=== PATIENT | female | born 1950 | race Caucasian/White ===

== ENCOUNTER → 2019-07-24 | Outpatient (CLI) | payer MEDICARE ==
--- NOTE | 2019-07-24 12:07 | MM ---
Reason for exam: screening (asymptomatic). History: Patient is postmenopausal. Took hormonal contraceptives for 3 months. Physical Findings: A clinical breast exam by your physician is recommended on an annual basis and results should be correlated with mammographic findings. MG 3D Screening Mammo W/Cad Bilateral CC and MLO view(s) were taken. No prior studies available for comparison. The breast tissue is heterogeneously dense. This may lower the sensitivity of mammography. There are benign appearing round calcifications bilaterally. There is no discrete abnormality. ASSESSMENT: Benign, BI-RAD 2 RECOMMENDATION: Routine screening mammogram of both breasts in 1 year.
== END | disposition home or self-care (01) ==
LOC: RADMAMWWP 11:15
PROVIDERS: ATTEND Family Medicine
DX: Z12.31 Encounter for screening mammogram for malignant neoplasm of breast (principal)
CPT/HCPCS: 77063; 77067

== ENCOUNTER → 2020-03-03 | Outpatient (CLI) | payer MEDICARE ==
--- NOTE | 2020-03-03 16:29 | CONS ---
CONSULTATION DATE OF SERVICE: 03/03/2020 A 69-year-old lady who has been evaluated in the [facility] for possible obstructive sleep apnea-hypopnea syndrome. HISTORY OF PRESENT ILLNESS/SLEEP WAKE EVALUATION: Patient usual sleep schedule from 12:30 - 2 am until 10 a.m. She does have problems with falling asleep, although no TV in bedroom. She sleeps on the side position. She has been told that she snores. She wakes up from sleep with back pain. No history of hypnagogic hallucinations, sleep paralysis or cataplexy. [place] Sleepiness Scale is 1. During the day, patient has problem with the memory, claustrophobia. PAST MEDICAL HISTORY: Positive for hypertension and diabetes, from the back. PAST SURGICAL HISTORY: Total hysterectomy, tonsillectomy, adenoidectomy. MEDICATIONS: Tizanidine 4 mg once a day, tamsulosin 4 mg 3 times a day, lisinopril 10 mg once a day. Motrin 15 mg once a day. Amitriptyline 25 mg, atorvastatin 20 mg once a day, Restoril 30 mg once a day at bedtime. REVIEW OF SYSTEMS: Snoring. PHYSICAL EXAM: lady without distress. BP 120/72, HR 85, RR 15, height 4, 11, weight 154.8, temperature 98.9, oxygen saturation at room air 99%. OROPHARYNX: Low position of soft palate. Mallampati 3. NECK: Supple, no JVD. Thyroid is not palpable. LUNGS: Clear to percussion and to auscultation. Good air exchange. No wheezing or rhonchi. HEART: S1, S2 regular. No murmurs, gallops, or rubs. ABDOMEN: Soft and nontender. Bowel sounds are present. No organomegaly appreciated. EXTREMITIES: No clubbing or cyanosis. 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 Cranial nerves 2 to 7 intact. There is no fasciculation or atrophy. noted. No focal deficits observed. IMPRESSION: 1. Snoring, sometimes awakenings from sleep, low position of soft palate. Possible obstructive sleep apnea-hypopnea syndrome. 2. Hypertension. 3. Diabetes mellitus. 4. Back problems. 5. Status post total hysterectomy. 6. Status post tonsillectomy. 7. Status post adenoidectomy. PLAN: 1. Polysomnography for evaluation of patient's breathing during sleep. 2. CPAP/BiPAP titration if sleep study confirms obstructive sleep apnea-hypopnea syndrome. 3. Preferable position during sleep on the side. 4. No driving if patient feels any sleepiness. 5. I will see patient for follow up visit to explain results of testing and following plan. Thank you very much for referring this patient for consultation. Sincerely, Zack Yu MD, PhD, FAASM Diplomat of [place] [employer] [facility] [facility] [place] MMODL / IJN: [id number] /
== END | disposition home or self-care (01) ==
LOC: SLEEP 14:43
PROVIDERS: ATTEND Internal Medicine
DX: I10 Essential (primary) hypertension (principal); E11.9 Type 2 diabetes mellitus without complications; Z90.710 Acquired absence of both cervix and uterus; Z98.890 Other specified postprocedural states; Z99.89 Dependence on other enabling machines and devices; Z79.899 Other long term (current) drug therapy; Z79.1 Long term (current) use of non-steroidal anti-inflammatories (NSAID)
CPT/HCPCS: 99211

== ENCOUNTER → 2020-03-29 | Outpatient (CLI) | payer MEDICARE ==
[2020-03-29 12:55] VITALS: BP 98/54; PULSE 87; RESP 16; TEMP 98.4
--- NOTE | 2020-03-29 13:22 | P.PAINCN ---
History of Present Illness - Reason for Consult Consult date: 03/29/20 - History of Present Illness This is a 69 years old female with a chronic history of severe low back pain, started almost 10 years ago, she denies any initiating event, the intensity of the pain increased over time, and 3 years ago she had lumbar epidural steroid injections, and she had no benefit from it, and 2 years ago she started having issues with her urination, she is not able to control her bladder function, he was evaluated by urologist and recommend urinary catheterization, currently she is complaining of severe low back pain with radiation to the buttock bilaterally and the lower extremity, and to the vaginal area, and to the lower extremity, associated with numbness and tingling sensation, she denies any fever or night sweats Past Medical History Past Medical History: GERD/Reflux, Hyperlipidemia, Hypertension, Musculoskeletal Disorder, Osteoarthritis (OA) Additional Past Medical History / Comment(s): bladder problems, can't empty blad jose fully, self catheterizes frequently, heart valve problems-card. monitors, nerve pain in crotch area & low back History of Any Multi-Drug Resistant Organisms: None Reported Past Surgical History: Hysterectomy, Orthopedic Surgery, Tonsillectomy Additional Past Surgical History / Comment(s): ORIF right ankle & then hardware removed, cataracts removed Past Anesthesia/Blood Transfusion Reactions: Previous Problems w/ Anesthesia Additional Past Anesthesia/Blood Transfusion Reaction / Comm: years ago had problem waking up from anesthesia, but not recently Past Psychological History: Depression Smoking Status: Former smoker Past Alcohol Use History: None Reported Additional Past Alcohol Use History / Comment(s): quit smoking 1 month ago, smoked on & off since age of 18 <1/2ppd Past Drug Use History: None Reported Medications and Allergies Home Medications Medication Instructions Recorded Confirmed Type Amitriptyline HCl [Elavil] 50 mg PO HS 03/26/20 03/29/20 History Atorvastatin [Lipitor] 20 mg PO HS 03/26/20 03/29/20 History Ibuprofen [Motrin] 600 mg PO Q6HR PRN 03/26/20 03/29/20 History Lisinopril [Zestril] 10 mg PO DAILY 03/26/20 03/29/20 History Tamsulosin [Flomax] 0.4 mg PO DAILY 03/26/20 03/29/20 History Temazepam [Restoril] 30 mg PO HS PRN 03/26/20 03/29/20 History tiZANidine [Zanaflex] 4 mg PO DAILY 03/26/20 03/29/20 History Allergies Allergy/AdvReac Type Severity Reaction Status Date / Time codeine Allergy passed out Verified 03/29/20 12:37 Penicillins Allergy tongue Verified 03/29/20 12:37 swelling, throat closing meperidine [From Demerol] AdvReac "out of it" Verified 03/29/20 12:37 Physical Exam Vitals: Vital Signs Temp Pulse Resp BP Pulse Ox 03/29/20 12:39 98.4 F 87 16 98/54 98 Physical Examinations : -Constitutiona : Cooperative , not in acute distress . -HEENT : nech : supple , no Lymphadenopathy , normal thyroid size . : eyes : no ptosis , no icterus, no photophobia . - neurologic : Cranial nerve II to XII intact , no focal neurological deffecit . -psychatric : alert , oriented X 3 , appropriate affect , intact judgment and insight . -Lymphatic : no Lymphadenopathy . - musculoskeltal : Lumber spine moter stegnth lower extremities ,thigh and legs 4/5 Right side , 4/5 Left side deep tendon reflexes : normal Knee J erk , normal ankle Jerk lumber facet Loading Test =positive Right , positive Left Range of motion of the lumbar spine Flexion 30 degrees, extension 10 degrees strait leg raising test = positive at 45 degree Fabere test= positive Right , and positive LT . Sever tenderness over the Sacroiliac joint on the Right , and Left sides Gaenslen test= positive right ,and positive left . Seated flexion test= positive right ,and positive Left . Results Comments: MRI of the lumbar spine= L2 3 L3 4 L4 5 and L5-S1 bulging disc disease and facet joint arthropathy and foraminal stenosis Assessment and Plan Plan: Assessment and plan=1-lumbar radiculopathy. 2-lumbar foraminal stenosis. 3-lumbar spondylosis with lumbar facet arthropat hy without myelopathy. 4-bilateral sacroiliitis. Patient had no benefit from lumbar epidural steroid injection previously at different pain clinic a few years ago Patient will be good candidate to have bilateral median branch block at L3, L4, L5 (2 target the facet joint at L4 5 and L5-S1 ) She had good results with a diagnostic medial branch block then we will proceed with the RFA, So in the future patient could benefit from sacroiliac joint steroid injection Time with Patient: Greater than 30 PQRS Measure Charge Sheet Measure #130: Documentation of Current Meds in Medical Chart: Patient's medications documented in chart Measure #226: Tobacco Use: Screen & Cessation Intervention: Pt not a tobacco user Measure #111: Pneumonia Vaccination: Pneumococcal vaccine administered or previously received Measure #47: Advance Care Plan: Advance care planning discussed & documented, pt chose/unable to give Measure #412: Opioid Treatment Agreement: No documentation of signed opioid treatment agreement Measure #408: Opioid Therapy Follow-up Evaluation: Patient had NO f/u eval minimum every 3 months during opioid therapy Measure #317: Preventitive Care & Scrn High Bld Press & F/U: Normal blood pressure, f/u not required Measure #128: Body Mass Index (BMI) Screening & Follow-up: BMI documented ABOVE normal parameters - f/u documented Measure #131: Pain Assessment & Follow-up: Pain positive & plan documented, Follow-up scheduled Measure #431: Unhealthy Alcohol Use Preventative Care & Scrn: Patient not identified as an unhealthy alcohol user PQRS Narrative: Blood Pressure 98/54 Pain Intensity [Bilateral 7 Groin] Scale Used Numeric (1 - 10) Hx Alcohol Use (MH) No Home Medications: Ambulatory Orders Amitriptyline HCl [Elavil] 50 mg PO HS 03/26/20 Atorvastatin [Lipitor] 20 mg PO HS 03/26/20 Ibuprofen [Motrin] 600 mg PO Q6HR PRN 03/26/20 Lisinopril [Zestril] 10 mg PO DAILY 03/26/20 Tamsulosin [Flomax] 0.4 mg PO DAILY 03/26/20 Temazepam [Restoril] 30 mg PO HS PRN 03/26/20 tiZANidine [Zanaflex] 4 mg PO DAILY 03/26/20
== END | disposition home or self-care (01) ==
LOC: PNWHC3 11:54
PROVIDERS: ATTEND Specialist
DX: M48.061 Spinal stenosis, lumbar region without neurogenic claudication (principal); M47.26 Other spondylosis with radiculopathy, lumbar region; M46.1 Sacroiliitis, not elsewhere classified; E78.5 Hyperlipidemia, unspecified; I10 Essential (primary) hypertension; M19.90 Unspecified osteoarthritis, unspecified site; K21.9 Gastro-esophageal reflux disease without esophagitis; Z79.891 Long term (current) use of opiate analgesic; Z79.899 Other long term (current) drug therapy; Z88.0 Allergy status to penicillin; Z88.5 Allergy status to narcotic agent; Z87.891 Personal history of nicotine dependence
CPT/HCPCS: 99211

== ENCOUNTER 2020-04-16 13:00 | Day surgery (SDC) | payer MEDICARE ==
[2020-04-16] MEDS ORDERED: LIDOCAINE 1% (10MG/ML) FOR IV START INTRADERMA ONE (13:27)
[2020-04-16 13:28] VITALS: RESP 16; TEMP 96.9
[2020-04-16] MEDS ORDERED: LACTATED RINGERS 1,000 ML IV ONE (13:29)
[2020-04-16] MEDS ORDERED: MIDAZOLAM 2 MG/2 ML VIAL ONE (14:18)
[2020-04-16] MEDS ORDERED: TRIAMCINOLONE ACETONIDE 40 MG/ML 1 ML VIAL ONE (14:18)
[2020-04-16] MEDS ORDERED: methylPREDNISolone ACETATE 40 MG/ML 1 ML VIAL ONE (14:18)
[2020-04-16] MEDS ORDERED: ROPIVACAINE 5MG/ML 20ML VIAL ONE (14:18)
--- NOTE | 2020-04-16 14:40 | P.PCN ---
Date of Procedure: 04/16/20 Procedure(s) Performed: PREOPERATIVE DIAGNOSIS : 1- Lumbar spondylosis with Facet Arthropathy without myelopathy . 2- Lumber foraminal stenosis 3-bilateral sacroiliitis POSTOPERATIVE DIAGNOSIS: 1- Lumbar spondylosis with Facet Arthropathy without myelopathy . 2- Lumber foraminal stenosis. 3- bilaeral sacoiliis PROCEDURE: Diagnostic bilateral L3 , L4 , and L5 medial branch block under fluoroscopy guidance(fluoroscopy images available in the radiology Department ) ( To target the facet joint between L4-5 , and L5-S1 ) ANESTHESIA:, Monitored anesthesia care anesthesiaDepartment. EBL: Minimal COMPLICATION: None PROCEDURE INDICATION: Chronic low back pain secondary to Facet arthropathy unresponsive to conservative treatment. PROCEDURE DESCRIPTION: the patient was seen and identified in the preop holding area , risks and benefits and possible complications of the procedure and alternative were discussed with the patient, and the patient agreed to proceed with the procedure and signed the consent and vital signs monitored during the procedure and fluoroscopy was used to maximize the benefit and accuracy of the needle placement, and sedation was given to decrease patient anxiety, patient was taken to the procedure room and placed in prone position vital signs monitored in the back prepped with chlorhexidine X3 then under strict sterile technique using a right oblique fluoroscopy ,the junction of the transverse process and the superior articulating process of the right L3 , L4 , and L5 vertebra which corresponding to the fluoroscopy image of the eye of the Martin dog on the block side for the medial branches and subsequently , after local infiltration of skin and subcu tissuies with Ropivacaine 0.5 % , one mL at each level ,then 22-gauge Quincke-type needles , 3 needle was used , each one of them placed at the junction of the base of the transverse process and the superior articular process at the appropriate level, and the needle was advanced until the periosteum contacted, needle placement confirmed with AP oblique and lateral view and after appropriate needle placement confirmed, and after negative aspiration for heme and CSF and there was no paresthesia 1-1/2 mL of Ropivacaine 0.5% mixed with 20 mg Depo-Medrol , then half mL injected at each level after negative aspiration the needle subsequently removed and the same procedure repeated for the left side at left side at L3 , L4 and L5 levels. At the end of the procedure and the needles removed and a bandage applied after the skin was cleaned the cleaning solution patient taken to recovery room in stable condition and monitors in the recovery room for 20-30 minutes and discharged home in stable condition after discharge criteria met and patient will follow up with the pain clinic in 2-4 weeks
[2020-04-16] MEDS ORDERED: IV FLUID CONTINUATION 1,000 ML IV ONE (14:42)
[2020-04-16 14:57] VITALS: BP 100/61; PULSE 71
[2020-04-16] MEDS ORDERED: LACTATED RINGERS 1,000 ML IV SCH (15:15)
--- NOTE | 2020-04-16 16:41 | FL ---
Fluoroscopy HISTORY: Pain 20 seconds fluoroscopy time supplied to the referring clinician. 4 intraoperative C-arm images docum ent the procedure. See dictated report from anesthesia.
== END 2020-04-16 15:15 ==
LOC: ORPAIN 13:00
PROVIDERS: ATTEND Specialist
DX: G89.29 Other chronic pain (principal); M47.816 Spondylosis without myelopathy or radiculopathy, lumbar region; M48.061 Spinal stenosis, lumbar region without neurogenic claudication; M46.1 Sacroiliitis, not elsewhere classified; I10 Essential (primary) hypertension; E78.5 Hyperlipidemia, unspecified; K21.9 Gastro-esophageal reflux disease without esophagitis; Z79.899 Other long term (current) drug therapy; Z88.5 Allergy status to narcotic agent; Z88.0 Allergy status to penicillin
CPT/HCPCS: 64493; 64494; J2250; J1030; J2795

== ENCOUNTER → 2020-05-12 | Outpatient (CLI) | payer MEDICARE ==
--- NOTE | 2020-05-12 12:22 | XR ---
EXAMINATION TYPE: XR Hip Complete RT DATE OF EXAM: 05/12/2020 COMPARISON: NONE HISTORY: Pain TECHNIQUE: 2 views submitted FINDINGS: There is no evidence of erosive change or acute fracture. There is moderate to severe axial narrowing of the hip joint. Calcifications in the pelvis nonspecific but likely vascular. IMPRESSION: 1. Moderate severe axial narrowing of the hip joint. No erosive changes correlate clinically.
== END | disposition home or self-care (01) ==
LOC: RADXRMAIN 12:01
PROVIDERS: ATTEND Anesthesiology
DX: M25.851 Other specified joint disorders, right hip (principal)
CPT/HCPCS: 73502

== ENCOUNTER → 2020-05-12 | Outpatient (CLI) | payer MEDICARE ==
[2020-05-12 11:45] VITALS: BP 99/58; PULSE 89; RESP 18; TEMP 98.6
--- NOTE | 2020-05-12 11:51 | P.PN ---
Subjective Progress Note Date: 05/12/20 This is a 69-year-old lady with history of chronic lower back pain with radiation to the right lower extremity down to the foot as she states. The patient received lumbar medial branch block which did not help her pain as she states. She does have facet arthropathy by MRI of the lumbar spine and also kimberly ral foraminal stenosis plus and degenerative changes in the sacroiliac joints. She also has pain in her right hip when she walks. Patient denies new-onset weakness, bowel/bladder incontinence, or any other signs or symptoms of cauda equina syndrome. There are no signs of acute intoxication, and no indications of medication diversion or overuse. In addition to above, 13-point review of systems is also negative for chest pain, shortness of breath, changes in vision, changes in hearing, new onset weakness, abdominal pain, diarrhea, extreme fatigue, malaise, fever, skin changes, homicidal or suicidal ideation, or bowel or bladder incontinence. Vital Signs: Reviewed in EMR Gen: AAOx3, NAD HEENT: PERRLA,hearing grossly normal Pulm: resp unlabored Neck: supple, trachea midline Neuro exam of the lower extremities: Decreased muscle strength to 4 out of 5 for knee flexion and extension bilaterally and normal ankle flexion and extension bilaterally. Straight leg raising test: Moses's test: Range of motion of the lumbar spine: Facet loading test: Tenderness in the paravertebral musculature: Significant tenderness in the lumbar paravertebral musculature and also around the sacroiliac joints bilaterally. Neuro: CN II-XII grossly intact, Imaging: Reviewed in EMR/chart Assessment: Lumbar DDD Lumbar spondylosis without myelopathy Lumbar neural foraminal stenosis Bilateral sacroiliitis Right hip also arthritis Plan: 1. Explanation: Opioid and psychological risk scores were reviewed. Diagnoses, prognoses, and multiple treatment options including but not limited to physical therapy, interventional therapies, adjuvant medical therapies, narcotic medication therapies, and surgery were discussed with the patient and all questions were answered to the patient's satisfaction. 2. Opioid agreement: Signed with the patient and the patient is warned not to use opioids while driving or before driving and not to combine opioids with be nzodiazepines or alcohol. 3. Counseling: The patient was counseled extensively on SMOKING CESSATION, BODY MASS INDEX, EXERCISE. Specifically, the patient was instructed regarding the importance of smoking cessation, obesity, and exercise in the context of both chronic pain and overall health. 4. Procedures: I will schedule the patient to have diagnostic sacroiliac joint steroid injection bilaterally under fluoroscopic guidance. She might also need an epidural steroid injection in the future. 5. Consultations: None 6. Investigations: I would order two-view x-ray of the right hip joint 7. Medications: None 8. Disposition: Return to the above-mentioned procedure as soon as possible 9. Maps were reviewed and were appropriate. Objective - Vital Signs Vital signs: Vital Signs Temp 98.6 F 05/12/20 11:42 Pulse 89 05/12/20 11:42 Resp 18 05/12/20 11:42 BP 99/58 05/12/20 11:42 Pulse Ox 99 05/12/20 11:42 Intake & Output 05/11/20 05/12/20 05/12/20 18:59 06:59 18:59 Weight 65.771 kg
== END | disposition home or self-care (01) ==
LOC: PNWHC3 11:35
PROVIDERS: ATTEND Anesthesiology
DX: M48.061 Spinal stenosis, lumbar region without neurogenic claudication (principal); M51.36 Other intervertebral disc degeneration, lumbar region; M47.816 Spondylosis without myelopathy or radiculopathy, lumbar region; M46.1 Sacroiliitis, not elsewhere classified; M16.11 Unilateral primary osteoarthritis, right hip
CPT/HCPCS: 73502; 99211

== ENCOUNTER 2020-06-08 12:03 | Day surgery (SDC) | payer MEDICARE ==
[2020-06-07 13:48] VITALS: BMI 28.3
[2020-06-08] MEDS ORDERED: LACTATED RINGERS 1,000 ML IV ONE (12:52)
[2020-06-08 12:55] VITALS: TEMP 99.1
[2020-06-08] MEDS ORDERED: methylPREDNISolone ACETATE 40 MG/ML 1 ML VIAL ONE (13:00)
[2020-06-08] MEDS ORDERED: ROPIVACAINE 5MG/ML 20ML VIAL ONE (13:00)
[2020-06-08] MEDS ORDERED: IOPAMIDOL M200 10 ML VIAL ONE (13:00)
[2020-06-08] MEDS ORDERED: fentaNYL (PF) 50 MCG/ML 2 ML AMP ONE (13:00)
[2020-06-08] MEDS ORDERED: MIDAZOLAM 2 MG/2 ML VIAL ONE (13:00)
--- NOTE | 2020-06-08 13:12 | P.PCN ---
Date of Procedure: 06/08/20 Description of Procedure: Preoperative diagnoses: bilateral sacroilitis Postoperative diagnoses: bilateral sacroilitis. Procedure: bilateral sacroiliac joint steroid injection under fluoroscopic guidance. Surgeon: Ihsan Dowd MD Anesthesia: [2 mL of 1% lidocaine and moderate sedation per hospital guidelines], sedation time [] Fluoroscopy was used for the procedure and fluoroscopic images were saved to the radiology portion of the patient's chart. EBL: None Procedure indication: The patient had a history of severe chronic low back pain, diagnosed with sacroiliitis unresponsive to conservative treatment. Procedure description: The patient was seen and identified in the preoperative holding area, risks and benefits and alternative of the procedure and possible complications discussed with the patient, and patient agreed with the preceding, patient signed the consent, an IV was started, and vital signs were monitored and were stable throughout the procedure, patient was placed in the prone position on table and the lumbosacral area was prepped and draped with a sterile fashion, vital signs were closely monitored during the procedure, the fluoroscopy camera was placed in the contralateral oblique view on the bilateral sacroiliac joint and the lower part of the joint was identified . Then the skin and subcutaneous tissue was anesthetized using 2 mL of 1% lidocaine then a 22- gauge Quincke-type spinal needle advanced slowly under fluoroscopy and placed in the posterior and inferior border of the right sacroiliac joint, placement confirmed with AP and lateral view, and after appropriate needle placement confirmed and after negative aspiration for heme, 1 mL of Isovue 200 was injected revealing intra-articular spread. Then a solution consisting of 1.5 ml of ropivacaine 0.5% and 20 mg of depomedrolinjected after negative aspiration, no paresthesia during the injection, no resistance to injection, and the needle was removed. The procedure was then repeated on the left side. Total of 40 mg of Depomdrol was used for the procedure. Patient tolerated the procedure well without any complication. The patient was returned to supine position after the back was cleaned and a Band-Aid applied, the patient was transported to recovery room in stable condition and monitored for 30 minutes before being discharged home. The patient will follow up with the pain clinic in a few weeks
[2020-06-08] MEDS ORDERED: IV FLUID CONTINUATION 400 ML IV ONE (13:16)
[2020-06-08 13:19] VITALS: RESP 20
[2020-06-08 13:42] VITALS: BP 101/62; PULSE 83
--- NOTE | 2020-06-08 14:38 | FL ---
Fluoroscopy HISTORY: Pain 7 seconds fluoroscopy time supplied to the referring clinician. 2 intraoperative C-arm images docume nt the procedure. See dictated report from anesthesia.
== END 2020-06-08 13:46 | disposition home or self-care (01) ==
LOC: ORPAIN 12:03
PROVIDERS: ATTEND Anesthesiology
DX: G89.29 Other chronic pain (principal); M46.1 Sacroiliitis, not elsewhere classified; Z88.0 Allergy status to penicillin; Z88.5 Allergy status to narcotic agent; Z91.040 Latex allergy status; Z90.710 Acquired absence of both cervix and uterus
CPT/HCPCS: J2250; J1030; J3010; Q9966; J2795; G0260

== ENCOUNTER → 2020-06-23 | Outpatient (CLI) | payer MEDICARE ==
[2020-06-23 13:37] VITALS: BP 80/48; PULSE 106; RESP 18; TEMP 97.5
--- NOTE | 2020-06-23 14:20 | P.PN ---
Subjective Progress Note Date: 06/23/20 this is a follow-up visit for this 69 years old female, with a chronic history of severe low back pain she states most with lumbar degenerative disc disease and lumbar spondylosis with lumbar facet arthropathy and bilateral sacroiliitis, previously we have done diagnostic medial branch block , which was negative and recently we did bilateral sacroiliac joint steroid injections, patient reported that she get significant improvement of her low back pain ,after the sacroiliac joint steroid injection,she denies any fever or night sweats which denies any auditory or sensory deficit the pain is intense and increased with any activity Objective - Vital Signs Vital signs: Vital Signs Temp 97.5 F L 06/23/20 13:35 Pulse 106 H 06/23/20 13:35 Resp 18 06/23/20 13:35 BP 80/48 06/23/20 13:35 Pulse Ox 92 L 06/23/20 13:35 Intake & Output 06/22/20 06/23/20 06/23/20 18:59 06:59 18:59 Weight 63.503 kg - Exam Physical Examinations : -Constitutiona : Cooperative , not in acute distress . -HEENT : nech : supple , no Lymphadenopathy , normal thyroid size . : eyes : no ptosis , no icterus, no photophobia . - neurologic : Cranial nerve II to XII intact , no focal neurological deffecit . -psychatric : alert , oriented X 3 , appropriate affect , intact judgment and insight . -Lymphatic : no Lymphadenopathy . - musculoskeltal : Lumber spine moter stegnth lower extremities ,thigh and legs 4/5 Right side , 4/5 Left side deep tendon reflexes : normal Knee Jerk , normal ankle Jerk lumber facet Loading Test =positive Right , positive Left Range of motion of the lumbar spine Flexion 30 degrees, extension 10 degrees strait leg raising test = positive at 45 degree Fabere test= positive Right , and positive LT . Sever tenderness over the Sacroiliac joint on the Right , and Left sides Gaenslen test= positive right ,and positive left . Seated flexion test= positive right ,and positive Left . Assessment and Plan Plan: MRI of the lumbar spine= L2 3 L3 4 L4 5 and L5-S1 bulging disc disease and facet joint arthropathy and foraminal stenosis. Assessment and plan=1-lumbar radiculopathy. 2-lumbar foraminal stenosis. 3-lumbar spondylosis with lumbar facet arthropathy without myelopathy. 4-bilateral sacroiliitis. She had No benefit from diagnostic medial branch block. Patient had good pain relief after bilateral sacroiliac joint steroid injection, and the pain relief was for short-term for this reason we will repeat bilateral sacroiliac joint steroid injection under fluoroscopy guidance PQRS Measure Charge Sheet Measure #130: Documentation of Current Meds in Medical Chart: Patient's medications documented in chart Measure #226: Tobacco Use: Screen & Cessation Intervention: Pt not a tobacco user Measure #111: Pneumonia Vaccination: Pneumococcal vaccine administered or previously received Measure #47: Advance Care Plan: Advance care planning discussed & documented, pt chose/unable to give Measure #412: Opioid Treatment Agreement: No documentation of signed opioid treatment agreement Measure #408: Opioid Therapy Follow-up Evaluation: Patient had NO f/u eval minimum every 3 months during opioid therapy Measure #317: Preventitive Care & Scrn High Bld Press & F/U: Normal blood pressure, f/u not required Measure #128: Body Mass Index (BMI) Screening & Follow-up: BMI documented ABOVE normal parameters - f/u documented Measure #131: Pain Assessment & Follow-up: Pain positive & plan documented, Follow-up scheduled Measure #431: Unhealthy Alcohol Use Preventative Care & Scrn: Patient not identified as an unhealthy alcohol user PQRS Narrative: Time with Patient: Less than 30
== END | disposition home or self-care (01) ==
LOC: PNWHC3 13:24
PROVIDERS: ATTEND Specialist
DX: M48.061 Spinal stenosis, lumbar region without neurogenic claudication (principal); M51.26 Other intervertebral disc displacement, lumbar region; M51.16 Intervertebral disc disorders with radiculopathy, lumbar region; M47.26 Other spondylosis with radiculopathy, lumbar region; M46.1 Sacroiliitis, not elsewhere classified
CPT/HCPCS: 99211

== ENCOUNTER 2020-07-20 08:25 | Day surgery (SDC) | payer MEDICARE ==
[2020-07-19 09:16] VITALS: BMI 28.3
[2020-07-20 08:55] VITALS: RESP 16; TEMP 98.4
[2020-07-20] MEDS ORDERED: LACTATED RINGERS 1,000 ML IV ONE (08:56)
[2020-07-20] MEDS ORDERED: LIDOCAINE 1% (10MG/ML) FOR IV START INTRADERMA ONE (08:56)
[2020-07-20] MEDS ORDERED: ROPIVACAINE 5MG/ML 20ML VIAL ONE (09:01)
[2020-07-20] MEDS ORDERED: MIDAZOLAM 2 MG/2 ML VIAL ONE (09:01)
[2020-07-20] MEDS ORDERED: methylPREDNISolone ACETATE 40 MG/ML 1 ML VIAL ONE (09:01)
[2020-07-20] MEDS ORDERED: IOPAMIDOL M200 10 ML VIAL ONE (09:01)
--- NOTE | 2020-07-20 09:14 | P.PCN ---
Date of Procedure: 07/20/20 Preoperative Diagnosis: Bilateral sacroiliac joint dysfunction Postoperative Diagnosis: Bilateral sacroiliac joint dysfunction Procedure(s) Performed: Bilateral sacroiliac joint injection under fluoroscopy guidance Anesthesia: MAC Surgeon: Nathan Livingston Estimated Blood Loss (ml): 0 IV fluids (ml): 100 Urine output (ml): 0 Pathology: none sent Condition: stable Disposition: PACU Description of Procedure: PROCEDURE INDICATIONS: This patient with a history of chronic low back pain, and sacroiliac joint dysfunction. Patient tried conservative therapy. Came here for intervention management. PROCEDURE DESCRIPTION: The patient was seen and identified in the preoperative area. Risks, benefits, complications, and alternatives were discussed with the patient. The patient agreed to proceed with the procedure and signed the consent. IV was started, and vital signs were stable. Patient was taken to the OR and time out was completed. The patient was placed in the prone position on procedure table and a pillow was placed under the abdomen to reduce lumbar lordosis. The lumbosacral area was prepped and draped in the usual sterile fashion. Critical pause was taken. Vital signs were closely monitored during the procedure. For the right side, the fluoroscopic camera was placed in left oblique view and right SI joint lower pole was identified. Skin entry point was infiltrated with 1% lidocaine and 22-gauge 3.5 inch spinal needle was introduced into the inferior one-third of SI joint and after penetrating into the joint arthrogram was done. 0.5 ml of [id number] contrast was injected after negative aspiration for blood, and air and negative for paresthesia. Good spread of the contrast into the SI joint has been seen. Then again after negative aspiration of spinal fluid and blood and negative for neurological symptoms, 3 mL of a solution containing total 2.5 mL of 1% preservative-free 0.5% ropivacaine mixed with 20 mg of Depo-Medrol was injected. The entire procedure was repeated on the left side as above. Needle was withdrawn intact. Skin was cleansed, and bandages were applied. COMPLICATIONS: None. Fluoroscopic image: saved to electronic medical records. DISPOSITION / PLANS: The patient was placed in a supine position and transferred to the recovery area in a stable condition for observation and was discharged from the recovery room after meeting discharge criteria. Home discharge i nstructions given to the patient by the staff. The patient was reexamined prior to discharge. The patient will schedule for follow-up visit with the pain clinic in 4 weeks duration.
[2020-07-20] MEDS ORDERED: LACTATED RINGERS 1,000 ML IV SCH (09:15)
--- NOTE | 2020-07-20 09:24 | FL ---
EXAMINATION TYPE: FL guided pain mgmt statistic DATE OF EXAM: 07/20/2020 HISTORY: Fluoroscopy time 2 seconds of fluoroscopy provided. IMPRESSION: 1. Fluoroscopy time.
[2020-07-20 09:27] VITALS: PULSE 67
[2020-07-20 09:41] VITALS: BP 88/54
== END 2020-07-20 10:06 | disposition home or self-care (01) ==
LOC: ORPAIN 08:25
DX: G89.29 Other chronic pain (principal); M53.3 Sacrococcygeal disorders, not elsewhere classified; Z88.0 Allergy status to penicillin; Z88.5 Allergy status to narcotic agent; Z91.040 Latex allergy status; Z79.899 Other long term (current) drug therapy; Z79.1 Long term (current) use of non-steroidal anti-inflammatories (NSAID); Z90.710 Acquired absence of both cervix and uterus
CPT/HCPCS: J2250; J1030; Q9966; J2795; G0260

== ENCOUNTER → 2020-08-19 | Outpatient (CLI) | payer MEDICARE ==
--- NOTE | 2020-08-23 14:02 | MM ---
Reason for exam: screening (asymptomatic). Last mammogram was performed 1 year and 1 month ago. History: Patient is postmenopausal. Family history of breast cancer in paternal grandmother. Took hormonal contraceptives for 3 months. Physical Findings: A clinical breast exam by your physician is recommended on an annual basis and results should be correlated with mammographic findings. MG 3D Screening Mammo W/Cad Bilateral CC and MLO view(s) were taken. Prior study comparison: July 24, 2019, bilateral MG 3d screening mammo w/cad. There are scattered fibroglandular densities. No significant changes when compared with prior studies. ASSESSMENT: Negative, BI-RAD 1 RECOMMENDATION: Routine screening mammogram of both breasts in 1 year.
== END | disposition home or self-care (01) ==
LOC: RADMAMWWP 11:01
PROVIDERS: ATTEND Family Medicine
DX: Z12.31 Encounter for screening mammogram for malignant neoplasm of breast (principal); Z80.3 Family history of malignant neoplasm of breast; Z78.0 Asymptomatic menopausal state
CPT/HCPCS: 77063; 77067

== ENCOUNTER → 2020-09-15 | Outpatient (CLI) | payer MEDICARE ==
[2020-09-15 12:23] VITALS: BP 115/70; PULSE 109; RESP 18; TEMP 98.5
--- NOTE | 2020-09-15 12:36 | P.PN ---
Subjective Progress Note Date: 09/15/20 Ama presents for follow-up today. She recently had bilateral sacroiliac joint injections. She reported that the injections offered 0% relief of her pain that is radiating into her crotch. She reports the pain stays in the crotch area and occasionally the low back. She feels a fullness sensation. She reports she's had a history of a hysterectomy 15 years ago. She has seen urology who she reports did not do any imaging just offered her some medications. She describes the pain as a sharp pain which does not increase or decrease with urination or defecation. She denies any vaginal bleeding or any discharge. She denies any sharp shooting pain down the leg. There is no pain in the hip. She's had an x-ray of the hip done in May showed severe osteoarthritis of the right hip. She also explains that she needs bilateral knee replacements. The pain is usually worse in the morning and throughout the day. Review of Systems: Denies any New chest pain, short of breath, Nausea/vomitting, abdominal pain, bowel or bladder incontinence, or any overt new neurologic symptoms in the upper or lower extremities outside of what is noted in the HPI Objective - Vital Signs Vital signs: Vital Signs Temp 98.5 F 09/15/20 12:21 Pulse 109 H 09/15/20 12:21 Resp 18 09/15/20 12:21 BP 115/70 09/15/20 12:21 Pulse Ox 97 09/15/20 12:21 - Exam General: Awake and alert oriented 3 no distress Respiratory exam: No audible wheezing no accessory muscle usage Cardiovascular exam: regular rate, palpable bilateral pulses, no lower extremity edema Abdominal exam: No distention nontender to palpation Cervical spine: Normal alignment, Spurling's negative, facet loading negative, Microsystems Engineer strength is 5/5, nunez negative Lumbar spine: There is a loss of lordosis, atrophy of the paraspinal and gluteal muscles. She is in a forward flexed body position. She is minimally tender over the sacrum. No tenderness over the lumbar spine. No tenderness over the trochanteric bursa. Her right and left hip movement pretty freely. Internal and external rotation did not cause any pain. Mike's test is negative. Gains on's is negative. Neuro exam: Normal sensation in bilateral upper extremities, deep tendon reflexes are 2+ bilateral upper extremities. Normal sensation in bilateral lower extremities. Deep tendon reflexes are 2+ in lower extremities Psych exam: Cooperative, appropriate mood Assessment and Plan Assessment: #1 sacroiliitis #2 pelvic pain Plan: At this point the injections have not offered significant benefit. I have ordered a computed tomography scan of the abdomen and pelvis with and without contrast. I like for her to see gynecology as well. I have referred her to see Dr. Ramos and asked to follow-up with us as needed moving forward.
== END ==
LOC: PNWHC3 12:11
PROVIDERS: ATTEND Hospitalist
DX: M46.1 Sacroiliitis, not elsewhere classified (principal); R10.2 Pelvic and perineal pain; M16.11 Unilateral primary osteoarthritis, right hip
CPT/HCPCS: 99211

== ENCOUNTER 2020-11-15 18:06 | Emergency (ER) | payer MEDICARE ==
[2020-11-15 18:11] VITALS: BP 113/60; PULSE 95; RESP 20; TEMP 98.4
--- NOTE | 2020-11-15 18:37 | ED ---
General Adult HPI - General Chief complaint: Recheck/Abnormal Lab/Rx Stated complaint: trouble urinate Time Seen by Provider: 11/15/20 18:18 Source: patient Mode of arrival: ambulatory Limitations: no limitations - History of Present Illness Initial comments: Dictation was produced using [employer] dictation software. please excuse any grammatical, word or spelling errors. Chief Complaint: 70-year-old female with history of urinary retention presents with urinary retention History of Present Illness: 70-year-old female she has back issues. She has history of urinary retention that she attributes to her chronic back issues. Patient states she last urinated at 3 PM. She has had urinary issues several years ago. She does have equipment to perform straight catheterizations on herself. She is unsuccessful earlier today. No other complaints. The ROS documented in this emergency department record has been reviewed and confirmed by me. Those systems with pertinent positive or negative responses have been documented in the HPI. All other systems are other negative and/or noncontributory. PHYSICAL EXAM: General Impression: Alert and oriented x3, not in acute distress HEENT: Normocephalic atraumatic, extra-ocular movements intact, pupils equal and reactive to light bilaterally, mucous membranes moist. Cardiovascular: Heart regular rate and rhythm Chest: Able to complete full sentences, no retractions, no tachypnea Abdomen: abdomen soft, mild tenderness to the suprapubic area, non-distended, no organomegaly Musculoskeletal: Pulses present and equal in all extremities, no peripheral edema Motor: no focal deficits noted Neurological: CN II-XII grossly intact, no focal motor or sensory deficits noted Skin: Intact with no visualized rashes Psych: Normal affect and mood ED course: 70 y Old female presents with urinary retention. Postvoid residual is 430 mL vital signs upon arrival are within acceptable limits. Martinez catheter was placed. Patient given outpatient referral to urology. Patient will be discharged. - Related Data Home Medications Medication Instructions Recorded Confirmed Amitriptyline HCl [Elavil] 50 mg PO HS 03/26/20 09/15/20 Atorvastatin [Lipitor] 20 mg PO HS 03/26/20 09/15/20 Lisinopril [Zestril] 10 mg PO DAILY 03/26/20 09/15/20 Tamsulosin [Flomax] 0.4 mg PO BID 03/26/20 09/15/20 Temazepam [Restoril] 30 mg PO HS 03/26/20 09/15/20 tiZANidine [Zanaflex] 4 mg PO DAILY 03/26/20 09/15/20 Gabapentin [Neurontin] 100 mg PO BID 06/07/20 09/15/20 Allergies Allergy/AdvReac Type Severity Reaction Status Date / Time codeine Allergy passed out Verified 11/15/20 18:10 latex Allergy Itching Verified 11/15/20 18:10 Penicillins Allergy tongue Verified 11/15/20 18:10 swelling, throat closing meperidine [From Demerol] AdvReac "out of it" Verified 11/15/20 18:10 Review of Systems ROS Statement: Those systems with pertinent positive or pertinent negative responses have been documented in the HPI. ROS Other: All systems not noted in ROS Statement are negative. Past Medical History Past Medical History: GERD/Reflux, Hyperlipidemia, Hypertension, Osteoarthritis (OA) Additional Past Medical History / Comment(s): bladder problems,can't empty bladder fully, self catheterizes frequently, nerve pain in "crotch" area & low back, two leaky heart valves, past hx ulcers, 'bad rt hip and both knees" History of Any Multi-Drug Resistant Organisms: None Reported Past Surgical History: Cholecystectomy, Hysterectomy, Orthopedic Surgery, Tonsillectomy Additional Past Surgical History / Comment(s): ORIF right ankle & then hardware removed, cataracts removed-stuart, pain clinic procedures Past Anesthesia/Blood Transfusion Reactions: Previous Problems w/ Anesthesia Additional Past Anesthesia/Blood Transfusion Reaction / Comment(s): years ago problem w/waking fron anesthesia, but not recently Past Psychological History: No Psychological Hx Reported Smoking Status: Former smoker Past Alcohol Use History: None Reported Past Drug Use History: None Reported - Past Family History Mother Family Medical History: No Reported History General Exam Limitations: no limitations Course Vital Signs 11/15/20 18:08 Temperature 98.4 F Pulse Rate 95 Respiratory 20 Rate Blood Pressure 113/60 O2 Sat by Pulse 97 Oximetry Disposition Clinical Impression: Urinary retention Disposition: HOME SELF-CARE Condition: Fair Instructions (If sedation given, give patient instructions): Acute Urinary Retention in Women (ED) Is patient prescribed a controlled substance at d/c from ED?: No Referrals: Jose G Wills DO [Primary Care Provider] - 1-2 days Negrito Goddard MD [STAFF PHYSICIAN] - 1-2 days
[2020-11-15 20:25] LABS: Appearance,Urine Clear (Clear); Bacteria,Urine Moderate /hpf; Bilirubin,Urine Negative (Negative); Blood,Urine Negative (Negative); Color,Urine Yellow; Glucose,Urine (UA) Negative (Negative); Ketones,Urine Negative (Negative); Leukocyte Esterase,Urine Small (Negative); Mucus,Urine Rare /hpf; Nitrite,Urine Positive (Negative); Protein,Urine Negative (Negative); RBC,Urine <1 /hpf (0-5); Specific Gravity,Urine 1.008 (1.001-1.035); Squamous Epithelial Cell,Urine <1 /hpf (0-4); Urobilinogen,Urine <2.0 mg/dL (<2.0); WBC,Urine 14 /hpf (0-5)
== END 2020-11-15 19:10 | disposition home or self-care (01) ==
LOC: EC 18:06
DX: R33.9 Retention of urine, unspecified (principal); I10 Essential (primary) hypertension; E78.5 Hyperlipidemia, unspecified; K21.9 Gastro-esophageal reflux disease without esophagitis; M19.90 Unspecified osteoarthritis, unspecified site; Z87.891 Personal history of nicotine dependence; Z88.0 Allergy status to penicillin; Z88.5 Allergy status to narcotic agent; Z91.040 Latex allergy status
CPT/HCPCS: 51702; 51798; 81001; 87077; 87086; 87186; 99283

== ENCOUNTER → 2020-11-30 | Outpatient (CLI) | payer MEDICARE | END | disposition home or self-care (01) | LOC: LABPAT 08:46 | PROVIDERS: ATTEND Orthopaedic Surgery Sports Medicine | DX: Z01.812 Encounter for preprocedural laboratory examination (principal) | CPT/HCPCS: 87070; 93005 ==

== ENCOUNTER → 2020-12-01 | Outpatient (CLI) | payer MEDICARE ==
[2020-12-01 11:57] LABS: HCT 35.3 % (34.0-46.0); HGB 11.6 gm/dL (11.4-16.0); MCH 30.3 pg (25.0-35.0); MCHC 32.8 g/dL (31.0-37.0); MCV 92.4 fL (80.0-100.0); Mean Platelet Volume 6.6; Platelet Count 474 k/uL (150-450); RBC 3.82 m/uL (3.80-5.40); RDW 14.2 % (11.5-15.5); WBC 8.5 k/uL (3.8-10.6)
[2020-12-01 12:07] LABS: Albumin 3.8 g/dL (3.5-5.0); Calcium 9.2 mg/dL (8.4-10.2); Potassium 4.7 mmol/L (3.5-5.1); Total Bilirubin 0.3 mg/dL (0.2-1.3); Total Protein 6.3 g/dL (6.3-8.2)
[2020-12-01 12:32] LABS: Partial Thromboplastin Time 23.9 sec (22.0-30.0); Prothrombin Time 10.5 sec (9.0-12.0)
== END | disposition home or self-care (01) ==
LOC: LABPAT 10:51
PROVIDERS: ATTEND Orthopaedic Surgery Sports Medicine
DX: Z01.812 Encounter for preprocedural laboratory examination (principal)
CPT/HCPCS: 36415; 80053; 85027; 85610; 85730

== ENCOUNTER → 2020-12-08 | Outpatient (CLI) | payer MEDICARE ==
[2020-12-08 13:30] VITALS: BP 133/96; PULSE 83; RESP 18; TEMP 98.1
--- NOTE | 2020-12-14 14:53 | P.PAINPG ---
Subjective Progress Note Date: 12/08/20 Ama presents for follow-up today. Past we have done bilateral sacroiliac joint injections and medial branch blocks. It seems only one set of sacroiliac joint injections were helpful in the medial branch blocks were not helpful. She reports the pain stays in the crotch area and occasionally the low back. She feels a fullness sensation. She reports she's had a history of a hysterectomy 15 years ago. She has seen urology who she reports did not do any imaging just offered her some medications. She describes the pain as a sharp pain which does not increase or decrease with urination or defecation. She denies any vaginal bleeding or any discharge. She denies any sharp shooting pain down the leg. There is no pain in the hip. She's had an x-ray of the hip done in May showed severe osteoarthritis of the right hip. Plan for her in the last visit was for her to get a CT of her abdomen and pelvis to rule out any pelvic pathology. We also referred her to Dr. Ramos for evaluation. She is here for follow-up today. she saw Dr. Ramos however she was not happy with him and does not want to see him again. She also did not get a CT of her abdomen and pelvis that she was confused as to where to go to get this. She has questions about burning of the nerves, however I mentioned her that according to documentation the medial branch blocks were not helpful for her and she endorses this as well. She said she was still like to get these nerves burned, however I did tell her it would not make sense given that the diagnostic injections were not successful. Also scheduled to have knee replacement on the right side on December 30. I did mention that would not want to do any steroid injection so close to the procedure as this would delay wound healing. Review of Systems: Denies any New chest pain, short of breath, Nausea/vomitting, abdominal pain, bowel or bladder incontinence, or any overt new neurologic symptoms in the upper or lower extremities outside of what is noted in the HPI Objective - Exam General: Awake and alert oriented 3 no distress Respiratory exam: No audible wheezing no accessory muscle usage Cardiovascular exam: regular rate, palpable bilateral pulses, no lower extremity edema Abdominal exam: No distention nontender to palpation Cervical spine: Normal alignment, Spurling's negative, facet loading negative, Grocery Clerk Checking strength is 5/5, nunez negative Lumbar spine: There is a loss of lordosis, atrophy of the paraspinal and gluteal muscles. She is in a forward flexed body position. She is minimally tender over the sacrum. No tenderness over the lumbar spine. No tenderness over the trochanteric bursa. Her right and left hip movement pretty freely. Internal and external rotation did not cause any pain. Mike's test is negative. Gains on's is negative. Neuro exam: Normal sensation in bilateral upper extremities, deep tendon reflexes are 2+ bilateral upper extremities. Normal sensation in bilateral lower extremities. Deep tendon reflexes are 2+ in lower extremities Psych exam: Cooperative, appropriate mood Assessment and Plan Assessment: #1 sacroiliitis #2 pelvic pain Plan: At this point the injections have not offered significant benefit. I have ordered a computed tomography scan of the abdomen and pelvis with and without contrast. She should get this and proceed with her knee surgery. We will follow up after her CT I have spent 32 minutes with chart reviewing the patient, speaking to the patient, and discussing plan of care with the patient PQRS Measure Charge Sheet PQRS Narrative: Hx Alcohol Use (MH) No Home Medications: Ambulatory Orders Amitriptyline HCl [Elavil] 50 mg PO HS 03/26/20 Atorvastatin [Lipitor] 20 mg PO HS 03/26/20 Lisinopril [Zestril] 10 mg PO DAILY 03/26/20 Tamsulosin [Flomax] 0.4 mg PO BID 03/26/20 Temazepam [Restoril] 30 mg PO HS 03/26/20 tiZANidine [Zanaflex] 4 mg PO DAILY 03/26/20 Gabapentin [Neurontin] 100 mg PO BID 06/07/20 Controlled Substance Measures - Controlled Substance Measures Is patient prescribed a controlled substance at discharge?: No
== END ==
LOC: PNWHC3 12:35
PROVIDERS: ATTEND Anesthesiology
DX: M46.1 Sacroiliitis, not elsewhere classified (principal); Z88.5 Allergy status to narcotic agent; Z91.040 Latex allergy status; Z88.0 Allergy status to penicillin; Z88.6 Allergy status to analgesic agent
CPT/HCPCS: 99211

== ENCOUNTER → 2020-12-21 | Outpatient (CLI) | payer MEDICARE ==
--- NOTE | 2020-12-21 12:30 | CT ---
EXAMINATION TYPE: CT abdomen pelvis w con DATE OF EXAM: 12/21/2020 HISTORY: Pelvic pain for [address] years[address] per order. CT DLP: 798.2mGycm Automated Exposure Control for Dose Reduction was Utilized. CONTRAST: CT scan of the abdomen and pelvis is performed with oral and with IV Contrast, patient injected with 100 mL of Isovue 300. COMPARISON: None. FINDINGS: LUNG BASES: Coronary artery calcification in the RCA distribution. Mild linear scarring posterior rig ht lung base. LIVER/GB: Cholecystectomy clips. PANCREAS: No significant abnormality is seen. SPLEEN: No significant abnormality is seen. ADRENALS: No significant abnormality is seen. KIDNEYS: Tiny subcentimeter cyst upper pole left kidney coronal image 65. BOWEL: Oral contrast does not reach level of the terminal ileum. There is wandering cecum into the ri ght mid abdomen with nondistended terminal ileum seen best on coronal image 41. Mild to moderate dist ention of contrast-filled stomach and duodenal sweep. No suspicious small bowel dilatation. Proximal jejunal loops extend to right of midline immediately after ligament of Treitz. Moderate prominence of the majority of the colon including redundant transverse colon. The descending colon is more in midl ine. Moderate amount of fecal material throughout the right and transverse colon. Moderate wall thick ening of cecum coronal image 36 for reference should be correlated with colonoscopy if has not been r ecently performed. SMA/SMV relationship is preserved. UTERUS/ADNEXA: Uterus surgically absent or markedly atrophic. LYMPH NODES: No greater than 1cm abdominal or pelvic lymph nodes are appreciated. OSSEOUS STRUCTURES: Exaggerated lumbar lordosis. Grade 1 retrolisthesis L1 on L2 and L2-L3. Moderate- to-severe disc space narrowing with endplate sclerosis and vacuum disc phenomenon at these levels. Ad ditional multilevel vacuum disc phenomena and disc space narrowing is noted. Facet arthropathy lower lumbar levels. Moderate axial joint space loss in both hips. OTHER: Tiny fat-containing umbilical hernia. Slightly prominent focal calcified plaque at SMA origin. Cannot exclude significant stenosis due to blooming artifact. IMPRESSION: 1. No significant colonic diverticular disease or CT evidence for diverticulitis. There is moderate g aseous distention of proximal two thirds of colon. Moderate proximal colonic fecal stasis noted. Wand ering cecum and some redundancy of colon is present. Overall nonobstructive bowel gas pattern.
== END | disposition home or self-care (01) ==
LOC: RADCTMAIN 10:00
PROVIDERS: ATTEND Anesthesiology
DX: Q43.8 Other specified congenital malformations of intestine (principal)
CPT/HCPCS: 82565; 84520; 74177; 36415; Q9967

== ENCOUNTER 2020-12-30 07:54 | Day surgery (SDC) | payer MEDICARE ==
--- NOTE | 2020-12-08 12:56 | P.PAINPG ---
Subjective Progress Note Date: 12/08/20 Ama presents for follow-up today. Past we have done bilateral sacroiliac joint injections and medial branch blocks. It seems only one set of sacroiliac joint injections were helpful in the medial branch blocks were not helpful. She reports the pain stays in the crotch area and occasionally the low back. She feels a fullness sensation. She reports she's had a history of a hysterectomy 15 years ago. She has seen urology who she reports did not do any imaging just offered her some medications. She describes the pain as a sharp pain which does not increase or decrease with urination or defecation. She denies any vaginal bleeding or any discharge. She denies any sharp shooting pain down the leg. There is no pain in the hip. She's had an x-ray of the hip done in May showed severe osteoarthritis of the right hip. Plan for her in the last visit was for her to get a CT of her abdomen and pelvis to rule out any pelvic pathology. We also referred her to Dr. Ramos for evaluation. She is here for follow-up today. she saw Dr. Ramos however she was not happy with him and does not want to see him again. She also did not get a CT of her abdomen and pelvis that she was confused as to where to go to get this. She has questions about burning of the nerves, however I mentioned her that according to documentation the medial branch blocks were not helpful for her and she endorses this as well. She said she was still like to get these nerves burned, however I did tell her it would not make sense given that the diagnostic injections were not successful. Also scheduled to have knee replacement on the right side on December 30. I did mention that would not want to do any steroid injection so close to the procedure as this would delay wound healing. Review of Systems: Denies any New chest pain, short of breath, Nausea/vomitting, abdominal pain, bowel or bladder incontinence, or any overt new neurologic symptoms in the upper or lower extremities outside of what is noted in the HPI Objective - Exam General: Awake and alert oriented 3 no distress Respiratory exam: No audible wheezing no accessory muscle usage Cardiovascular exam: regular rate, palpable bilateral pulses, no lower extremity edema Abdominal exam: No distention nontender to palpation Cervical spine: Normal alignment, Spurling's negative, facet loading negative, Slimer strength is 5/5, nunez negative Lumbar spine: There is a loss of lordosis, atrophy of the paraspinal and gluteal muscles. She is in a forward flexed body position. She is minimally tender over the sacrum. No tenderness over the lumbar spine. No tenderness over the trochanteric bursa. Her right and left hip movement pretty freely. Internal and external rotation did not cause any pain. Mike's test is negative. Gains on's is negative. Neuro exam: Normal sensation in bilateral upper extremities, deep tendon reflexes are 2+ bilateral upper extremities. Normal sensation in bilateral lower extremities. Deep tendon reflexes are 2+ in lower extremities Psych exam: Cooperative, appropriate mood Assessment and Plan Assessment: #1 sacroiliitis #2 pelvic pain Plan: At this point the injections have not offered significant benefit. I have ordered a computed tomography scan of the abdomen and pelvis with and without contrast. She should get this and proceed with her knee surgery. We will follow up after her CT I have spent 32 minutes with chart reviewing the patient, speaking to the patient, and discussing plan of care with the patient PQRS Measure Charge Sheet PQRS Narrative: Hx Alcohol Use (MH) No Home Medications: Ambulatory Orders Amitriptyline HCl [Elavil] 50 mg PO HS 03/26/20 Atorvastatin [Lipitor] 20 mg PO HS 03/26/20 Lisinopril [Zestril] 10 mg PO DAILY 03/26/20 Tamsulosin [Flomax] 0.4 mg PO BID 03/26/20 Temazepam [Restoril] 30 mg PO HS 03/26/20 tiZANidine [Zanaflex] 4 mg PO DAILY 03/26/20 Gabapentin [Neurontin] 100 mg PO BID 06/07/20 Controlled Substance Measures - Controlled Substance Measures Is patient prescribed a controlled substance at discharge?: No
[2020-12-24 09:49] VITALS: BMI 27.2
[~2020-12-30 07:54] MED LIST: ACETAMINOPHEN TAB 500 MG TAB PO PRN; CLINDAMYCIN 900 MG in DEXTROSE 5% IN WATER 50 ML IVPB PRN; DEXAMETHASONE SOD PHOSPHATE 4 MG/ML 1 ML VIAL IV ONE; GABAPENTIN 300 MG CAP PO PRN; HYDROmorphone 0.5 MG/0.5 ML SYRINGE IVP PRN; MELOXICAM 7.5 MG TAB PO PRN; MIDAZOLAM 2 MG/2 ML VIAL IV PRN; ONDANSETRON 4 MG/2 ML VIAL IVP ONE; ONDANSETRON 4 MG/2 ML VIAL IVP PRN; ROPIVACAINE/EPI/CLONIDINE/KET 50 ML SYRINGE MISCELLANE PRN; TRANEXAMIC ACID 1,000 MG in SODIUM CHLORIDE 0.9% 100 ML IVPB PRN
[2020-12-30] MEDS: LACTATED RINGERS 1,000 ML IV SCH ×3 (08:39→23:42)
[2020-12-30] MEDS ORDERED: fentaNYL (PF) 50 MCG/ML 2 ML AMP IVP ONE (08:51)
[2020-12-30] MEDS ORDERED: VANCOMYCIN 1,000 MG in SODIUM CHLORIDE 0.9% 250 ML IVPB STA (09:04)
[2020-12-30] MEDS ORDERED: ONDANSETRON 4 MG/2 ML VIAL IVP PRN (09:23)
[2020-12-30] MEDS ORDERED: bisacodyL 10 MG SUPP RECTAL PRN (09:23)
[2020-12-30] MEDS ORDERED: MAGNESIUM HYDROXIDE 2,400 MG/10 ML CUP PO PRN (09:23)
[2020-12-30] MEDS ORDERED: NA PHOS,M-B/NA PHOS,DI-BA 133 ML ENEMA RECTAL PRN (09:23)
[2020-12-30] MEDS ORDERED: NALOXONE 0.4 MG/ML 1 ML VIAL IV PRN (09:23)
[2020-12-30] MEDS ORDERED: HYDROcodone/APAP 5-325MG 1 EACH TAB PO PRN (09:23)
[2020-12-30] MEDS ORDERED: ACETAMINOPHEN TAB 325 MG TAB PO PRN (09:23)
[2020-12-30] MEDS ORDERED: HYDROmorphone 0.2 MG/1 ML SYRINGE IVP PRN (09:23)
[2020-12-30] MEDS ORDERED: traMADol 50 MG TAB PO PRN (09:23)
[2020-12-30] MEDS ORDERED: HYDROmorphone 0.5 MG/0.5 ML SYRINGE IVP PRN ×2 (09:23)
[2020-12-30] MEDS ORDERED: HYDROmorphone (PF) 1 MG/ML ONE (10:18)
[2020-12-30] MEDS ORDERED: LIDOCAINE 1% INJ 10MG/ML (20 ML MDV) ONE (10:18)
[2020-12-30] MEDS ORDERED: ROPIVACAINE 5 MG/ML 30 ML VIAL ONE (10:18)
[2020-12-30] MEDS ORDERED: MIDAZOLAM 2 MG/2 ML VIAL ONE (10:18)
[2020-12-30] MEDS ORDERED: PROPOFOL 10 MG/ML 20 ML VIAL IV ONE (10:18)
[2020-12-30] MEDS ORDERED: SODIUM CHLORIDE 0.9% 100 ML BAG ONE (10:18)
[2020-12-30] MEDS ORDERED: fentaNYL (PF) 50 MCG/ML 2 ML AMP ONE (10:18)
[2020-12-30] MEDS ORDERED: SUCCINYLCHOLINE CHLORIDE 100 MG/5 ML SYR IV ONE (10:18)
[2020-12-30] MEDS ORDERED: TRANEXAMIC ACID 1,000 MG/10 ML VIAL ONE (10:18)
[2020-12-30] MEDS ORDERED: ceFAZolin 3,000 MG in SODIUM CHLORIDE 0.9% IRRIGATIO 3,000 ML IRRIGATION ONE (10:20)
--- NOTE | 2020-12-30 12:08 | P.ANPRN ---
Procedure Note - Anesthesia - Nerve Block Performed Right Adductor Canal Infusion Time Out Performed: Yes (08:51) Date of Procedure: 12/30/20 Procedure Start Time: 08:52 Procedure Stop Time: 09:00 Location of Patient: PreOp Indication: Acute Post-Operative Pain, Dx/Pain Location, Requested by Surgeon Specifically requested for management of pain by Dr.: Abdulaziz Fletcher Sedation Type: Sedate with meaningful contact maintained Preparation: Sterile Prep, Sterile Dressing Position: Supine Catheter: Indwelling Needle Types: Pajunk Needle Gauge: 18 Ultrasound used to visualize needle placement: Yes Ultrasound used to observe medication spread: Yes Injectate: 0.5% Ropivacaine (see comment for volume) (0.25% 20 cc) Blood Aspirated: No Pain Paresthesia on Injection Noted: No Resistance on Injection: Normal Image Stored and Saved: Yes Events: Uneventful and Well Tolerated Right iPack Single Time Out Performed: Yes (08:51) Date of Procedure: 12/30/20 Procedure Start Time: 09:01 Procedure Stop Time: 09:07 Location of Patient: PreOp Indication: Acute Post-Operative Pain, Dx/Pain Location (Right Knee), Requested by Surgeon Specifically requested for management of pain by Dr.: Abdulaziz Fletcher Sedation Type: Sedate with meaningful contact maintained Preparation: Sterile Prep Position: Supine Catheter: None Needle Types: Pajunk Needle Gauge: 20 Ultrasound used to visualize needle placement: Yes Ultrasound used to observe medication spread: Yes Injectate: 0.5% Ropivacaine (see comment for volume) (0.25% 20cc) Blood Aspirated: No Pain Paresthesia on Injection Noted: No Resistance on Injection: Normal Image Stored and Saved: Yes Events: Uneventful and Well Tolerated
--- NOTE | 2020-12-30 13:07 | XR ---
Right knee Limited HISTORY: Status post right knee arthroplasty 2 views of the right knee Patient is status post right knee arthroplasty. There is anatomic alignment. Bone mineralization is r educed. There is lucency in the soft tissues. IMPRESSION: Orthopedic follow-up.
[2020-12-30] MEDS ORDERED: LACTATED RINGERS 1,000 ML IV ONE (13:20)
--- NOTE | 2020-12-30 14:20 | OP ---
OPERATIVE REPORT DATE OF PROCEDURE: 12/30/2020 SURGEON: Abdulaziz Fletcher M.D. VIDEO SYSTEMS ENGINEER: Jeff Christine PA-C PREOPERATIVE DIAGNOSIS: Right knee osteoarthrosis. POSTOPERATIVE DIAGNOSIS: Right knee osteoarthrosis. PROCEDURE: Right total knee arthroplasty. ANESTHESIA: Spinal with sedation. ESTIMATED BLOOD LOSS: 100 mL. TOURNIQUET: Tourniquet time was 44 minutes at 250 mmHg. COMPLICATIONS: None apparent. DRAINS: None. DISPOSITION: Post-Anesthesia Care Unit INDICATIONS: Ama is a very pleasant 70-year-old female with longstanding history of right knee pain. History and physical examination are consistent with advanced right knee osteoarthrosis. She has been through significant nonoperative management up to this point. Further treatment options were discussed, and she has decided to go forward with right total knee arthroplasty. The risks of the procedure were discussed with her in detail. These risks include but are not limited to risk of infection, nerve damage, bleeding, pain, and a small risk of deep vein thrombosis which could lead to fatal pulmonary embolism. There is also a risk of loosening of the implant which could require revision operation. The patient understands these risks. All of her questions were answered to her satisfaction. Appropriate informed consent was obtained. DESCRIPTION OF PROCEDURE: The patient was identified in the preoperative holding area. Surgical site was marked by both the patient and myself. She was given 2 grams of Ancef IV for prophylactic purposes. She was then transferred to the operative suite. She was placed supine on the operating room table. Spinal anesthetic was then administered and dosed per the anesthesia department without apparent complication. Examination under anesthesia was then performed. The patient was 2-3 degrees shy of full extension. She had 100 degrees of flexion. The medial collateral ligament, lateral collateral ligament and posterior cruciate ligaments were stable. Tourniquet was then placed high on the right upper thigh, well padded in preparation for surgery. The patient's right lower extremity was then prepped and draped in usual sterile fashion. A standard surgical pause was then undertaken to ensure that we were operating on the correct site and that appropriate preoperative antibiotics had been given. All staff in the room were in agreement and we proceeded. The outlines of the patella were marked with a surgical pen. A planned 12 cm vertical incision centered over the patella was marked with a surgical pen. The leg was then exsanguinated with an Esmarch dressing. The knee was then flexed and the tourniquet was inflated to 250 mmHg. Total tourniquet time for the procedure was 44 minutes. Incision was then made with a 10 blade scalpel. Dissection was carried down sharply to the overlying fascia. Great care was taken to minimize the skin flaps. The knee was then exposed using a standard medial parapatellar approach. A small cuff of quadriceps tendon was then left for suturing. She was in a small amount of varus preoperatively. A standard medial release was then made. Superficial medial collateral ligament was dissected off the bone around to the posterior aspect of the proximal tibia. The medial meniscus was then excised as well. The lateral meniscus was also released anteriorly. The leg was then externally rotated. The patella was everted. The knee was flexed. Retractors were then placed to protect the collateral ligaments. I then proceeded to remove the infrapatellar fat pad. This was excised sharply tangentially with the fibers of the patellar tendon. I then proceeded to remove the peripheral osteophytes. This was done with a rongeur. I then proceeded with the distal femoral resection. She did have near-full extension. A planned 9 mm resection was then done. The femoral canal was then entered in the midline of the femur approximately 10 mm anterior to the origin of the posterior cruciate ligament. The galilea was then advanced down the center of the femur and placed intramedullary. Based on the preoperative radiographs, the angle between the anatomic and mechanical axis of the femur was approximately 4-5 degrees. The valgus angle of the distal femoral cutting guide was then set at 4 degrees for the right knee. The distal femoral cutting guide was then advanced over the intramedullary galilea. This was seated firmly against the femur. Then, as mentioned, I planned to take 9 mm off the distal femur. The cutting block was then secured onto the femur with pins. The jig was then removed and the distal femoral cut was made through the slot of the block. The pins were then removed. The distal femoral cutting block was removed. The accuracy of the distal femoral cuts was checked with two flat bars. I then proceeded with femoral sizing. The posterior referencing sizing guide was held firmly against the resected distal surface of the femur. The posterior condyles were resting on the posterior plane of the guide. The sizing stylus was then placed onto the anterior femur. The size was measured as a size 5. I then assessed for femoral rotation. The plan was for 3 degrees of external rotation. Three degrees of external rotation was placed onto the jig. These holes were then marked. I then confirmed the rotation by three separate methods. This was done using epicondylar axis as well as [place] line and posterior referencing. It was deemed that the external rotation was proper. Then I went forward with placing the femoral cutting block. This was placed over the previously placed pin holes. The Pierce wing was then placed onto the anterior slots to ensure that we would not notch the anterior femur with the anterior femoral cut. I then proceeded with the anterior femoral cut. This was flush with the anterior cortex of the femur. The posterior cuts were then made followed by the anterior chamfer cut, then the posterior chamfer cut. The cutting block was then removed. Throughout the resection, the collateral ligaments were protected with retractors. I then placed a trial size 5 femur. It was slightly wide, but the narrow fit very nicely and it fit flush with the distal end of the femur. The drill holes were then made. I then proceeded with the tibial cut. I planned for a cruciate-retaining knee. The guide was placed and set for varus, valgus and for slope. The height was set for an approximate 2 mm resection from the medial tibial plateau, which was the lower side. I was happy with the alignment and amount of resection. The cutting block was then pinned to the proximal tibia. The alignment galilea was removed. Proximal tibia was resected with a reciprocating saw. Again, this was done with retractors protecting the collateral ligaments as well as the posterior cruciate ligament. I then proceeded to evaluate the flexion and extension gaps. A 10 mm block was then placed. The flexion and extension gaps were equal. I then proceeded with resection of posterior osteophytes. She had very minimal posterior osteophytes. This was done using a curved osteotome. This resected the posterior osteophytes and posterior capsule stripping was done off the posterior aspect of the femur at this time. The osteophytes were then removed. I then proceeded with resection of the patella. The thickness of the patella was measured using the caliper. The patella was quite worn down. The thickness was 17 mm. The thickness of the anticipated patellar dome was taken into account. Resection was then performed and confirmed to be equal in 4 quadrants using the caliper. Approximately 12 mm of bone remained after resection. A 26 x 7.5 mm standard patellar trial was then placed. The holes were drilled. The trial was then placed. I then proceeded with sizing of the tibial plate. A size C tibial plate fit very nicely. I then placed the trial femur, the tibial tray and the patellar button. A 10 mm trial tibial insert was also placed. The components fit very nicely. She had full extension and flexion. The extension and flexion gaps were equal and stable to both varus and valgus stress. The patella tracked appropriately. Tibial tray rotation was then marked with a Bovie. This was externally rotated properly. I then proceeded with tibial preparation. I first drilled the femoral holes and removed the femoral component. The tibial tray was then set for proper external rotation as well as mediolateral placement onto the tibia. It was then pinned into place. I then proceeded with punching the keel. I then decided to proceed with cementing of all of our components. The knee was thoroughly irrigated with sterile saline solution via pulse lavage. The lateral geniculate artery was identified and cauterized. All blood was removed from the bone of the tibia, femur and patella with pulse lavage. I then proceeded with cementing. Two packs of antibiotic bone cement were prepared on the back table by the assembler surgical garment. I then proceeded with cementing the tibia first. The cement was impacted into the keel as well as deeply seated into the bone. A second coat of cement was then placed. The tibia was then impacted into place. Excess cement was removed with [place]'s and Joker's. I then proceeded with cementing of the femoral component. The femoral component was also cemented using standard technique. Excess cement was removed. A 10 mm trial insert was then placed into the knee. It was brought into full extension with a constant axial load placed until the cement had hardened. The patellar component was then cemented. This was held firmly with a compressive device until the cement had dried. When the cement had dried, the knee was taken out of extension. All excess cement was removed from around the prosthesis. I then trialed the knee with a 10 mm insert. Flexion and extension gaps were appropriate. The knee was stable. It came into full extension. I decided to go forward with a 10 mm medial-congruent, cross-linked cruciate-retaining tibial insert. Polyethylene was then placed onto the tibial tray and locked into place. The knee was then reduced. The knee was again further irrigated with sterile saline solution with antibiotic added. The tourniquet was then deflated. Total tourniquet time for the procedure was 44 minutes at 250 mmHg. Final components were Maurice Persona size 5 narrow cruciate-retaining femoral component, size C tibial tray, a 10 mm medial- congruent cruciate-retaining polyethylene insert and a 26 x 7.5 mm patella. I then proceeded with closure. Again the knee was thoroughly irrigated. The quadriceps tendon and the medial retinaculum were reapproximated with a #2 Ethibond suture. The extensor mechanism was then closed with a running #2 Quill suture. Subcutaneous tissues were closed with 2-0 Vicryl interrupted suture. The skin was closed with a running 3-0 Quill suture. Dermabond was applied to the incision. All sponge and needle counts were deemed correct prior to closure. Sterile compressive dressing was applied. The patient tolerated the procedure without apparent complication. She was transferred to the recovery room in stable condition. MMODL / IJN: [id number] /
[2020-12-30] MEDS: HYDROcodone/APAP 10-325MG 1 EACH TAB PO PRN (15:07)
[2020-12-30] MEDS: ASPIRIN 81 MG PO SCH (21:56)
[2020-12-30] MEDS: SENNOSIDES-DOCUSATE SODIUM 1 EACH TAB PO SCH (21:56)
[2020-12-30] MEDS ORDERED: VANCOMYCIN 1,000 MG in SODIUM CHLORIDE 0.9% 250 ML IVPB ONE (23:30)
[2020-12-31] MEDS: HYDROcodone/APAP 10-325MG 1 EACH TAB PO PRN ×3 (04:24→18:00)
[2020-12-31] MEDS: LACTATED RINGERS 1,000 ML IV SCH ×2 (05:43→16:23)
--- NOTE | 2020-12-31 07:05 | P.PN ---
Progress Note - Text Progress Note Date: 12/31/20 Patient was seen at bedside at 6:15 AM. Patient is postop day 1 from right to kamilla knee replacement with adductor canal catheter placed for pain . Ropivacaine 0.2% infusion running at 8 ml per hour. VAS score is 8. Patient denies side effects. Lower extremity sensation and motor function is intact. Patient has [] ambulated. Dressing clean dry and intact over catheter site
[2020-12-31] MEDS: ASPIRIN 81 MG PO SCH ×2 (07:45→21:55)
[2020-12-31] MEDS: MULTIVITAMINS, THERA 1 EACH TAB PO SCH (07:45)
[2020-12-31] MEDS: GABAPENTIN 100 MG CAP PO SCH ×2 (11:00→21:55)
[2020-12-31] MEDS: TAMSULOSIN 0.4 MG CAP.ER.24H PO SCH ×2 (11:00→21:56)
[2020-12-31] MEDS: lisinopriL 10 MG TAB PO SCH (11:00)
[2020-12-31] MEDS: tiZANidine 4 MG TAB PO SCH (11:05)
[2020-12-31 11:29] LABS: Basophils # (A) 0.03 X 10*3/uL (0.00-0.10); Basophils % (A) 0.2 %; Eosinophils # (A) 0.04 X 10*3/uL (0.04-0.35); Eosinophils % (A) 0.3 %; HCT 33.4 % (37.2-46.3); HGB 10.4 g/dL (12.0-15.0); Lymphocytes # (A) 1.81 X 10*3/uL (0.90-5.00); Lymphocytes % (A) 12.3 %; MCH 29.7 pg (27.0-32.0); MCHC 31.1 g/dL (32.0-37.0); MCV 95.4 fL (80.0-97.0); Mean Platelet Volume 10.5 fL (9.5-12.2); Monocytes # (A) 1.29 X 10*3/uL (0.20-1.00); Monocytes % (A) 8.7 %; Neutrophils # (A) 11.53 X 10*3/uL (1.80-7.70); Platelet Count 374 X 10*3/uL (140-440); RDW 14.8 % (11.5-14.5); WBC 14.77 X 10*3/uL (4.50-10.00)
--- NOTE | 2020-12-31 11:32 | P.PN ---
Subjective Progress Note Date: 12/31/20 Principal diagnosis: R TKA Patient is seen at bedside this morning. She is postop day #1 from right total knee arthroplasty. She has pain at the surgical site as expected but denies any new complaints. She denies numbness, tingling or calf pain. Review of systems is negative for fever, chills, chest pain, shortness of breath or other Objective - Vital Signs Vital signs: Vital Signs Temp 99.8 F H 12/31/20 08:00 Pulse 89 12/31/20 08:00 Resp 18 12/31/20 08:00 BP 105/52 12/31/20 08:00 Pulse Ox 97 12/31/20 08:00 Intake & Output 12/30/20 12/31/20 12/31/20 18:59 06:59 18:59 Intake Total 1307 2230 Output Total 100 800 Balance 1207 1430 Weight 70.6 kg Intake: IV 1307 Intake, IV Titration 1450 Amount Lactated Ringers 1,000 ml 1200 @ 100 mls/hr IV .Q10H VEENA Rx#:[id number] Vancomycin 1,000 mg In 250 Sodium Chloride 0.9% 250 ml @ 125 mls/hr IVPB ONCE ONE Rx#:[id number] Oral 780 Output: Urine 0 800 Uretheral (Martinez) 400 Estimated Blood Loss 100 Other: # Voids 1 - Exam Inspection reveals a benign surgical wound. There is no active bleeding or drainage. Neurovascular status is intact throughout the lower extremity with motor and sensation fully intact. Calf is soft and nontender. 2+ dorsalis pedis pulse and less than 2 second cap refill is present. - Constitutional General appearance: Present: no acute distress - Labs CBC & Chem 7: 12/31/20 06:50 Labs: Abnormal Lab Results - Last 24 Hours (Table) 12/31/20 Range/Units 06:50 WBC 14.77 H (4.50-10.00) X 10*3/uL RBC 3.50 L (4.10-5.20) X 10*6/uL Hgb 10.4 L (12.0-15.0) g/dL Hct 33.4 L (37.2-46.3) % MCHC 31.1 L (32.0-37.0) g/dL RDW 14.8 H (11.5-14.5) % Immature Gran # 0.07 H (0.00-0.04) X 10*3/uL Neutrophils # 11.53 H (1.80-7.70) X 10*3/uL Monocytes # 1.29 H (0.20-1.00) X 10*3/uL Assessment and Plan (1) Status post total right knee replacement Narrative/Plan: She will continue with routine postop orthopedic protocol including pain management, wound care, PT, DVT prophylaxis and medical management. Expect that she will transfer to home tomorrow Current Visit: Yes Status: Acute Priority: Medium Code(s): Z96.651 - PRESENCE OF RIGHT ARTIFICIAL KNEE JOINT SNOMED Code(s): 6374274246292 Time with Patient: Less than 30
[2020-12-31] MEDS ORDERED: AMITRIPTYLINE HCL 50 MG TAB PO SCH (21:00)
[2020-12-31] MEDS ORDERED: ATORVASTATIN 20 MG TAB PO SCH (21:00)
[2020-12-31] MEDS ORDERED: TEMAZEPAM 30 MG CAP PO SCH (21:00)
--- NOTE | 2020-12-31 21:39 | P.CONS ---
History of Present Illness - Reason for Consult Consult date: 12/31/20 Status post right total knee arthroplasty - Chief Complaint Medical management - History of Present Illness Patient is a 70-year-old female with a known history of hypertension, hyperlipidemia, osteoarthritis, GERD and previous history of smoking was admitted to the hospital for elective right total knee arthroplasty. Patient tolerated the procedure very well. Currently sitting up in the chair comfortably. Right knee soreness is present but pain is fairly controlled. No complaints of chest pain or shortness. No fever no chills. No headache or dizziness or lightheadedness. Postoperatively blood pressure was 89/51 and pulse 70 respirations 16 temperature afebrile. Laboratory data showed 14.7, hemoglobin 10.4 and platelets 374 Review of Systems Constitutional: Patient denies any fever or chills . No generalized weakness or weight loss. Abdomen: Patient denied nausea vomiting and diarrhea and abdominal pain. Cardiovascular: Patient denies any chest pain or short of breath no palpitations. Respiratory: patient denied any cough or sputum production. No shortness of breath Neurologic: Patient denied any numbness or tingling headache. Musculoskeletal: Patient denies any complaints of joint swelling or deformity. Skin: Negative Psychiatric: Negative Endocrine: No heat or cold intolerance. No recent weight gain. Genitourinary: No dysuria or hematuria. All other 14 point ROS negative except the above Past Medical History Past Medical History: GERD/Reflux, Hyperlipidemia, Hypertension, Osteoarthritis (OA) Additional Past Medical History / Comment(s): bladder problems,can't empty bladder fully, self catheterizes frequently, nerve pain in "crotch" area & low back, two leaky heart valves, past hx ulcers, 'bad rt hip and both knees" History of Any Multi-Drug Resistant Organisms: None Reported Past Surgical History: Cholecystectomy, Hysterectomy, Orthopedic Surgery, Tonsillectomy Additional Past Surgical History / Comment(s): ORIF right ankle & then hardware removed, cataracts removed-stuart, pain clinic procedures Past Anesthesia/Blood Transfusion Reactions: Previous Problems w/ Anesthesia Additional Past Anesthesia/Blood Transfusion Reaction / Comm: years ago problem w/waking from anesthesia, but not recently Past Psychological History: No Psychological Hx Reported Smoking Status: Former smoker Past Alcohol Use History: None Reported Additional Past Alcohol Use History / Comment(s): quit smoking 2019, smoked on & off since 18 <1/2ppd Past Drug Use History: None Reported - Past Family History Mother Family Medical History: No Reported History Medications and Allergies Home Medications Medication Instructions Recorded Confirmed Type Amitriptyline HCl [Elavil] 50 mg PO HS 03/26/20 12/24/20 History Atorvastatin [Lipitor] 20 mg PO HS 03/26/20 12/24/20 History Lisinopril [Zestril] 10 mg PO DAILY 03/26/20 12/24/20 History Tamsulosin [Flomax] 0.4 mg PO BID 03/26/20 12/24/20 History Temazepam [Restoril] 30 mg PO HS 03/26/20 12/24/20 History tiZANidine [Zanaflex] 4 mg PO DAILY 03/26/20 12/24/20 History Gabapentin [Neurontin] 100 mg PO BID 06/07/20 12/24/20 History Alendronate Sodium [Fosamax] 70 mg PO WE 12/24/20 12/24/20 History Meloxicam [Mobic] 15 mg PO DAILY 12/24/20 12/24/20 History Aspirin [Adult Low Dose Aspirin EC] 81 mg PO BID #60 tablet.dr 12/31/20 Rx Docusate [Colace] 100 mg PO BID #60 capsule 12/31/20 Rx HYDROcodone/APAP 7.5-325MG [[place] 1 - 2 each PO Q6HR PRN #42 tab 12/31/20 Rx 7.5-325] Allergies Allergy/AdvReac Type Severity Reaction Status Date / Time codeine Allergy passed out Verified 12/30/20 08:13 latex Allergy Itching Verified 12/30/20 08:13 Penicillins Allergy tongue Verified 12/30/20 08:13 swelling, throat closing meperidine [From Demerol] AdvReac "out of it" Verified 12/30/20 08:13 Physical Exam Vitals: Vital Signs Temp Pulse Pulse Resp BP Pulse Ox 12/31/20 08:00 99.8 F H 89 18 105/52 97 12/31/20 01:21 98.8 F 88 14 121/56 96 12/30/20 19:02 98.1 F 89 14 126/62 98 12/30/20 15:14 97.3 F L 82 18 102/68 98 12/30/20 13:47 73 18 117/85 97 12/30/20 13:20 73 14 102/51 99 12/30/20 13:03 72 14 93/55 99 12/30/20 12:32 70 16 89/51 98 12/30/20 12:18 98 F 69 14 93/50 96 Intake and Output 12/30/20 12/31/20 12/31/20 22:59 06:59 14:59 Intake Total 2230 Output Total 400 400 Balance -400 1830 Intake: Intake, IV Titration 1450 Amount Lactated Ringers 1,000 ml 1200 @ 100 mls/hr IV .Q10H VEENA Rx#:[id number] Vancomycin 1,000 mg In 250 Sodium Chloride 0.9% 250 ml @ 125 mls/hr IVPB ONCE ONE Rx#:[id number] Oral 780 Output: Urine 400 400 Uretheral (Martinez) 400 Other: # Voids 1 PHYSICAL EXAMINATION: Patient is lying in the bed comfortably, no acute distress, awake alert and oriented.. HEENT: Normocephalic. Neck is supple. Pupils reactive. Nostrils clear. Oral cavity is moist. Neck reveals no JVD, carotid bruits, or thyromegaly. CHEST EXAMINATION: Trachea is central. Symmetrical expansion. Lung hall clear to auscultation and percussion. Bibasilar diminished air entry CARDIAC: Normal S1, S2 with no gallops. No murmurs ABDOMEN: Soft. Bowel sounds normal. No organomegaly. No abdominal bruits. Extremities: reveal no edema. No clubbing or cyanosis Neurologically awake, alert, oriented x3 with well-coordinated movements. No focal deficits noted Skin: No rash or skin lesions. Psychiatric: Coperative. Nonsuicidal Musculoskeletal: No joint swelling or deformity. Normal range of motion.Right total knee surgical site is intact. Results CBC & Chem 7: 12/31/20 06:50 Assessment and Plan Assessment: Status post right total arthroplasty postoperative day 1 Mild acute blood loss anemia expected from surgery Leukocytosis likely postsurgical inflammatory reaction. No other evidence of infection. Hypertension. Patient is currently hypotensive. Blood pressure medications with parameters will be continued. Hyperlipidemia Osteoarthritis GERD Previous history of smoking DVT prophylaxis. Plan: Patient will be continued on incentive spirometry and encourage ambulation. Monitor CBC. Continue with pain management and limit narcotic pain medications. Stool softeners as needed. Continue with home medications and further recommendations based on clinical course. Thank you for your consult.
[2020-12-31] MEDS: SENNOSIDES-DOCUSATE SODIUM 1 EACH TAB PO SCH (21:55)
[2021-01-01] MEDS: LACTATED RINGERS 1,000 ML IV SCH ×4 (05:59→09:24)
[2021-01-01] MEDS: ASPIRIN 81 MG PO SCH (08:29)
[2021-01-01] MEDS: HYDROcodone/APAP 10-325MG 1 EACH TAB PO PRN (08:29)
[2021-01-01] MEDS: TAMSULOSIN 0.4 MG CAP.ER.24H PO SCH (08:29)
[2021-01-01] MEDS: GABAPENTIN 100 MG CAP PO SCH (08:29)
[2021-01-01] MEDS: tiZANidine 4 MG TAB PO SCH (08:29)
[2021-01-01] MEDS: MULTIVITAMINS, THERA 1 EACH TAB PO SCH (08:29)
[2021-01-01 08:34] VITALS: BP 117/55; PULSE 84; RESP 20; TEMP 98.5
[2021-01-01] MEDS: lisinopriL 10 MG TAB PO SCH (08:34)
--- NOTE | 2021-01-01 09:31 | P.DS ---
Providers Expected date of discharge: 01/01/21 Attending physician: Abdulaziz Fletcher Consults: 12/30/20 09:23 Consult Physician Routine Consulting Provider: Stephanie Galarza Consult Reason/Comments: post op medical management Do you want consulting provider notified?: Yes Primary care physician: Jose G Wills - Discharge Diagnosis(es) (1) Primary osteoarthritis of right knee Current Visit: Yes Status: Acute (2) Status post total right knee replacement Current Visit: Yes Status: Acute Priority: Medium Hospital Course: This is a pleasant 70-year-old female last seen in our office with complaints of right knee pain. Patient has known history of degenerative arthritis of the right knee and presented to discuss options. After discussion and consideration, patient elected to proceed with a total knee arthroplasty of the right knee. The patient was seen preoperatively and medically cleared for surgery by her primary care physician. The patient was admitted to [facility] and underwent right total knee arthroplasty on 12/30/[address] Fletcher. The procedure was performed without complications or sequelae. The patient has done well postoperatively. The patient was seen and evaluated at bedside today and denies any new complaints. Pain is reasonably controlled. Dressing is clean dry and intact. Incision looks fine with no erythema or active drainage. Calf is soft and nontender. The patient has full foot and ankle motion without difficulty. Patient's right lower extremity is neurovascular intact. Patient is orthopedically stable for discharge to home today. Pertinent Studies: Laboratory Tests 12/31/20 06:50 WBC 14.77 H RBC 3.50 L Hgb 10.4 L Hct 33.4 L MCHC 31.1 L RDW 14.8 H Patient Condition at Discharge: Stable Plan - Discharge Summary Discharge Rx Participant: No New Discharge Prescriptions: New Aspirin [Adult Low Dose Aspirin EC] 81 mg PO BID #60 tablet.dr HYDROcodone/APAP 7.5-325MG [[place] 7.5-325] 1 - 2 each PO Q6HR PRN #42 tab PRN Reason: Pain Docusate [Colace] 100 mg PO BID #60 capsule No Action Temazepam [Restoril] 30 mg PO HS Lisinopril [Zestril] 10 mg PO DAILY Atorvastatin [Lipitor] 20 mg PO HS Amitriptyline HCl [Elavil] 50 mg PO HS Tamsulosin [Flomax] 0.4 mg PO BID tiZANidine [Zanaflex] 4 mg PO DAILY Gabapentin [Neurontin] 100 mg PO BID Meloxicam [Mobic] 15 mg PO DAILY Alendronate Sodium [Fosamax] 70 mg PO WE Discharge Medication List Amitriptyline HCl [Elavil] 50 mg PO HS 03/26/20 [History] Atorvastatin [Lipitor] 20 mg PO HS 03/26/20 [History] Lisinopril [Zestril] 10 mg PO DAILY 03/26/20 [History] Tamsulosin [Flomax] 0.4 mg PO BID 03/26/20 [History] Temazepam [Restoril] 30 mg PO HS 03/26/20 [History] tiZANidine [Zanaflex] 4 mg PO DAILY 03/26/20 [History] Gabapentin [Neurontin] 100 mg PO BID 06/07/20 [History] Alendronate Sodium [Fosamax] 70 mg PO WE 12/24/20 [History] Meloxicam [Mobic] 15 mg PO DAILY 12/24/20 [History] Aspirin [Adult Low Dose Aspirin EC] 81 mg PO BID #60 tablet.dr 12/31/20 [Rx] Docusate [Colace] 100 mg PO BID #60 capsule 12/31/20 [Rx] HYDROcodone/APAP 7.5-325MG [[place] 7.5-325] 1 - 2 each PO Q6HR PRN #42 tab 12/31/20 [Rx] Follow up Appointment(s)/Referral(s): [facility], [NON-STAFF] - 1-2 Days Abdulaziz Fletcher MD [STAFF PHYSICIAN] - 01/12/21 9:45 am Activity/Diet/Wound Care/Special Instructions: Keep wound clean and dry Take meds as directed Follow-up with Dr. Fletcher in office Weight bear as tolerated May shower in 3 days if no bleeding Discharge/Stand Alone Forms: Who Do I Call? Discharge Disposition: HOME WITH HOME HEALTH SERVICES
== END 2021-01-01 13:09 | disposition home health service (06) ==
LOC: OR 07:54 → 4SSUR 13:39 → OR 01-01 13:09
PROVIDERS: ATTEND Orthopaedic Surgery Sports Medicine
DX: M17.11 Unilateral primary osteoarthritis, right knee (principal); K21.9 Gastro-esophageal reflux disease without esophagitis; E78.5 Hyperlipidemia, unspecified; I10 Essential (primary) hypertension
CPT/HCPCS: 27447; 97116; 97161; 64999; 64448; 76942; 85025; 88300; 73560; C1776; C1713; J2250; J3370; J1100; J2405; J0690; J2001; J3010; J1170 ×2; J2795; J0330; J2704

== ENCOUNTER 2021-01-05 19:48 | Emergency (ER) | payer MEDICARE ==
[2021-01-05 20:15] VITALS: TEMP 98.9
[2021-01-05] MEDS ORDERED: Acetaminophen-Codeine 300-30mg TAB PO STA (21:15)
--- NOTE | 2021-01-05 21:54 | XR ---
EXAMINATION TYPE: XR knee complete RT DATE OF EXAM: 01/05/2021 COMPARISON: 12/30/2020 HISTORY: Knee injury TECHNIQUE: 3 views FINDINGS: There is right knee prosthesis. Components appear in anatomic position. IMPRESSION: No fracture seen. No change compared to recent exam.
--- NOTE | 2021-01-05 21:56 | ED ---
Lower Extremity Injury HPI - General Chief Complaint: Extremity Injury, Lower Stated Complaint: Fall,Post Op Knee Time Seen by Provider: 01/05/21 21:07 Source: patient Mode of arrival: wheelchair Limitations: no limitations - History of Present Illness Initial Comments: 70-year-old female presenting to the emergency department with chief complaint of right knee injury. Patient reports she had a surgery by Dr. Fletcher, on the right knee 5 days ago. States she has a follow-up appointment on January 11. Patient reports earlier today, she had a triple fall incident and now the sutures on the surgical site has split open. States there was some bleeding which has since mostly resolved. She also reports pain in the leg. States she was discharged with narcotic medications but was never able to pick him up due to primacy issues. She denies any fevers or chills. - Related Data Home Medications Medication Instructions Recorded Confirmed Amitriptyline HCl [Elavil] 50 mg PO HS 03/26/20 01/05/21 Atorvastatin [Lipitor] 20 mg PO HS 03/26/20 01/05/21 Lisinopril [Zestril] 10 mg PO DAILY 03/26/20 01/05/21 Tamsulosin [Flomax] 0.4 mg PO BID 03/26/20 01/05/21 Temazepam [Restoril] 30 mg PO HS 03/26/20 01/05/21 tiZANidine [Zanaflex] 4 mg PO DAILY 03/26/20 01/05/21 Gabapentin [Neurontin] 100 mg PO BID 06/07/20 01/05/21 Alendronate Sodium [Fosamax] 70 mg PO WE 12/24/20 01/05/21 HYDROcodone/APAP 7.5-325MG [[place] 1 - 2 tab PO Q6HR PRN 01/05/21 01/05/21 7.5-325] Previous Rx's Medication Instructions Recorded Aspirin [Adult Low Dose Aspirin EC] 81 mg PO BID #60 tablet. 12/31/20 Docusate [Colace] 100 mg PO BID #60 capsule 12/31/20 Allergies Allergy/AdvReac Type Severity Reaction Status Date / Time codeine Allergy passed out Verified 01/05/21 21:59 latex Allergy Itching Verified 01/05/21 21:59 Penicillins Allergy tongue Verified 01/05/21 21:59 swelling, throat closing meperidine [From Demerol] AdvReac "out of it" Verified 01/05/21 21:59 Review of Systems ROS Statement: Those systems with pertinent positive or pertinent negative responses have been documented in the HPI. ROS Other: All systems not noted in ROS Statement are negative. Past Medical History Past Medical History: GERD/Reflux, Hyperlipidemia, Hypertension, Osteoarthritis (OA) Additional Past Medical History / Comment(s): bladder problems,can't empty bladder fully, self catheterizes frequently, nerve pain in "crotch" area & low back, two leaky heart valves, past hx ulcers, 'bad rt hip and both knees" History of Any Multi-Drug Resistant Organisms: None Reported Past Surgical History: Cholecystectomy, Hysterectomy, Orthopedic Surgery, Tonsillectomy Additional Past Surgical History / Comment(s): ORIF right ankle & then hardware removed, cataracts removed-stuart, pain clinic procedures Past Anesthesia/Blood Transfusion Reactions: Previous Problems w/ Anesthesia Additional Past Anesthesia/Blood Transfusion Reaction / Comment(s): years ago problem w/waking fron anesthesia, but not recently Past Psychological History: No Psychological Hx Reported Smoking Status: Former smoker Past Alcohol Use History: None Reported Past Drug Use History: None Reported - Past Family History Mother Family Medical History: No Reported History General Exam Limitations: no limitations General appearance: alert, in no apparent distress Head exam: Present: atraumatic, normocephalic, normal inspection Eye exam: Present: normal appearance, PERRL, EOMI Pupils: Present: normal accommodation ENT exam: Present: normal exam, normal oropharynx, mucous membranes moist Neck exam: Present: normal inspection, full ROM. Absent: tenderness, lymphadenopathy Respiratory exam: Present: normal lung sounds bilaterally. Absent: respiratory distress, wheezes, rhonchi, stridor Cardiovascular Exam: Present: regular rate, normal rhythm, normal heart sounds. Absent: systolic murmur Extremities exam: Present: tenderness (Tenderness at the injured site), normal capillary refill, other (Palpable DP and PT bilaterally). Absent: normal inspection (Open surgical site on the right knee), full ROM (Limited range of motion due to pain) Back exam: Present: normal inspection, full ROM. Absent: tenderness Neurological exam: Present: alert, oriented X3 Psychiatric exam: Present: normal affect, normal mood Skin exam: Present: warm, dry, intact, normal color Course Vital Signs 01/05/21 01/05/21 20:11 21:43 Temperature 98.9 F Pulse Rate 93 85 Respiratory 20 16 Rate Blood Pressure 104/51 132/62 O2 Sat by Pulse 92 L 98 Oximetry Procedures - Laceration Laceration #1 Consent Obtained: verbal consent Indication: laceration Size (cm): 10 Description: linear, clean Depth: simple, single layer Sedation/Analgesia: none Anesthetic Used: lidocaine 1% Anesthesia Technique: local infiltration Amount (mls): 5 Pre-repair: irrigated extensively, deep structures intact Type of Sutures: nylon Size of Sutures: 4-0 Number of Sutures: 10 Technique: simple, interrupted Patient Tolerated Procedure: well, no complications Medical Decision Making - Medical Decision Making 70-year-old female presenting to the emergency department with chief complaint of right knee injury. On physical examination, the incision site seems to have dehisced after she fell on her right knee. Otherwise neurovascularly intact. X-rays unremarkable. Patient requested closed with suture but not gwyn. I did apply 10 sutures to close the wound. I will also apply an immobilizer. Give the patient analgesia. I advised her to see Dr. Fletcher tomorrow morning. Return parameters were thoroughly discussed the patient is understanding and agreeable. Case discussed with Disposition Clinical Impression: Wound disruption, post-op, skin Disposition: HOME SELF-CARE Condition: Stable Instructions (If sedation given, give patient instructions): Care For Your Stitches (DC), Laceration (DC) Additional Instructions: follow-up with Dr. Fletcher. Return to emergency department if symptoms worsen. Is patient prescribed a controlled substance at d/c from ED?: No Referrals: Jose G Wills DO [Primary Care Provider] - 1-2 days Time of Disposition: 22:57
[2021-01-05] MEDS ORDERED: LIDOCAINE 1% INJ 10MG/ML (20 ML MDV) SQ ONE (22:33)
[2021-01-05] MEDS ORDERED: MORPHINE SULFATE 4 MG/ML SYRINGE IM STA (22:42)
[2021-01-05] MEDS ORDERED: ACET/COD 300 MG/30 MG STARTER PACK 6 TAB BTL PO STA (23:02)
[2021-01-05 23:21] VITALS: BP 145/59; PULSE 81; RESP 18
== END 2021-01-05 23:11 | disposition home or self-care (01) ==
LOC: EC 19:48
DX: T81.30XA Disruption of wound, unspecified, initial encounter (principal); I10 Essential (primary) hypertension; E78.5 Hyperlipidemia, unspecified; K21.9 Gastro-esophageal reflux disease without esophagitis; M19.90 Unspecified osteoarthritis, unspecified site; Z79.82 Long term (current) use of aspirin; Z79.899 Other long term (current) drug therapy; Z87.891 Personal history of nicotine dependence; Z88.0 Allergy status to penicillin; Z88.5 Allergy status to narcotic agent; W01.0XXA Fall on same level from slipping, tripping and stumbling without subsequent striking against object, initial encounter
CPT/HCPCS: 12004; 99284; 73562; 96372; L1830; J2270; J2001

== ENCOUNTER 2021-01-18 15:19 | Inpatient (IN) | payer MEDICARE ==
[2021-01-18] MEDS ORDERED: HYDROmorphone 0.5 MG/0.5 ML SYRINGE IVP STA (15:44)
[2021-01-18 16:39] LABS: Basophils % (A) 0 %; Eosinophils # (A) 0.3 k/uL (0-0.7); Eosinophils % (A) 1 %; HCT 27.3 % (34.0-46.0); Lymphocytes # (A) 0.9 k/uL (1.0-4.8); Lymphocytes % (A) 4 %; MCH 31.9 pg (25.0-35.0); MCHC 34.2 g/dL (31.0-37.0); MCV 93.3 fL (80.0-100.0); Mean Platelet Volume 7.1; Monocytes # (A) 0.6 k/uL (0-1.0); Monocytes % (A) 3 %; Neutrophils # (A) 23.1 k/uL (1.3-7.7); Neutrophils % (A) 92 %; Platelet Count 547 k/uL (150-450); RBC 2.93 m/uL (3.80-5.40); RDW 14.3 % (11.5-15.5)
[2021-01-18 16:51] LABS: Albumin 3.6 g/dL (3.5-5.0); Calcium 9.9 mg/dL (8.4-10.2); Total Bilirubin 0.4 mg/dL (0.2-1.3); Total Protein 6.3 g/dL (6.3-8.2)
[2021-01-18 16:54] LABS: HGB 9.4 gm/dL (11.4-16.0)
--- NOTE | 2021-01-18 17:08 | XR ---
EXAMINATION TYPE: XR humerus RT DATE OF EXAM: 01/18/2021 COMPARISON: NONE HISTORY: Fall. Pain. TECHNIQUE: 3 views FINDINGS: Elbow joint is intact. Shoulder joint is anatomic. I see no fracture nor dislocation. IMPRESSION: No acute abnormality of the right humerus.
--- NOTE | 2021-01-18 17:09 | XR ---
EXAMINATION TYPE: XR hand limited RT DATE OF EXAM: 01/18/2021 COMPARISON: NONE HISTORY: Fall. Pain. TECHNIQUE: 2 views FINDINGS: There is some spurring at the IP joint of the thumb. Metacarpals are intact. Carpal bones a re intact. There is narrowing of the scaphoid trapezium joint space. IMPRESSION: There is some osteoarthritis. No fracture seen.
--- NOTE | 2021-01-18 17:11 | XR ---
EXAMINATION TYPE: XR knee complete RT DATE OF EXAM: 01/18/2021 COMPARISON: 01/05/2021 HISTORY: Fall. Pain. TECHNIQUE: 3 views FINDINGS: There is right knee prosthesis. Components appear in anatomic position. I see no fracture. IMPRESSION: No fracture seen. No change compared to old exam.
--- NOTE | 2021-01-18 17:12 | XR ---
EXAMINATION TYPE: XR forearm RT DATE OF EXAM: 01/18/2021 COMPARISON: NONE HISTORY: Fall. Pain. TECHNIQUE: 2 views FINDINGS: radius and ulna appear intact. Elbow joint and wrist joint appear intact. IMPRESSION: No fracture seen.
--- NOTE | 2021-01-18 17:32 | ED ---
Fall HPI - General Chief Complaint: Fall Stated Complaint: fall Time Seen by Provider: 01/18/21 15:27 Source: patient, EMS, RN notes reviewed Mode of arrival: EMS - History of Present Illness Initial Comments: Patient is a 70-year-old female that presents to emergency department status post fall. She notes that she recently had a right knee replacement done on 12/30/2020 and has had balance issues since then. Her notes that she's been falling more frequently. She notes that she is unstable. Patient notes that the surgical incision has opened up several times and has had to be seen by the orthopedic surgeon multiple times. notes that surgeons name is Dr. Fletcher. Patient is otherwise a well-appearing 70-year-old female. She notes that her pain is a 20 out of 10 with both injuries adding up. She notes that she is also having right arm pain. She denied any other issues or complaints. She denied chest pain short of breath headache nausea vomiting diarrhea constipation fever fatigue chills. - Related Data Home Medications Medication Instructions Recorded Confirmed Amitriptyline HCl [Elavil] 50 mg PO HS 03/26/20 01/05/21 Atorvastatin [Lipitor] 20 mg PO HS 03/26/20 01/05/21 Lisinopril [Zestril] 10 mg PO DAILY 03/26/20 01/05/21 Tamsulosin [Flomax] 0.4 mg PO BID 03/26/20 01/05/21 Temazepam [Restoril] 30 mg PO HS 03/26/20 01/05/21 tiZANidine [Zanaflex] 4 mg PO DAILY 03/26/20 01/05/21 Gabapentin [Neurontin] 100 mg PO BID 06/07/20 01/05/21 Alendronate Sodium [Fosamax] 70 mg PO WE 12/24/20 01/05/21 HYDROcodone/APAP 7.5-325MG [[place] 1 - 2 tab PO Q6HR PRN 01/05/21 01/05/21 7.5-325] Previous Rx's Medication Instructions Recorded Aspirin [Adult Low Dose Aspirin EC] 81 mg PO BID #60 tablet. 12/31/20 Docusate [Colace] 100 mg PO BID #60 capsule 12/31/20 Allergies Allergy/AdvReac Type Severity Reaction Status Date / Time codeine Allergy passed out Verified 01/05/21 21:59 latex Allergy Itching Verified 01/05/21 21:59 Penicillins Allergy tongue Verified 01/05/21 21:59 swelling, throat closing meperidine [From Demerol] AdvReac "out of it" Verified 01/05/21 21:59 Review of Systems ROS Statement: Those systems with pertinent positive or pertinent negative responses have been documented in the HPI. ROS Other: All systems not noted in ROS Statement are negative. Past Medical History Past Medical History: GERD/Reflux, Hyperlipidemia, Hypertension, Osteoarthritis (OA) Additional Past Medical History / Comment(s): bladder problems,can't empty bladder fully, self catheterizes frequently, nerve pain in "crotch" area & low back, two leaky heart valves, past hx ulcers, 'bad rt hip and both knees" History of Any Multi-Drug Resistant Organisms: None Reported Past Surgical History: Cholecystectomy, Hysterectomy, Orthopedic Surgery, Tonsillectomy Additional Past Surgical History / Comment(s): ORIF right ankle & then hardware removed, cataracts removed-stuart, pain clinic procedures Past Anesthesia/Blood Transfusion Reactions: Previous Problems w/ Anesthesia Additional Past Anesthesia/Blood Transfusion Reaction / Comment(s): years ago problem w/waking fron anesthesia, but not recently Past Psychological History: No Psychological Hx Reported Smoking Status: Former smoker Past Alcohol Use History: None Reported Past Drug Use History: None Reported - Past Family History Mother Family Medical History: No Reported History General Exam Limitations: physical limitation General appearance: alert, in no apparent distress Head exam: Present: atraumatic, normocephalic, normal inspection Eye exam: Present: normal appearance, PERRL, EOMI. Absent: scleral icterus, conjunctival injection, periorbital swelling ENT exam: Present: normal exam Neck exam: Present: normal inspection. Absent: tenderness, meningismus, lymphadenopathy Respiratory exam: Present: normal lung sounds bilaterally. Absent: respiratory distress, wheezes, rales, rhonchi, stridor Cardiovascular Exam: Present: regular rate, normal rhythm, normal heart sounds. Absent: systolic murmur, diastolic murmur, rubs, gallop, clicks Right Upper Arm exam: Present: normal inspection, full ROM. Absent: tenderness, swelling Elbow exam: Present: normal inspection, full ROM. Absent: tenderness, swelling Forearm Wrist exam: Present: normal inspection, full ROM, tenderness (Over the ulnar aspect.). Absent: swelling, abrasion Hand Wrist exam: Present: normal inspection, full ROM Neurological exam: Present: alert, oriented X3 Psychiatric exam: Present: normal affect, normal mood Skin exam: Present: warm, dry, intact, normal color. Absent: rash Course Vital Signs 01/18/21 15:46 Temperature 99.5 F Pulse Rate 94 Respiratory 18 Rate Blood Pressure 108/64 O2 Sat by Pulse 98 Oximetry Medical Decision Making - Medical Decision Making 70-year-old female status post fall with right knee pain and right arm pain. X-ray the right knee, right upper extremity, 0.5 mg of Dilaudid, basic labs ord ered. Labs:Her blood cells 25, hemoglobin 9.4 sodium 125 potassium 6.0 be 148 creatinine 3.76. X-ray imaging negative for any acute fractures dislocations. Case discussed with Dr. Sprague, patient will be admitted to Dr. Fletcher. Dr. Fletcher consulted and will accept the admit straight to him for a washout in the OR tomorrow. Wants medicine on consult. - Lab Data Result diagrams: 01/18/21 16:28 01/18/21 16:28 Lab Results 01/18/21 01/18/21 Range/Units 16:28 16:28 WBC 25.0 H (3.8-10.6) k/uL RBC 2.93 L (3.80-5.40) m/uL Hgb 9.4 L D (11.4-16.0) gm/dL Hct 27.3 L (34.0-46.0) % MCV 93.3 (80.0-100.0) fL MCH 31.9 (25.0-35.0) pg MCHC 34.2 (31.0-37.0) g/dL RDW 14.3 (11.5-15.5) % Plt Count 547 H (150-450) k/uL MPV 7.1 Neutrophils % 92 % Lymphocytes % 4 % Monocytes % 3 % Eosinophils % 1 % Basophils % 0 % Neutrophils # 23.1 H (1.3-7.7) k/uL Lymphocytes # 0.9 L (1.0-4.8) k/uL Monocytes # 0.6 (0-1.0) k/uL Eosinophils # 0.3 (0-0.7) k/uL Basophils # 0.0 (0-0.2) k/uL Sodium 125 L (137-145) mmol/L Potassium 6.0 H (3.5-5.1) mmol/L Chloride 98 (98-107) mmol/L Carbon Dioxide 18 L (22-30) mmol/L Anion Gap 9 mmol/L BUN 48 H (7-17) mg/dL Creatinine 3.76 H (0.52-1.04) mg/dL Est GFR (CKD-EPI)AfAm 13 (>60 ml/min/1.73 sqM) Est GFR (CKD-EPI)NonAf 12 (>60 ml/min/1.73 sqM) Glucose 126 H (74-99) mg/dL Calcium 9.9 (8.4-10.2) mg/dL Total Bilirubin 0.4 (0.2-1.3) mg/dL AST 52 H (14-36) U/L ALT 24 (4-34) U/L Alkaline Phosphatase 157 H (38-126) U/L Total Protein 6.3 (6.3-8.2) g/dL Albumin 3.6 (3.5-5.0) g/dL - Radiology Data Radiology results: report reviewed, image reviewed X-ray right forearm: No fracture seen. X-ray right knee: No fracture seen. No change compared to old exam. X-ray right hand: There is some osteoarthritis. No fracture seen. Right humerus x-ray: No acute abnormality of the right humerus. Disposition Clinical Impression: Fall, Wound dehiscence, surgical, Right arm pain Disposition: ADMITTED IP TO THIS [facility] Condition: Stable Is patient prescribed a controlled substance at d/c from ED?: No Referrals: Jose G Wills DO [Primary Care Provider] - 1-2 days Time of Disposition: 17:39
[2021-01-18] MEDS ORDERED: SODIUM CHLORIDE 0.9% 1,000 ML IV STA (17:36)
[2021-01-18] MEDS ORDERED: NALOXONE 0.4 MG/ML 1 ML VIAL IV PRN (17:39)
[2021-01-18] MEDS ORDERED: HYDROmorphone 0.5 MG/0.5 ML SYRINGE IVP PRN ×2 (17:39→21:06)
[2021-01-18] MEDS ORDERED: LEVOFLOXACIN 750MG-D5W PMX 750 MG in DEXTROSE/WATER 1 150ML.BAG IVPB STA (17:41)
[2021-01-18] MEDS ORDERED: metroNIDAZOLE-NS PMX 500 MG in SALINE 1 100ML.BAG IVPB STA (17:41)
[2021-01-18 17:58] LABS: Appearance,Urine Clear (Clear); Bilirubin,Urine 1+ (Negative); Blood,Urine Negative (Negative); Color,Urine Yellow; Glucose,Urine (UA) Negative (Negative); Ketones,Urine Negative (Negative); Leukocyte Esterase,Urine Negative (Negative); Nitrite,Urine Negative (Negative); Protein,Urine Trace (Negative); Specific Gravity,Urine 1.023 (1.001-1.035)
[2021-01-18] MEDS: SODIUM CHLORIDE 0.9% 1,000 ML IV SCH (18:10)
[2021-01-18] MEDS ORDERED: ACETAMINOPHEN TAB 325 MG TAB PO PRN (21:06)
[2021-01-18] MEDS ORDERED: HYDROcodone/APAP 10-325MG 1 EACH TAB PO PRN (21:06)
[2021-01-18] MEDS ORDERED: NA PHOS,M-B/NA PHOS,DI-BA 133 ML ENEMA RECTAL PRN (21:06)
[2021-01-18] MEDS ORDERED: bisacodyL 10 MG SUPP RECTAL PRN (21:06)
[2021-01-18] MEDS ORDERED: HYDROmorphone 0.2 MG/1 ML SYRINGE IVP PRN (21:06)
[2021-01-18] MEDS ORDERED: MAGNESIUM HYDROXIDE 2,400 MG/10 ML CUP PO PRN (21:06)
[2021-01-18] MEDS ORDERED: ONDANSETRON 4 MG/2 ML VIAL IVP PRN (21:06)
[2021-01-18] MEDS ORDERED: LACTATED RINGERS 1,000 ML IV SCH (21:15)
[2021-01-18] MEDS: HYDROmorphone 0.5 MG/0.5 ML SYRINGE IVP PRN (21:45)
[2021-01-19] MEDS ORDERED: HYDROmorphone 0.5 MG/0.5 ML SYRINGE ONE (00:10)
[2021-01-19] MEDS: SODIUM CHLORIDE 0.9% 1,000 ML IV SCH ×3 (04:46→18:53)
[2021-01-19] MEDS: HYDROmorphone 0.5 MG/0.5 ML SYRINGE IVP PRN ×4 (04:47→20:45)
[2021-01-19 07:11] LABS: African American GFR (CKD) 20 (>60 ml/min/1.73 sqM); Anion Gap 8 mmol/L; Blood Urea Nitrogen 38 mg/dL (7-17); Calcium 8.5 mg/dL (8.4-10.2); Carbon Dioxide 16 mmol/L (22-30); Chloride 106 mmol/L (98-107); Glucose 78 mg/dL (74-99); Non-African American GFR(CKD) 17 (>60 ml/min/1.73 sqM); Potassium 5.1 mmol/L (3.5-5.1); Sodium 130 mmol/L (137-145)
[2021-01-19 09:30] LABS: Basophils # (A) 0.07 X 10*3/uL (0.00-0.10); Basophils % (A) 0.5 %; Eosinophils # (A) 0.33 X 10*3/uL (0.04-0.35); Eosinophils % (A) 2.2 %; HCT 25.4 % (37.2-46.3); HGB 8.4 g/dL (12.0-15.0); Lymphocytes # (A) 1.59 X 10*3/uL (0.90-5.00); Lymphocytes % (A) 10.5 %; MCH 31.3 pg (27.0-32.0); MCHC 33.1 g/dL (32.0-37.0); MCV 94.8 fL (80.0-97.0); Mean Platelet Volume 9.5 fL (9.5-12.2); Monocytes # (A) 0.87 X 10*3/uL (0.20-1.00); Monocytes % (A) 5.7 %; Neutrophils # (A) 12.21 X 10*3/uL (1.80-7.70); Neutrophils % (A) 80.3 %; Platelet Count 472 X 10*3/uL (140-440); RBC 2.68 X 10*6/uL (4.10-5.20); RDW 15.4 % (11.5-14.5); WBC 15.19 X 10*3/uL (4.50-10.00)
[2021-01-19] MEDS: MULTIVITAMINS, THERA 1 EACH TAB PO SCH (12:29)
--- NOTE | 2021-01-19 13:06 | XR ---
EXAMINATION TYPE: XR chest 1V portable DATE OF EXAM: 01/19/2021 COMPARISON: NONE HISTORY: Wheezing TECHNIQUE: Single frontal view of the chest is obtained. FINDINGS: There is no focal air space opacity, pleural effusion, or pneumothorax seen. The cardiac silhouette size is within normal limits. The osseous structures are intact. Hyperinflation suggests COPD. Linear changes left lung compatible with atelectasis. Diffuse osteopenia and arthropathy of th e shoulders. IMPRESSION: No acute process. Correlate for COPD.
--- NOTE | 2021-01-19 13:38 | US ---
EXAMINATION TYPE: US venous doppler duplex LE RT DATE OF EXAM: 01/19/2021 1:10 PM COMPARISON: NONE CLINICAL HISTORY: immobilization. Right knee swelling from recent fall and is post right knee replace ment 12/2020. Gauze dressing covering dehisced right knee surgical incision. SIDE PERFORMED: Right TECHNIQUE: The lower extremity deep venous system is examined utilizing real time linear array sonog nabor with graded compression, doppler sonography and color-flow sonography. VESSELS IMAGED: Common Femoral Vein Deep Femoral Vein Greater Saphenous Vein * Femoral Vein Popliteal Vein Small Saphenous Vein * Proximal Calf Veins (* superficial vessels) Right Leg: Negative for DVT. Due to large dressing over right knee surgical site, distal right Popli teal Vein was assessed as well as right Posterior Tibial Vein. IMPRESSION: Limited exam as discussed above demonstrates no diagnostic evidence of DVT as visualized. See above.
--- NOTE | 2021-01-19 14:04 | US ---
EXAMINATION TYPE: US kidneys/renal and bladder DATE OF EXAM: 01/19/2021 COMPARISON: CT CLINICAL HISTORY: increased creatinine. Inpatient for right knee wound dehiscence post right knee replacement in December 2020 EXAM MEASUREMENTS: Right Kidney: 9.3 x 5.4 x 3.4 cm Left Kidney: 8.8 x 3.8 x 5.3 cm Post Void Residual Volume: not assessed on inpatient with indwelling bladder catheter Right Kidney: lateral upper cortical cyst is noted = 0.9 x 0.6 x 0.7cm Left Kidney: No hydronephrosis or masses seen ; hyperechoic parallel vessel wall calcification seen m id pole Bladder: indwelling bladder catheter is noted. IMPRESSION: 1. Subcentimeter upper pole right renal cyst.
[2021-01-19 14:33] LABS: Appearance,Urine Clear (Clear); Bacteria,Urine Occasional /hpf; Bilirubin,Urine Negative (Negative); Blood,Urine Trace (Negative); Color,Urine Light Yellow; Glucose,Urine (UA) Negative (Negative); Hyaline Casts,Urine 1 /lpf (0-2); Ketones,Urine Trace (Negative); Leukocyte Esterase,Urine Small (Negative); Mucus,Urine Rare /hpf; Nitrite,Urine Negative (Negative); Protein,Urine Negative (Negative); RBC,Urine 2 /hpf (0-5); Specific Gravity,Urine 1.012 (1.001-1.035); Squamous Epithelial Cell,Urine 1 /hpf (0-4); Urobilinogen,Urine <2.0 mg/dL (<2.0); WBC,Urine 7 /hpf (0-5)
[2021-01-19] MEDS ORDERED: IV FLUID CONTINUATION 1,000 ML IV ONE (15:05)
--- NOTE | 2021-01-19 15:11 | P.CONS ---
History of Present Illness - History of Present Illness This is a pleasant 70 years old female with past medical history of hypertens ion, hyperlipidemia, osteoarthritis follow-up with pain management with chronic back pain and knee pains, possible neurogenic bladder with self-catheterization. 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 She denies any trauma to head. She denies chest pain or dyspnea during the fall or prior. She denies any dizziness or loss of consciousness. Patient states that she fell twice since her surgery on 12/30. However she denies any headache, no weakness in arms or legs. No blurred vision. No slurred speech. Last problem or ataxia Her right knee is swollen, tender and there is a vertical wound with some discharge but no surrounding cellulitis. Patient has recent knee surgery with Dr. Fletcher on 12/30. States that this is the third time she fell after her knee surgery, the other 2 episodes she has no memory about. After surgery she started using a walker. She vomited twice yesterday night after a fall, no blood. She denies any abdominal pain. No diarrhea actually she feels constipated for the last few days. She cannot remember her last bowel movement Currently she denies any chest pain or dyspnea. No headache or weakness or numbness. No blurred vision or aphasia or slurred speech. He was having some urinary difficulties, usually she waits 5 minutes before she was able to be, dysuria or discomfort, no lower abdominal pain, no flank or back pain. She is to follow-up urologist but she could not remember why and whom . No change in frequency of urination. She denies smoking, alcohol or illicit drugs Patient had multiple x-rays including the right forearm, right knee and right hand and right humerus showing no abnormality or fracture seen. We checked venous Doppler of the right leg which was negative for DVT. Chest x- ray: No acute process. COPD Renal ultrasound: No hydronephrosis. Left cortical cyst and subcentimeter right renal cyst Vitas looks stable. Labs showing significant leukocytosis at 25K, which was 14.7 about 2 weeks ago and normal at 8.5 more than month ago. Currently is trending down to 15.1 K. hemoglobin 9.4, compared to 10.4 about 2 weeks ago. Currently is 8.4. Platelets also trending down. With evidence of hemodilution Also patient has sodium of 125 improved today to 130, elevated creatinine of 3.7 , improving down to 2.6 , elevated potassium was 6.0 down to normal at 5.1. Glucose slightly about 126. Currently glucose is normal. Liver enzymes and bilirubin not significantly elevated. First Urine analysis is not suspicious of infection. However when we repeated her urine analysis today it showing trace ketone and blunt and small leukocyte esterase and elevated urine WBC at 7 high and this is after she received antibiotic Coronavirus not detected. EKG showing normal sinus rhythm with no significant ST-T changes and QTC of 437. The emergency room received 1 dose of Levaquin and Flagyl, Dilaudid for pain control and some IV fluids as well as cefazolin. Review of Systems CONSTITUTIONAL: No fever, no malaise, no fatigue. HEENT: No recent visual problems or hearing problems. Denied any sore throat. CARDIOVASCULAR: No orthopnea, PND, no palpitations, no syncope. PULMONARY: No shortness of breath, no cough, no hemoptysis. GASTROINTESTINAL: No diarrhea, no nausea, no vomiting, no abdominal pain. Normoactive bowel sounds. NEUROLOGICAL: No headaches, no weakness, no numbness. HEMATOLOGICAL: Denies any bleeding or petechiae. GENITOURINARY: Denies any burning micturition, frequency, or urgency. -MUSCULOSKELETAL/RHEUMATOLOGICAL: Denies any joint pain, swelling, or any muscle pain. Except what is mentioned above ENDOCRINE: Denies any polyuria or polydipsia. Past Medical History Past Medical History: GERD/Reflux, Hyperlipidemia, Hypertension, Osteoarthritis (OA) Additional Past Medical History / Comment(s): bladder problems,can't empty bladder fully, self catheterizes frequently, nerve pain in "crotch" area & low back, two leaky heart valves, past hx ulcers, 'bad rt hip and both knees" History of Any Multi-Drug Resistant Organisms: None Reported Past Surgical History: Cholecystectomy, Hysterectomy, Orthopedic Surgery, Tonsillectomy Additional Past Surgical History / Comment(s): ORIF right ankle & then hardware removed, cataracts removed-stuart, pain clinic procedures Past Anesthesia/Blood Transfusion Reactions: Previous Problems w/ Anesthesia Additional Past Anesthesia/Blood Transfusion Reaction / Comm: years ago problem w/waking fron anesthesia, but not recently Past Psychological History: No Psychological Hx Reported Smoking Status: Former smoker Past Alcohol Use History: None Reported Past Drug Use History: None Reported - Past Family History Mother Family Medical History: No Reported History Medications and Allergies Home Medications Medication Instructions Recorded Confirmed Type RX: Amitriptyline HCl [Elavil] 50 mg PO HS 03/26/20 01/18/21 History RX: Atorvastatin [Lipitor] 20 mg PO HS 03/26/20 01/18/21 History RX: Lisinopril [Zestril] 10 mg PO DAILY 03/26/20 01/18/21 History RX: Tamsulosin [Flomax] 0.4 mg PO BID 03/26/20 01/18/21 History RX: Temazepam [Restoril] 30 mg PO HS 03/26/20 01/18/21 History RX: tiZANidine [Zanaflex] 4 mg PO DAILY 03/26/20 01/18/21 History RX: Gabapentin [Neurontin] 100 mg PO BID 06/07/20 01/18/21 History RX: Alendronate Sodium [Fosamax] 70 mg PO WE 12/24/20 01/18/21 History RX: Aspirin [Adult Low Dose 81 mg PO BID #60 tablet. 12/31/20 01/18/21 Rx Aspirin EC] HYDROcodone/APAP 7.5-325MG [[place] 1 - 2 tab PO Q6HR PRN 01/05/21 01/18/21 History 7.5-325] Docusate [Colace] 100 mg PO BID PRN 01/18/21 01/18/21 History Sulfamethox-Tmp 800-160Mg [Bactrim 1 tab PO Q12H 01/18/21 01/18/21 History DS 800-160 mg] Allergies Allergy/AdvReac Type Severity Reaction Status Date / Time codeine Allergy passed out Verified 01/19/21 15:06 latex Allergy Itching Verified 01/19/21 15:06 Penicillins Allergy tongue Verified 01/19/21 15:06 swelling, throat closing meperidine [From Demerol] AdvReac "out of it" Verified 01/19/21 15:06 Physical Exam Vitals: Vital Signs Temp Pulse Resp BP Pulse Ox 01/18/21 15:46 99.5 F 94 18 108/64 98 Intake and Output 01/18/21 01/18/2101/18/21 06:59 14:59 22:59 Other: Weight 59.874 kg GENERAL: The patient is alert and oriented x3, not in any acute distress. Well developed, well nourished. HEENT: Pupils are round and equally reacting to light. EOMI. No scleral icterus. No conjunctival pallor. Normocephalic, atraumatic. No pharyngeal erythema. No thyromegaly. CARDIOVASCULAR: S1 and S2 present. No murmurs, rubs, or gallops. PULMONARY: Chest is clear to auscultation, no wheezing or crackles. -ABDOMEN: Soft, nontender, nondistended, normoactive bowel sounds. No palpable organomegaly. Martinez catheter is in place MUSCULOSKELETAL: No joint swelling or deformity. -EXTREMITIES: No cyanosis, clubbing, or pedal edema. Right knee is swollen, no warmth or redness. There is 2-3 inch vertical wound with some purulent discharge with dressing is in place. No surrounding cellulitis NEUROLOGICAL: Gross neurological examination did not reveal any focal deficits. SKIN: No rashes. no petechiae. Results CBC & Chem 7: 01/19/21 06:34 01/19/21 06:34 Labs: Abnormal Lab Results - Last 24 Hours (Table) 01/18/21 01/18/21 01/18/21 Range/Units 16:28 16:28 17:50 WBC 25.0 H (3.8-10.6) k/uL RBC 2.93 L (3.80-5.40) m/uL Hgb 9.4 L D (11.4-16.0) gm/dL Hct 27.3 L (34.0-46.0) % Plt Count 547 H (150-450) k/uL Neutrophils # 23.1 H (1.3-7.7) k/uL Lymphocytes # 0.9 L (1.0-4.8) k/uL Sodium 125 L (137-145) mmol/L Potassium 6.0 H (3.5-5.1) mmol/L Carbon Dioxide 18 L (22-30) mmol/L BUN 48 H (7-17) mg/dL Creatinine 3.76 H (0.52-1.04) mg/dL Glucose 126 H (74-99) mg/dL AST 52 H (14-36) U/L Alkaline Phosphatase 157 H (38-126) U/L Urine Protein Trace H (Negative) Urine Bilirubin 1+ H (Negative) Assessment and Plan Assessment: Multiple Falls at home Wound dehiscence of the right knee secondary to fall Leukocytosis, suspect secondary to acute urinary tract infection with symptoms. With possible elements of obstructive uropathy, improved with Martinez catheter and hydration Acute kidney injury Hypovolemic hyponatremia Recent right knee replacement for her severe osteoarthritis COPD, no acute exacerbation Hyperlipidemia Osteoarthritis with following up with pain clinic Chronic back pain History of neurogenic bladder with self-catheterization Plan: This is a pleasant 70 years old female who presents with fall, one day since, leukocytosis and acute kidney injury Continue with antibiotic, currently on cefazolin Infectious disease consult Start IV fluids orthopedic team on the case and the plane for I&D of her right knee versus surgical evaluation Labs and medication were reviewed.. Continue same treatment. Continue with symptomatic treatment. Resume home medication. Monitor lytes and vitals. DVT and GI prophylaxis. Further recommendationsas per clinical course of the patient DVT prophylaxis and pain management for surgery team PT/OT: Pending Prognosis is guarded Thank you for consulting us, we will follow up.
[2021-01-19] MEDS ORDERED: ONDANSETRON 4 MG/2 ML VIAL IVP ONE (15:13)
[2021-01-19] MEDS ORDERED: DEXAMETHASONE SOD PHOSPHATE 4 MG/ML 1 ML VIAL IVP ONE (15:13)
[2021-01-19] MEDS ORDERED: LIDOCAINE 1% INJ 10MG/ML (20 ML MDV) ONE (16:08)
[2021-01-19] MEDS ORDERED: MIDAZOLAM 2 MG/2 ML VIAL ONE (16:08)
[2021-01-19] MEDS ORDERED: PROPOFOL 10 MG/ML 20 ML VIAL IV ONE (16:08)
--- NOTE | 2021-01-19 16:08 | P.HPOR ---
History of Present Illness H&P Date: 01/19/21 Chief Complaint: Right knee wound Patient is a 70-year-old female seen at bedside this a.m. She is known to our office where she is status post right total knee arthroplasty performed by Dr. Fletchre and myself on 12/30/2020. She had suffered a fall on 01/05/2021 resulting in injury and opening of her surgical wound. She presented to the emergency room where a local irrigation and wound repair was performed. We were not notified until the following day. We have been monitoring her as an outpatient. We were again notified yesterday 01/18/2021 that she had fallen again and suffered further injury and opening of her wound. We recommended that she present to the emergency room for admittance in preparation for wound irrigation/debridement and repair. She also suffered injuries to her right upper extremity where x-rays have been negative. She has no other new co mplaints this morning. She denies numbness or tingling. She has no fever, chills, chest pain, shortness of breath or other. Review of Systems All systems: negative Constitutional: Denies chills, Denies fever Eyes: denies blurred vision, denies pain Ears, nose, mouth and throat: Denies headache, Denies sore throat Cardiovascular: Denies chest pain, Denies shortness of breath Respiratory: Denies cough Gastrointestinal: Denies abdominal pain, Denies diarrhea, Denies nausea, Denies vomiting Genitourinary: Denies dysuria, Denies hematuria Musculoskeletal: Denies myalgias Integumentary: Denies pruritus, Denies rash Neurological: Denies numbness, Denies weakness Psychiatric: Denies anxiety, Denies depression Endocrine: Denies fatigue, Denies weight change Past Medical History Past Medical History: GERD/Reflux, Hyperlipidemia, Hypertension, Osteoarthritis (OA) Additional Past Medical History / Comment(s): bladder problems,can't empty bladder fully, self catheterizes frequently, nerve pain in "crotch" area & low back, two leaky heart valves, past hx ulcers, 'bad rt hip and both knees" History of Any Multi-Drug Resistant Organisms: None Reported Past Surgical History: Cholecystectomy, Hysterectomy, Orthopedic Surgery, Tonsillectomy Additional Past Surgical History / Comment(s): ORIF right ankle & then hardware removed, cataracts removed-stuart, pain clinic procedures Past Anesthesia/Blood Transfusion Reactions: Previous Problems w/ Anesthesia Additional Past Anesthesia/Blood Transfusion Reaction / Comment(s): years ago problem w/waking fron anesthesia, but not recently Past Psychological History: No Psychological Hx Reported Smoking Status: Former smoker Past Alcohol Use History: None Reported Additional Past Alcohol Use History / Comment(s): quit smoking 2019, smoked on & off since 18 <1/2ppd Past Drug Use History: None Reported - Past Family History Mother Family Medical History: No Reported History Medications and Allergies Home Medications Medication Instructions Recorded Confirmed Type Amitriptyline HCl [Elavil] 50 mg PO HS 03/26/20 01/18/21 History Atorvastatin [Lipitor] 20 mg PO HS 03/26/20 01/18/21 History Lisinopril [Zestril] 10 mg PO DAILY 03/26/20 01/18/21 History Tamsulosin [Flomax] 0.4 mg PO BID 03/26/20 01/18/21 History Temazepam [Restoril] 30 mg PO HS 03/26/20 01/18/21 History tiZANidine [Zanaflex] 4 mg PO DAILY 03/26/20 01/18/21 History Gabapentin [Neurontin] 100 mg PO BID 06/07/20 01/18/21 History Alendronate Sodium [Fosamax] 70 mg PO WE 12/24/20 01/18/21 History Aspirin [Adult Low Dose Aspirin EC] 81 mg PO BID #60 tablet. 12/31/20 01/18/21 Rx HYDROcodone/APAP 7.5-325MG [[place] 1 - 2 tab PO Q6HR PRN 01/05/21 01/18/21 History 7.5-325] Docusate [Colace] 100 mg PO BID PRN 01/18/21 01/18/21 History Sulfamethox-Tmp 800-160Mg [Bactrim 1 tab PO Q12H 01/18/21 01/18/21 History DS 800-160 mg] Allergies Allergy/AdvReac Type Severity Reaction Status Date / Time codeine Allergy passed out Verified 01/19/21 15:06 latex Allergy Itching Verified 01/19/21 15:06 Penicillins Allergy tongue Verified 01/19/21 15:06 swelling, throat closing meperidine [From Demerol] AdvReac "out of it" Verified 01/19/21 15:06 Physical Examination Inspection of the right lower extremity shows a surgical wound where at the knee she has approximately 3-6 inch opening. There is no active bleeding. There is minimal drainage. There is no erythema about the wound. There is no deformity. Range of motion is not tested due to the wound. Calf is soft and nontender. Motor and sensation is intact throughout the right lower extremity. 2+ dorsalis pedis pulses present as well as less than 2 second capillary refill. There is no pain with range of motion of the ankle or foot as well as the hip. Results X-rays of the right upper extremity are negative for fracture dislocation. X- rays of the right knee show components in place with no loosening or malali gnment. - Labs Labs: Abnormal Lab Results - Last 24 Hours (Table) 01/18/21 01/18/21 01/18/21 Range/Units 16:28 16:28 17:50 WBC 25.0 H (3.8-10.6) k/uL RBC 2.93 L (3.80-5.40) m/uL Hgb 9.4 L D (11.4-16.0) gm/dL Hct 27.3 L (34.0-46.0) % Plt Count 547 H (150-450) k/uL Neutrophils # 23.1 H (1.3-7.7) k/uL Lymphocytes # 0.9 L (1.0-4.8) k/uL Sodium 125 L (137-145) mmol/L Potassium 6.0 H (3.5-5.1) mmol/L Carbon Dioxide 18 L (22-30) mmol/L BUN 48 H (7-17) mg/dL Creatinine 3.76 H (0.52-1.04) mg/dL Glucose 126 H (74-99) mg/dL AST 52 H (14-36) U/L Alkaline Phosphatase 157 H (38-126) U/L Urine Protein Trace H (Negative) Urine Bilirubin 1+ H (Negative) 01/19/21 Range/Units 06:34 WBC (3.8-10.6) k/uL RBC (3.80-5.40) m/uL Hgb (11.4-16.0) gm/dL Hct (34.0-46.0) % Plt Count (150-450) k/uL Neutrophils # (1.3-7.7) k/uL Lymphocytes # (1.0-4.8) k/uL Sodium 130 L (137-145) mmol/L Potassium (3.5-5.1) mmol/L Carbon Dioxide 16 L (22-30) mmol/L BUN 38 H (7-17) mg/dL Creatinine 2.68 H (0.52-1.04) mg/dL Glucose (74-99) mg/dL AST (14-36) U/L Alkaline Phosphatase (38-126) U/L Urine Protein (Negative) Urine Bilirubin (Negative) H & H 01/18/21 Range/Units 16:28 Hgb 9.4 L D (11.4-16.0) gm/dL Hct 27.3 L (34.0-46.0) % Result Diagrams: 01/19/21 06:34 01/19/21 06:34 Assessment and Plan (1) Wound dehiscence, surgical Narrative/Plan: Plan is to proceed with surgical intervention including irrigation and debridement with wound repair of the right knee. The patient understands and agrees. She has been nothing by mouth. Procedure has been boarded. Internal medicine has been consulted for perioperative management. She'll continue with IV antibiotics and pain management. She will [facility]. Current Visit: Yes Status: Acute Code(s): T81.31XA - DISRUPTION OF EXTERNAL OPERATION (SURGICAL) WOUND, NEC, INIT SNOMED Code(s): 407445202 (2) Wound disruption, post-op, skin Current Visit: No Status: Acute Priority: Medium Code(s): T81.31XA - DISRUPTION OF EXTERNAL OPERATION (SURGICAL) WOUND, NEC, INIT SNOMED Code(s): 406097957 Time with Patient: Less than 30
[2021-01-19] MEDS ORDERED: VANCOMYCIN 1,000 MG VIAL MISCELLANE ONE (16:44)
[2021-01-19] MEDS ORDERED: CLINDAMYCIN 1,800 MG in SODIUM CHLORIDE 0.9% IRRIGATIO 3,000 ML IRRIGATION ONE (16:44)
[2021-01-19] MEDS ORDERED: HYDROmorphone 0.5 MG/0.5 ML SYRINGE IVP ONE (17:44)
--- NOTE | 2021-01-19 20:37 | OP ---
OPERATIVE REPORT DATE OF PROCEDURE: 01/19/2021. PREOPERATIVE DIAGNOSIS: Superficial wound dehiscence, right knee. POSTOP DIAGNOSIS: Same. PROCEDURE PERFORMED: 1. Irrigation and debridement, right superficial wound dehiscence. 2. Secondary closure right knee wound dehiscence. SURGEON: Abdulaziz Fletcher MD. [employer]ER: Jeff FLEMING. ANESTHESIA: General endotracheal. ESTIMATED BLOOD LOSS: 25 mL. TOURNIQUET: None. DRAINS: None. COMPLICATIONS: None apparent. DISPOSITION: Postanesthesia care unit. HISTORY OF PRESENT ILLNESS: Ama is a very pleasant 70-year-old female who underwent a right total knee arthroplasty done by myself on December 30. She then subsequently had a fall at home on January 05, 2021. She had a superficial wound dehiscence from this fall. The ER physician did a washout and closure with interrupted nylon suture at that visit. Of note, we were not notified that this had happened to her as it happened in the evening. Ama then did not notify the office the next day that this happened and then she had a home health care nurse follow up with her 2 days after on January 07 and noted that she had this happen. We had her come into the office immediately. I have evaluated her and she had a dehiscence that had been repaired with interrupted nylon suture. Through the ER note, they did do an irrigation of the wound. On questioning Ama, she has stated that there was no evidence of deep dehiscence. This was also reviewed in the ER note and was not noted to have a deep dehiscence of the of the capsule where the prosthesis was visualized. I then followed her very closely at that point, I saw her twice weekly. The dehiscence was appearing to heal. There was no drainage from the incision. We did place her on oral antibiotic. I then saw her again in the office on January 17. She had good granulation tissue and healing of the incision. The sutures were removed. Steri-Strips were then applied. She subsequently then went home and continued to not utilize her walker to help her get around and she fell apparently 3 more times that evening. It was very difficult to get a hold of her and her caregiver. We did contact the wound care nurse who went out to see her the next morning. The wound had again split open secondary to 1 of these falls and she again had a dehiscence of the wound. I then had the wound care nurse have her taken to [facility] for admission. She was then admitted to the hospital yesterday. We then planned for operative irrigation and debridement of the wound dehiscence to freshen up the edges and perform a primary closure. Also detailed wound exploration was planned as well. All of Ama's questions with regard to the risks of procedure were answered to her satisfaction. Appropriate informed consent was obtained. DESCRIPTION: The risks of the procedure were discussed with her in detail. These risks include, but are not limited to risk of deep infection, failure of the skin to heal, and a very small risk of deep vein thrombosis which could lead to fatal pulmonary embolism. All of her questions with regards to risks were answered to her satisfaction. Appropriate informed consent was obtained. DESCRIPTION OF PROCEDURE: Patient was taken to the operative suite. She was placed supine on the operative table. General anesthetic was then administered, dosed per the anesthesia without apparent complication. The right lower extremity was then prepped and draped in usual sterile fashion. A tourniquet was not placed. The dehiscence involved the inferior 50% of the incision. The superior 50% is healed very well. This represented approximately 8-10 cm of the incision. The wound was then thoroughly explored. There were deep Ethibond sutures which were removed. There was no really no effusion in the knee. I was unable to express any fluid from the knee throughout the entire wound exploration. There was no communication with the joint. I was very confident with that and after exploring the wound. I then debrided the deep tissue of the deep devitalized tissue with a curette. This was done around the edges of the subcutaneous tissue as well as the deep bursal tissue. I then utilized a 10 blade scalpel to sharply debride the wound edges. Both the medial and lateral wound edges were freshened sharply with a scalpel. This removed a couple of mm of skin from both the medial and lateral wound edges so that we had fresh skin edges and fresh subcutaneous tissue to sew for a suture. I then debrided the wound thoroughly with 3 L of sterile saline solution with antibiotic added. After approximately 1500 mL of fluid had been irrigated, I then irrigated the wound with an Aricept chlorhexidine wash. I then further utilized the 2nd 1500 mL of saline solution with antibiotic added via pulse lavage. I then placed 1 g of vancomycin powder deep in the wound on the superior aspect just anterior to the patella and patellar tendon. We then proceeded with primary closure. We utilized 2-0 nylon interrupted suture. These were vertical mattress sutures. We had good apposition of the wound edges. A sterile compressive dressing was then placed. The patient was then placed in a long leg splint with the leg in full extension. A bulky Bishop dressing was then applied. All sponge and needle counts were deemed correct prior to closure. The patient tolerated the procedure without apparent complication. She was transferred to the recovery room in stable condition. MMODL / IJN: [id number] /
[2021-01-19] MEDS: ASPIRIN 81 MG PO SCH (20:44)
[2021-01-19] MEDS: SENNOSIDES-DOCUSATE SODIUM 1 EACH TAB PO SCH (20:49)
[2021-01-20] MEDS: SODIUM CHLORIDE 0.9% 1,000 ML IV SCH ×3 (03:45→12:38)
[2021-01-20] MEDS ORDERED: VANCOMYCIN 1,000 MG in SODIUM CHLORIDE 0.9% 250 ML IVPB ONE (05:00)
[2021-01-20] MEDS: HYDROmorphone 0.5 MG/0.5 ML SYRINGE IVP PRN (06:30)
[2021-01-20] MEDS: MULTIVITAMINS, THERA 1 EACH TAB PO SCH (08:58)
[2021-01-20] MEDS: ASPIRIN 81 MG PO SCH ×2 (08:58→21:00)
[2021-01-20] MEDS ORDERED: IPRATROPIUM-ALBUTEROL 3 ML NEB INHALATION PRN (09:10)
--- NOTE | 2021-01-20 10:53 | P.PN ---
Subjective Progress Note Date: 01/20/21 Principal diagnosis: S/P I and D surgical wound and closure Patient is seen at bedside this am. She is postop day #1 from I&D with wound closure of right knee surgical wound. She had a right total knee arthroplasty performed on 12/30/2020 where she subsequently fell causing injury and opening of her surgical wound. She has no complaints this morning. She has minimal pain at surgical site. She has a long leg splint in place. She denies numbness, tingling or calf pain. She has no fever, chills, chest pain or shortness of breath. Objective - Vital Signs Vital signs: Vital Signs Temp 98.4 F 01/20/21 05:00 Pulse 94 01/20/21 05:00 Resp 16 01/20/21 05:00 BP 137/69 01/20/21 05:00 Pulse Ox 94 L 01/20/21 05:00 Intake & Output 01/19/21 01/20/21 01/20/21 18:59 06:59 18:59 Intake Total 751.5 Output Total 475 1600 Balance 276.5 -1600 Intake: IV 751.5 Output: Urine 450 1600 Estimated Blood Loss 25 Other: Voiding Method Indwelling Catheter Indwelling Catheter Indwelling Catheter - Exam Inspection of the right lower extremity shows a well fitted and padded long-leg splint in place. There is no evidence of active bleeding or drainage. All toes are visible and she has motor and sensation intact. Less than 2 second capillary refill is present in all toes. - Constitutional General appearance: Present: no acute distress - Labs CBC & Chem 7: 01/19/21 06:34 01/19/21 06:34 Labs: Abnormal Lab Results - Last 24 Hours (Table) 01/19/21 Range/Units 13:09 Urine Ketones Trace H (Negative) Urine Blood Trace H (Negative) Ur Leukocyte Esterase Small H (Negative) Urine WBC 7 H (0-5) /hpf Urine Bacteria Occasional H (None) /hpf Urine Mucus Rare H (None) /hpf Microbiology - Last 24 Hours (Table) 01/19/21 13:09 Urine Culture - Preliminary Urine,Catheterized 01/18/21 17:50 Urine Culture - Preliminary Urine,Catheterized Assessment and Plan (1) Wound dehiscence, surgical Narrative/Plan: She'll continue with routine postop orthopedic protocol including pain management, wound care, DVT prophylaxis and medical management. She will continue with IV antibiotics. She is nonweightbearing with the right lower extremity. She is pending extended care facility rehab placement. She may transfer when okay with internal medicine and she is approved. Current Visit: Yes Status: Acute Code(s): T81.31XA - DISRUPTION OF EXTERNAL OPERATION (SURGICAL) WOUND, NEC, INIT SNOMED Code(s): 603729758 (2) Wound disruption, post-op, skin Current Visit: No Status: Acute Priority: Medium Code(s): T81.31XA - DISRUPTION OF EXTERNAL OPERATION (SURGICAL) WOUND, NEC, INIT SNOMED Code(s): 441712717 Time with Patient: Less than 30
--- NOTE | 2021-01-20 13:45 | CDI ---
Documentation Clarification Form Date: 01/20/2021 01:40:16 PM From: Dot Winslow RN, CCDS Admit Date: 01/18/2021 05:46:00 PM Patient Name: Ama Arce Visit Number: [id number] ATTENTION: The Clinical Documentation Specialists (CDI) and [facility] Coding Staff appreciate your assistance in clarifying documentation. Please respond to the clarification below the line at the bottom and electronically sign. The CDI & [facility] Coding staff will review the response and follow-up if needed. Please note: Queries are made part of the Legal Health Record. If you have any questions, please contact the author of this message via ITS. Dr. Abdulaziz Fletcher A debridement is documented01/19/2021]. Additional clarification regarding the procedure is requested. History/Risk Factors: Recent right knee replacement, frequent falls, neurogenic bladder with self- catheterization, PA, HTN Clinical Indicators: 01/19 Op Note: "Superficial wound dehiscence, right knee: Irrigation and debridement, right superficial wound dehiscence. Secondary closure right knee wound dehiscence." Treatment: 01/19 Op Note: "I then debrided the deep tissue of the deep devitalized tissue with a curette. This was done around the edges of the subcutaneous tissue as well as the deep bursal tissue. I then utilized a 10 blade scalpel to sharply debride the wound edges. Both the medial and lateral wound edges were freshened sharply with a scalpel. This removed a couple of mm of skin from both the medial and lateral wound edges so that we had fresh skin edges and fresh subcutaneous tissue to sew for a suture." Please clarify the type of procedure performed: [ ] Excisional debridement (the removal of necrotic, devitalized tissue or slough by means of cutting away of tissue) [ ] Non-excisional debridement (the removal of necrotic, devitalized tissue or slough by means of flushing, brushing, or washing. (Irrigation) [ ] Other; please specify [ ] Unable to determine Five elements required for accurate and compliant documentation of a debridement: Technique used (e.g., excisional, excised, cutting, brushing, jet lavage etc.) Instrument(s) used (e.g., scalpel, curette, etc.) Nature of the tissue removed (e.g., necrotic, devitalized tissues, non-viable tissue, etc.) Appearance and size of the wound (e.g., down to fresh bleeding tissue, 7cm x 10cm, etc.) Depth of the debridement* (e.g., skin, subcutaneous tissue, fascia, muscle, bone, etc.) (Template Last Revised: July 2020) It was an excisional debridement. In op note I noted that I used both a curette and a scalpel to remove the tissue. MTDD
--- NOTE | 2021-01-20 16:30 | P.CNNES ---
History of Present Illness Consult date: 01/20/21 Requesting physician: Дмитрий E Sheet Reason for Consult: loss ROM right hand/possible nerve damage right hand History of Present Illness: This is a 70-year-old woman with history of hypertension, hyperlipidemia, chronic back pain and knee pain, arthritis with possible neurogenic bladder status post catheterization who presented to the emergency department on 01/18/2021 after a fall. She is accompanied with her signficant other who helps with the history. Neurology is consulted for weakness over the right hand. It seems that the patient was attempting to cotton picker her washing bag at home and she fell on her knees and she had a dehiscence wound over the right knee. She denies of any trauma to the head. She had a recent knee surgery performed by Dr. Fletcher on 12/30/2020. It seems while in the hospital she developed right hand weakness and the patient stated for about 2 days but nurse possibly overnight but unsure. Patient denies off any neck pain, any numbness any tingling of any extremities, any visual disturbance, any slurred speech, any difficulty swallowing. She denies any weakness besides the right hand. Per her significant patient has been having multiple falls at home for the last 1 month and he stated that she just collapses when she walks but she does not lose consciousness, no jerk in of any extremities, bowel incontinence or foaming around the mouth. No history of seizure. Patient denies any warning signs. Patient denies of any fever prior present in the formerly [facility]. She denies of any headache currently. Denies as stated of neck pain or lower back pain. Her significant other feels she is on so many medication and the patient stated that she was started on a new medication but cannot tell me what Some of the patient's home medication is Elavil 50 mg by mouth at bedtime, Li pitor 20 mg, Restoril, aspirin 81 mg, Zanaflex, Flomax, gabapentin 100 mg a tablet twice a day, Woburn 1-2 tabs when necessary every 6 hours. Some other workup in the hospital: Most recent vitals is a blood pressure of 142/62, heart rate of 96, respiratory of 18, temperature of 98.6 oral and pulse ox of 96 area the patient has been afebrile. Humerus x-ray of the right and it was no acute abnormality. The right hand x- ray was also was noted as there is some also arthritis but no fracture. Forearm x-ray also was negative for fracture. Most recent labs is the white blood cell on presentation was 25,000 but now at 15.9 and a hemoglobin 9.4 and that most recent is a 0.4. Creatinine on presentation 3.76 and was created recent is 2.68 Sodium was current is 1:30 and is trending up, most recent glucose is 78, the calcium was 8.5, AST of 52 which minimally elevated and that ALT of 24 which is unremarkable. Covlin virus PCR was not detected. Was felt the patient's leukocytosis was likely due to the urinary tract infection per the primary team. ID team is consulted. Patient has a cast on her right lower extremity and and the her right lower extremity is overwrapped even proximal to the knee. Review of Systems Review of system: The 12 point system was reviewed and apparent positive and negative per HPI. Past Medical History Past Medical History: GERD/Reflux, Hyperlipidemia, Hypertension, Osteoarthritis (OA) Additional Past Medical History / Comment(s): bladder problems,can't empty bladder fully, self catheterizes frequently, nerve pain in "crotch" area & low back, two leaky heart valves, past hx ulcers, 'bad rt hip and both knees" History of Any Multi-Drug Resistant Organisms: None Reported Past Surgical History: Cholecystectomy, Hysterectomy, Orthopedic Surgery, Tonsillectomy Additional Past Surgical History / Comment(s): ORIF right ankle & then hardware removed, cataracts removed-stuart, pain clinic procedures Past Anesthesia/Blood Transfusion Reactions: Previous Problems w/ Anesthesia Additional Past Anesthesia/Blood Transfusion Reaction / Comment(s): years ago problem w/waking fron anesthesia, but not recently Past Psychological History: No Psychological Hx Reported Smoking Status: Former smoker Past Alcohol Use History: None Reported Additional Past Alcohol Use History / Comment(s): quit smoking 2019, smoked on & off since 18 <1/2ppd Past Drug Use History: None Reported - Past Family History Mother Family Medical History: No Reported History Medications and Allergies Home Medications Medication Instructions Recorded Confirmed Type Amitriptyline HCl [Elavil] 50 mg PO HS 03/26/20 01/18/21 History Atorvastatin [Lipitor] 20 mg PO HS 03/26/20 01/18/21 History Lisinopril [Zestril] 10 mg PO DAILY 03/26/20 01/18/21 History Tamsulosin [Flomax] 0.4 mg PO BID 03/26/20 01/18/21 History Temazepam [Restoril] 30 mg PO HS 03/26/20 01/18/21 History tiZANidine [Zanaflex] 4 mg PO DAILY 03/26/20 01/18/21 History Gabapentin [Neurontin] 100 mg PO BID 06/07/20 01/18/21 History Alendronate Sodium [Fosamax] 70 mg PO WE 12/24/20 01/18/21 History Aspirin [Adult Low Dose Aspirin EC] 81 mg PO BID #60 tablet. 12/31/20 01/18/21 Rx HYDROcodone/APAP 7.5-325MG [Woburn 1 - 2 tab PO Q6HR PRN 01/05/21 01/18/21 History 7.5-325] Docusate [Colace] 100 mg PO BID PRN 01/18/21 01/18/21 History Sulfamethox-Tmp 800-160Mg [Bactrim 1 tab PO Q12H 01/18/21 01/18/21 History DS 800-160 mg] Allergies Allergy/AdvReac Type Severity Reaction Status Date / Time codeine Allergy passed out Verified 01/19/21 15:06 latex Allergy Itching Verified 01/19/21 15:06 Penicillins Allergy tongue Verified 01/19/21 15:06 swelling, throat closing meperidine [From Demerol] AdvReac "out of it" Verified 01/19/21 15:06 Physical Examination - Vital Signs Vital Signs: Vital Signs Temp Pulse Pulse Resp BP BP BP 01/20/21 12:48 98.6 F 96 18 142/63 01/20/21 05:00 98.4 F 94 16 137/69 01/20/21 04:00 98.4 F 104 H 16 137/69 01/19/21 20:00 98.5 F 96 16 138/70 01/19/21 18:01 86 16 145/66 01/19/21 17:45 85 16 132/60 01/19/21 17:30 84 16 121/56 01/19/21 17:20 97.4 F L 81 16 88/55 Pulse Ox 01/20/21 12:48 96 01/20/21 05:00 94 L 01/20/21 04:00 94 L 09/15/21 20:00 95 01/19/21 18:01 96 01/19/21 17:45 98 01/19/21 17:30 98 01/19/21 17:20 98 Intake and Output 01/20/21 01/20/21 01/20/21 06:59 14:59 22:59 Output Total 1300 Balance -1300 Output: Urine 1300 Other: Voiding Method Indwelling Catheter GENERAL: The patient is lying in bed and is not in acute distress. She seems minimally restless on examination. CHEST: The heart rate is regular rate rhythm. No murmurs to auscultation. No carotid bruit bilaterally. LUNG: Clear to auscultation bilaterally no wheezing noted throughout. Not labored breathing. ABDOMEN/GI: Bowel sounds present in all 4 quadrants. No tenderness to palpation throughout. PSYCH: Flat affect. NEUROLOGICAL: Higher mental function: The patient is awake, alert, oriented to self, place. She correctly stated the month but stated the year is 2001. She is able to name objects (pen, watch and glasses). Patient is following commands. No aphasia and no neglect. Cranial nerves: The pupils are round, equal and reactive to light and accommodation. Visual hall are full to confrontation throughout. Extraocular movement is intact no nystagmus is noted. Facial sensation is normal to touch throughout. The facial strength is normal throughout. Hearing is mildly to moderate decreased bilaterally to hand rub. Tongue is midline and moved [id number] without any difficulty. No dysarthria is noted. Shoulder shrug is normal bilaterally. Motor: Gait is deferred because of her condition. The strength is right wrist extension is 0/ 5, finger extension of hand distally is 2/5. Right lower extremity is limited in testing since has cast and it is wrapped from proximally knee all way down but is able to lift above gravity. Otherwise strength is 5/5. Decrease tone over the rigth hand/wrist region. Otherwise normal. Normal bulk. Cerebellum: Normal finger to nose heel to barrow bilaterally. Sensation: Sensation is normal to touch throughout . Could not assess right lower extremity. Reflexes (right/left): Right biceps are 1-2+. Could not assess right lower extremity (cast). Could not assess left patellar (she was in pain). Otherwise 2+ throughout. Plantars is mute over the left. Results - Laboratory Findings CBC and BMP: 01/19/21 06:34 01/19/21 06:34 Abnormal Lab Findings: Abnormal Labs 01/18/21 01/18/21 01/18/21 16:28 16:28 17:50 WBC 25.0 H RBC 2.93 L Hgb 9.4 L D Hct 27.3 L RDW Plt Count 547 H Immature Gran # Neutrophils # 23.1 H Lymphocytes # 0.9 L Sodium 125 L Potassium 6.0 H Carbon Dioxide 18 L BUN 48 H Creatinine 3.76 H Glucose 126 H AST 52 H Alkaline Phosphatase 157 H Urine Protein Trace H Urine Ketones Urine Blood Urine Bilirubin 1+ H Ur Leukocyte Esterase Urine WBC Urine Bacteria Urine Mucus 01/19/21 01/19/21 01/19/21 06:34 06:34 13:09 WBC 15.19 H RBC 2.68 L Hgb 8.4 L Hct 25.4 L RDW 15.4 H Plt Count 472 H Immature Gran # 0.12 H Neutrophils # 12.21 H Lymphocytes # Sodium 130 L Potassium Carbon Dioxide 16 L BUN 38 H Creatinine 2.68 H Glucose AST Alkaline Phosphatase Urine Protein Urine Ketones Trace H Urine Blood Trace H Urine Bilirubin Ur Leukocyte Esterase Small H Urine WBC 7 H Urine Bacteria Occasional H Urine Mucus Rare H Assessment and Plan Assessment: 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 Rule out other etiologies. Multiple falls at home for past one month: Unsure cause (No LOC, tongue bite, jerking of extremities. Seizure is unlikely). Wound dehiscence of the right knee secondary due to fall The leukocytosis it is felt by the primary team due to urinary tract infection with possible element of obstructive uropathy. Acute kidney insufficiency trending down Recent right knee replacement for severe osteoarthritis History of neurogenic bladder with self-catheterization Chronic lower back pain Plan: * I ordered MRI the brain and the cervical spine to rule out any lesion result (I feel unlikely). * Ordered vitamin B12 level and TSH level. I ordered hemoglobin A1c as well. * Recommend Orthostatics (once stable. It will be a bit tough to obtain currently because of her condition). * Recommend possibly consideration of holter monitor or loop recorder. * Ordered routine EEG. I will not start the patient on antiepileptic drugs unless there is epileptiform discharges or seizure on the EEG. * Recommend avoiding as much as possible sedatives/opiate that would affect the patient mentation which can also lead to not only change in mentation but also to avoid falls. Even when she get discharged please avoid any sedative or any medication that can affect her mentation. * Every 4 hours neuro checks * Occupation therapy is consulted I consulted the physical therapy as well. * Recommend EMG with nerve conduction study of the upper extremities as outpatient. Also recommend EMG with NCS of lowers as well as outpatient. * We'll defer the rest of medical management to the primary team. * Upon discharge recommend the patient to follow-up with a neurologist within 1- 2 weeks as outpatient. The plan is discussed with her significant other and her nurse. Thank you for the consultation. Cj Beckham M.D. Neuro-hospitalist Time with Patient: Greater than 30
--- NOTE | 2021-01-20 16:45 | P.PN ---
Subjective This is a pleasant 70 years old female with past medical history of hypertension, hyperlipidemia, osteoarthritis follow-up with pain management with chronic back pain and knee pains, possible neurogenic bladder with self- catheterization. Presents because of fall, she fell yesterday while she was bending to olive picker Her washing bag, she fell on her knees and she had a dehiscence wound on her right knee. She denies any trauma to head. She denies chest pain or dyspnea during the fall or prior. She denies any dizziness or loss of consciousness. Patient states that she fell twice since her surgery on 12/30. However she denies any headache, no weakness in arms or legs. No blurred vision. No slurred speech. Last problem or ataxia Her right knee is swollen, tender and there is a vertical wound with some discharge but no surrounding cellulitis. Patient has recent knee surgery with Dr. Fletcher on 12/30. States that this is the third time she fell after her knee surgery, the other 2 episodes she has no memory about. After surgery she started using a walker. She vomited twice yesterday night after a fall, no blood. She denies any abdom inal pain. No diarrhea actually she feels constipated for the last few days. She cannot remember her last bowel movement Currently she denies any chest pain or dyspnea. No headache or weakness or n umbness. No blurred vision or aphasia or slurred speech. He was having some urinary difficulties, usually she waits 5 minutes before she was able to be, dysuria or discomfort, no lower abdominal pain, no flank or back pain. She is to follow-up urologist but she could not remember why and whom . No change in frequency of urination. She denies smoking, alcohol or illicit drugs Patient had multiple x-rays including the right forearm, right knee and right hand and right humerus showing no abnormality or fracture seen. We checked venous Doppler of the right leg which was negative for DVT. Chest x- ray: No acute process. COPD Renal ultrasound: No hydronephrosis. Left cortical cyst and subcentimeter right renal cyst Vitas looks stable. Labs showing significant leukocytosis at 25K, which was 14.7 about 2 weeks ago and normal at 8.5 more than month ago. Currently is trending down to 15.1 K. hemoglobin 9.4, compared to 10.4 about 2 weeks ago. Currently is 8.4. Platelets also trending down. With evidence of hemodilution Also patient has sodium of 125 improved today to 130, elevated creatinine of 3.7 , improving down to 2.6 , elevated potassium was 6.0 down to normal at 5.1. Glucose slightly about 126. Currently glucose is normal. Liver enzymes and bilirubin not significantly elevated. First Urine analysis is not suspicious of infection. However when we repeated her urine analysis today it showing trace ketone and blunt and small leukocyte esterase and elevated urine WBC at 7 high and this is after she received antibiotic Coronavirus not detected. EKG showing normal sinus rhythm with no significant ST-T changes and QTC of 437. The emergency room received 1 dose of Levaquin and Flagyl, Dilaudid for pain control and some IV fluids as well as cefazolin. 01/20/2021 Today she feels somewhat better. Yesterday she underwent irrigation and debridement of her right knee superficial wound dehiscence. With secondary closure. Today is postop day #1. Yesterday she had a splint and her right hand secondary to fall with negative x-ray. While removal of the splint today was upper and she has right wrist drop most likely secondary to her falling. Neurology consult is obtained and recommended workup like MRI of the brain and cervical spine, also he recommended checking vitamin B12 and TSH and EMG with nerve conduction study for upper and lower extremity as an outpatient Her breathing is improved and stable now. No specific symptoms. Repeat urinalysis is showing possible infection, patient is started on ceftriaxone. Follow-up urine culture result She is hemodynamically stable. Check labs tomorrow. Continue with gentle hydration, change IV fluids to 75 mL/h. Her orthostatic vitals checked yesterday and were negative Objective - Vital Signs Vital signs: Vital Signs Temp 98.6 F 01/20/21 12:48 Pulse 96 01/20/21 12:48 Resp 18 01/20/21 12:48 BP 142/63 01/20/21 12:48 Pulse Ox 96 01/20/21 12:48 Intake & Output 01/19/21 01/20/21 01/20/21 18:59 06:59 18:59 Intake Total 751.5 Output Total 475 1600 Balance 276.5 -1600 Intake: IV 751.5 Output: Urine 450 1600 Estimated Blood Loss 25 Other: Voiding Method Indwelling Catheter Indwelling Catheter Indwelling Catheter - Exam GENERAL: The patient is alert and oriented x3, not in any acute distress. Well developed, well nourished. HEENT: Pupils are round and equally reacting to light. EOMI. No scleral icterus. No conjunctival pallor. Normocephalic, atraumatic. No pharyngeal erythema. No thyromegaly. CARDIOVASCULAR: S1 and S2 present. No murmurs, rubs, or gallops. PULMONARY: Chest is clear to auscultation, no wheezing or crackles. -ABDOMEN: Soft, nontender, nondistended, normoactive bowel sounds. No palpable organomegaly. Martinez catheter is in place MUSCULOSKELETAL: No joint swelling or deformity. -EXTREMITIES: No cyanosis, clubbing, or pedal edema. Right knee wound is in a dressing, we will defer rest of examination to surgical team. No surrounding cellulitis -NEUROLOGICAL: Gross neurological examination did not reveal any focal deficits. Right wrist a drop SKIN: No rashes. no petechiae. - Labs CBC & Chem 7: 01/19/21 06:34 01/19/21 06:34 Labs: Microbiology - Last 24 Hours (Table) 01/19/21 13:09 Urine Culture - Preliminary Urine,Catheterized 01/18/21 17:50 Urine Culture - Preliminary Urine,Catheterized Assessment and Plan Assessment: Multiple Falls at home Right wrist a drop secondary to fall Wound dehiscence of the right knee secondary to fall, status post wound debridem ent and secondary wound closure on 01/19 Leukocytosis, suspect secondary to acute urinary tract infection with symptoms. With possible elements of obstructive uropathy, improved with Martinez catheter and hydration Acute kidney injury Hypovolemic hyponatremia Recent right knee replacement for her severe osteoarthritis COPD, no acute exacerbation Hyperlipidemia Osteoarthritis with following up with pain clinic Chronic back pain History of neurogenic bladder with self-catheterization Plan: This is a pleasant 70 years old female who presents with fall, one day since, leukocytosis and acute kidney injury Continue with antibiotic, currently on Effexor XR, follow-up urine culture Continue with normal saline at 75 mL/h Neurology input is appreciated, he recommended MRI of the brain and cervical spine, also he recommended checking vitamin B12 and TSH and EMG with nerve conduction study for upper and lower extremity as an outpatient orthopedic team on the case and status post right knee debridement and wound closure Labs and medication were reviewed.. Continue same treatment. Continue with symptomatic treatment. Resume home medication. Monitor lytes and vitals. DVT and GI prophylaxis. Further recommendationsas per clinical course of the patient DVT prophylaxis and pain management for surgery team PT/OT: Pending Prognosis is guarded Thank you for consulting us, we will follow up.
[2021-01-20] MEDS: SYMBICORT 160-4.5 MCG INHALER INHALATION SCH (19:10)
[2021-01-20] MEDS: traMADol 50 MG TAB PO PRN (19:48)
[2021-01-20] MEDS: SENNOSIDES-DOCUSATE SODIUM 1 EACH TAB PO SCH (21:03)
--- NOTE | 2021-01-20 23:21 | P.CONS ---
History of Present Illness - Reason for Consult Consult date: 01/20/21 leukocytosis and uti Requesting physician: Дмитрий E Sheet - Chief Complaint fall and right knee wound x few days - History of Present Illness History of present illness : Patient is 70-year-old female status post right knee arthroplasty that was performed on 12/30/2020 continue the patient did have a fall on January 08, 2021 in this patient who did have injury noted of her surgical wound patient presented to the [facility] ER on 01/18/2021 after the patient did have another fall patient has been in stable patient was complaining of pain to the right knee area to be 20 out of 10 also complaining of pain to the right arm area there was no radiation of the pain patient subsequently has been admitted to hospital patient was taken to the OR yesterday and this patient was status post irrigation and debridement right superficial wound dehiscence secondary closure of the right wound dehiscence with no mention of extension of the wound down to the prosthetic joint and onto was unable to express any fluid from the right knee no cultures were sent patient to did not have any fever during this admission she did have white count of 25,000 admission down to 15,000 yesterday did have mildly positive UA currently being treated with Rocephin 1 g daily infectious disease was consulted for further management, most information has been obtained from review the chart of the nursing staff as the patient herself evaluated good historian Review of system: Positive point has been mentioned in HPI complete review could not be obtained because of underlying mental status Past medical history : Reviewed, documented below Past surgical history : Reviewed, documented below Social history: Reviewed, documented below Medications: Reviewed, as documented below EXAMINATION: Vital sigans= Reviewed and documented below GENERAL DESCRIPTION: Elderly female lying in bed, no distress. No tachypnea or accessory muscle of respiration use. HEENT: Shows Pallor , no scleral icterus. Oral mucous membrane is dry. NECK: Trachea central, no thyromegaly. LUNGS: Unlabored breathing. Clear to auscultation anteriorly. No wheeze or crackle. HEART: S1, S2, regular rate and rhythm. ABDOMEN: Soft, no tenderness , guarding or rigidity EXTREMITIES: Right knee is currently dressing or dressing no drainage on the dressing SKIN: No rash, no masses palpable. NEUROLOGICAL: The patient is awake, alert, oriented x1, mood and affect normal. LABS AND RADIOLOGY: Reviewed results see below Assessment : Patient with a leukocytosis in this patient who do have a history o f right knee knee replacement surgery performed on 12/27/2020 since then the patient did have 2 falls and did have dehiscence of the wound patient did not have any fever, the patient status post exploration of the right knee by orthopedic and operative report did not mention any joint effusion or extension of the wound down to the prosthetic knee status post closure of the wound and no cultures, white count could be more likely reactive as well as a component of UTI and other obvious [focus of infection Plan: 1-we will obtain inflammatory markers while waiting for the culture to finalize 2-Rocephin 1 g daily to continue 3-gentle IV fluid We will follow on clinical condition and cultures to further adjust medication if needed Thank you for this consultation we will follow the patient along with you Past Medical History Past Medical History: GERD/Reflux, Hyperlipidemia, Hypertension, Osteoarthritis (OA) Additional Past Medical History / Comment(s): bladder problems,can't empty bladder fully, self catheterizes frequently, nerve pain in "crotch" area & low back, two leaky heart valves, past hx ulcers, 'bad rt hip and both knees" History of Any Multi-Drug Resistant Organisms: None Reported Past Surgical History: Cholecystectomy, Hysterectomy, Orthopedic Surgery, Tons illectomy Additional Past Surgical History / Comment(s): ORIF right ankle & then hardware removed, cataracts removed-stuart, pain clinic procedures Past Anesthesia/Blood Transfusion Reactions: Previous Problems w/ Anesthesia Additional Past Anesthesia/Blood Transfusion Reaction / Comm: years ago problem w/waking fron anesthesia, but not recently Past Psychological History: No Psychological Hx Reported Smoking Status: Former smoker Past Alcohol Use History: None Reported Additional Past Alcohol Use History / Comment(s): quit smoking 2019, smoked on & off since 18 <1/2ppd Past Drug Use History: None Reported - Past Family History Mother Family Medical History: No Reported History Medications and Allergies Home Medications Medication Instructions Recorded Confirmed Type Amitriptyline HCl [Elavil] 50 mg PO HS 03/26/20 01/18/21 History Atorvastatin [Lipitor] 20 mg PO HS 03/26/20 01/18/21 History Lisinopril [Zestril] 10 mg PO DAILY 03/26/20 01/18/21 History Tamsulosin [Flomax] 0.4 mg PO BID 03/26/20 01/18/21 History Temazepam [Restoril] 30 mg PO HS 03/26/20 01/18/21 History tiZANidine [Zanaflex] 4 mg PO DAILY 03/26/20 01/18/21 History Gabapentin [Neurontin] 100 mg PO BID 06/07/20 01/18/21 History Alendronate Sodium [Fosamax] 70 mg PO WE 12/24/20 01/18/21 History Aspirin [Adult Low Dose Aspirin EC] 81 mg PO BID #60 tablet. 12/31/20 01/18/21 Rx HYDROcodone/APAP 7.5-325MG [[place] 1 - 2 tab PO Q6HR PRN 01/05/21 01/18/21 History 7.5-325] Docusate [Colace] 100 mg PO BID PRN 01/18/21 01/18/21 History Sulfamethox-Tmp 800-160Mg [Bactrim 1 tab PO Q12H 01/18/21 01/18/21 History DS 800-160 mg] Allergies Allergy/AdvReac Type Severity Reaction Status Date / Time codeine Allergy passed out Verified 01/19/21 15:06 latex Allergy Itching Verified 01/19/21 15:06 Penicillins Allergy tongue Verified 01/19/21 15:06 swelling, throat closing meperidine [From Demerol] AdvReac "out of it" Verified 01/19/21 15:06 Physical Exam Vitals: Vital Signs Temp Pulse Pulse Pulse Resp BP BP 01/19/21 15:11 98.6 F 91 18 01/19/21 12:50 98.8 F 100 83 109/57 01/19/21 04:07 98.6 F 90 18 01/18/21 22:35 98.4 F 88 18 01/18/21 21:52 97.8 F 94 16 107/51 01/18/21 15:46 99.5 F 94 18 108/64 BP BP Pulse Ox 01/19/21 15:11 141/63 97 01/19/21 12:50 108/63 96 01/19/21 04:07 114/65 97 01/18/21 22:35 109/64 100 01/18/21 21:52 99 01/18/21 15:46 98 Intake and Output 0901/19/21 01/19/21 06:59 14:59 22:59 Intake Total 0 Output Total 650 Balance -650 0 Intake: IV 0 Output: Urine 650 Other: Voiding Method Indwelling Catheter Results CBC & Chem 7: 01/19/21 06:34 01/19/21 06:34 Labs: Abnormal Lab Results - Last 24 Hours (Table) 01/18/21 01/18/21 01/18/21 Range/Units 16:28 16:28 17:50 WBC 25.0 H (3.8-10.6) k/uL RBC 2.93 L (3.80-5.40) m/uL Hgb 9.4 L D (11.4-16.0) gm/dL Hct 27.3 L (34.0-46.0) % RDW (11.5-14.5) % Plt Count 547 H (150-450) k/uL Immature Gran # (0.00-0.04) X 10*3/uL Neutrophils # 23.1 H (1.3-7.7) k/uL Lymphocytes # 0.9 L (1.0-4.8) k/uL Sodium 125 L (137-145) mmol/L Potassium 6.0 H (3.5-5.1) mmol/L Carbon Dioxide 18 L (22-30) mmol/L BUN 48 H (7-17) mg/dL Creatinine 3.76 H (0.52-1.04) mg/dL Glucose 126 H (74-99) mg/dL AST 52 H (14-36) U/L Alkaline Phosphatase 157 H (38-126) U/L Urine Protein Trace H (Negative) Urine Ketones (Negative) Urine Blood (Negative) Urine Bilirubin 1+ H (Negative) Ur Leukocyte Esterase (Negative) Urine WBC (0-5) /hpf Urine Bacteria (None) /hpf Urine Mucus (None) /hpf 01/19/21 01/19/21 01/19/21 Range/Units 06:34 06:34 13:09 WBC 15.19 H (3.8-10.6) k/uL RBC 2.68 L (3.80-5.40) m/uL Hgb 8.4 L (11.4-16.0) gm/dL Hct 25.4 L (34.0-46.0) % RDW 15.4 H (11.5-14.5) % Plt Count 472 H (150-450) k/uL Immature Gran # 0.12 H (0.00-0.04) X 10*3/uL Neutrophils # 12.21 H (1.3-7.7) k/uL Lymphocytes # (1.0-4.8) k/uL Sodium 130 L (137-145) mmol/L Potassium (3.5-5.1) mmol/L Carbon Dioxide 16 L (22-30) mmol/L BUN 38 H (7-17) mg/dL Creatinine 2.68 H (0.52-1.04) mg/dL Glucose (74-99) mg/dL AST (14-36) U/L Alkaline Phosphatase (38-126) U/L Urine Protein (Negative) Urine Ketones Trace H (Negative) Urine Blood Trace H (Negative) Urine Bilirubin (Negative) Ur Leukocyte Esterase Small H (Negative) Urine WBC 7 H (0-5) /hpf Urine Bacteria Occasional H (None) /hpf Urine Mucus Rare H (None) /hpf
[2021-01-21] MEDS: SODIUM CHLORIDE 0.9% 1,000 ML IV SCH ×2 (02:44→07:58)
[2021-01-21 03:30] LABS: Hemoglobin A1C 6.1 % (4.0-6.0)
[2021-01-21 06:39] LABS: Basophils % (A) 0 %; Eosinophils # (A) 0.2 k/uL (0-0.7); Eosinophils % (A) 1 %; HCT 27.4 % (34.0-46.0); HGB 9.3 gm/dL (11.4-16.0); Lymphocytes % (A) 7 %; MCH 31.9 pg (25.0-35.0); MCHC 33.8 g/dL (31.0-37.0); MCV 94.6 fL (80.0-100.0); Mean Platelet Volume 7.1; Monocytes # (A) 0.6 k/uL (0-1.0); Monocytes % (A) 4 %; Neutrophils # (A) 12.4 k/uL (1.3-7.7); Neutrophils % (A) 87 %; Platelet Count 524 k/uL (150-450); RDW 14.4 % (11.5-15.5); WBC 14.3 k/uL (3.8-10.6)
[2021-01-21 06:52] LABS: African American GFR (CKD) >90 (>60 ml/min/1.73 sqM); Anion Gap 6 mmol/L; Blood Urea Nitrogen 10 mg/dL (7-17); Calcium 8.1 mg/dL (8.4-10.2); Carbon Dioxide 17 mmol/L (22-30); Chloride 112 mmol/L (98-107); Glucose 97 mg/dL (74-99); Non-African American GFR(CKD) >90 (>60 ml/min/1.73 sqM); Potassium 4.5 mmol/L (3.5-5.1); Sodium 135 mmol/L (137-145)
[2021-01-21 07:49] LABS: C Reactive Protein 2.7 mg/dL (<1.0)
[2021-01-21] MEDS: ASPIRIN 81 MG PO SCH ×2 (08:05→20:35)
[2021-01-21] MEDS: MULTIVITAMINS, THERA 1 EACH TAB PO SCH (08:17)
[2021-01-21] MEDS: SYMBICORT 160-4.5 MCG INHALER INHALATION SCH ×2 (08:27→20:07)
[2021-01-21] MEDS: HYDROmorphone 0.5 MG/0.5 ML SYRINGE IVP PRN (08:56)
[2021-01-21] MEDS ORDERED: LORazepam 2 MG/ML INJ IV STA (11:27)
[2021-01-21 12:00] LABS: Erythrocyte Sedimentation Rate 31 mm/hr (0-20)
[2021-01-21] MEDS: HYDROcodone/APAP 5-325MG 1 EACH TAB PO PRN (12:31)
--- NOTE | 2021-01-21 14:49 | MR ---
EXAMINATION TYPE: MR brain wo con DATE OF EXAM: 01/21/2021 COMPARISON: None HISTORY: Right hand weakness and falls CONTRAST: Performed utilizing 0 mL intravenous Gadavist gadolinium contrast. TECHNIQUE: Multiplanar, multiecho imaging on a 3.0 Monserrat magnet is performed through the brain. Stud y is performed within 24 hours of arrival to the hospital. The craniovertebral junction is normal. The pituitary is normal. Diffusion-weighted imaging is performed. No abnormal hyperintensity is present to suggest an acute i ntracranial infarct or acute ischemic change. There is mild periventricular white matter hyperintensity, likely on the basis of chronic white matte r ischemic change. There is some limitation in exam due to excessive motion artifact. Ventricles and sulci are borderline prominent for the patient age. IMPRESSIONS: 1. Mild periventricular white matter ischemic type changes.
--- NOTE | 2021-01-21 16:27 | P.PN ---
Subjective Progress Note Date: 01/21/21 The patient is seen at bedside and she still have the right wrist drop but feels her right hand movement is somewhat better. Denies of any new neurological problems. Patient could not handle the MRI Cervical spine. Objective - Vital Signs Vital signs: Vital Signs Temp 98.3 F 01/21/21 15:41 Pulse 84 01/21/21 15:41 Resp 15 01/21/21 15:41 BP 158/72 01/21/21 15:41 Pulse Ox 96 01/21/21 15:41 Intake & Output 01/20/21 01/21/21 01/21/21 18:59 06:59 18:59 Intake Total 50 560 Output Total 355 995 4107 Balance -650 -600 -440 Intake: Intake, IV Titration 50 Amount cefTRIAXone 1 gm In 50 Sodium Chloride 0.9% 50 ml @ 100 mls/hr IVPB Q24HR [facility] Rx#:[id number] Oral 560 Output: Urine 749 960 8082 Other: Voiding Method Indwelling Catheter Indwelling Catheter Indwelling Catheter # Bowel Movements 2 1 - Exam GENERAL: The patient is lying in bed and is not in acute distress. She seems minimally restless on examination. PSYCH: Flat affect. NEUROLOGICAL: Higher mental function: The patient is awake, alert, oriented to self, place. She correctly stated the month but stated the year is 2001. She is able to name objects (pen, watch and glasses). Patient is following commands. No aphasia and no neglect. Cranial nerves: The pupils are round, equal and reactive to light and accommodation. Visual hall are full to confrontation throughout. Extraocular movement is intact no nystagmus is noted. Facial sensation is normal to touch throughout. The facial strength is normal throughout. Hearing is mildly to moderate decreased bilaterally to hand rub. Tongue is midline and moved [id number] without any difficulty. No dysarthria is noted. Shoulder shrug is normal bilaterally. Motor: Gait is deferred because of her condition. The strength is right wrist extension is 0/ 5, finger extension of hand distally is 2-3/5. Right lower extremity is limited in testing since has cast and it is wrapped from proximally knee all way down but is able to lift above gravity. Otherwise strength is 5/5. Decrease tone over the rigth hand/wrist region. Otherwise normal. Normal bulk. Cerebellum: Normal finger to nose heel to barrow bilaterally. Sensation: Sensation is normal to touch throughout . Could not assess right lower extremity. Reflexes (right/left): Right biceps are 1-2+. Could not assess right lower extremity (cast). Could not assess left patellar (she was in pain). Otherwise 2+ throughout. Plantars is mute over the left. Humerus x-ray of the right and it was no acute abnormality. The right hand x- ray was also was noted as there is some also arthritis but no fracture. Forearm x-ray also was negative for fracture. MR the brain is reported as mild periventricular white matter ischemic type changes. Routine EEG on 01/21/2021: Normal. There are no focal slowing, epileptiform discharges or seizure on the EEG. AST of 52 and ALT of 24. Hemoglobin A1c is 6.1 which is just minimally elevated Colvin virus PCR was not detected. - Labs CBC & Chem 7: 01/21/21 06:00 01/21/21 06:00 Labs: Abnormal Lab Results - Last 24 Hours (Table) 01/19/21 01/21/21 01/21/21 Range/Units 06:34 06:00 06:00 WBC 14.3 H (3.8-10.6) k/uL RBC 2.90 L (3.80-5.40) m/uL Hgb 9.3 L (11.4-16.0) gm/dL Hct 27.4 L (34.0-46.0) % Plt Count 524 H (150-450) k/uL Neutrophils # 12.4 H (1.3-7.7) k/uL ESR 31 H (0-20) mm/hr Sodium 135 L (137-145) mmol/L Chloride 112 H (98-107) mmol/L Carbon Dioxide 17 L (22-30) mmol/L Hemoglobin A1c 6.1 H (4.0-6.0) % Calcium 8.1 L (8.4-10.2) mg/dL C-Reactive Protein 2.7 H (<1.0) mg/dL Microbiology - Last 24 Hours (Table) 01/18/21 17:50 Urine Culture - Final Urine,Catheterized 01/19/21 13:09 Urine Culture - Final Urine,Catheterized Assessment and Plan Assessment: Right wrist drop (per significant other seen it on 01/18/2021) 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 Rule out other etiologies. Multiple falls at home for past one month: Unsure cause (No LOC, tongue bite, jerking of extremities. Seizure is unlikely). Wound dehiscence of the right knee secondary due to fall New onset borderline diabetes with hemoglobin A1c is 6.1 The leukocytosis it is felt by the primary team due to urinary tract infection with possible element of obstructive uropathy. Acute kidney insufficiency trending down Recent right knee replacement for severe osteoarthritis History of neurogenic bladder with self-catheterization Chronic lower back pain Plan: * Pending MRI cervical spine to rule out any lesion result (I feel unlikely). * Pending vitamin B12 level and TSH level. I ordered hemoglobin A1c as well. * Recommend Orthostatics (once stable. It will be a bit tough to obtain currently because of her condition). * Recommend possibly consideration of holter monitor or loop recorder. * Recommend avoiding as much as possible sedatives/opiate that would affect the patient mentation which can also lead to not only change in mentation but also to avoid falls. Even when she get discharged please avoid any sedative or any medication that can affect her mentation. * Every 4 hours neuro checks * Occupation therapy and physical therapy are consulted. * Recommend EMG with nerve conduction study of the upper extremities as outpatient. Also recommend EMG with NCS of lowers as well as outpatient. * We'll defer the rest of medical management to the primary team. * Upon discharge recommend the patient to follow-up with a neurologist within 1- 2 weeks as outpatient. The plan is discussed with her significant other (who is at bedside). Plan is also discussed with primary team nurse practioner. Cj Beckham M.D. Neuro-hospitalist
--- NOTE | 2021-01-21 16:50 | EEG ---
ELECTROENCEPHALOGRAM REPORT DATE OF SERVICE: 01/21/2021. CLINICAL HISTORY: This is a 70-year-old woman with episode of recurrent falls. The video EEG is obtained to evaluate for seizure epileptiform activity. Relevant medication: The patient is not on any antiepileptic drugs. EEG TYPE: A routine 21-channel EEG is performed with video using the 10/20 electrode placement system. DESCRIPTION: Wakefulness and drowsiness are obtained. During wakefulness, there is a posterior- dominant rhythm of low to moderate voltage of 8-8.5 hertz that is well modulated and well sustained. During drowsiness there is slowing and attenuation of the background activity. There is no physiological stage 2 sleep architecture. There is no focal slowing. Interictal and ictal is none. ACTIVATION PROCEDURE: Photic stimulation and hyperventilation are not performed. CLINICAL INTERPRETATION: This is a normal routine EEG. There are no focal slowing, epileptiform discharge or seizure on the EEG. Clinical correlation is recommended. FARIDEH / LEO: [id number] / MTDBrenda
[2021-01-21 17:57] LABS: Folate, Serum 11.6 ng/mL
--- NOTE | 2021-01-21 18:08 | PN ---
PROGRESS NOTE DATE OF SERVICE: 01/21/2021 REASON FOR FOLLOWUP: UTI. Possible right knee cellulitis. INTERVAL HISTORY: The patient is afebrile. The patient is currently breathing comfortably. Slightly more awake and alert. Denies any chest pain or cough. No abdominal pain or any worsening pain to the right knee. PHYSICAL EXAMINATION: Blood pressure 170/90 with a pulse of 92, temperature 98.8. She is 96% on room air. GENERAL DESCRIPTION: General description is an elderly female lying in bed in no distress. RESPIRATORY SYSTEM: Unlabored breathing. Clear to auscultation anteriorly. HEART: S1, S2. Regular rate and rhythm. ABDOMEN: Soft. No tenderness. Right knee is currently dressed, with no drainage on the dressing. LABS: Hemoglobin is 9.3, white count 14.3, BUN of , creatinine 0.60. Cultures currently pending. DIAGNOSTIC IMPRESSION AND PLAN: Patient admitted to hospital with falls in this patient who does have right knee wound dehiscence, status post operative repair with mention of no extension to the prosthetic joint. Also with positive UA. The patient is currently covered with Rocephin while waiting for the culture to finalize and monitor clinical course closely. MMODL / IJN: [id number] /
[2021-01-21] MEDS: SENNOSIDES-DOCUSATE SODIUM 1 EACH TAB PO SCH (20:35)
[2021-01-22] MEDS: SODIUM CHLORIDE 0.9% 1,000 ML IV SCH ×3 (04:33→20:56)
[2021-01-22] MEDS: MULTIVITAMINS, THERA 1 EACH TAB PO SCH (08:17)
[2021-01-22] MEDS: ASPIRIN 81 MG PO SCH ×2 (08:17→20:53)
--- NOTE | 2021-01-22 10:52 | P.PN ---
Subjective Progress Note Date: 01/22/21 Principal diagnosis: Status post right knee I&D This is a 70 year-old female post right knee I&D. This is post-op day 3. The patient was evaluated at the bedside today. The patient denies nausea, vomiting, abdominal pain, shortness of breath, and chest pain this morning. She states her pain is not controlled at this time but she was difficult to awaken and was drifting off to sleep easily. The patient has been up with physical therapy. We are awaiting rehab placement. Objective - Vital Signs Vital signs: Vital Signs Temp 99.1 F 01/22/21 04:43 Pulse 84 01/22/21 04:43 Resp 16 01/22/21 04:43 BP 168/71 01/22/21 04:43 Pulse Ox 98 01/22/21 04:43 Intake & Output 01/21/21 01/22/21 01/22/21 18:59 06:59 18:59 Intake Total 610 900 Output Total 1000 450 Balance -390 450 Intake: Intake, IV Titration 50 900 Amount Sodium Chloride 0.9% 1, 900 000 ml @ 75 mls/hr IV . [id number] [facility] Rx#:[id number] cefTRIAXone 1 gm In 50 Sodium Chloride 0.9% 50 ml @ 100 mls/hr IVPB Q24HR [facility] Rx#:[id number] Oral 560 Output: Urine 1000 450 Other: Voiding Method Indwelling Catheter Indwelling Catheter # Bowel Movements 1 1 - Exam The patient does not appear in acute distress. Alert and orientated x2. Splint and dressing is clean dry and intact. She is able to move her toes without difficulty. Sensation and circulatory status is intact. - Labs CBC & Chem 7: 01/21/21 06:00 01/21/21 06:00 Labs: Abnormal Lab Results - Last 24 Hours (Table) 01/19/21 01/21/21 Range/Units 06:34 06:00 ESR 31 H (0-20) mm/hr Vitamin B12 197.0 L (200.0-944.0) pg/mL Microbiology - Last 24 Hours (Table) 01/21/21 06:00 Blood Culture - Preliminary Blood No Growth after 24 hours Assessment and Plan (1) Fall Current Visit: Yes Status: Acute Code(s): W19.XXXA - UNSPECIFIED FALL, INITIAL ENCOUNTER SNOMED Code(s): 6645349 (2) Wound dehiscence, surgical Current Visit: Yes Status: Acute Code(s): T81.31XA - DISRUPTION OF EXTERNAL OPERATION (SURGICAL) WOUND, NEC, INIT SNOMED Code(s): 473731257 (3) Status post total right knee replacement Current Visit: No Status: Acute Priority: Medium Code(s): Z96.651 - PRESENCE OF RIGHT ARTIFICIAL KNEE JOINT SNOMED Code(s): 5920790750323 Plan: 1. Continue pain control 2. Anticoagulation with Aspirin 3. Continue physical therapy and ambulation 4. Keep splint in place. Non-weightbearing to the right leg. 5. Anticipate discharge to skilled rehab when cleared by internal medicine, infectious disease, and neurology.
[2021-01-22] MEDS: SYMBICORT 160-4.5 MCG INHALER INHALATION SCH ×2 (10:55→20:04)
--- NOTE | 2021-01-22 15:38 | MR ---
EXAMINATION TYPE: MR cervical spine wo/w con DATE OF EXAM: 01/22/2021 COMPARISON: None HISTORY: Right hand weakness. CONTRAST: Standard multiplanar, multisequence MRI departmental protocol utilizing 6 mL intravenous Gadavist jewel olinium contrast. Cervical vertebra have normal alignment. Posterior elements are intact. Disc spaces are fairly normal . There is no compression fracture. There is no evidence of cervical spinal stenosis. There is a very small posterior disc bulge at C3-4. There is developmentally adequate spinal canal. IMPRESSION: Negative MR scan of the cervical spine. No evidence of any significant cervical disc herniation or sp inal stenosis.
[2021-01-22] MEDS: HYDROcodone/APAP 5-325MG 1 EACH TAB PO PRN (16:51)
--- NOTE | 2021-01-22 17:10 | PN ---
PROGRESS NOTE DATE OF SERVICE: 01/22/2021 REASON FOR FOLLOWUP: Possible UTI and leukocytosis. INTERVAL HISTORY: The patient is afebrile. The patient is breathing comfortably on room air. The patient remains pleasantly confused. Did not provide any history. No vomiting, diarrhea, or any other changes reported by nursing staff. PHYSICAL EXAMINATION: Blood pressure 164/69, pulse of 78, temperature 98.5. She is 97% on room air. GENERAL DESCRIPTION: General description is an elderly female up in the bed in no distress. RESPIRATORY SYSTEM: Unlabored breathing. Clear to auscultation anteriorly. HEART: S1, S2. Regular rate and rhythm. ABDOMEN: Soft. No tenderness. Right knee is currently dressed. LABS: Hemoglobin is 9.3, white count 14.3, BUN of 10, creatinine 0.60. Culture so far pending. Blood culture negative. DIAGNOSTIC IMPRESSION AND PLAN: Patient with elevated white count, multifactorial, in the patient admitted to hospital with right knee wound dehiscence, status post re-closure. No evidence of any joint fluid or infection down to the knee per the operative report. The patient is currently on empiric Rocephin; to continue while monitoring clinical course closely. Continue supportive care. MMODL / IJN: [id number] /
[2021-01-22] MEDS: SENNOSIDES-DOCUSATE SODIUM 1 EACH TAB PO SCH (20:53)
[2021-01-23] MEDS: HYDROcodone/APAP 5-325MG 1 EACH TAB PO PRN ×3 (05:27→19:27)
[2021-01-23] MEDS: SYMBICORT 160-4.5 MCG INHALER INHALATION SCH ×2 (07:49→19:43)
[2021-01-23] MEDS: ASPIRIN 81 MG PO SCH ×2 (08:46→20:34)
[2021-01-23] MEDS: CYANOCOBALAMIN 1,000 MCG/ML 1 ML VIAL IM SCH (08:46)
[2021-01-23] MEDS: MULTIVITAMINS, THERA 1 EACH TAB PO SCH (08:46)
--- NOTE | 2021-01-23 09:04 | P.PN ---
Subjective Progress Note Date: 01/23/21 Principal diagnosis: Status post right knee I&D This is a 70 year-old female post right knee I&D. This is post-op day 4. The patient was evaluated at the bedside today. The patient denies nausea, vomiting, abdominal pain, shortness of breath, and chest pain this morning. She states her pain is controlled at this time. The patient has been up with physi isaac therapy but not out of bed yet according to the patient. We are awaiting rehab placement. Objective - Vital Signs Vital signs: Vital Signs Temp 98.2 F 01/23/21 05:15 Pulse 87 01/23/21 05:15 Resp 15 01/23/21 05:15 BP 160/69 01/23/21 05:15 Pulse Ox 97 01/23/21 05:15 Intake & Output 01/22/21 01/23/21 01/23/21 18:59 06:59 18:59 Intake Total 1310 Output Total 1200 500 Balance 110 -500 Intake: Intake, IV Titration 950 Amount Sodium Chloride 0.9% 1, 900 000 ml @ 75 mls/hr IV . [id number] [facility] Rx#:[id number] cefTRIAXone 1 gm In 50 Sodium Chloride 0.9% 50 ml @ 100 mls/hr IVPB Q24HR [facility] Rx#:[id number] Oral 360 Output: Urine 1200 500 Uretheral (Martinez) 600 Other: Voiding Method Indwelling Catheter Indwelling Catheter # Voids 600 - Exam The patient does not appear in acute distress. Alert and orientated x2. Splint and dressing is clean dry and intact. She is able to move her toes without difficulty. Sensation and circulatory status is intact. - Labs CBC & Chem 7: 01/21/21 06:00 01/21/21 06:00 Labs: Microbiology - Last 24 Hours (Table) 01/21/21 06:00 Blood Culture - Preliminary Blood No Growth after 48 hours Assessment and Plan (1) Fall Current Visit: Yes Status: Acute Code(s): W19.XXXA - UNSPECIFIED FALL, INITIAL ENCOUNTER SNOMED Code(s): 0447907 (2) Wound dehiscence, surgical Current Visit: Yes Status: Acute Code(s): T81.31XA - DISRUPTION OF EXTERNAL OPERATION (SURGICAL) WOUND, NEC, INIT SNOMED Code(s): 529900461 (3) Status post total right knee replacement Current Visit: No Status: Acute Priority: Medium Code(s): Z96.651 - PRESENCE OF RIGHT ARTIFICIAL KNEE JOINT SNOMED Code(s): 2201723660689 Plan: 1. Continue pain control 2. Anticoagulation with Aspirin 3. Continue physical therapy and ambulation 4. Keep splint in place. Non-weightbearing to the right leg. 5. Anticipate discharge to skilled rehab when cleared by internal medicine, infectious disease, and neurology.
--- NOTE | 2021-01-23 09:51 | P.PN ---
Subjective Progress Note Date: 01/21/21 70 years old female with past medical history of hypertension, hyperlipidemia, osteoarthritis follow-up with pain management with chronic back pain and knee pains, possible neurogenic bladder with self-catheterization. 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 She denies any trauma to head. She denies chest pain or dyspnea during the fall or prior. She denies any dizziness or loss of consciousness. Patient states that she fell twice since her surgery on 12/30. However she denies any headache, no weakness in arms or legs. No blurred vision. No slurred speech. Last problem or ataxia Her right knee is swollen, tender and there is a vertical wound with some discharge but no surrounding cellulitis. Patient has recent knee surgery with Dr. Fletcher on 12/30. States that this is the third time she fell after her knee surgery, the other 2 episodes she has no memory about. After surgery she started using a walker. She vomited twice yesterday night after a fall, no blood. She denies any abdominal pain. No diarrhea actually she feels constipated for the last few days. She cannot remember her last bowel movement Currently she denies any chest pain or dyspnea. No headache or weakness or numbness. No blurred vision or aphasia or slurred speech. He was having some urinary difficulties, usually she waits 5 minutes before she was able to be, dysuria or discomfort, no lower abdominal pain, no flank or back pain. She is to follow-up urologist but she could not remember why and whom . No change in frequency of urination. She denies smoking, alcohol or illicit drugs Patient had multiple x-rays including the right forearm, right knee and right hand and right humerus showing no abnormality or fracture seen. We checked venous Doppler of the right leg which was negative for DVT. Chest x- ray: No acute process. COPD Renal ultrasound: No hydronephrosis. Left cortical cyst and subcentimeter right renal cyst Objective - Vital Signs Vital signs: Vital Signs Temp 98.3 F 01/21/21 15:41 Pulse 84 01/21/21 15:41 Resp 15 01/21/21 15:41 BP 158/72 01/21/21 15:41 Pulse Ox 96 01/21/21 15:41 Intake & Output 01/20/21 01/21/21 01/21/21 18:59 06:59 18:59 Intake Total 50 560 Output Total 407 595 0279 Balance -650 -600 -440 Intake: Intake, IV Titration 50 Amount cefTRIAXone 1 gm In 50 Sodium Chloride 0.9% 50 ml @ 100 mls/hr IVPB Q24HR [facility] Rx#:[id number] Oral 560 Output: Urine 085 885 8179 Other: Voiding Method Indwelling Catheter Indwelling Catheter Indwelling Catheter # Bowel Movements 2 1 - Exam GENERAL: The patient is alert and oriented x3, not in any acute distress. Well developed, well nourished. HEENT: Pupils are round and equally reacting to light. EOMI. No scleral icterus. No conjunctival pallor. Normocephalic, atraumatic. No pharyngeal erythema. No thyromegaly. CARDIOVASCULAR: S1 and S2 present. No murmurs, rubs, or gallops. PULMONARY: Chest is clear to auscultation, no wheezing or crackles. -ABDOMEN: Soft, nontender, nondistended, normoactive bowel sounds. No palpable organomegaly. Martinez catheter is in place MUSCULOSKELETAL: No joint swelling or deformity. -EXTREMITIES: No cyanosis, clubbing, or pedal edema. Right knee wound is in a dressing, we will defer rest of examination to surgical team. No surrounding cellulitis -NEUROLOGICAL: Gross neurological examination did not reveal any focal deficits. Right wrist a drop SKIN: No rashes. no petechiae. - Labs CBC & Chem 7: 01/21/21 06:00 01/21/21 06:00 Labs: Abnormal Lab Results - Last 24 Hours (Table) 01/19/21 01/21/21 01/21/21 Range/Units 06:34 06:00 06:00 WBC 14.3 H (3.8-10.6) k/uL RBC 2.90 L (3.80-5.40) m/uL Hgb 9.3 L (11.4-16.0) gm/dL Hct 27.4 L (34.0-46.0) % Plt Count 524 H (150-450) k/uL Neutrophils # 12.4 H (1.3-7.7) k/uL ESR 31 H (0-20) mm/hr Sodium 135 L (137-145) mmol/L Chloride 112 H (98-107) mmol/L Carbon Dioxide 17 L (22-30) mmol/L Hemoglobin A1c 6.1 H (4.0-6.0) % Calcium 8.1 L (8.4-10.2) mg/dL C-Reactive Protein 2.7 H (<1.0) mg/dL Microbiology - Last 24 Hours (Table) 01/18/21 17:50 Urine Culture - Final Urine,Catheterized 01/19/21 13:09 Urine Culture - Final Urine,Catheterized Assessment and Plan Assessment: Multiple Falls at home Right wrist a drop secondary to fall Wound dehiscence of the right knee secondary to fall, status post wound debridement and secondary wound closure on 01/19 Leukocytosis, suspect secondary to acute urinary tract infection with symptoms. With possible elements of obstructive uropathy, improved with Martinez catheter and hydration Acute kidney injury Hypovolemic hyponatremia Recent right knee replacement for her severe osteoarthritis COPD, no acute exacerbation Hyperlipidemia Osteoarthritis with following up with pain clinic Chronic back pain History of neurogenic bladder with self-catheterization Plan: This is a pleasant 70 years old female who presents with fall, one day since, leukocytosis and acute kidney injury Continue with antibiotic, currently on Effexor XR, follow-up urine culture Continue with normal saline at 75 mL/h Neurology input is appreciated, he recommended MRI of the brain and cervical spine, also he recommended checking vitamin B12 and TSH and EMG with nerve conduction study for upper and lower extremity as an outpatient orthopedic team on the case and status post right knee debridement and wound closure Labs and medication were reviewed.. Continue same treatment. Continue with symptomatic treatment. Resume home medication. Monitor lytes and vitals. DVT and GI prophylaxis. Further recommendationsas per clinical course of the patient DVT prophylaxis and pain management for surgery team PT/OT: Pending Prognosis is guarded
--- NOTE | 2021-01-23 10:14 | P.PN ---
Subjective Progress Note Date: 01/22/21 Principal diagnosis: Right wrist drop/radial nerve held sees secondary to injury due to falls Wound dehiscence of the right knee secondary to fall, status post wound debridement and secondary wound closure on 01/19 Acute urinary tract infection 70 years old female with past medical history of hypertension, hyperlipidemia, osteoarthritis follow-up with pain management with chronic back pain and knee pains, possible neurogenic bladder with self-catheterization. 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 She denies any trauma to head. She denies chest pain or dyspnea during the fall or prior. She denies any dizziness or loss of consciousness. Patient states that she fell twice since her surgery on 12/30. However she denies any headache, no weakness in arms or legs. No blurred vision. No slurred speech. Last problem or ataxia Her right knee is swollen, tender and there is a vertical wound with some discharge but no surrounding cellulitis. Patient has recent knee surgery with Dr. Fletcher on 12/30. States that this is the third time she fell after her knee surgery, the other 2 episodes she has no memory about. After surgery she started using a walker. She vomited twice yesterday night after a fall, no blood. She denies any abdominal pain. No diarrhea actually she feels constipated for the last few days. She cannot remember her last bowel movement Currently she denies any chest pain or dyspnea. No headache or weakness or numbness. No blurred vision or aphasia or slurred speech. He was having some urinary difficulties, usually she waits 5 minutes before she was able to be, dysuria or discomfort, no lower abdominal pain, no flank or back pain. She is to follow-up urologist but she could not remember why and whom . No change in frequency of urination. She denies smoking, alcohol or illicit drugs Patient had multiple x-rays including the right forearm, right knee and right hand and right humerus showing no abnormality or fracture seen. We checked venous Doppler of the right leg which was negative for DVT. Chest x-ray: No acute process. COPD Renal ultrasound: No hydronephrosis. Left cortical cyst and subcentimeter right renal cyst 01/22/2021; Patient is seen and evaluated in room at bedside; denies any specific complaints Vital signs are reviewed and stable with temperature 99.1, pulse 84, position 16 and blood pressure 168/71 Patient has been cleared for discharge to skilled rehab by neurology with further work up as an outpatient Plan is to transfer to skilled rehab once arrangements are made Objective - Vital Signs Vital signs: Vital Signs Temp 98.5 F 01/22/21 12:49 Pulse 78 01/22/21 12:49 Resp 16 01/22/21 12:49 BP 164/69 01/22/21 12:49 Pulse Ox 97 01/22/21 12:49 Intake & Output 01/21/21 01/22/21 01/22/21 18:59 06:59 18:59 Intake Total 610 900 Output Total 1000 450 Balance -390 450 Intake: Intake, IV Titration 50 900 Amount Sodium Chloride 0.9% 1, 900 000 ml @ 75 mls/hr IV . [id number] [facility] Rx#:[id number] cefTRIAXone 1 gm In 50 Sodium Chloride 0.9% 50 ml @ 100 mls/hr IVPB Q24HR [facility] Rx#:[id number] Oral 560 Output: Urine 1000 450 Other: Voiding Method Indwelling Catheter Indwelling Catheter Indwelling Catheter # Bowel Movements 1 1 - Exam GENERAL: The patient is alert and oriented x3, not in any acute distress. Well developed, well nourished. HEENT: Pupils are round and equally reacting to light. EOMI. No scleral icterus. No conjunctival pallor. Normocephalic, atraumatic. No pharyngeal erythema. No thyromegaly. CARDIOVASCULAR: S1 and S2 present. No murmurs, rubs, or gallops. PULMONARY: Chest is clear to auscultation, no wheezing or crackles. -ABDOMEN: Soft, nontender, nondistended, normoactive bowel sounds. No palpable organomegaly. Martinez catheter is in place MUSCULOSKELETAL: No joint swelling or deformity. -EXTREMITIES: No cyanosis, clubbing, or pedal edema. Right knee wound is in a dressing, we will defer rest of examination to surgical team. No surrounding cellulitis -NEUROLOGICAL: Gross neurological examination did not reveal any focal deficits. Right wrist a drop SKIN: No rashes. no petechiae. - Labs CBC & Chem 7: 01/21/21 06:00 01/21/21 06:00 Labs: Abnormal Lab Results - Last 24 Hours (Table) 01/19/21 Range/Units 06:34 Vitamin B12 197.0 L (200.0-944.0) pg/mL Microbiology - Last 24 Hours (Table) 01/21/21 06:00 Blood Culture - Preliminary Blood No Growth after 24 hours Assessment and Plan Assessment: Multiple Falls at home Right wrist a drop secondary to fall Wound dehiscence of the right knee secondary to fall, status post wound debridement and secondary wound closure on 01/19 Leukocytosis, suspect secondary to acute urinary tract infection with symptoms. With possible elements of obstructive uropathy, improved with Martinez catheter and hydration Acute kidney injury Hypovolemic hyponatremia Recent right knee replacement for her severe osteoarthritis COPD, no acute exacerbation Hyperlipidemia Osteoarthritis with following up with pain clinic Chronic back pain History of neurogenic bladder with self-catheterization Plan: This is a pleasant 70 years old female who presents with fall, one day since, leukocytosis and acute kidney injury Continue with antibiotic, currently on Effexor XR, follow-up urine culture Continue with normal saline at 75 mL/h Neurology input is appreciated, he recommended MRI of the brain and cervical spine, also he recommended checking vitamin B12 and TSH and EMG with nerve conduction study for upper and lower extremity as an outpatient orthopedic team on the case and status post right knee debridement and wound closure Labs and medication were reviewed.. Continue same treatment. Continue with symptomatic treatment. Resume home medication. Monitor lytes and vitals. DVT and GI prophylaxis. Further recommendationsas per clinical course of the patient DVT prophylaxis and pain management for surgery team PT/OT: Pending Prognosis is guarded
--- NOTE | 2021-01-23 13:13 | P.PN ---
Subjective Progress Note Date: 01/23/21 The patient is seen at bedside and she feels about the same. She continues to have right wrist drop. She denies of any new neurological problems. Objective - Vital Signs Vital signs: Vital Signs Temp 98.2 F 01/23/21 05:15 Pulse 87 01/23/21 05:15 Resp 15 01/23/21 05:15 BP 160/69 01/23/21 05:15 Pulse Ox 97 01/23/21 05:15 Intake & Output 01/22/21 01/23/21 01/23/21 18:59 06:59 18:59 Intake Total 1310 Output Total 1200 500 Balance 110 -500 Intake: Intake, IV Titration 950 Amount Sodium Chloride 0.9% 1, 900 000 ml @ 75 mls/hr IV . [id number] [facility] Rx#:[id number] cefTRIAXone 1 gm In 50 Sodium Chloride 0.9% 50 ml @ 100 mls/hr IVPB Q24HR [facility] Rx#:[id number] Oral 360 Output: Urine 1200 500 Uretheral (Martinez) 600 Other: Voiding Method Indwelling Catheter Indwelling Catheter # Voids 600 - Exam GENERAL: The patient is lying in bed and is not in acute distress. She seems minimally restless on examination. PSYCH: Flat affect. NEUROLOGICAL: Higher mental function: The patient is awake, alert, oriented to self, place. She correctly stated the month but stated the year is 2001. She is able to name objects (pen, watch and glasses). Patient is following commands. No aphasia and no neglect. Cranial nerves: The pupils are round, equal and reactive to light and accommodation. Visual hall are full to confrontation throughout. Extraocular movement is intact no nystagmus is noted. Facial sensation is normal to touch throughout. The facial strength is normal throughout. Hearing is mildly to moderate decreased bilaterally to hand rub. Tongue is midline and moved [id number] without any difficulty. No dysarthria is noted. Shoulder shrug is normal bilaterally. Motor: Gait is deferred because of her condition. The strength is right wrist extension is 0/ 5, finger extension of hand distally is 2-3/5. Right lower extremity is limited in testing since has cast and it is wrapped from proximally knee all way down but is able to lift above gravity. Otherwise strength is 5/5. Decrease tone over the rigth hand/wrist region. Otherwise normal. Normal bulk. Cerebellum: Normal finger to nose heel to barrow bilaterally. Sensation: Sensation is normal to touch throughout . Could not assess right lower extremity. Reflexes (right/left): Right biceps are 1-2+. Could not assess right lower extremity (cast). Could not assess left patellar (she was in pain). Otherwise 2+ throughout. Plantars is mute over the left. Humerus x-ray of the right and it was no acute abnormality. The right hand x-ray was also was noted as there is some also arthritis but no fracture. Forearm x-ray also was negative for fracture. MR the brain is reported as mild periventricular white matter ischemic type changes. MRI Cervical spine w/ and w/o: Negative MRI scan of the cervical spine. No evidence of any significant cervical disc herniation or spinal stenosis. Routine EEG on 01/21/2021: Normal. There are no focal slowing, epileptiform discharges or seizure on the EEG. AST of 52 and ALT of 24. Hemoglobin A1c is 6.1 which is just minimally elevated Vitamin B12 is 197 which is considered deficient the normal supposed to be 200- 944. Serum folate level is 11.6 (normal). Normal supposed to be more than 5.38 Colvin virus PCR was not detected. 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 Vitamin B12 deficiency and can cause neuropathy but cannot exclusively state her wrist drop is because of that and this could be isolated. * Multiple falls at home for past one month: Unsure cause (No LOC, tongue bite, jerking of extremities. Seizure is unlikely). * Vitamin B12 deficiency of level of 197 * Wound dehiscence of the right knee secondary due to fall * New onset borderline diabetes with hemoglobin A1c is 6.1 * The leukocytosis it is felt by the primary team due to urinary tract infection with possible element of obstructive uropathy. * Acute kidney insufficiency trending down * Recent right knee replacement for severe osteoarthritis * History of neurogenic bladder with self-catheterization * Chronic lower back pain Plan: * I started the patient on vitamin B12 1000 g IM today and tomorrow then after that by mouth daily. * Recommend right wrist brace * Recommend consideration of Orthostatics (once stable. It will be a bit tough to obtain currently because of her condition). * Recommend possibly consideration of holter monitor or loop recorder. * Recommend avoiding as much as possible sedatives/opiate that would affect the patient mentation which can also lead to not only change in mentation but also to avoid falls. Even when she get discharged please avoid any sedative or any medication that can affect her mentation. * Every 4 hours neuro checks * Occupation therapy and physical therapy are consulted. * Recommend EMG with nerve conduction study of the upper extremities as outpatient. Also recommend EMG with NCS of lowers as well as outpatient. * We'll defer the rest of medical management to the primary team. * Upon discharge recommend the patient to follow-up with a neurologist within 1- 2 weeks as outpatient. The plan is discussed with primary team. There is no further neurological work-up. Neurology will sign off. Please reconsult if needed. Cj Beckham M.D. Neuro-hospitalist Time with Patient: Less than 30
[2021-01-23] MEDS: traMADol 50 MG TAB PO PRN (16:47)
[2021-01-23] MEDS: SODIUM CHLORIDE 0.9% 1,000 ML IV SCH ×2 (18:02→20:36)
--- NOTE | 2021-01-23 20:30 | P.PN ---
Subjective Progress Note Date: 01/23/21 Principal diagnosis: Right wrist drop/radial nerve held sees secondary to injury due to falls Wound dehiscence of the right knee secondary to fall, status post wound debridement and secondary wound closure on 01/19 Acute urinary tract infection 70 years old female with past medical history of hypertension, hyperlipidemia, osteoarthritis follow-up with pain management with chronic back pain and knee pains, possible neurogenic bladder with self-catheterization. 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 She denies any trauma to head. She denies chest pain or dyspnea during the fall or prior. She denies any dizziness or loss of consciousness. Patient states that she fell twice since her surgery on 12/30. However she denies any headache, no weakness in arms or legs. No blurred vision. No slurred speech. Last problem or ataxia Her right knee is swollen, tender and there is a vertical wound with some discharge but no surrounding cellulitis. Patient has recent knee surgery with Dr. Fletcher on 12/30. States that this is the third time she fell after her knee surgery, the other 2 episodes she has no memory about. After surgery she started using a walker. She vomited twice yesterday night after a fall, no blood. She denies any abdominal pain. No diarrhea actually she feels constipated for the last few days. She cannot remember her last bowel movement Currently she denies any chest pain or dyspnea. No headache or weakness or numbness. No blurred vision or aphasia or slurred speech. He was having some urinary difficulties, usually she waits 5 minutes before she was able to be, dysuria or discomfort, no lower abdominal pain, no flank or back pain. She is to follow-up urologist but she could not remember why and whom . No change in frequency of urination. She denies smoking, alcohol or illicit drugs Patient had multiple x-rays including the right forearm, right knee and right hand and right humerus showing no abnormality or fracture seen. We checked venous Doppler of the right leg which was negative for DVT. Chest x-ray: No acute process. COPD Renal ultrasound: No hydronephrosis. Left cortical cyst and subcentimeter right renal cyst 01/22/2021; Patient is seen and evaluated in room at bedside; denies any specific complaints Vital signs are reviewed and stable with temperature 99.1, pulse 84, position 16 and blood pressure 168/71 Patient has been cleared for discharge to skilled rehab by neurology with further work up as an outpatient Plan is to transfer to skilled rehab once arrangements are made 01/23/2021 Patient is seen and evaluated resting in bed; with is no specific complaints Vital signs are reviewed and temp is 98.5, pulse 74, respiration 18 and blood pressure of 173/74 with O2 saturation of 95% on room air Orthopedic surgery is following and have cleared patient to discharge to skilled rehab once clinically stable Neurology is following for right wrist drop nightly to deal neuropathy; patient has been placed on vitamin B12 1000 g IM today and tomorrow followed by oral vitamin B12 supplement for B12 deficiency; right wrist brace is recommended; orthopedic is following; patient is recommended EMG and nerve conduction study as an outpatient Objective - Vital Signs Vital signs: Vital Signs Temp 98.2 F 01/23/21 05:15 Pulse 87 01/23/21 05:15 Resp 15 01/23/21 05:15 BP 160/69 01/23/21 05:15 Pulse Ox 97 01/23/21 05:15 Intake & Output 01/22/21 01/23/21 01/23/21 18:59 06:59 18:59 Intake Total 1310 Output Total 1200 500 Balance 110 -500 Intake: Intake, IV Titration 950 Amount Sodium Chloride 0.9% 1, 900 000 ml @ 75 mls/hr IV . [id number] [facility] Rx#:[id number] cefTRIAXone 1 gm In 50 Sodium Chloride 0.9% 50 ml @ 100 mls/hr IVPB Q24HR [facility] Rx#:[id number] Oral 360 Output: Urine 1200 500 Uretheral (Martinez) 600 Other: Voiding Method Indwelling Catheter Indwelling Catheter # Voids 600 - Exam GENERAL: The patient is alert and oriented x3, not in any acute distress. Well developed, well nourished. HEENT: Pupils are round and equally reacting to light. EOMI. No scleral icterus. No conjunctival pallor. Normocephalic, atraumatic. No pharyngeal erythema. No thyromegaly. CARDIOVASCULAR: S1 and S2 present. No murmurs, rubs, or gallops. PULMONARY: Chest is clear to auscultation, no wheezing or crackles. -ABDOMEN: Soft, nontender, nondistended, normoactive bowel sounds. No palpable organomegaly. Martinez catheter is in place MUSCULOSKELETAL: No joint swelling or deformity. -EXTREMITIES: No cyanosis, clubbing, or pedal edema. Right knee wound is in a dressing, we will defer rest of examination to surgical team. No surrounding cellulitis -NEUROLOGICAL: Gross neurological examination did not reveal any focal deficits. Right wrist a drop SKIN: No rashes. no petechiae. - Labs CBC & Chem 7: 01/21/21 06:00 01/21/21 06:00 Labs: Microbiology - Last 24 Hours (Table) 01/21/21 06:00 Blood Culture - Preliminary Blood No Growth after 48 hours Assessment and Plan Assessment: Multiple Falls at home Right wrist a drop secondary to fall Wound dehiscence of the right knee secondary to fall, status post wound debridement and secondary wound closure on 01/19 Leukocytosis, suspect secondary to acute urinary tract infection with symptoms. With possible elements of obstructive uropathy, improved with Martinez catheter and hydration Acute kidney injury Hypovolemic hyponatremia Recent right knee replacement for her severe osteoarthritis COPD, no acute exacerbation Hyperlipidemia Osteoarthritis with following up with pain clinic Chronic back pain History of neurogenic bladder with self-catheterization Plan: This is a pleasant 70 years old female who presents with fall, one day since, leukocytosis and acute kidney injury Continue with antibiotic, currently on Effexor XR, follow-up urine culture Continue with normal saline at 75 mL/h Neurology input is appreciated, he recommended MRI of the brain and cervical spine, also he recommended checking vitamin B12 and TSH and EMG with nerve conduction study for upper and lower extremity as an outpatient orthopedic team on the case and status post right knee debridement and wound closure Labs and medication were reviewed.. Continue same treatment. Continue with symptomatic treatment. Resume home medication. Monitor lytes and vitals. DVT and GI prophylaxis. Further recommendationsas per clinical course of the patient DVT prophylaxis and pain management for surgery team PT/OT: Pending Prognosis is guarded
[2021-01-23] MEDS: SENNOSIDES-DOCUSATE SODIUM 1 EACH TAB PO SCH (20:34)
--- NOTE | 2021-01-23 23:38 | PN ---
PROGRESS NOTE DATE OF SERVICE: 01/23/2021 REASON FOR FOLLOWUP: Leukocytosis, UTI and right knee wound dehiscence. INTERVAL HISTORY: Patient is afebrile. The patient is more awake and alert today. She is complaining of more pain to the right knee area. No chest pain, shortness of breath, cough, no abdominal pain or diarrhea. PHYSICAL EXAMINATION: Blood pressure 173/74 with a pulse of 74, temperature 98.5. She is 95% on room air. General description is an elderly female lying in bed in no distress. Respiratory system: Unlabored breathing. Clear to auscultation anteriorly. Heart S1, S2. Regular rate and rhythm. Abdomen soft, no tenderness. Right knee is currently dressed. Cannot be assessed for any swelling or redness. LABS: No new labs have been obtained. Blood and urine culture has been negative. DIAGNOSTIC IMPRESSION AND PLAN: Patient with leukocytosis in this patient admitted to the hospital with dehiscence of the right knee wound status post debridement and primary closure of the wound. Per Ortho mention of no fluid or any infection. Blood and urine cultures have been negative. Patient on empiric Rocephin. We will repeat CBC and inflammatory markers tomorrow and monitor clinical course closely. MMODL / IJN: [id number] / PILAR
[2021-01-24] MEDS: SODIUM CHLORIDE 0.9% 1,000 ML IV SCH (04:57)
[2021-01-24 05:49] LABS: Basophils # (A) 0.1 k/uL (0-0.2); Basophils % (A) 0 %; Eosinophils # (A) 0.4 k/uL (0-0.7); Eosinophils % (A) 3 %; HCT 27.5 % (34.0-46.0); HGB 9.4 gm/dL (11.4-16.0); Lymphocytes # (A) 1.7 k/uL (1.0-4.8); Lymphocytes % (A) 13 %; MCH 31.1 pg (25.0-35.0); MCHC 34.1 g/dL (31.0-37.0); MCV 91.3 fL (80.0-100.0); Monocytes # (A) 0.6 k/uL (0-1.0); Monocytes % (A) 5 %; Neutrophils # (A) 9.7 k/uL (1.3-7.7); Neutrophils % (A) 77 %; Platelet Count 565 k/uL (150-450); RBC 3.01 m/uL (3.80-5.40); RDW 15.1 % (11.5-15.5); WBC 12.6 k/uL (3.8-10.6)
[2021-01-24 06:59] LABS: Erythrocyte Sedimentation Rate 29 mm/hr (0-20)
[2021-01-24] MEDS: SYMBICORT 160-4.5 MCG INHALER INHALATION SCH (07:36)
[2021-01-24] MEDS: ASPIRIN 81 MG PO SCH (08:37)
[2021-01-24] MEDS: CYANOCOBALAMIN 1,000 MCG/ML 1 ML VIAL IM SCH (08:38)
[2021-01-24 10:15] LABS: African American GFR (CKD) 113.7 (60.0-200.0); Anion Gap 8.6 mmol/L (4.00-12.00); C Reactive Protein 1.8 mg/dL (0.0-0.8); Calcium 7.7 mg/dL (8.7-10.3); Carbon Dioxide 19.4 mmol/L (21.6-31.8); Non-African American GFR(CKD) 98.1 (60.0-200.0)
[2021-01-24] MEDS: HYDROcodone/APAP 5-325MG 1 EACH TAB PO PRN ×2 (11:35→17:05)
[2021-01-24] MEDS: MULTIVITAMINS, THERA 1 EACH TAB PO SCH (11:36)
--- NOTE | 2021-01-24 11:38 | P.DS ---
Providers Date of admission: 01/18/21 17:46 Expected date of discharge: 01/24/21 Attending physician: Abdulaziz Fletcher Consults: 01/18/21 17:39 Consult Physician Stat Consulting Provider: Stephanie Galarza Consult Reason/Comments: frequent falls Do you want consulting provider notified?: Yes 01/19/21 15:08 Consult Physician Urgent Consulting Provider: Ankur Zamora Consult Reason/Comments: Possible UTI, wound dehiscence Do you want consulting provider notified?: Yes 01/20/21 12:38 Consult Physician Routine Consulting Provider: Cj Beckham Consult Reason/Comments: Right hand weakness Do you want consulting provider notified?: Yes Primary care physician: Jose G Wills - Discharge Diagnosis(es) (1) Wound dehiscence, surgical The patient was admitted to [facility] and underwent I and D with wound repair of right knee on 01/19/21. She suffered multiple falls resulting in wound opening where she is s/p right total knee arthroplasty on 12/30/[address] Fletcher. The procedure was performed without complications or sequelae. The patient has remained stable postoperatively where she has been followed by IM and Neurology.. The patient was seen and evaluated at bedside today and denies any new complaints. Pain is reasonably controlled. Splint/Dressing is clean dry and intact. . Calf is soft and nontender. The patient has toe motion and sensation without difficulty. Patient's right lower extremity is neurovascular intact. She denies new complaints including chest pain, fever, chills, numbness, dizziness, headaches, slurred speech or other. VSS, labs acceptable, abdomen soft, tolerating PO meds and diet and positive BM. She is to transfer to [facility] with splint and bandage to remain intact until f/u in office in 10 days Current Visit: Yes Status: Acute (2) Wound disruption, post-op, skin Current Visit: No Status: Acute Priority: Medium Procedures: I and D with wound repair right knee s/p right TKA Patient Condition at Discharge: Stable Plan - Discharge Summary Discharge Rx Participant: No New Discharge Prescriptions: New Docusate [Colace] 100 mg PO BID #60 cap Aspirin [Adult Low Dose Aspirin EC] 81 mg PO BID #60 tab HYDROcodone/APAP 5-325MG [[place] 5-325] 1 tab PO Q4HR PRN #42 tab PRN Reason: Pain No Action Temazepam [Restoril] 30 mg PO HS Lisinopril [Zestril] 10 mg PO DAILY Atorvastatin [Lipitor] 20 mg PO HS Amitriptyline HCl [Elavil] 50 mg PO HS Tamsulosin [Flomax] 0.4 mg PO BID tiZANidine [Zanaflex] 4 mg PO DAILY Gabapentin [Neurontin] 100 mg PO BID Aspirin [Adult Low Dose Aspirin EC] 81 mg PO BID #60 tablet. Sulfamethox-Tmp 800-160Mg [Bactrim DS 800-160 mg] 1 tab PO Q12H Alendronate Sodium [Fosamax] 70 mg PO WE HYDROcodone/APAP 7.5-325MG [[place] 7.5-325] 1 - 2 tab PO Q6HR PRN PRN Reason: Pain Docusate [Colace] 100 mg PO BID PRN PRN Reason: Constipation Discharge Medication List Amitriptyline HCl [Elavil] 50 mg PO HS 03/26/20 [History] Atorvastatin [Lipitor] 20 mg PO HS 03/26/20 [History] Lisinopril [Zestril] 10 mg PO DAILY 03/26/20 [History] Tamsulosin [Flomax] 0.4 mg PO BID 03/26/20 [History] Temazepam [Restoril] 30 mg PO HS 03/26/20 [History] tiZANidine [Zanaflex] 4 mg PO DAILY 03/26/20 [History] Gabapentin [Neurontin] 100 mg PO BID 06/07/20 [History] Alendronate Sodium [Fosamax] 70 mg PO WE 12/24/20 [History] Aspirin [Adult Low Dose Aspirin EC] 81 mg PO BID #60 tablet. 12/31/20 [Rx] HYDROcodone/APAP 7.5-325MG [[place] 7.5-325] 1 - 2 tab PO Q6HR PRN 01/05/21 [History] Docusate [Colace] 100 mg PO BID PRN 01/18/21 [History] Sulfamethox-Tmp 800-160Mg [Bactrim DS 800-160 mg] 1 tab PO Q12H 01/18/21 [History] Aspirin [Adult Low Dose Aspirin EC] 81 mg PO BID #60 tab 01/24/21 [Rx] Docusate [Colace] 100 mg PO BID #60 cap 01/24/21 [Rx] HYDROcodone/APAP 5-325MG [[place] 5-325] 1 tab PO Q4HR PRN #42 tab 01/24/21 [Rx] Follow up Appointment(s)/Referral(s): Jose G Wills DO [Primary Care Provider] - 1-2 days Terry Al [NON-STAFF] - 1 Week Abdulaziz Fletcher MD [STAFF PHYSICIAN] - 10 Days Activity/Diet/Wound Care/Special Instructions: maintain splint NWB right lower extremity take meds as directed F/U in office with Dr. Fletcher in 10 days Discharge Disposition: TRANSFER TO SNF/ECF
[2021-01-24 13:03] VITALS: BP 159/72; PULSE 75; RESP 15; TEMP 98
--- NOTE | 2021-01-24 20:35 | P.PN ---
Progress Note - Text Progress Note Date: 01/24/21 REASON FOR FOLLOWUP: Leukocytosis, UTI and right knee wound dehiscence. INTERVAL HISTORY: Patient remains to be afebrile. The patient is complaining of more pain to the right knee area. No chest pain, shortness of breath, cough, no abdominal pain or diarrhea. PHYSICAL EXAMINATION: Blood pressure 170/70 with a pulse of 70, temperature 98.5. She is 95% on room air. General description is an elderly female lying in bed in no distress. Respiratory system: Unlabored breathing. Clear to auscultation anteriorly. Heart S1, S2. Regular rate and rhythm. Abdomen soft, no tenderness. Right knee is currently dressed. Cannot be assessed for any swelling or redness. LABS: Blood and urine culture has been negative. DIAGNOSTIC IMPRESSION AND PLAN: Patient with leukocytosis in this patient admitted to the hospital with dehiscence of the right knee wound status post debridement and primary closure of the wound. Per Ortho mention of no fluid or any infection. Blood and urine cultures have been negative. possible reactive , may consider short course of keflex on discharge
--- NOTE | 2021-01-25 08:38 | P.PN ---
Subjective Progress Note Date: 01/24/21 Right wrist drop/radial nerve held sees secondary to injury due to falls Wound dehiscence of the right knee secondary to fall, status post wound debridement and secondary wound closure on 01/19 Acute urinary tract infection 70 years old female with past medical history of hypertension, hyperlipidemia, o steoarthritis follow-up with pain management with chronic back pain and knee pains, possible neurogenic bladder with self-catheterization. 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 She denies any trauma to head. She denies chest pain or dyspnea during the fall or prior. She denies any dizziness or loss of consciousness. Patient states that she fell twice since her surgery on 12/30. However she denies any headache, no weakness in arms or legs. No blurred vision. No slurred speech. Last problem or ataxia Her right knee is swollen, tender and there is a vertical wound with some discharge but no surrounding cellulitis. Patient has recent knee surgery with Dr. Fletcher on 12/30. States that this is the third time she fell after her knee surgery, the other 2 episodes she has no memory about. After surgery she started using a walker. She vomited twice yesterday night after a fall, no blood. She denies any abdominal pain. No diarrhea actually she feels constipated for the last few days. She cannot remember her last bowel movement Currently she denies any chest pain or dyspnea. No headache or weakness or numbness. No blurred vision or aphasia or slurred speech. He was having some urinary difficulties, usually she waits 5 minutes before she was able to be, dysuria or discomfort, no lower abdominal pain, no flank or back pain. She is to follow-up urologist but she could not remember why and whom . No change in frequency of urination. She denies smoking, alcohol or illicit drugs Patient had multiple x-rays including the right forearm, right knee and right hand and right humerus showing no abnormality or fracture seen. We checked venous Doppler of the right leg which was negative for DVT. Chest x- ray: No acute process. COPD Renal ultrasound: No hydronephrosis. Left cortical cyst and subcentimeter right renal cyst 01/22/2021 Patient is seen and evaluated in room at bedside; denies any specific complaints Vital signs are reviewed and stable with temperature 99.1, pulse 84, position 16 and blood pressure 168/71 Patient has been cleared for discharge to skilled rehab by neurology with further work up as an outpatient Plan is to transfer to skilled rehab once arrangements are made 01/23/2021 Patient is seen and evaluated resting in bed; with is no specific complaints Vital signs are reviewed and temp is 98.5, pulse 74, respiration 18 and blood pressure of 173/74 with O2 saturation of 95% on room air Orthopedic surgery is following and have cleared patient to discharge to skilled rehab once clinically stable Neurology is following for right wrist drop nightly to deal neuropathy; patient has been placed on vitamin B12 1000 g IM today and tomorrow followed by oral vitamin B12 supplement for B12 deficiency; right wrist brace is recommended; orthopedic is following; patient is recommended EMG and nerve conduction study as an outpatient 01/24/2021 Seen and evaluated this morning with no acute overnight issues. Patient continues to state that she has right knee pain with orthopedics following. Pl an is for subacute rehab at [facility] for continued PT/OT therapy. Recommend to continue with right wrist brace. Infectious disease also following with discussion of possible Keflex on discharge. Repeat urinalysis showing no growth and will not require antibiotics for UTI. Patient denies any difficulty and burning or pain with urination. Patient will need outpatient follow-up with neurology for further EMG studies. Review of systems: Constitutional: No reports of fatigue, fever, or chills Cardiovascular: No reports of chest pain or palpitations Respiratory: No reports of shortness of breath or cough GI: No reports of nausea, vomiting, or diarrhea : No reports of dysuria or retention Neurovascular: No reports of weakness or numbness All medications have been reviewed Physical exam: GENERAL: The patient is alert and oriented x1-2, not in any acute distress. Well developed, well nourished. HEENT: Pupils are round and equally reacting to light. EOMI. No scleral icterus. No conjunctival pallor. Normocephalic, atraumatic. No pharyngeal erythema. No thyromegaly. CARDIOVASCULAR: S1 and S2 present. No murmurs, rubs, or gallops. PULMONARY: Chest is clear to auscultation, no wheezing or crackles. ABDOMEN: Soft, nontender, nondistended, normoactive bowel sounds. No palpable organomegaly. Martinez catheter is in place MUSCULOSKELETAL: No joint swelling or deformity. EXTREMITIES: No cyanosis, clubbing, or pedal edema. Right knee wound is in a dressing, we will defer rest of examination to surgical team. No surrounding cellulitis. right wrist splint ordered with continued wrist drop noted some functionality starting NEUROLOGICAL: Gross neurological examination did not reveal any focal deficits. Right wrist a drop SKIN: No rashes. no petechiae. Assessment: Multiple Falls at home Right wrist drop secondary to fall Wound dehiscence of the right knee secondary to fall, status post wound debridement and secondary wound closure on 01/19 Leukocytosis, possibly secondary to acute urinary tract infection with symptoms. With possible elements of obstructive uropathy, improved with Martinez catheter and hydration, urine culture showing no growth and repeat negative as well will not require antibiotics on discharge Acute kidney injury, improved Hypovolemic hyponatremia Recent right knee replacement for her severe osteoarthritis COPD, no acute exacerbation Hyperlipidemia Osteoarthritis with following up with pain clinic Chronic back pain History of neurogenic bladder with self-catheterization Full code Plan: Recommend to continue with current medications and management. Appropriate home medications have been resumed. Patient has been evaluated by neurology [facility] outpatient follow-up for further nerve studies including EMG and will continue with right wrist splint and continued PT/OT therapy at [facility]. Orthopedics recommending outpatient follow-up and will defer antibiotic recommendations to infectious disease. Patient is medically stable for di scharge to ECF and will need outpatient follow-up with neurology and primary care provider. Repeat urinalysis has been negative and will not require antibiotics for urinary tract infection on discharge. Will continue to follow with orthopedics during hospitalization. Thank you for this consultation. Objective - Vital Signs Vital signs: Vital Signs Temp 98.4 F 01/24/21 04:25 Pulse 82 01/24/21 04:25 Resp 18 01/24/21 04:25 BP 177/74 01/24/21 04:25 Pulse Ox 97 01/24/21 04:25 Intake & Output 01/23/21 01/24/21 01/24/21 18:59 06:59 18:59 Intake Total 1550 600 Output Total 1000 Balance 550 600 Intake: IV 600 Sodium Chloride 0.9% 1, 600 000 ml @ 75 mls/hr IV . [id number] [facility] Rx#:[id number] Intake, IV Titration 950 Amount Sodium Chloride 0.9% 1, 900 000 ml @ 75 mls/hr IV . [id number] [facility] Rx#:[id number] cefTRIAXone 1 gm In 50 Sodium Chloride 0.9% 50 ml @ 100 mls/hr IVPB Q24HR [facility] Rx#:[id number] Oral 600 Output: Urine 1000 Uretheral (Martinez) 400 Other: Voiding Method Indwelling Catheter Indwelling Catheter - Labs CBC & Chem 7: 01/24/21 05:25 01/24/21 05:25 Labs: Abnormal Lab Results - Last 24 Hours (Table) 01/24/21 Range/Units 05:25 WBC 12.6 H (3.8-10.6) k/uL RBC 3.01 L (3.80-5.40) m/uL Hgb 9.4 L (11.4-16.0) gm/dL Hct 27.5 L (34.0-46.0) % Plt Count 565 H (150-450) k/uL Neutrophils # 9.7 H (1.3-7.7) k/uL ESR 29 H (0-20) mm/hr Microbiology - Last 24 Hours (Table) 01/21/21 06:00 Blood Culture - Preliminary Blood No Growth after 72 hours
[2021-01-25] MEDS ORDERED: CYANOCOBALAMIN 500 MCG TAB PO SCH (09:00)
== END 2021-01-24 17:20 | DRG 908 ==
LOC: EC 15:19 → 4SSUR 17:46 → 5NMEDONC 22:09
PROVIDERS: ADMIT Orthopaedic Surgery Sports Medicine; ATTEND Orthopaedic Surgery Sports Medicine
PROC: 0JDN0ZZ Extraction of Right Lower Leg Subcutaneous Tissue and Fascia, Open Approach (ICD-10-PCS; principal; 2021-01-19 08:30)
DX: T81.31XA Disruption of external operation (surgical) wound, not elsewhere classified, initial encounter (principal); N39.0 Urinary tract infection, site not specified; E87.1 Hypo-osmolality and hyponatremia; N17.9 Acute kidney failure, unspecified; Z96.651 Presence of right artificial knee joint; W19.XXXA Unspecified fall, initial encounter; R29.6 Repeated falls; M21.331 Wrist drop, right wrist; E53.8 Deficiency of other specified B group vitamins; E78.5 Hyperlipidemia, unspecified; E86.1 Hypovolemia; G89.29 Other chronic pain; I10 Essential (primary) hypertension; J44.9 Chronic obstructive pulmonary disease, unspecified; M19.90 Unspecified osteoarthritis, unspecified site; N28.1 Cyst of kidney, acquired; N31.9 Neuromuscular dysfunction of bladder, unspecified; M54.9 Dorsalgia, unspecified; R11.10 Vomiting, unspecified; K21.9 Gastro-esophageal reflux disease without esophagitis; Z79.82 Long term (current) use of aspirin; Z79.83 Long term (current) use of bisphosphonates; Z79.899 Other long term (current) drug therapy; Z87.891 Personal history of nicotine dependence; Z90.710 Acquired absence of both cervix and uterus
CPT/HCPCS: 36415; 70551; 71045; 72156; 76770; 80048; 80053; 81001; 81003; 82607; 82746; 83036; 84443; 85025; 85652; 86140; 87040; 87086; 87635; 93005; 94640; 95816; 96374; 99285

== ENCOUNTER 2021-02-12 00:57 | Inpatient (IN) | payer MEDICARE ==
[2021-02-12] MEDS ORDERED: MORPHINE SULFATE 4 MG/ML SYRINGE IV STA (01:01)
[2021-02-12] MEDS ORDERED: SODIUM CHLORIDE 0.9% 1,000 ML IV STA (01:01)
--- NOTE | 2021-02-12 01:03 | ED ---
Abdominal Pain HPI - General Stated Complaint: Abd Pain Time Seen by Provider: 02/12/21 00:58 Source: RN notes reviewed, old records reviewed Mode of arrival: EMS Limitations: no limitations - History of Present Illness Initial Comments: This is a 7-year-old female DF for evaluation. Patient presents as a transfer from outside facility for abdominal pain. Patient still with persistent abdominal pain here in the emergency department. Patient was told she has possible small bowel obstruction at prior facility and needed further evaluation management. Patient states her pain is actually relatively well-controlled. She is had a bowel movement, mild nausea no vomiting no fevers. No other new complaints MD Complaint: abdominal pain -: days(s) Location: diffuse, suprapubic Radiation: suprapubic Migration to: suprapubic Severity: moderate Severity scale (1-10): 6 Quality: sharp Consistency: constant Improves With: nothing Worsens With: nothing Associated Symptoms: nausea, constipation Treatments Prior to Arrival: prescription analgesics - Related Data Home Medications Medication Instructions Recorded Confirmed Atorvastatin [Lipitor] 20 mg PO HS 03/26/20 02/12/21 Lisinopril [Zestril] 10 mg PO DAILY 03/26/20 02/12/21 Alendronate Sodium [Fosamax] 70 mg PO WE 12/24/20 02/12/21 Acetaminophen Tab [Tylenol] 650 mg PO Q4HR PRN 02/12/21 02/12/21 Calcium Carbonate [Tums] 1,000 mg PO Q8H PRN 02/12/21 02/12/21 Ciprofloxacin HCl [Cipro] 500 mg PO Q12HR 02/12/21 02/12/21 HYDROcodone/APAP 5-325MG [[place] 1 tab PO Q4HR PRN 02/12/21 02/12/21 5-325] HYDROcodone/APAP 5-325MG [[place] 2 tab PO Q4HR PRN 02/12/21 02/12/21 5-325] Previous Rx's Medication Instructions Recorded Aspirin [Adult Low Dose Aspirin EC] 81 mg PO BID #60 tab 01/24/21 Budesonide-Formot 160-4.5 Mcg 2 puff INHALATION RT-BID gm 01/24/21 [Symbicort 160-4.5 Mcg Inhaler] Cyanocobalamin [Vitamin B-12] 1,000 mcg PO DAILY tab 01/24/21 Docusate [Colace] 100 mg PO BID #60 cap 01/24/21 Ipratropium-Albuterol Nebulize 3 ml INHALATION RT-QID PRN ml 01/24/21 [Duoneb 0.5 mg-3 mg/3 ml Soln] Magnesium Hydroxide [Milk of 2,400 mg PO DAILY PRN ml 01/24/21 Magnesia Concentrate] Multivitamins, Thera [Multivitamin 1 each PO DAILY@1200 tab 01/24/21 (formulary)] Na Phos,M-B/Na Phos,Di-Ba [Fleet 133 ml RECTAL DAILY PRN 01/24/21 Adult] bisacodyL [Dulcolax] 10 mg RECTAL DAILY PRN supp 01/24/21 traMADol HCl [Ultram] 50 mg PO Q6HR PRN #6 tab 01/24/21 Allergies Allergy/AdvReac Type Severity Reaction Status Date / Time codeine Allergy passed out Verified 02/12/21 09:14 latex Allergy Itching Verified 02/12/21 09:14 Penicillins Allergy tongue Verified 02/12/21 09:14 swelling, throat closing meperidine [From Demerol] AdvReac "out of it" Verified 02/12/21 09:14 Review of Systems ROS Statement: Those systems with pertinent positive or pertinent negative responses have been documented in the HPI. ROS Other: All systems not noted in ROS Statement are negative. Past Medical History Past Medical History: GERD/Reflux, Hyperlipidemia, Hypertension, Osteoarthritis (OA) Additional Past Medical History / Comment(s): bladder problems,can't empty bladder fully, self catheterizes frequently, nerve pain in "crotch" area & low back, two leaky heart valves, past hx ulcers, 'bad rt hip and both knees" History of Any Multi-Drug Resistant Organisms: None Reported Past Surgical History: Cholecystectomy, Hysterectomy, Orthopedic Surgery, Tonsillectomy Additional Past Surgical History / Comment(s): ORIF right ankle & then hardware removed, cataracts removed-stuart, pain clinic procedures Past Anesthesia/Blood Transfusion Reactions: Previous Problems w/ Anesthesia Additional Past Anesthesia/Blood Transfusion Reaction / Comment(s): years ago problem w/waking fron anesthesia, but not recently Past Psychological History: No Psychological Hx Reported Smoking Status: Former smoker Past Alcohol Use History: None Reported Additional Past Alcohol Use History / Comment(s): quit smoking 2019, smoked on & off since 18 <1/2ppd Past Drug Use History: None Reported - Past Family History Mother Family Medical History: No Reported History General Exam General appearance: alert, in no apparent distress Head exam: Present: atraumatic, normocephalic, normal inspection Eye exam: Present: normal appearance, PERRL, EOMI. Absent: scleral icterus, conjunctival injection, periorbital swelling ENT exam: Present: normal exam, mucous membranes moist Neck exam: Present: normal inspection. Absent: tenderness, meningismus, lymphadenopathy Respiratory exam: Present: normal lung sounds bilaterally. Absent: respiratory distress, wheezes, rales, rhonchi, stridor Cardiovascular Exam: Present: regular rate, normal rhythm, normal heart sounds. Absent: systolic murmur, diastolic murmur, rubs, gallop, clicks GI/Abdominal exam: Present: soft, normal bowel sounds. Absent: distended, tenderness, guarding, rebound, rigid Extremities exam: Present: normal inspection, full ROM, normal capillary refill. Absent: tenderness, pedal edema, joint swelling, calf tenderness Back exam: Present: normal inspection Neurological exam: Present: alert, oriented X3, CN II-XII intact Psychiatric exam: Present: normal affect, normal mood Skin exam: Present: warm, dry, intact, normal color. Absent: rash Course Vital Signs 02/12/21 02/12/21 02/12/21 01:43 02:30 05:25 Temperature 98.4 F Pulse Rate 78 66 71 Pulse Rate [ Pulse Oximetery ] Respiratory 20 16 18 Rate Blood Pressure 119/43 120/48 108/52 Blood Pressure [Right Arm] O2 Sat by Pulse 97 97 96 Oximetry 02/12/21 02/12/21 02/12/21 08:00 10:33 12:46 Temperature 98.1 F Pulse Rate 70 63 72 Pulse Rate [ Pulse Oximetery ] Respiratory 18 18 18 Rate Blood Pressure 101/46 138/56 119/72 Blood Pressure [Right Arm] O2 Sat by Pulse 97 96 100 Oximetry 02/12/21 02/12/21 02/12/21 13:54 15:07 19:00 Temperature 98.5 F 98.3 F Pulse Rate 69 Pulse Rate [ 65 72 Pulse Oximetery ] Respiratory 18 18 16 Rate Blood Pressure 115/46 Blood Pressure 121/58 133/63 [Right Arm] O2 Sat by Pulse 96 97 97 Oximetry - Reevaluation(s) Reevaluation #1: Medical record is reviewed Patient symptoms are improved here in the emergency department Patient informed of results and questions answered Patient is in no acute distress Medical Decision Making - Medical Decision Making 70 female to the emergency department for evaluation of this ileus versus small bowel structure risk chronic constipation. Patient will be admitted for surgic al evaluation management - Lab Data Result diagrams: 02/12/21 02:30 02/12/21 02:30 - Radiology Data Radiology results: report reviewed (CT abdomen and pelvis is positive significant constipation possible ileus), image reviewed Disposition Clinical Impression: SBO (small bowel obstruction), Status post total right knee replacement, Abdominal pain Disposition: ADMITTED IP TO THIS [facility] Condition: Good Is patient prescribed a controlled substance at d/c from ED?: No
[2021-02-12] MEDS ORDERED: NALOXONE 0.4 MG/ML 1 ML VIAL IV PRN (01:18)
[2021-02-12] MEDS: SODIUM CHLORIDE 0.9% 1,000 ML IV SCH ×3 (02:26→16:36)
[2021-02-12] MEDS: ONDANSETRON 4 MG/2 ML VIAL IVP PRN ×2 (02:26→10:36)
--- NOTE | 2021-02-12 02:26 | CT ---
EXAMINATION TYPE: CT abdomen pelvis w con DATE OF EXAM: 02/12/2021 COMPARISON: 12/21/2020 HISTORY: pain CT DLP: 813.3 mGycm Automated exposure control for dose reduction was used. CONTRAST: Performed with IV Contrast, patient injected with 100 mL of Isovue 300. Images obtained from the diaphragm to the floor the pelvis with IV contrast. There is mild subsegmental atelectasis at the lung bases. Heart is enlarged. There is no pericardial effusion. There is no pleural effusion. Liver spleen stomach pancreas appear intact. Bile ducts are nondilated. There are clips from cholecys tectomy. There is no adrenal mass. Kidneys show satisfactory contrast opacification. There is no hydronephrosi s. The ureters are not dilated. There is no retroperitoneal adenopathy. There is 1 cm cortical cyst posterior right kidney. Bladder distends smoothly. There is no inguinal hernia. There is retained fecal material in the rectu m that measures 7 cm. There is no evidence of a pelvic mass. Lumbar vertebra have normal alignment. T here is no compression fracture. There are spondylotic changes in the upper lumbar spine. The bony pe lvis is intact. Hip joints are intact. Sacroiliac joints are intact. Appendix is not seen. There is no sign of thickened appendix. There is retained fecal material throug hout the large bowel. There is no mesenteric edema. There is no ascites or free air. Small bowel is n ot dilated. IMPRESSION: There is evidence of moderate constipation. Rectal fecal impaction. Constipation increased compared t o old exam.
[2021-02-12 02:55] LABS: Basophils # (A) 0.1 k/uL (0-0.2); Basophils % (A) 1 %; Eosinophils # (A) 0.4 k/uL (0-0.7); Eosinophils % (A) 5 %; HCT 32.9 % (34.0-46.0); Lymphocytes # (A) 2.1 k/uL (1.0-4.8); Lymphocytes % (A) 26 %; MCH 31.1 pg (25.0-35.0); MCHC 33.4 g/dL (31.0-37.0); MCV 93.1 fL (80.0-100.0); Mean Platelet Volume 7.8; Monocytes # (A) 0.5 k/uL (0-1.0); Monocytes % (A) 6 %; Neutrophils # (A) 4.7 k/uL (1.3-7.7); Neutrophils % (A) 60 %; Platelet Count 564 k/uL (150-450); RBC 3.53 m/uL (3.80-5.40); RDW 14.8 % (11.5-15.5); WBC 7.8 k/uL (3.8-10.6)
[2021-02-12 03:11] LABS: ALT 32 U/L (4-34); AST 22 U/L (14-36); African American GFR (CKD) >90 (>60 ml/min/1.73 sqM); Albumin 3.4 g/dL (3.5-5.0); Alkaline Phosphatase 176 U/L (38-126); Amylase 71 U/L (30-110); Anion Gap 8 mmol/L; Blood Urea Nitrogen 16 mg/dL (7-17); Calcium 9.2 mg/dL (8.4-10.2); Carbon Dioxide 22 mmol/L (22-30); Chloride 99 mmol/L (98-107); Glucose 101 mg/dL (74-99); Lipase 136 U/L (23-300); Non-African American GFR(CKD) >90 (>60 ml/min/1.73 sqM); Potassium 4.7 mmol/L (3.5-5.1); Sodium 129 mmol/L (137-145); Total Bilirubin 0.4 mg/dL (0.2-1.3); Total Protein 6.1 g/dL (6.3-8.2)
[2021-02-12] MEDS: PANTOPRAZOLE 40 MG/10 ML VIAL IV SCH (09:03)
[2021-02-12] MEDS: MORPHINE SULFATE 4 MG/ML SYRINGE IV PRN ×2 (10:36→21:05)
--- NOTE | 2021-02-12 14:54 | P.CNOR ---
History of Present Illness - HPI Consult date: 02/12/21 History of present illness: This patient is a 70- year old female who presented to [facility] emergency department on 02/12/21 with complaints of abdominal pain. Patient states she currently resides at [facility], and states an x-ray was taken of her stomach, and she was then transported to the emergency department. She states she is unsure why she is here. She is admitted under the care of internal medicine with a consult placed to Dr. Kent for small bowel obstruction. Orthopedics is consulted for further evaluation of the patient's right knee. Patient is status-post right total knee arthroplasty with Dr. Fletcher on 12/30/20. Patient has had multiple falls post-operatively with wound dehiscence secondary to these falls. She underwent irrigation and debridement with secondary wound closure of the right knee on 01/19/[address] Fletcher. Patient has been doing well following this procedure. She very recently saw Dr. Fletcher in the office on 02/09/21. She was transitioned from a long leg splint to a T-scope knee brace locked in extension. Patient states she has not had any falls or any issues with the right knee since her appointment with Dr. Fletcher. She denies pain in the right knee. She denies numbness, tingling of the right lower extremity. Patient has no complaints or concerns at this time in regards to her right knee. Past Medical History Past Medical History: GERD/Reflux, Hyperlipidemia, Hypertension, Osteoarthritis (OA) Additional Past Medical History / Comment(s): bladder problems,can't empty bladder fully, self catheterizes frequently, nerve pain in "crotch" area & low back, two leaky heart valves, past hx ulcers, 'bad rt hip and both knees" History of Any Multi-Drug Resistant Organisms: None Reported Past Surgical History: Cholecystectomy, Hysterectomy, Orthopedic Surgery, Tonsillectomy Additional Past Surgical History / Comment(s): ORIF right ankle & then hardware removed, cataracts removed-stuart, pain clinic procedures Past Anesthesia/Blood Transfusion Reactions: Previous Problems w/ Anesthesia Additional Past Anesthesia/Blood Transfusion Reaction / Comm: years ago problem w/waking fron anesthesia, but not recently Past Psychological History: No Psychological Hx Reported Smoking Status: Former smoker Past Alcohol Use History: None Reported Past Drug Use History: None Reported - Past Family History Mother Family Medical History: No Reported History Medications and Allergies Home Medications Medication Instructions Recorded Confirmed Type Atorvastatin [Lipitor] 20 mg PO HS 03/26/20 02/12/21 History Lisinopril [Zestril] 10 mg PO DAILY 03/26/20 02/12/21 History Alendronate Sodium [Fosamax] 70 mg PO WE 12/24/20 02/12/21 History Aspirin [Adult Low Dose Aspirin EC] 81 mg PO BID #60 tab 01/24/21 02/12/21 Rx Budesonide-Formot 160-4.5 Mcg 2 puff INHALATION RT-BID gm 01/24/21 02/12/21 Rx [Symbicort 160-4.5 Mcg Inhaler] Cyanocobalamin [Vitamin B-12] 1,000 mcg PO DAILY tab 01/24/21 02/12/21 Rx Docusate [Colace] 100 mg PO BID #60 cap 01/24/21 02/12/21 Rx Ipratropium-Albuterol Nebulize 3 ml INHALATION RT-QID PRN ml 01/24/21 02/12/21 Rx [Duoneb 0.5 mg-3 mg/3 ml Soln] Magnesium Hydroxide [Milk of 2,400 mg PO DAILY PRN ml 01/24/21 02/12/21 Rx Magnesia Concentrate] Multivitamins, Thera [Multivitamin 1 each PO DAILY@1200 tab 01/24/21 02/12/21 R x (formulary)] Na Phos,M-B/Na Phos,Di-Ba [Fleet 133 ml RECTAL DAILY PRN 01/24/21 02/12/21 Rx Adult] bisacodyL [Dulcolax] 10 mg RECTAL DAILY PRN supp 01/24/21 02/12/21 Rx traMADol HCl [Ultram] 50 mg PO Q6HR PRN #6 tab 01/24/21 02/12/21 Rx Acetaminophen Tab [Tylenol] 650 mg PO Q4HR PRN 02/12/21 02/12/21 History Calcium Carbonate [Tums] 1,000 mg PO Q8H PRN 02/12/21 02/12/21 History Ciprofloxacin HCl [Cipro] 500 mg PO Q12HR 02/12/21 02/12/21 History HYDROcodone/APAP 5-325MG [[place] 1 tab PO Q4HR PRN 02/12/21 02/12/21 History 5-325] HYDROcodone/APAP 5-325MG [[place] 2 tab PO Q4HR PRN 02/12/21 02/12/21 History 5-325] Allergies Allergy/AdvReac Type Severity Reaction Status Date / Time codeine Allergy passed out Verified 02/12/21 09:14 latex Allergy Itching Verified 02/12/21 09:14 Penicillins Allergy tongue Verified 02/12/21 09:14 swelling, throat closing meperidine [From Demerol] AdvReac "out of it" Verified 02/12/21 09:14 Physical Examination On examination, patient is laying in bed in no apparent distress. She is alert and orientated x3. Her head appears normocephalic and atraumatic. Her breathing appears non-labored. A focused examination of the right knee was conducted. On inspection of the right knee, there is a T-scope knee brace in place which is locked in extension. There is a healing incision of the anterior knee with steri strips in place. The incision is healing well with no surrounding erythema, warmth, fluctuance. No drainage. No signs of infection. The calf is soft and non-tender to palpation. No evidence of DVT. Patient has good strength and ROM of the right ankle. Motor and sensory function intact. Dorsalis pedis pulse +2, the right lower extremity is warm and well- perfused. Results - Labs Labs: Abnormal Lab Results - Last 24 Hours (Table) 02/12/21 02/12/21 Range/Units 02:30 02:30 RBC 3.53 L (3.80-5.40) m/uL Hgb 11.0 L (11.4-16.0) gm/dL Hct 32.9 L (34.0-46.0) % Plt Count 564 H (150-450) k/uL Sodium 129 L (137-145) mmol/L Glucose 101 H (74-99) mg/dL Alkaline Phosphatase 176 H (38-126) U/L Total Protein 6.1 L (6.3-8.2) g/dL Albumin 3.4 L (3.5-5.0) g/dL H & H 02/12/21 Range/Units 02:30 Hgb 11.0 L (11.4-16.0) gm/dL Hct 32.9 L (34.0-46.0) % Result Diagrams: 02/12/21 02:30 02/12/21 02:30 Assessment and Plan Assessment: Status-post right total knee arthroplasty on 12/30/[address] Fletcher. Status-post irrigation and debridement with secondary wound closure, right knee on 01/19/21. Plan: - Patient should keep T-scope knee brace on at all times. T-scope brace should remain locked in extension. - No physical therapy at this time. - She may weight bear as tolerated on the right lower extremity with a walker, and with assistance. - Keep steri-strips in place. - Medical management, small bowel obstruction management per admitting team. - We will follow patient peripherally and make recommendations as needed.
[2021-02-12] MEDS ORDERED: IPRATROPIUM-ALBUTEROL 3 ML NEB INHALATION PRN (15:08)
[2021-02-12] MEDS ORDERED: NA PHOS,M-B/NA PHOS,DI-BA 133 ML ENEMA RECTAL PRN (15:08)
--- NOTE | 2021-02-12 15:46 | XR ---
EXAMINATION TYPE: XR chest 1V portable DATE OF EXAM: 02/12/2021 COMPARISON: 01/19/2021 HISTORY: Chest pain TECHNIQUE: Single view FINDINGS: Heart and mediastinum are normal. Lungs are clear. Diaphragm is normal. Bony thorax appears normal. IMPRESSION: Normal chest. No adverse change.
--- NOTE | 2021-02-12 17:31 | HP ---
HISTORY AND PHYSICAL DATE OF SERVICE: 02/12/2021 CHIEF COMPLAINT: Abdominal pain. HISTORY OF PRESENT ILLNESS: This 70-year-old woman with a past medical history of multiple medical problems, being followed by Dr. Son in the outpatient setting, was complaining of abdominal pain and some distention. The patient is a [facility] resident. The patient had knee arthroplasty on 12/30/2020. CT scan of abdomen and pelvis was done which I reviewed personally. It showed evidence of moderate constipation, fecal impaction, and the patient is admitted for further evaluation and treatment. There is no history of any fever, rigors or chills at this time. PAST MEDICAL HISTORY: History of GERD, hypertension, hyperlipidemia, DJD, history of bladder problems, cholecystectomy, hysterectomy. MEDICATIONS: Home medications are Ultram, [place], Symbicort, bisacodyl, lisinopril, alendronate, Colace, vitamin B12. Other medications and doses are noted. ALLERGIES: CODEINE, LATEX, PENICILLIN, MEPERIDINE. Family history, social history, review of systems could not be taken because of change in mental status. PHYSICAL EXAMINATION: Patient is conscious. Pulse 69, blood pressure 115/46, respiration 18, temperature 98.2, pulse ox 96% on room air. HEENT: Conjunctivae normal. NECK: No jugular venous distention. CARDIOVASCULAR: S1, S2 muffled. RESPIRATION: Breath sounds diminished at the bases. A few scattered rhonchi and crackles. ABDOMEN: Soft. Mild diffuse distention. Mild diffuse tenderness. No guarding or rigidity. No mass palpable. Bowel sounds diminished. LEGS: Status post right knee arthroplasty. LABS: Reviewed. They include WBC 7.3, hemoglobin 11, sodium 129. ASSESSMENT: 1. Acute small-bowel obstruction. 2. Constipation with possible rectal fecal impaction. 3. History of recent right total knee joint arthroplasty. 4. Change in mental status, metabolic encephalopathy, multifactorial. 5. Anemia. 6. Increased platelets. 7. Hyponatremia. 8. Elevated alkaline phosphatase. 9. Gait dysfunction. 10.History of gastroesophageal reflux disease. 11.Hypertension. 12.Hyperlipidemia 13.History of degenerative joint disease. 14.History of cholecystectomy. 15.History of hysterectomy. 16.History of ORIF of the right ankle. 17.FULL CODE. RECOMMENDATIONS AND DISCUSSION: In this 70-year-old woman who presented with multiple complex medical issues, we will monitor the patient closely, continue the current medications, continue symptomatic treatment. Surgical evaluation. Resume the home medications. Avoid sedatives. DVT prophylaxis. Cautious hydration. I would also recommend a chest x-ray. Repeat labs. Prognosis is guarded because of multiple complex medical issues. Orthopedic input . Further recommendations to follow. A copy of this dictation is being forwarded to Dr. Son, who is following the patient in the [facility]. MMCADEN / CMN: [id number] / MTDD
[2021-02-12 18:18] LABS: Appearance,Urine Clear (Clear); Bacteria,Urine Rare /hpf; Bilirubin,Urine Negative (Negative); Blood,Urine Negative (Negative); Color,Urine Light Yellow; Glucose,Urine (UA) Negative (Negative); Ketones,Urine Negative (Negative); Leukocyte Esterase,Urine Trace (Negative); Nitrite,Urine Negative (Negative); PH, Urine 5.5 (5.0-8.0); Protein,Urine Negative (Negative); RBC,Urine <1 /hpf (0-5); Specific Gravity,Urine 1.017 (1.001-1.035); Squamous Epithelial Cell,Urine 1 /hpf (0-4); Urobilinogen,Urine <2.0 mg/dL (<2.0); WBC,Urine 1 /hpf (0-5)
[2021-02-12] MEDS: SYMBICORT 160-4.5 MCG INHALER INHALATION SCH (19:42)
[2021-02-12] MEDS: ATORVASTATIN 20 MG TAB PO SCH (20:57)
[2021-02-12] MEDS: ASPIRIN 81 MG PO SCH (20:57)
[2021-02-12] MEDS: MAGNESIUM HYDROXIDE 2,400 MG/10 ML CUP PO PRN (21:04)
[2021-02-12] MEDS: CIPROFLOXACIN HCL 500 MG TAB PO SCH (22:05)
[2021-02-12] MEDS: CALCIUM CARBONATE 500 MG CHEWABLE PO PRN (22:47)
[2021-02-13] MEDS: MORPHINE SULFATE 4 MG/ML SYRINGE IV PRN ×2 (06:20→17:10)
[2021-02-13] MEDS: CALCIUM CARBONATE 500 MG CHEWABLE PO PRN (06:25)
[2021-02-13] MEDS: SYMBICORT 160-4.5 MCG INHALER INHALATION SCH ×2 (07:17→20:19)
[2021-02-13] MEDS: SODIUM CHLORIDE 0.9% 1,000 ML IV SCH ×3 (07:56→17:07)
[2021-02-13] MEDS: CYANOCOBALAMIN 500 MCG TAB PO SCH (08:06)
[2021-02-13] MEDS: MULTIVITAMINS, THERA 1 EACH TAB PO SCH (08:06)
[2021-02-13] MEDS: lisinopriL 10 MG TAB PO SCH (08:06)
[2021-02-13] MEDS: ASPIRIN 81 MG PO SCH ×2 (08:07→21:36)
[2021-02-13] MEDS: CIPROFLOXACIN HCL 500 MG TAB PO SCH ×2 (08:07→21:36)
[2021-02-13] MEDS: PANTOPRAZOLE 40 MG/10 ML VIAL IV SCH (08:08)
--- NOTE | 2021-02-13 09:21 | P.GSCN ---
History of Present Illness Consult date: 02/13/21 History of present illness: 70-year-old female presented to the emergency department with complaints of abdominal pain. Apparently while she was at her nursing facility, x-ray was obtained and she was then sent to the emergency department. The patient has recently undergone right total knee arthroplasty in late December of this year. Since that time, she has had wound dehiscence secondary to multiple falls and did undergo secondary wound closure. She states that she has been taking pain medication secondary to her knee pain. On workup, patient did have a CT of the abdomen and pelvis that was concerning for fecal retention and constipation. Patient states that she is passing gas. She does not recall when her last bowel movement was. She is not a great historian. Review of Systems All systems: negative Past Medical History Past Medical History: GERD/Reflux, Hyperlipidemia, Hypertension, Osteoarthritis (OA) Additional Past Medical History / Comment(s): bladder problems,can't empty bladder fully, self catheterizes frequently, nerve pain in "crotch" area & low back, two leaky heart valves, past hx ulcers, 'bad rt hip and both knees" History of Any Multi-Drug Resistant Organisms: None Reported Past Surgical History: Cholecystectomy, Hysterectomy, Orthopedic Surgery, Tonsillectomy Additional Past Surgical History / Comment(s): ORIF right ankle & then hardware removed, cataracts removed-stuart, pain clinic procedures Past Anesthesia/Blood Transfusion Reactions: Previous Problems w/ Anesthesia Additional Past Anesthesia/Blood Transfusion Reaction / Comm: years ago problem w/waking fron anesthesia, but not recently Past Psychological History: No Psychological Hx Reported Smoking Status: Former smoker Past Alcohol Use History: None Reported Additional Past Alcohol Use History / Comment(s): quit smoking 2019, smoked on & off since 18 <1/2ppd Past Drug Use History: None Reported - Past Family History Mother Family Medical History: No Reported History Medications and Allergies Home Medications Medication Instructions Recorded Confirmed Type Atorvastatin [Lipitor] 20 mg PO HS 03/26/20 02/12/21 History Lisinopril [Zestril] 10 mg PO DAILY 03/26/20 02/12/21 History Alendronate Sodium [Fosamax] 70 mg PO WE 12/24/20 02/12/21 History Aspirin [Adult Low Dose Aspirin EC] 81 mg PO BID #60 tab 01/24/21 02/12/21 Rx Budesonide-Formot 160-4.5 Mcg 2 puff INHALATION RT-BID gm 01/24/21 02/12/21 Rx [Symbicort 160-4.5 Mcg Inhaler] Cyanocobalamin [Vitamin B-12] 1,000 mcg PO DAILY tab 01/24/21 02/12/21 Rx Docusate [Colace] 100 mg PO BID #60 cap 01/24/21 02/12/21 Rx Ipratropium-Albuterol Nebulize 3 ml INHALATION RT-QID PRN ml 01/24/21 02/12/21 Rx [Duoneb 0.5 mg-3 mg/3 ml Soln] Magnesium Hydroxide [Milk of 2,400 mg PO DAILY PRN ml 01/24/21 02/12/21 Rx Magnesia Concentrate] Multivitamins, Thera [Multivitamin 1 each PO DAILY@1200 tab 01/24/21 02/12/21 R x (formulary)] Na Phos,M-B/Na Phos,Di-Ba [Fleet 133 ml RECTAL DAILY PRN 01/24/21 02/12/21 Rx Adult] bisacodyL [Dulcolax] 10 mg RECTAL DAILY PRN supp 01/24/21 02/12/21 Rx traMADol HCl [Ultram] 50 mg PO Q6HR PRN #6 tab 01/24/21 02/12/21 Rx Acetaminophen Tab [Tylenol] 650 mg PO Q4HR PRN 02/12/21 02/12/21 History Calcium Carbonate [Tums] 1,000 mg PO Q8H PRN 02/12/21 02/12/21 History Ciprofloxacin HCl [Cipro] 500 mg PO Q12HR 02/12/21 02/12/21 History HYDROcodone/APAP 5-325MG [[place] 1 tab PO Q4HR PRN 02/12/21 02/12/21 History 5-325] HYDROcodone/APAP 5-325MG [[place] 2 tab PO Q4HR PRN 02/12/21 02/12/21 History 5-325] Allergies Allergy/AdvReac Type Severity Reaction Status Date / Time codeine Allergy passed out Verified 02/12/21 09:14 latex Allergy Itching Verified 02/12/21 09:14 Penicillins Allergy tongue Verified 02/12/21 09:14 swelling, throat closing meperidine [From Demerol] AdvReac "out of it" Verified 02/12/21 09:14 Surgical - Exam Osteopathic Statement: *. No significant issues noted on an osteopathic structural exam other than those noted in the History and Physical/Consult. Vital Signs Temp Pulse Resp BP Pulse Ox 98.4 F 78 20 119/43 97 02/12/21 01:43 02/12/21 01:43 02/12/21 01:43 02/12/21 01:43 02/12/21 01:43 - General no distress - Eyes normal ocular movement - Neck trachea midline - Respiratory normal respiratory effort - Abdomen Abdomen: soft, non tender Results - Labs 02/12/21 02:30 02/12/21 02:30 Abnormal Lab Results - Last 24 Hours (Table) 02/12/21 Range/Units 18:01 Ur Leukocyte Esterase Trace H (Negative) Urine Bacteria Rare H (None) /hpf Assessment and Plan Plan: 70-year-old female with constipation, likely secondary to recent narcotic use. I would recommend limiting narcotic use at this time. Patient will be started on a bowel regimen with laxative and stool softener. If necessary, will attempt enemas. Currently, no surgical intervention is planned. Advanced to clear li quid diet.
[2021-02-13] MEDS ORDERED: MAGNESIUM CITRATE 296 ML BOTTLE PO ONE (09:30)
[2021-02-13 10:15] LABS: Basophils # (A) 0.1 k/uL (0-0.2); Basophils % (A) 1 %; Eosinophils # (A) 0.3 k/uL (0-0.7); Eosinophils % (A) 4 %; HCT 34.5 % (34.0-46.0); HGB 10.6 gm/dL (11.4-16.0); Hypochromasia Slight; Lymphocytes # (A) 1.7 k/uL (1.0-4.8); Lymphocytes % (A) 22 %; MCHC 30.8 g/dL (31.0-37.0); MCV 97.6 fL (80.0-100.0); Mean Platelet Volume 7.1; Monocytes # (A) 0.4 k/uL (0-1.0); Monocytes % (A) 5 %; Neutrophils # (A) 5.2 k/uL (1.3-7.7); Neutrophils % (A) 67 %; Platelet Count 498 k/uL (150-450); RBC 3.53 m/uL (3.80-5.40); RDW 14.1 % (11.5-15.5); WBC 7.8 k/uL (3.8-10.6)
[2021-02-13 10:39] LABS: ALT 26 U/L (4-34); AST 22 U/L (14-36); African American GFR (CKD) >90 (>60 ml/min/1.73 sqM); Albumin 3.1 g/dL (3.5-5.0); Alkaline Phosphatase 167 U/L (38-126); Anion Gap 6 mmol/L; Blood Urea Nitrogen 7 mg/dL (7-17); Carbon Dioxide 22 mmol/L (22-30); Chloride 108 mmol/L (98-107); Glucose 90 mg/dL (74-99); Magnesium 2.2 mg/dL (1.6-2.3); Non-African American GFR(CKD) >90 (>60 ml/min/1.73 sqM); Phosphorus 3.8 mg/dL (2.5-4.5); Potassium 5.3 mmol/L (3.5-5.1); Sodium 136 mmol/L (137-145); Total Bilirubin 0.5 mg/dL (0.2-1.3); Total Protein 5.7 g/dL (6.3-8.2)
--- NOTE | 2021-02-13 17:37 | PN ---
PROGRESS NOTE DATE OF SERVICE: 02/13/2021 This 70-year-old woman who was admitted with acute small-bowel obstruction, also had some constipation, fecal impaction. No chest pain. No palpitations. No fever. PHYSICAL EXAMINATION: Alert and oriented x2. Pulse 71, blood pressure 128/50 respiration 18, temperature 98.8, pulse ox 98% on room air. HEENT: Conjunctivae normal. Oral mucosa moist. NECK: No jugular venous distention. No lymph node enlargement. CARDIOVASCULAR: S1, S2, muffled. No S3, no S4, RESPIRATORY: Diminished breath sounds at the bases. A few scattered rhonchi. ABDOMEN: Soft. LEGS: No edema, no swelling. NERVOUS SYSTEM: No focal deficits. LABS: Sodium 130, potassium 5.3. Other labs are noted. ASSESSMENT: 1. Acute small-bowel obstruction possibly secondary to constipation and rectal fecal impaction. 2. History of recent right total knee joint arthroplasty. 3. Change in mental status, acute metabolic encephalopathy, multifactorial. 4. Mild hyperkalemia. 5. Anemia. 6. Increased platelets. 7. Hyponatremia. 8. Elevated alkaline phosphatase. 9. Gait dysfunction. 10.History of gastroesophageal reflux disease. 11.Hyperlipidemia. 12.History of DJD. 13.History of cholecystectomy. 14.History of hysterectomy. 15.History of ORIF of the right ankle. 16.FULL CODE. RECOMMENDATIONS: Recommend to continue current medications, continue symptomatic treatment. Otherwise, closely follow with Surgery and I recommend repeat labs. We will continue to monitor. Further recommendations to follow. MMODL / IJN: [id number] /
[2021-02-13] MEDS: ATORVASTATIN 20 MG TAB PO SCH (21:36)
[2021-02-14] MEDS: SODIUM CHLORIDE 0.9% 1,000 ML IV SCH ×3 (01:44→16:20)
[2021-02-14] MEDS: MORPHINE SULFATE 4 MG/ML SYRINGE IV PRN ×2 (04:28→09:53)
[2021-02-14 07:45] LABS: Basophils # (A) 0.1 k/uL (0-0.2); Basophils % (A) 1 %; Eosinophils # (A) 0.3 k/uL (0-0.7); Eosinophils % (A) 5 %; HCT 32.6 % (34.0-46.0); HGB 10.4 gm/dL (11.4-16.0); Lymphocytes # (A) 1.8 k/uL (1.0-4.8); Lymphocytes % (A) 26 %; MCH 30.7 pg (25.0-35.0); MCHC 31.8 g/dL (31.0-37.0); MCV 96.8 fL (80.0-100.0); Mean Platelet Volume 7.1; Monocytes # (A) 0.3 k/uL (0-1.0); Monocytes % (A) 5 %; Neutrophils # (A) 4.2 k/uL (1.3-7.7); Neutrophils % (A) 62 %; Platelet Count 450 k/uL (150-450); RBC 3.37 m/uL (3.80-5.40); WBC 6.8 k/uL (3.8-10.6)
[2021-02-14] MEDS: SYMBICORT 160-4.5 MCG INHALER INHALATION SCH ×2 (07:52→19:48)
[2021-02-14 08:03] LABS: African American GFR (CKD) >90 (>60 ml/min/1.73 sqM); Anion Gap 4 mmol/L; Blood Urea Nitrogen 4 mg/dL (7-17); Calcium 8.6 mg/dL (8.4-10.2); Carbon Dioxide 23 mmol/L (22-30); Chloride 109 mmol/L (98-107); Glucose 97 mg/dL (74-99); Non-African American GFR(CKD) >90 (>60 ml/min/1.73 sqM); Potassium 4.4 mmol/L (3.5-5.1); Sodium 136 mmol/L (137-145)
[2021-02-14] MEDS: ASPIRIN 81 MG PO SCH ×2 (08:47→19:40)
[2021-02-14] MEDS: PANTOPRAZOLE 40 MG/10 ML VIAL IV SCH (08:48)
[2021-02-14] MEDS: MULTIVITAMINS, THERA 1 EACH TAB PO SCH (08:48)
[2021-02-14] MEDS: THIAMINE 100 MG TAB PO SCH (08:48)
[2021-02-14] MEDS: CIPROFLOXACIN HCL 500 MG TAB PO SCH ×2 (08:48→19:40)
[2021-02-14] MEDS: CYANOCOBALAMIN 500 MCG TAB PO SCH (08:48)
[2021-02-14] MEDS: lisinopriL 10 MG TAB PO SCH (08:48)
[2021-02-14] MEDS: MAGNESIUM HYDROXIDE 2,400 MG/10 ML CUP PO PRN (09:49)
[2021-02-14] MEDS ORDERED: HYDROcodone/APAP 5-325MG 1 EACH TAB PO PRN ×2 (12:09→13:30)
--- NOTE | 2021-02-14 12:55 | P.PN ---
Subjective Progress Note Date: 02/14/21 Patient seen and examined at bedside. Did not finish magnesium citrate yesterday. Did not have bowel movement. Tolerating diet. Objective - Vital Signs Vital signs: Vital Signs Temp 98.4 F 02/14/21 06:22 Pulse 65 02/14/21 06:22 Resp 18 02/14/21 06:22 BP 133/65 02/14/21 06:22 Pulse Ox 96 02/14/21 06:22 Intake & Output 02/13/21 02/14/21 02/14/21 18:59 06:59 18:59 Output Total 1500 700 Balance -1500 -700 Weight 63.095 kg Output: Urine 1500 700 Other: Voiding Method External Catheter External Catheter - Constitutional General appearance: Present: cooperative - Gastrointestinal General gastrointestinal: Present: soft. Absent: tenderness - Musculoskeletal Musculoskeletal: Present: generalized weakness - Labs CBC & Chem 7: 02/14/21 07:03 02/14/21 07:03 Labs: Abnormal Lab Results - Last 24 Hours (Table) 02/14/21 02/14/21 Range/Units 07:03 07:03 RBC 3.37 L (3.80-5.40) m/uL Hgb 10.4 L (11.4-16.0) gm/dL Hct 32.6 L (34.0-46.0) % Sodium 136 L (137-145) mmol/L Chloride 109 H (98-107) mmol/L BUN 4 L (7-17) mg/dL Assessment and Plan Plan: Patient did not finish magnesium citrate yesterday as she stated she did not like the taste of it. We will attempt fleets enema and milk of magnesia today for constipation. Continue bowel regimen. Continue medical recommendations
--- NOTE | 2021-02-14 13:40 | P.PN ---
Progress Note - Text Progress Note Date: 02/14/21 Presenting complaint: Constipation Interval history: 70-year-old female presented to the emergency department with complaints of abdominal pain. Apparently while she was at her nursing facility, x-ray was obtained and she was then sent to the emergency department. The patient has recently undergone right total knee arthroplasty in late December of this year. Since that time, she has had wound dehiscence secondary to multiple falls and did undergo secondary wound closure. She states that she has been taking pain medication secondary to her knee pain. On workup, patient did have a CT of the abdomen and pelvis that was concerning for fecal retention and constipation. Patient states that she is passing gas. She does not recall when her last bowel movement was. She is not a great historian 02/14/2021: Patient did not finish magnesium citrate yesterday. No bowel movement. Some flatus. Intermittent pain. No nausea vomiting. Eating between 25-50%. Limited historian Review of systems: Was done for constitutional, cardiovascular, GI, pulmonary. relevant finding as above Active Medications Acetaminophen (Acetaminophen Tab 325 Mg Tab) 650 mg PO Q4HR PRN PRN Reason: Pain or Fever > 100.5 Hydrocodone Bitart/Acetaminophen (Hydrocodone/Apap 5-325mg 1 Each Tab) 1 each PO Q4HR PRN PRN Reason: Mild to Moderate Pain Albuterol/Ipratropium (Ipratropium-Albuterol 3 Ml Neb) 3 ml INHALATION RT-QID PRN PRN Reason: Shortness Of Breath Or Wheezing Aspirin (Aspirin 81 Mg) 81 mg PO BID [facility] Last Admin: 02/14/21 08:47 Dose: 81 mg Documented by: Atorvastatin Calcium (Atorvastatin 20 Mg Tab) 20 mg PO HS [facility] Last Admin: 02/13/21 21:36 Dose: 20 mg Documented by: Budesonide/Formoterol Fumarate (Symbicort 160-4.5 Mcg Inhaler) 2 puff INHALATION RT-BID [facility] Last Admin: 02/14/21 07:52 Dose: 2 puff Documented by: Calcium Carbonate/Glycine (Calcium Carbonate 500 Mg Chewable) 1,000 mg PO Q8H PRN PRN Reason: GI Upset Last Admin: 02/13/21 06:25 Dose: 1,000 mg Documented by: Ciprofloxacin (Ciprofloxacin Hcl 500 Mg Tab) 500 mg PO Q12HR [facility] Last Admin: 02/14/21 08:48 Dose: 500 mg Documented by: Cyanocobalamin (Cyanocobalamin 500 Mcg Tab) 1,000 mcg PO DAILY [facility] Last Admin: 02/14/21 08:48 Dose: 1,000 mcg Documented by: Sodium Chloride (Saline 0.9%) 1,000 mls @ 130 mls/hr IV .Q7H42M [facility] Last Admin: 02/14/21 10:59 Dose: Not Given Documented by: Lisinopril (Lisinopril 10 Mg Tab) 10 mg PO DAILY [facility] Last Admin: 02/14/21 08:48 Dose: 10 mg Documented by: Magnesium Hydroxide (Magnesium Hydroxide 2,400 Mg/10 Ml Cup) 2,400 mg PO DAILY PRN PRN Reason: Constipation Last Admin: 02/14/21 09:49 Dose: 2,400 mg Documented by: Multivitamins (Multivitamins, Thera 1 Each Tab) 1 each PO DAILY@1200 [facility] Last Admin: 02/14/21 08:48 Dose: 1 each Documented by: Naloxone HCl (Naloxone 0.4 Mg/Ml 1 Ml Vial) 0.2 mg IV Q2M PRN PRN Reason: Opioid Reversal Non-Formulary Medication (Alendronate Sodium [Fosamax]) 70 mg PO [facility] Ondansetron HCl (Ondansetron 4 Mg/2 Ml Vial) 4 mg IVP Q8HR PRN PRN Reason: Nausea And Vomiting Last Admin: 02/12/21 10:36 Dose: 4 mg Documented by: Pantoprazole Sodium (Pantoprazole 40 Mg/10 Ml Vial) 40 mg IV DAILY [facility] Last Admin: 02/14/21 08:48 Dose: 40 mg Documented by: Sodium Biphosphate/Sodium Phosphate (Na Phos,M-B/Na Phos,Di-Ba 133 Ml Enema) 133 ml RECTAL DAILY PRN PRN Reason: Constipation Last Admin: 02/14/21 09:24 Dose: 133 ml Documented by: Thiamine HCl (Thiamine 100 Mg Tab) 100 mg PO DAILY@1200 [facility] Last Admin: 02/14/21 08:48 Dose: 100 mg Documented by: On examination: VITAL SIGNS: 98.4, 65, 18, 1 33 x 65, 96% on room air GENERAL APPEARANCE: BMI 28.1. Lying in bed, not in distress., Awake HEENT: Normal external appearance of nose and ear. Oral cavity normal EYES: Pupils equal. Conjunctiva normal. NECK: JVD not raised. Mass not palpable. RESPIRATORY: Respiratory effort normal. Lungs clear to auscultation. CARDIOVASCULAR: First and second sounds normal. No edema. ABDOMEN: Soft. Liver and spleen not palpable. No tenderness. No mass palpable. Bowel sounds sluggish PSYCHIATRY: Answering questions rather limited EXTREMITIES: Dressing over the right knee with a leg brace INVESTIGATIONS, reviewed in the clinical context: White count 6.8 hemoglobin 10.4 platelets 450 sodium 136 potassium 4.4 creatinine 0.58 Coronavirus [PCR]: Not detected Computed tomography scan abdomen pelvis with contrast [February 12]: Retained fecal matter in the rectum that measures 7 cm. Retained fecal material throughout the large bowel. Assessment and plan: -Acute obstipation, likely from decreased mobility and narcotics: Slow to respond Patient is not able to complete magnesium citrate. Will DC IV morphine. Cutback on [place] 2 every 6 when necessary -GERD Tums, when necessary -Hyperlipidemia Lipitor 20 mg daily at bedtime -Essential hypertension Diet-controlled -Primary osteoarthritis Pain medications as needed -History of right knee wound E high since status post debridement and primary closure of the wound. [Right total knee arthroplasty on 12/30/[address] Fletcher] Local wound care. Has a leg brace. 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 Follow with orthopedics -Chronic Vitamin B12 deficiency Vitamin B12 thousand micrograms daily -Full code We will DC IV morphine. Use [place] when necessary. Follow with surgery. Add Metamucil. Enema today. Milk of magnesia.
[2021-02-14] MEDS: PSYLLIUM HUSK 100% 6 GM PACKET PO SCH ×2 (14:26→19:40)
[2021-02-14] MEDS: ATORVASTATIN 20 MG TAB PO SCH (19:42)
[2021-02-14] MEDS: ACETAMINOPHEN TAB 325 MG TAB PO PRN (19:42)
[2021-02-15] MEDS: SODIUM CHLORIDE 0.9% 1,000 ML IV SCH ×4 (07:16→23:35)
[2021-02-15] MEDS: CIPROFLOXACIN HCL 500 MG TAB PO SCH ×2 (08:20→20:28)
[2021-02-15] MEDS: lisinopriL 10 MG TAB PO SCH (08:20)
[2021-02-15] MEDS: ASPIRIN 81 MG PO SCH ×2 (08:20→20:28)
[2021-02-15] MEDS: CYANOCOBALAMIN 500 MCG TAB PO SCH (08:20)
[2021-02-15] MEDS: PANTOPRAZOLE 40 MG/10 ML VIAL IV SCH (08:20)
[2021-02-15] MEDS: PSYLLIUM HUSK 100% 6 GM PACKET PO SCH ×2 (08:20→20:29)
[2021-02-15] MEDS: SYMBICORT 160-4.5 MCG INHALER INHALATION SCH (08:40)
[2021-02-15] MEDS: ACETAMINOPHEN TAB 325 MG TAB PO PRN ×2 (08:54→20:28)
[2021-02-15] MEDS: MULTIVITAMINS, THERA 1 EACH TAB PO SCH (11:16)
[2021-02-15] MEDS: THIAMINE 100 MG TAB PO SCH (11:17)
--- NOTE | 2021-02-15 13:47 | P.PN ---
Progress Note - Text Progress Note Date: 02/15/21 Presenting complaint: Constipation Interval history: 70-year-old female presented to the emergency department with complaints of abdominal pain. Apparently while she was at her nursing facility, x-ray was obtained and she was then sent to the emergency department. The patient has recently undergone right total knee arthroplasty in late December of this year. Since that time, she has had wound dehiscence secondary to multiple falls and did undergo secondary wound closure. She states that she has been taking pain medication secondary to her knee pain. On workup, patient did have a CT of the abdomen and pelvis that was concerning for fecal retention and constipation. Patient states that she is passing gas. She does not recall when her last bowel movement was. She is not a great historian 02/14/2021: Patient did not finish magnesium citrate yesterday. No bowel movement. Some flatus. Intermittent pain. No nausea vomiting. Eating between 25-50%. Limited historian 02/15/2021: Patient has some liquid bowel movement with enema. Sitting up in a chair. More awake. Morphine was discontinued yesterday. at the bedside. Patient does not want a full liquid diet. Does not like the food. Once at. PERRLA jelly that was given. Discussed with the patient about cutting back on narcotics. Review of systems: Was done for constitutional, cardiovascular, GI, pulmonary. relevant finding as above Active Medications Acetaminophen (Acetaminophen Tab 325 Mg Tab) 650 mg PO Q4HR PRN PRN Reason: Pain or Fever > 100.5 Last Admin: 02/14/21 19:42 Dose: 650 mg Documented by: Hydrocodone Bitart/Acetaminophen (Hydrocodone/Apap 5-325mg 1 Each Tab) 1 each PO Q6H PRN PRN Reason: Mild to Moderate Pain Albuterol/Ipratropium (Ipratropium-Albuterol 3 Ml Neb) 3 ml INHALATION RT-QID PRN PRN Reason: Shortness Of Breath Or Wheezing Aspirin (Aspirin 81 Mg) 81 mg PO BID [facility] Last Admin: 02/15/21 08:20 Dose: 81 mg Documented by: Atorvastatin Calcium (Atorvastatin 20 Mg Tab) 20 mg PO HS [facility] Last Admin: 02/14/21 19:42 Dose: 20 mg Documented by: Budesonide/Formoterol Fumarate (Symbicort 160-4.5 Mcg Inhaler) 2 puff INHALATION RT-BID [facility] Last Admin: 02/15/21 08:40 Dose: 2 puff Documented by: Calcium Carbonate/Glycine (Calcium Carbonate 500 Mg Chewable) 1,000 mg PO Q8H PRN PRN Reason: GI Upset Last Admin: 02/13/21 06:25 Dose: 1,000 mg Documented by: Ciprofloxacin (Ciprofloxacin Hcl 500 Mg Tab) 500 mg PO Q12HR [facility] Last Admin: 02/15/21 08:20 Dose: 500 mg Documented by: Cyanocobalamin (Cyanocobalamin 500 Mcg Tab) 1,000 mcg PO DAILY [facility] Last Admin: 02/15/21 08:20 Dose: 1,000 mcg Documented by: Sodium Chloride (Saline 0.9%) 1,000 mls @ 130 mls/hr IV .Q7H42M [facility] Last Admin: 02/15/21 07:19 Dose: 130 mls/hr Documented by: Lisinopril (Lisinopril 10 Mg Tab) 10 mg PO DAILY [facility] Last Admin: 02/15/21 08:20 Dose: 10 mg Documented by: Magnesium Hydroxide (Magnesium Hydroxide 2,400 Mg/10 Ml Cup) 2,400 mg PO DAILY PRN PRN Reason: Constipation Last Admin: 02/14/21 09:49 Dose: 2,400 mg Documented by: Multivitamins (Multivitamins, Thera 1 Each Tab) 1 each PO DAILY@1200 [facility] Last Admin: 02/15/21 11:16 Dose: Not Given Documented by: Naloxone HCl (Naloxone 0.4 Mg/Ml 1 Ml Vial) 0.2 mg IV Q2M PRN PRN Reason: Opioid Reversal Non-Formulary Medication (Alendronate Sodium [Fosamax]) 70 mg PO [facility] Ondansetron HCl (Ondansetron 4 Mg/2 Ml Vial) 4 mg IVP Q8HR PRN PRN Reason: Nausea And Vomiting Last Admin: 02/12/21 10:36 Dose: 4 mg Documented by: Pantoprazole Sodium (Pantoprazole 40 Mg/10 Ml Vial) 40 mg IV DAILY [facility] Last Admin: 02/15/21 08:20 Dose: 40 mg Documented by: Psyllium Hydrophilic Mucilloid (Psyllium Husk 100% 6 Gm Packet) 6 gm PO BID [facility] Last Admin: 02/15/21 08:20 Dose: 6 gm Documented by: Sodium Biphosphate/Sodium Phosphate (Na Phos,M-B/Na Phos,Di-Ba 133 Ml Enema) 133 ml RECTAL DAILY PRN PRN Reason: Constipation Last Admin: 02/14/21 09:24 Dose: 133 ml Documented by: Thiamine HCl (Thiamine 100 Mg Tab) 100 mg PO DAILY@1200 [facility] Last Admin: 02/15/21 11:17 Dose: Not Given Documented by: On examination: VITAL SIGNS: 97, 71, 16, 160/65, 100% room air GENERAL APPEARANCE: Sitting up in bed, more awake. Conversing. HEENT: Normal external appearance of nose and ear. Oral cavity normal EYES: Pupils equal. Conjunctiva normal. NECK: JVD not raised. Mass not palpable. RESPIRATORY: Respiratory effort normal. Lungs clear to auscultation. CARDIOVASCULAR: First and second sounds normal. No edema. ABDOMEN: Soft. Liver and spleen not palpable. No tenderness. No mass palpable. Bowel sounds sluggish PSYCHIATRY: Awake alert 3. Slightly anxious EXTREMITIES: Dressing over the right knee with a leg brace INVESTIGATIONS, reviewed in the clinical context: White count 6.8 hemoglobin 10.4 platelets 450 sodium 136 potassium 4.4 creatinine 0.58 Coronavirus [PCR]: Not detected Computed tomography scan abdomen pelvis with contrast [February 12]: Retained fecal matter in the rectum that measures 7 cm. Retained fecal material throughout the large bowel. Assessment and plan: -Acute obstipation, likely from decreased mobility and narcotics: Started to respond Cutback on [place] 2 every 6 when necessary. Continue laxatives. Advance diet. -GERD Tums, when necessary -Hyperlipidemia Lipitor 20 mg daily at bedtime -Essential hypertension Diet-controlled -Primary osteoarthritis Pain medications as needed -History of right knee wound E high since status post debridement and primary closure of the wound. [Right total knee arthroplasty on 12/30/[address] Fletcher] Local wound care. Has a leg brace. 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 Follow with orthopedics -Chronic Vitamin B12 deficiency Vitamin B12 thousand micrograms daily -Full code Care was discussed with the patient has been. Diet advanced. Soft bland. Discussed with the patient about cutting back use of narcotics. Hopefully discharge tomorrow.
[2021-02-15] MEDS: ATORVASTATIN 20 MG TAB PO SCH (20:29)
[2021-02-16] MEDS: SYMBICORT 160-4.5 MCG INHALER INHALATION SCH ×2 (00:56→08:09)
[2021-02-16] MEDS: ACETAMINOPHEN TAB 325 MG TAB PO PRN (05:48)
[2021-02-16 07:35] VITALS: BP 155/60; PULSE 61; RESP 18; TEMP 97.5
[2021-02-16] MEDS: PSYLLIUM HUSK 100% 6 GM PACKET PO SCH (08:21)
[2021-02-16] MEDS: CIPROFLOXACIN HCL 500 MG TAB PO SCH (08:21)
[2021-02-16] MEDS: PANTOPRAZOLE 40 MG/10 ML VIAL IV SCH (08:21)
[2021-02-16] MEDS: ASPIRIN 81 MG PO SCH (08:22)
[2021-02-16] MEDS: lisinopriL 10 MG TAB PO SCH (08:22)
[2021-02-16] MEDS: CYANOCOBALAMIN 500 MCG TAB PO SCH (08:22)
[2021-02-16] MEDS: SODIUM CHLORIDE 0.9% 1,000 ML IV SCH ×2 (08:34→14:35)
[2021-02-16] MEDS: THIAMINE 100 MG TAB PO SCH (11:34)
[2021-02-16] MEDS: MULTIVITAMINS, THERA 1 EACH TAB PO SCH (11:34)
--- NOTE | 2021-02-16 12:20 | P.DS ---
Providers Date of admission: 02/12/21 01:18 Expected date of discharge: 02/16/21 Attending physician: Darien [address] Consults: 02/12/21 01:19 Consult Physician Routine Consulting Provider: Rach Kent Consult Reason/Comments: sbo Do you want consulting provider notified?: Yes Consult Physician Routine Consulting Provider: Abdulaziz Fletcher Consult Reason/Comments: known Do you want consulting provider notified?: Yes Primary care physician: [facility] Course: Presenting complaint: Constipation Interval history: 70-year-old female presented to the emergency department with complaints of abdominal pain. Apparently while she was at her nursing facility, x-ray was obtained and she was then sent to the emergency department. The patient has recently undergone right total knee arthroplasty in late December of this year. Since that time, she has had wound dehiscence secondary to multiple falls and did undergo secondary wound closure. She states that she has been taking pain medication secondary to her knee pain. On workup, patient did have a CT of the abdomen and pelvis that was concerning for fecal retention and constipation. Patient states that she is passing gas. She does not recall when her last bowel movement was. She is not a great historian 02/14/2021: Patient did not finish magnesium citrate yesterday. No bowel movement. Some flatus. Intermittent pain. No nausea vomiting. Eating between 25-50%. Limited historian 02/15/2021: Patient has some liquid bowel movement with enema. Sitting up in a chair. More awake. Morphine was discontinued yesterday. at the bedside. Patient does not want a full liquid diet. Does not like the food. Once at. PERRLA jelly that was given. Discussed with the patient about cutting back on narcotics. 02/16/2021: Oral intake fair. Had bowel movement. No abdominal pain. Patient be returned to the rehab. Patient did complete a course of antibiotic from last admission. Discussed with nurse. Discussion and discharge planning more than 35 minutes [employer]: Dr. Kent from general surgery On examination: VITAL SIGNS: 97.5, 61, 18, 155/60, 99% room air GENERAL APPEARANCE: Sitting up in bed, comfortable HEENT: Normal external appearance of nose and ear. Oral cavity normal EYES: Pupils equal. Conjunctiva normal. NECK: JVD not raised. Mass not palpable. RESPIRATORY: Respiratory effort normal. Lungs clear to auscultation. CARDIOVASCULAR: First and second sounds normal. No edema. ABDOMEN: Soft. Liver and spleen not palpable. No tenderness. No mass palpable. Bowel sounds sluggish PSYCHIATRY: Awake alert 3. Slightly anxious EXTREMITIES: Dressing over the right knee with a leg brace INVESTIGATIONS, reviewed in the clinical context: White count 6.8 hemoglobin 10.4 platelets 450 sodium 136 potassium 4.4 creatinine 0.58 Coronavirus [PCR]: Not detected Computed tomography scan abdomen pelvis with contrast [February 12]: Retained fecal matter in the rectum that measures 7 cm. Retained fecal material throughout the large bowel. Assessment and plan: -Acute obstipation, likely from decreased mobility and narcotics: [place] every 4 when necessary. Continue laxatives. -GERD Tums, when necessary -Hyperlipidemia Lipitor 20 mg daily at bedtime -Essential hypertension Zestril 10 mg a day -Primary osteoarthritis Pain medications as needed -History of right knee wound E high since status post debridement and primary closure of the wound. [Right total knee arthroplasty on 12/30/[address] Fletcher] Local wound care. Has a leg brace. 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 Follow with orthopedics -Chronic Vitamin B12 deficiency Vitamin B12 thousand micrograms daily -Full code Disposition: [facility] Plan - Discharge Summary New Discharge Prescriptions: New Psyllium Husk 100% [Metamucil Packet] 6 gm PO BID packet Continue Lisinopril [Zestril] 10 mg PO DAILY Atorvastatin [Lipitor] 20 mg PO HS bisacodyL [Dulcolax] 10 mg RECTAL DAILY PRN supp PRN Reason: Constipation Na Phos,M-B/Na Phos,Di-Ba [Fleet Adult] 133 ml RECTAL DAILY PRN PRN Reason: Constipation Multivitamins, Thera [Multivitamin (formulary)] 1 each PO DAILY@1200 tab Budesonide-Formot 160-4.5 Mcg [Symbicort 160-4.5 Mcg Inhaler] 2 puff INHALATION RT-BID gm Acetaminophen Tab [Tylenol] 650 mg PO Q4HR PRN PRN Reason: Pain Or Fever > 100.5 Calcium Carbonate [Tums] 1,000 mg PO Q8H PRN PRN Reason: Gi Upset Alendronate Sodium [Fosamax] 70 mg PO WE Aspirin [Adult Low Dose Aspirin EC] 81 mg PO BID #60 tab Ipratropium-Albuterol Nebulize [Duoneb 0.5 mg-3 mg/3 ml Soln] 3 ml INHALATION RT-QID PRN ml PRN Reason: Shortness Of Breath Or Wheezing Magnesium Hydroxide [Milk of Magnesia Concentrate] 2,400 mg PO DAILY PRN ml PRN Reason: Constipation Cyanocobalamin [Vitamin B-12] 1,000 mcg PO DAILY tab HYDROcodone/APAP 5-325MG [[place] 5-325] 1 tab PO Q4HR PRN #18 tab PRN Reason: Mild To Moderate Pain Discontinued Docusate [Colace] 100 mg PO BID #60 cap traMADol HCl [Ultram] 50 mg PO Q6HR PRN #6 tab PRN Reason: Pain Scale 1 To 5 Ciprofloxacin HCl [Cipro] 500 mg PO Q12HR HYDROcodone/APAP 5-325MG [[place] 5-325] 2 tab PO Q4HR PRN PRN Reason: Moderate To Severe Pain Discharge Medication List Atorvastatin [Lipitor] 20 mg PO HS 03/26/20 [History] Lisinopril [Zestril] 10 mg PO DAILY 03/26/20 [History] Alendronate Sodium [Fosamax] 70 mg PO WE 12/24/20 [History] Aspirin [Adult Low Dose Aspirin EC] 81 mg PO BID #60 tab 01/24/21 [Rx] Budesonide-Formot 160-4.5 Mcg [Symbicort 160-4.5 Mcg Inhaler] 2 puff INHALATION RT-BID gm 01/24/21 [Rx] Cyanocobalamin [Vitamin B-12] 1,000 mcg PO DAILY tab 01/24/21 [Rx] Ipratropium-Albuterol Nebulize [Duoneb 0.5 mg-3 mg/3 ml Soln] 3 ml INHALATION RT-QID PRN ml 01/24/21 [Rx] Magnesium Hydroxide [Milk of Magnesia Concentrate] 2,400 mg PO DAILY PRN ml 01/24/21 [Rx] Multivitamins, Thera [Multivitamin (formulary)] 1 each PO DAILY@1200 tab 01/24/21 [Rx] Na Phos,M-B/Na Phos,Di-Ba [Fleet Adult] 133 ml RECTAL DAILY PRN 01/24/21 [Rx] bisacodyL [Dulcolax] 10 mg RECTAL DAILY PRN supp 01/24/21 [Rx] Acetaminophen Tab [Tylenol] 650 mg PO Q4HR PRN 02/12/21 [History] Calcium Carbonate [Tums] 1,000 mg PO Q8H PRN 02/12/21 [History] HYDROcodone/APAP 5-325MG [[place] 5-325] 1 tab PO Q4HR PRN #18 tab 02/16/21 [Rx] Psyllium Husk 100% [Metamucil Packet] 6 gm PO BID packet 02/16/21 [Rx] Follow up Appointment(s)/Referral(s): Fred Son DO [Primary Care Provider] - 1-2 days
[2021-02-16] MEDS ORDERED: NON FORMULARY DRUG (Alendronate Sodium [Fosamax] 70 MG Tablet) PO SCH (15:08)
== END 2021-02-16 14:45 | DRG 388 ==
LOC: EC 00:57 → 5NMEDONC 01:18 → 1SOBS 15:19
PROVIDERS: ADMIT Hospitalist; ATTEND Hospitalist
DX: K56.41 Fecal impaction (principal); G93.41 Metabolic encephalopathy; E87.1 Hypo-osmolality and hyponatremia; D64.9 Anemia, unspecified; E53.8 Deficiency of other specified B group vitamins; E78.5 Hyperlipidemia, unspecified; E87.5 Hyperkalemia; I10 Essential (primary) hypertension; J44.9 Chronic obstructive pulmonary disease, unspecified; K21.9 Gastro-esophageal reflux disease without esophagitis; Z20.822 Contact with and (suspected) exposure to COVID-19; M19.91 Primary osteoarthritis, unspecified site; M21.331 Wrist drop, right wrist; R29.6 Repeated falls; N31.9 Neuromuscular dysfunction of bladder, unspecified; Z79.51 Long term (current) use of inhaled steroids; Z79.82 Long term (current) use of aspirin; Z79.83 Long term (current) use of bisphosphonates; Z79.899 Other long term (current) drug therapy; Z87.891 Personal history of nicotine dependence; Z90.49 Acquired absence of other specified parts of digestive tract; Z90.710 Acquired absence of both cervix and uterus; Z96.651 Presence of right artificial knee joint; Z88.5 Allergy status to narcotic agent; Z88.0 Allergy status to penicillin; Z91.040 Latex allergy status; Z91.81 History of falling; Z98.42 Cataract extraction status, left eye; Z98.41 Cataract extraction status, right eye
CPT/HCPCS: 71045; 74177; 80048; 80053; 81001; 82150; 83605; 83690; 83735; 84100; 85025; 87635; 94640; 99285

== ENCOUNTER → 2021-06-09 | Outpatient (CLI) | payer MEDICARE | END | disposition home or self-care (01) | LOC: RADUSWWP 13:36 | PROVIDERS: ATTEND Podiatrist | DX: L97.419 Non-pressure chronic ulcer of right heel and midfoot with unspecified severity (principal) | CPT/HCPCS: 93922 ==

== ENCOUNTER → 2021-06-29 | Outpatient (CLI) | payer MEDICARE ==
[2021-06-29 14:52] VITALS: BP 126/60; PULSE 89; RESP 16; TEMP 98.2
--- NOTE | 2021-06-29 15:15 | P.PN ---
Subjective Progress Note Date: 06/29/21 Principal diagnosis: A 70 yr old female with a history of severe and chronic low back pain secondary to lumbar degenerative disc diseases and lumbar spondylosis with facet arthropathy presents today for evaluation of tailbone pain with accompanying numbness in the pubic area and urinary incontinence > 8 times a day with nocturia. Patient states tailbone pain is 9 out of 10 in intensity, dull, achy, constant with radiation of shooting pain and numbness along the bilateral pelvic joints and groin. Numbness and incontinence is provoked by bearing weight in the abdomen, standing up from a sitting position without accessory muscle use. Denies encoparesis. Patient participated in PT approx 3-4 yrs ago. She does not take medications, use topicals, use ice or heat or follow a home exercise regimen. Pt states she feels too weak to do daily exercise activities. Patient denies any side effects of the medication(s), denies excessive drowsiness or sleepiness, denies suicidal ideation and reports that the current pain medication is helping to control the pain and improve activities of daily living. Patient denies any motor or sensory deficits. Patient denies any fever or night sweats, denies any change in the bowel movements or urination. Physical Examination: -Constitutional: Cooperative. Not in acute distress . -HEENT: Neck is supple. No lymphadenopathy. No thyromegaly. Normal thyroid size. Eyes: No ptosis , no icterus, no photophobia. ENT: No auditory deficits. Normal oropharynx. No Thrush. - Respiratory: Chest clear to auscultations bilaterally. No wheezing. No rhonchi. - Cardiovascular: Regular rate and rhythm. S1 / S2 , no S3 , no S4. - Gastrointestinal: Abdomen soft no tenderness. Bowel sounds positive in all four quadrants. No organomegaly. - Genitourinary: Deferred. - Neurologic: Cranial nerve II to XII intact. No focal neurological deficits. - Psychatric: Alert & oriented x 3. Matching mood & appropriate affect. Judgment and insight intact. - Lymphatic: No Lymphadenopathy. - Musculoskeletal: Cervical spine: Muscle bulk/ tone/ strength in the bilateral upper extremities normal. Facet loading test cervical area positive. Lumbar spine: Motor bulk/ tone/ strength lower extremities , thigh and legs : 5/5 Deep tendon reflexes : Normal Knee Jerk. Normal Ankle Jerk . Vertebral body tenderness to palpation over Lumbar Facet Loading Test positive Straight Leg Raise: positive at 30 degrees right side/ left side Gaenslen's Test positive Sacral spine : Severe tenderness over the Sacroiliac joint: right side / left side Range of motion: Flexion of the lumbar spine <60 degrees Range of motion: Extension of the lumbar spine <20 degrees Gaenslen's Test positive Mike test: positive right side / left side Assessment and plan: Chronic low back pain secondary to lumbar degenerative disc disease , lumbar spondylosis with facet arthropathy without myelopathy Discussed case with Dr Chappell that pt needs to be evaluated by a surgeon immediately to rule out cauda equina syndrome Patient may return to the clinic for further treatment if emergency is treated, or deemed not an emergency All patient questions answered MAPS reviewed and it was appropriate. I have spent 31 minutes on patient care today. Dr Chappell was available by phone for the evaluation of this patient. The time was used to review the medical records including relevant urine studies and Prescription history (MAPs), review of the available imaging, evaluation and examination of the patient, coordination of care with the medical staff and if applicable referring physicians, as well as creation of the medical record Objective - Vital Signs Vital signs: Vital Signs Temp 98.2 F 06/29/21 14:45 Pulse 89 06/29/21 14:45 Resp 16 06/29/21 14:45 BP 126/60 06/29/21 14:45 Pulse Ox 97 06/29/21 14:45 Intake & Output 06/28/21 06/29/21 06/29/21 18:59 06:59 18:59 Weight 60.781 kg PQRS Measure Charge Sheet Mode of Arrival: Ambulatory - Pain Location Sacrum Non-Pharmacological Interventions: Home Exercise, Inactivity, Physical Therapy, Stretching Pharmacological Interventions: Block PQRS Narrative: Blood Pressure 126/60 Pain Intensity [Sacrum] 9 Scale Used Numeric (1 - 10) Hx Alcohol Use (MH) No Home Medications: Ambulatory Orders Atorvastatin [Lipitor] 20 mg PO HS 03/26/20 Lisinopril [Zestril] 10 mg PO DAILY 03/26/20 Alendronate Sodium [Fosamax] 70 mg PO WE 12/24/20 Aspirin [Adult Low Dose Aspirin EC] 81 mg PO BID #60 tab 01/24/21 Budesonide-Formot 160-4.5 Mcg [Symbicort 160-4.5 Mcg Inhaler] 2 puff INHALATION RT-BID gm 01/24/21 Cyanocobalamin [Vitamin B-12] 1,000 mcg PO DAILY tab 01/24/21 Ipratropium-Albuterol Nebulize [Duoneb 0.5 mg-3 mg/3 ml Soln] 3 ml INHALATION RT-QID PRN ml 01/24/21 Magnesium Hydroxide [Milk of Magnesia Concentrate] 2,400 mg PO DAILY PRN ml 01/24/21 Multivitamins, Thera [Multivitamin (formulary)] 1 each PO DAILY@1200 tab 01/24/21 Na Phos,M-B/Na Phos,Di-Ba [Fleet Adult] 133 ml RECTAL DAILY PRN 01/24/21 bisacodyL [Dulcolax] 10 mg RECTAL DAILY PRN supp 01/24/21 Acetaminophen Tab [Tylenol] 650 mg PO Q4HR PRN 02/12/21 Calcium Carbonate [Tums] 1,000 mg PO Q8H PRN 02/12/21 HYDROcodone/APAP 5-325MG [[place] 5-325] 1 tab PO Q4HR PRN #18 tab 02/16/21 Psyllium Husk 100% [Metamucil Packet] 6 gm PO BID packet 02/16/21
== END ==
LOC: PNWHC3 13:52
PROVIDERS: ATTEND Physician Assistant Medical
DX: M51.36 Other intervertebral disc degeneration, lumbar region (principal); M47.816 Spondylosis without myelopathy or radiculopathy, lumbar region; G89.29 Other chronic pain; Z88.5 Allergy status to narcotic agent; Z91.040 Latex allergy status; Z88.0 Allergy status to penicillin; Z88.6 Allergy status to analgesic agent
CPT/HCPCS: 99211

== ENCOUNTER → 2021-10-12 | Outpatient (CLI) | payer MEDICARE ==
[2021-10-12 11:49] LABS: INR 0.9 (<1.2); Partial Thromboplastin Time 23.5 sec (22.0-30.0); Prothrombin Time 10.3 sec (9.0-12.0)
[2021-10-12 14:50] LABS: HCT 37.8 % (37.2-46.3); HGB 11.6 g/dL (12.0-15.0); MCHC 30.7 g/dL (32.0-37.0); MCV 91.3 fL (80.0-97.0); Mean Platelet Volume 10.6 fL (9.5-12.2); NRBC Per 100 WBC 0 /100 WBCS (0.0-0.0); Platelet Count 425 X 10*3/uL (140-440); RBC 4.14 X 10*6/uL (4.10-5.20); RDW 15.4 % (11.5-14.5); WBC 9.53 X 10*3/uL (4.50-10.00)
[2021-10-12 15:31] LABS: Albumin 4.8 g/dL (3.8-4.9); Albumin/Globulin Ratio 1.92 (1.60-3.17); Anion Gap 12.9 mmol/L (10.00-18.00); BUN/Creat Ratio 12.42 Ratio (12.00-20.00); Blood Urea Nitrogen 14.9 mg/dL (9.0-27.0); Calcium 9.6 mg/dL (8.7-10.3); Carbon Dioxide 24.1 mmol/L (20.0-27.5); Globulin 2.5 g/dL (1.6-3.3); Non-African American GFR(CKD) 45.8 (60.0-200.0); Potassium 4.7 mmol/L (3.5-5.5); Total Bilirubin 0.2 mg/dL (0.30-1.20); Total Protein 7.3 g/dL (6.2-8.2)
== END | disposition home or self-care (01) ==
LOC: LABPAT 10:02
PROVIDERS: ATTEND Orthopaedic Surgery Sports Medicine
DX: Z01.818 Encounter for other preprocedural examination (principal); M17.12 Unilateral primary osteoarthritis, left knee
CPT/HCPCS: 80053; 85027; 85610; 85730; 87070; 93005

== ENCOUNTER 2021-11-10 05:32 | Day surgery (SDC) | payer MEDICARE ==
[2021-11-09 11:23] VITALS: BMI 26.6
[~2021-11-10 05:32] MED LIST changes: -CLINDAMYCIN 900 MG in DEXTROSE 5% IN WATER 50 ML IVPB PRN; -DEXAMETHASONE SOD PHOSPHATE 4 MG/ML 1 ML VIAL IV ONE; -GABAPENTIN 300 MG CAP PO PRN; -HYDROmorphone 0.5 MG/0.5 ML SYRINGE IVP PRN; -MIDAZOLAM 2 MG/2 ML VIAL IV PRN; -ONDANSETRON 4 MG/2 ML VIAL IVP ONE; -ROPIVACAINE/EPI/CLONIDINE/KET 50 ML SYRINGE MISCELLANE PRN; -TRANEXAMIC ACID 1,000 MG in SODIUM CHLORIDE 0.9% 100 ML IVPB PRN; +TRANEXAMIC ACID IN NACL,ISO-OS 1,000 MG in SALINE 1 100ML.BAG IVPB PRN
[2021-11-10] MEDS ORDERED: LACTATED RINGERS 1,000 ML IV SCH (05:40)
[2021-11-10] MEDS ORDERED: fentaNYL (PF) 50 MCG/ML 2 ML AMP IV PRN (05:40)
[2021-11-10] MEDS ORDERED: DEXAMETHASONE SOD PHOSPHATE 4 MG/ML 1 ML VIAL IV ONE (05:40)
[2021-11-10] MEDS ORDERED: ONDANSETRON 4 MG/2 ML VIAL IVP ONE (05:40)
[2021-11-10 06:11] LABS: Glucose,Whole Blood 106 mg/dL (70-110)
[2021-11-10] MEDS ORDERED: MIDAZOLAM 2 MG/2 ML VIAL ONE (07:04)
[2021-11-10] MEDS ORDERED: PROPOFOL 10 MG/ML 20 ML VIAL IV ONE (07:04)
[2021-11-10] MEDS ORDERED: fentaNYL (PF) 50 MCG/ML 2 ML AMP ONE (07:04)
[2021-11-10] MEDS: ROPIVACAINE/EPI/CLONIDINE/KET 50 ML SYRINGE MISCELLANE PRN ×2 (07:55→08:20)
[2021-11-10] MEDS ORDERED: LACTATED RINGERS 1,000 ML IV ONE (08:44)
[2021-11-10] MEDS ORDERED: HYDROmorphone 0.5 MG/0.5 ML SYRINGE IVP PRN ×2 (09:06)
[2021-11-10] MEDS ORDERED: bisacodyL 10 MG SUPP RECTAL PRN (09:06)
[2021-11-10] MEDS ORDERED: ONDANSETRON 4 MG/2 ML VIAL IVP PRN (09:06)
[2021-11-10] MEDS ORDERED: HYDROcodone/APAP 5-325MG 1 EACH TAB PO PRN (09:06)
[2021-11-10] MEDS ORDERED: hydrOXYzine pamoate 25 MG CAP PO PRN (09:06)
[2021-11-10] MEDS ORDERED: MAGNESIUM HYDROXIDE 2,400 MG/10 ML CUP PO PRN (09:06)
[2021-11-10] MEDS ORDERED: ACETAMINOPHEN TAB 325 MG TAB PO PRN (09:06)
[2021-11-10] MEDS ORDERED: traMADol 50 MG TAB PO PRN (09:06)
[2021-11-10] MEDS ORDERED: diazePAM 5 MG TAB PO PRN (09:06)
[2021-11-10] MEDS ORDERED: NALOXONE 0.4 MG/ML 1 ML VIAL IV PRN (09:06)
[2021-11-10] MEDS ORDERED: NA PHOS,M-B/NA PHOS,DI-BA 133 ML ENEMA RECTAL PRN (09:06)
--- NOTE | 2021-11-10 10:09 | XR ---
Limited left knee HISTORY: Status post left knee arthroplasty 2 views the left knee Patient is status post left knee arthroplasty. There is anatomic alignment. There is low bone mineral ization. Lucencies present within the soft tissues consistent with postop state. Small ossific densit ies are present within the anterior soft tissues in the infrapatellar location which may be related t o patient's surgery. There is soft tissue swelling. IMPRESSION: Orthopedic follow-up.
[2021-11-10] MEDS: LACTATED RINGERS 1,000 ML IV SCH ×2 (10:38→20:06)
[2021-11-10] MEDS ORDERED: TEMAZEPAM 30 MG CAP PO PRN (10:56)
[2021-11-10] MEDS ORDERED: SYMBICORT 160-4.5 MCG INHALER INHALATION PRN (10:56)
--- NOTE | 2021-11-10 10:56 | OP ---
OPERATIVE REPORT DATE OF PROCEDURE: 11/10/2021. SURGEON: Abdulaziz Fletcher MD. [employer]ORATORY TECHNICIAN: Jeff FLEMING. PREOPERATIVE DIAGNOSIS: Left knee osteoarthrosis. POSTOP DIAGNOSIS: Left knee osteoarthrosis. OPERATION: Left total knee arthroplasty. ANESTHESIA: Spinal with sedation. ESTIMATED BLOOD LOSS: 100 mL. TOURNIQUET TIME: 50 minutes at 250 mmHg. COMPLICATIONS: None apparent. DRAINS: None. DISPOSITION: Postanesthesia care unit. INDICATIONS: Ama is a very pleasant, 71-year-old female with longstanding history of left knee pain. History and physical examination are consistent with advanced left knee osteoarthrosis. She has been through significant nonoperative management up to this point. Further treatment options were discussed and she decided to go forward with a left total knee arthroplasty. The risks of procedure were discussed with her in detail. These risks include, but are not limited to risk of infection, nerve damage, bleeding, pain, and a small risk of deep vein thrombosis which could lead to fatal pulmonary embolism. There is also risk of loosening implant which could require revision operation. The patient understands these risks. All of her questions were answered to her satisfaction. An appropriate informed consent was obtained. DESCRIPTION OF THE PROCEDURE: The patient was identified in preoperative holding area. Surgical site was marked by both the patient and myself. She was given 2 grams of Ancef IV for prophylactic purposes. She was then transferred to the operative suite. She was placed supine on the operative table. Spinal anesthetic was then administered and dosed per the anesthesia without apparent complication. Examination under anesthesia was then performed. The patient was 2-3 degrees shy of full extension. She had 100 degrees of flexion. The medial collateral ligament, lateral collateral ligament and posterior cruciate ligaments were stable. Tourniquet was then placed high on the left upper thigh well-padded in preparation for surgery. The patient's left lower extremity was then prepped and draped in usual sterile fashion. Standard surgical pause undertaken to ensure that we were operating on the correct site and that appropriate preoperative antibiotics were given. All staff in the room in agreement and we proceeded. The outlines of the patella were marked with a surgical pen. A planned 12 cm vertical incision centered over the patella was marked with a surgical pen. Leg was then exsanguinated with an Esmarch dressing. The knee was then flexed and the tourniquet was inflated to 250 mmHg. The total tourniquet time for the procedure was 50 minutes. Incision was then made with a 10 blade scalpel. Dissection was carried down sharply overlying fascia. Great care was taken to minimize the skin flaps. The knee was then exposed using a standard medial parapatellar approach. A small cuff of quadriceps tendon was then left for suturing. She was in a small bit of varus preoperatively. A standard medial release was then made. The superficial medial collateral ligament dissected off the bone around the posterior aspect of the proximal tibia. The medial meniscus was then excised as well. The lateral meniscus was also released anteriorly. The leg was then externally rotated. The patella was everted. The knee was flexed. Retractors were then placed to protect the collateral ligaments. I then proceeded to remove the infrapatellar fat pad. This was excised sharply tangentially with fibers of the patellar tendon. I then proceeded to remove the peripheral osteophytes. This was done with a rongeur. I then proceeded with the distal femoral resection. She did have near full extension. A planned 9 mm resection was then done. The femoral canal was then entered in the midline of the femur approximately 10 mm anterior to the origin of the posterior cruciate ligament. The galilea was then advanced down the center of the femur and placed intramedullary. Based on the preoperative radiographs, the angle between the anatomic and mechanical axis of the femur was approximately 4-5 degrees. The valgus angle of the distal femoral cutting guide was then set at 4 degrees for the left knee. The distal femoral cutting guide was then advanced over the intramedullary galilea. This was seated firmly against the femur. I then as mentioned planned to take 9 mm off the distal femur. The cutting block was then secured onto the femur with pins. The jig was then removed. The distal femoral cut was made through the slot of the block. The pins then removed. The distal femoral cutting block was removed. The accuracy of the distal femoral cuts was checked with 2 flat bars. I then proceeded with femoral sizing. Posterior reference sizing guide was held firmly against the resected distal surface of the femur. The posterior condyles were resting on the posterior plane of the guide. The sizing stylus was then placed onto the anterior femur. The size was measured as a size 5. I then assessed for femoral rotation. The plan was for 3 degrees of external rotation. Three degrees external rotation was placed onto the jig. These holes were then marked. I then confirmed the rotation by 3 separate methods. This was done using the epicondylar axis as well as [place] line and posterior referencing. It was deemed that the external rotation was proper. I then went forward with placing the femoral cutting block. This was placed over the previously placed pin holes. The Pierce wing was then placed on the anterior slots to ensure that we would not notch the anterior femur with the anterior femoral cut. I then proceeded with the anterior femoral cut. This was flush with the anterior cortex of the femur. The posterior cuts were then made by followed by the anterior chamfer cut, then the posterior chamfer cut. The cutting block was then removed. Throughout the resection, the collateral ligaments were protected with retractors. I then placed a trial size 5 femur. It fit very nice slightly wide mediolateral but the narrow fit very nicely and it fit flush with the distal end of the femur. The drill holes were then made. I then proceeded with the tibial cut. I planned for cruciate retaining knee. The guide was placed and set for varus valgus and for slope. The height set for approximate 2 mm resection from the medial tibial plateau which was the lower side. I was happy with the alignment and the amount of resection. The cutting block was then pinned to the proximal tibia. The alignment galilea was removed. The proximal tibia was resected with a reciprocating saw. Again, this was done with retractors protecting the collateral ligaments as well as the posterior cruciate ligament. I then proceeded to evaluate the flexion extension gaps. A 10 mm block was then placed. The flexion and extension gaps were equal. I then proceeded with resection of posterior osteophytes. She had very minimal posterior osteophytes. This was done using a curved osteotome. This resected the posterior osteophytes and posterior capsule stripping was done off the posterior aspect of the femur at this time. The osteophytes were then removed. I then proceeded with resection of the patella. The thickness of patella was measured using the caliper. The thickness was 22 mm. The thickness of the anticipated patellar dome was taken into account. Resection was then performed and confirmed to be equal in 4 quadrants using a caliper. Approximately 14 mm of bone remained after resection. A 29 x 8 standard patellar trial was then placed. The holes drilled. The trial was then placed. I then proceeded with the sizing tibial. The size C tibial plate fit very nicely. I then placed the trial femur into tibial tray and the patellar button. A 10 mm trial tibial insert was also placed. The components fit very nicely. She had full extension and flexion. Extension and flexion gaps were equal and stable to both varus and valgus stress. The patella tracked appropriately. The tibial tray rotation was then marked with a Bovie. This was externally rotated properly. I then proceed with tibial preparation. I first drilled the femoral holes and removed femoral component. The tibial tray was then set for proper external rotation as well as medial lateral placement of tibia. It was then pinned in place. I then proceeded with punching the keel. I then decided to proceed with cementing of all of our components. The knee was thoroughly irrigated with sterile saline solution via pulse lavage. The lateral geniculate artery was identified and cauterized. All blood was removed from the bone of the tibia, femur and patella with pulse lavage. I then proceed with cementing. One pack of antibiotic bone cement prepared on the back table by the surgical technology instructor. I then proceed with cementing the tibia first. The cement was impacted into the keel as well as deeply seated into the bone. A second coat of cement was then placed. Then, the tibia was then impacted into place. Excess cement was removed with [place]'s and Joker's. I then proceed with cementing the femoral component. The femoral component was also cemented using standard technique. Excess cement was removed. A 10 mm trial insert was then placed into the knee. It was brought into full extension with a constant axial load placed until the cement had hardened. The patellar component was then cemented. This was held firmly with a compressive device until the cement had dried. When the cement had dried, the knee was taken out of extension. All excess cement was removed from around the prosthesis. I then trialed the 10 mm insert. Flexion extension gaps were appropriate. The knee was stable. It came in full extension. I decided to go forward with a 10 mm medial congruent cross-linked cruciate-retaining tibial insert. Polyethylene was then placed on the tibial tray and locked in place. The knee was then reduced. The knee was again further irrigated with sterile saline solution with antibiotic added. The tourniquet was then deflated. Total tourniquet time for the procedure was 50 minutes at 250 mmHg. Final components were Maurice Persona size 5 narrow cruciate-retaining femoral component, size C tibial tray, a 10 mm medial congruent cruciate-retaining polyethylene insert, and a 29 x 8 mm patella. I then proceeded with closure. Again, the knee was thoroughly irrigated. The quadriceps tendon and medial retinaculum were reapproximated with #2 Ethibond suture. The extensor mechanism was then closed with a running #2 Quill suture. Subcutaneous tissues were closed with 2-0 Vicryl interrupted suture. The skin was closed with a running 3-0 Quill suture. Dermabond was applied to the incision. Sterile compressive dressings were applied. All sponge and needle counts were deemed correct prior to closure. The patient tolerated procedure without apparent complication. She was transferred recovery room in stable condition. MMODL / IJN: [id number] /
--- NOTE | 2021-11-10 11:34 | P.CONS ---
History of Present Illness - Reason for Consult Perioperative complication management - History of Present Illness Patient was [id number] female admitted for left knee arthroplasty success and underwent surgery patient is clinically doing well her pain is well- controlled patient does have history of aortic regurgitation but is symptomatic from that at this time patient is otherwise clinically doing well denied any other symptoms at this time. REVIEW OF SYSTEMS: CONSTITUTIONAL: No fever, no malaise, no fatigue. HEENT: No recent visual problems or hearing problems. Denied any sore throat. CARDIOVASCULAR: No chest pain, orthopnea, PND, no palpitations, no syncope. PULMONARY: No shortness of breath, no cough, no hemoptysis. GASTROINTESTINAL: No diarrhea, no nausea, no vomiting, no abdominal pain. NEUROLOGICAL: No headaches, no weakness, no numbness. HEMATOLOGICAL: Denies any bleeding or petechiae. GENITOURINARY: Denies any burning micturition, frequency, or urgency. MUSCULOSKELETAL/RHEUMATOLOGICAL: Denies any joint pain, swelling, or any muscle pain. ENDOCRINE: Denies any polyuria or polydipsia. The rest of the 14-point review of systems is negative. PHYSICAL EXAMINATION: GENERAL: The patient is alert and oriented x3, not in any acute distress. Well developed, well nourished. HEENT: Pupils are round and equally reacting to light. EOMI. No scleral icterus. No conjunctival pallor. Normocephalic, atraumatic. No pharyngeal erythema. No thyromegaly. CARDIOVASCULAR: S1 and S2 present. No murmurs, rubs, or gallops. PULMONARY: Chest is clear to auscultation, no wheezing or crackles. ABDOMEN: Soft, nontender, nondistended, normoactive bowel sounds. No palpable organomegaly. MUSCULOSKELETAL: Post surgically pack left knee and patient has Isaac wraps to the right leg EXTREMITIES: No cyanosis, clubbing, or pedal edema. NEUROLOGICAL: Gross neurological examination did not reveal any focal deficits. SKIN: No rashes. Assessment and plan -Hypertension: Patient blood pressure is bit high today patient will be resumed on lisinopril today -Aortic regurgitation asymptomatic follow-up as an outpatient -Hyperlipidemia -Gastroesophageal reflux disease -Osteoarthritis status post left knee arthroplasty pain management and DVT prophylaxis as per primary service Past Medical History Past Medical History: GERD/Reflux, Hyperlipidemia, Hypertension, Osteoarthritis (OA) Additional Past Medical History / Comment(s): bladder problems-can't empty bladder fully, nerve pain in "crotch" area & low back, two leaky heart valves, past hx ulcers, 'bad left knee" History of Any Multi-Drug Resistant Organisms: None Reported Past Surgical History: Breast Surgery, Cholecystectomy, Hysterectomy, Orthopedic Surgery, Tonsillectomy Additional Past Surgical History / Comment(s): ORIF right ankle & then hardware removed, cataracts removed-stuart, pain clinic procedures, total rt knee jan 2021 and fell at home and dehised and had sx to cleaned out and repaired. rt breast lumpectomy, left TKR 11/25 Past Anesthesia/Blood Transfusion Reactions: Previous Problems w/ Anesthesia, Motion Sickness Additional Past Anesthesia/Blood Transfusion Reaction / Comm: years ago problem w/waking fron anesthesia, but not recently Past Psychological History: No Psychological Hx Reported Smoking Status: Former smoker Past Alcohol Use History: None Reported Additional Past Alcohol Use History / Comment(s): quit smoking 2019, smoked on & off since 18 <1/2ppd Past Drug Use History: None Reported - Past Family History Mother Family Medical History: No Reported History Medications and Allergies Home Medications Medication Instructions Recorded Confirmed Type Atorvastatin [Lipitor] 40 mg PO HS 03/26/20 11/09/21 History lisinopriL [Zestril] 10 mg PO DAILY 03/26/20 11/09/21 History Alendronate Sodium [Fosamax] 70 mg PO FR 12/24/20 11/09/21 History Multivitamins, Thera [Multivitamin 1 each PO DAILY@1200 tab 01/24/21 11/09/21 Rx (formulary)] Aspirin [Adult Low Dose Aspirin EC] 81 mg PO DAILY 11/09/21 11/09/21 History Budesonide-Formot 160-4.5 Mcg 2 puff INHALATION RT-BID PRN 11/09/21 11/09/21 History [Symbicort 160-4.5 Mcg Inhaler] Gabapentin [Neurontin] 100 mg PO DAILY 11/09/21 11/09/21 History Meloxicam [Mobic] 15 mg PO DAILY 11/09/21 11/09/21 History Temazepam [Restoril] 30 mg PO HS 11/09/21 11/09/21 History Allergies Allergy/AdvReac Type Severity Reaction Status Date / Time codeine Allergy passed out Verified 11/09/21 11:04 latex Allergy Itching Verified 11/09/21 11:04 Penicillins Allergy tongue Verified 11/09/21 11:04 swelling, throat closing meperidine [From Demerol] AdvReac "out of it" Verified 11/09/21 11:04 Physical Exam Vitals: Vital Signs Temp Pulse Pulse Resp BP Pulse Ox 11/10/21 10:38 97.4 F L 74 16 158/67 96 11/10/21 09:53 71 16 148/65 97 11/10/21 09:34 70 16 153/65 97 11/10/21 09:20 71 16 149/66 100 11/10/21 09:05 78 16 145/92 100 11/10/21 05:53 98 F 89 20 195/81 98 Intake and Output 11/09/21 11/10/21 11/10/21 22:59 06:59 14:59 Intake Total 350 700 Output Total 100 Balance 350 600 Intake: IV 350 700 Output: Estimated Blood Loss 100 Other: Weight 62.2 kg 62.2 kg
[2021-11-10] MEDS: MULTIVITAMINS, THERA 1 EACH TAB PO SCH (12:44)
[2021-11-10] MEDS: HYDROcodone/APAP 10-325MG 1 EACH TAB PO PRN ×2 (13:43→20:05)
[2021-11-10] MEDS: ATORVASTATIN 20 MG TAB PO SCH (20:05)
[2021-11-10] MEDS: ASPIRIN 81 MG PO SCH (20:05)
[2021-11-10] MEDS: SENNOSIDES-DOCUSATE SODIUM 1 EACH TAB PO SCH (20:06)
[2021-11-10] MEDS: TEMAZEPAM 15 MG CAP PO PRN (22:49)
[2021-11-10] MEDS: HYDROmorphone 0.5 MG/0.5 ML SYRINGE IVP PRN (22:50)
[2021-11-11] MEDS: TEMAZEPAM 15 MG CAP PO PRN (00:14)
[2021-11-11] MEDS: HYDROcodone/APAP 10-325MG 1 EACH TAB PO PRN ×3 (05:38→20:04)
[2021-11-11 07:11] LABS: Glucose,Whole Blood 120 mg/dL (70-110)
[2021-11-11] MEDS: LACTATED RINGERS 1,000 ML IV SCH (07:12)
[2021-11-11] MEDS: ASPIRIN 81 MG PO SCH ×2 (07:18→20:05)
[2021-11-11] MEDS: lisinopriL 10 MG TAB PO SCH (07:18)
[2021-11-11] MEDS: GABAPENTIN 100 MG CAP PO SCH (07:18)
[2021-11-11] MEDS: MULTIVITAMINS, THERA 1 EACH TAB PO SCH (07:18)
[2021-11-11] MEDS ORDERED: ASPIRIN 81 MG PO SCH (09:00)
[2021-11-11 10:44] LABS: Basophils # (A) 0.04 X 10*3/uL (0.00-0.10); Basophils % (A) 0.4 %; Eosinophils # (A) 0.17 X 10*3/uL (0.04-0.35); Eosinophils % (A) 1.5 %; HGB 9.5 g/dL (12.0-15.0); Immature Grans, Automated 0.4 %; Lymphocytes % (A) 19.7 %; MCH 28.5 pg (27.0-32.0); MCHC 30.6 g/dL (32.0-37.0); MCV 93.1 fL (80.0-97.0); Mean Platelet Volume 10.5 fL (9.5-12.2); Monocytes # (A) 0.95 X 10*3/uL (0.20-1.00); Monocytes % (A) 8.5 %; NRBC Per 100 WBC 0 /100 WBCS (0.0-0.0); Neutrophils # (A) 7.75 X 10*3/uL (1.80-7.70); Neutrophils % (A) 69.5 %; Platelet Count 325 X 10*3/uL (140-440); RBC 3.33 X 10*6/uL (4.10-5.20); WBC 11.15 X 10*3/uL (4.50-10.00)
[2021-11-11] MEDS ORDERED: NON FORMULARY DRUG (Alendronate Sodium [Fosamax] 70 MG Tablet) PO SCH (10:56)
[2021-11-11] MEDS ORDERED: MULTIVITAMINS, THERA 1 EACH TAB PO SCH (12:00)
--- NOTE | 2021-11-11 12:51 | P.PN ---
Subjective Progress Note Date: 11/11/21 - Reason for Consult Perioperative complication management - History of Present Illness Patient was [id number] female admitted for left knee arthroplasty success and underwent surgery patient is clinically doing well her pain is well- controlled patient does have history of aortic regurgitation but is symptomatic from that at this time patient is otherwise clinically doing well denied any other symptoms at this time. 11/11/2021 Patient was seen and evaluated in follow-up this morning with no acute overnight issues noted. Patient continues to have some discomfort of the left knee although reports she plans on being discharged today. Patient has been resumed on blood pressure medications and current blood pressure is 126/71 and denies an y dizziness or lightheadedness. Patient reports to tolerating diet with no reports of nausea or vomiting noted. Patient reports that she will be going to live with her son while they are waiting for her senior apartment to be available. Patient is afebrile and denies any chest pain or shortness of breath. Oxygen saturation is 95% on room air. Encouraged incentive spirometer and continue to use at least 10 times every hour while awake. Appropriate home medications have been resumed. Review of systems: Constitutional: No reports of fatigue, fever, or chills Cardiovascular: No reports of chest pain or palpitations Respiratory: No reports of shortness of breath or cough GI: No reports of nausea, vomiting, or diarrhea : No reports of dysuria or retention Neurovascular: No reports of weakness or numbness All medications have been reviewed Active Medications Acetaminophen (Acetaminophen Tab 325 Mg Tab) 650 mg PO Q4HR PRN PRN Reason: Pain Scale 1 to 5 Stop: 12/10/21 09:07 Hydrocodone Bitart/Acetaminophen (Hydrocodone/Apap 5-325mg 1 Each Tab) 1 each P O Q6HR PRN PRN Reason: Pain Scale 1 to 5 Stop: 12/10/21 09:07 Hydrocodone Bitart/Acetaminophen (Hydrocodone/Apap 10-325mg 1 Each Tab) 1 each PO Q6H PRN PRN Reason: Pain Scale 6 to 10 Stop: 12/10/21 09:07 Last Admin: 11/11/21 12:43 Dose: 1 each Aspirin (Aspirin 81 Mg) 81 mg PO BID [facility] Stop: 12/10/21 21:01 Last Admin: 11/11/21 07:18 Dose: 81 mg Atorvastatin Calcium (Atorvastatin 20 Mg Tab) 40 mg PO HS [facility]EENA Last Admin: 11/10/21 20:05 Dose: 40 mg Bisacodyl (Bisacodyl 10 Mg Supp) 10 mg RECTAL DAILY PRN PRN Reason: Constipation Stop: 12/10/21 09:07 Budesonide/Formoterol Fumarate (Symbicort 160-4.5 Mcg Inhaler) 2 puff INHALATION RT-BID PRN PRN Reason: sob Diazepam (Diazepam 5 Mg Tab) 2.5 mg PO Q8HR PRN PRN Reason: Mild Spasms Stop: 12/10/21 09:07 Gabapentin (Gabapentin 100 Mg Cap) 100 mg PO DAILY [facility] Last Admin: 11/11/21 07:18 Dose: 100 mg Hydromorphone HCl (Hydromorphone 0.5 Mg/0.5 Ml Syringe) 0.125 mg IVP Q3HR PRN PRN Reason: Pain Scale 1 to 3 Stop: 12/10/21 09:07 Hydromorphone HCl (Hydromorphone 0.5 Mg/0.5 Ml Syringe) 0.5 mg IVP Q3HR PRN PRN Reason: Pain Scale 7 to 10 Stop: 12/10/21 09:07 Last Admin: 11/10/21 22:50 Dose: 0.5 mg Hydromorphone HCl (Hydromorphone 0.5 Mg/0.5 Ml Syringe) 0.25 mg IVP Q3HR PRN PRN Reason: Pain Scale 4 to 6 Stop: 12/10/21 09:07 Hydroxyzine Pamoate (Hydroxyzine Pamoate 25 Mg Cap) 25 mg PO Q4HR PRN PRN Reason: Nausea, Anxiety, Pain Control Stop: 12/10/21 09:07 Lactated Ringer's (Lactated Ringers) 1,000 mls @ 100 mls/hr IV .Q10H [facility] Stop: 12/10/21 09:16 Last Admin: 11/11/21 07:12 Dose: Not Given Lisinopril (Lisinopril 10 Mg Tab) 10 mg PO DAILY [facility] Last Admin: 11/11/21 07:18 Dose: 10 mg Magnesium Hydroxide (Magnesium Hydroxide 2,400 Mg/10 Ml Cup) 2,400 mg PO DAILY PRN PRN Reason: Constipation Stop: 12/10/21 09:07 Multivitamins (Multivitamins, Thera 1 Each Tab) 1 each PO DAILY@1200 [facility] Last Admin: 11/11/21 07:18 Dose: 1 each Naloxone HCl (Naloxone 0.4 Mg/Ml 1 Ml Vial) 0.2 mg IV Q2M PRN PRN Reason: Opioid Reversal Stop: 12/10/21 09:07 Non-Formulary Medication (Alendronate Sodium [Fosamax]) 70 mg PO FR [facility] Last Admin: 11/11/21 07:19 Dose: Not Given Ondansetron HCl (Ondansetron 4 Mg/2 Ml Vial) 4 mg IVP Q8HR PRN PRN Reason: Nausea And Vomiting Stop: 12/10/21 09:07 Senna/Docusate Sodium (Sennosides-Docusate Sodium 1 Each Tab) 2 each PO HS [facility] Stop: 12/10/21 21:01 Last Admin: 11/10/21 20:06 Dose: Not Given Sodium Biphosphate/Sodium Phosphate (Na Phos,M-B/Na Phos,Di-Ba 133 Ml Enema) 133 ml RECTAL DAILY PRN PRN Reason: Constipation Stop: 12/10/21 09:07 Temazepam (Temazepam 15 Mg Cap) 15 mg PO HS PRN PRN Reason: Insomnia Stop: 12/10/21 09:07 Last Admin: 11/11/21 00:14 Dose: 15 mg Temazepam (Temazepam 30 Mg Cap) 30 mg PO HS PRN PRN Reason: Insomnia Tramadol HCl (Tramadol 50 Mg Tab) 50 mg PO Q6HR PRN PRN Reason: Pain Scale 1 to 5 Stop: 12/10/21 09:07 PHYSICAL EXAMINATION: GENERAL: The patient is alert and oriented x3, not in any acute distress. Well developed, well nourished. HEENT: Pupils are round and equally reacting to light. EOMI. No scleral icterus. No conjunctival pallor. Normocephalic, atraumatic. No pharyngeal erythema. No thyromegaly. CARDIOVASCULAR: S1 and S2 present. No murmurs, rubs, or gallops. PULMONARY: Diminished breath sounds bilaterally otherwise chest is clear to auscultation, no wheezing or crackles. ABDOMEN: Soft, nontender, nondistended, normoactive bowel sounds. No palpable organomegaly. MUSCULOSKELETAL: Left knee discomfort on palpation with some minimal postsurgical swelling noted and dressing is dry and intact EXTREMITIES: No cyanosis, clubbing, or pedal edema. NEUROLOGICAL: Gross neurological examination did not reveal any focal deficits. SKIN: No rashes. Assessment: -Hypertension: Patient blood pressure currently controlled and maintained on her home dose of lisinopril and recommend continue -Aortic regurgitation: asymptomatic follow-up as an outpatient -Hyperlipidemia -Gastroesophageal reflux disease -Osteoarthritis status post left knee arthroplasty pain management and DVT pr ophylaxis as per primary service Plan: Recommend continue with current medications and appropriate home medications have been resumed. Recommend physical therapy evaluation Encouraged incentive spirometer use at least 10 times every hour while awake Continue with local wound care to the left knee and elevate extremities while at rest Recommend outpatient follow-up with primary care provider and follow-up labs to monitor WBC Possible discharge today from orthopedics We will continue to follow with orthopedics during hospitalization and would like to thank you for this consultation. The impression and plan of care has been dictated by Shruthi Manning, Nurse Practitioner as directed. Dr. Maria Del Rosario MD I have performed a history and examination and MDM of this patient, discussed the same with the dictator, and agree with the dictator's assessment and plan as written ,documented as a scribe. Based on total visit time, I have performed more than 50% of the visit. Objective - Vital Signs Vital signs: Vital Signs Temp 98.4 F 11/11/21 08:37 Pulse 64 11/11/21 08:37 Resp 20 11/11/21 08:37 BP 126/71 11/11/21 08:37 Pulse Ox 95 11/11/21 08:37 FiO2 Intake & Output 11/10/21 11/11/21 11/11/21 18:59 06:59 18:59 Intake Total 1550 1600 Output Total 100 Balance 1450 1600 Weight 62.2 kg Intake: IV 700 Intake, IV Titration 850 1200 Amount Lactated Ringers 1,000 ml 800 1200 @ 100 mls/hr IV .Q10H [facility] Rx#:[id number] ceFAZolin 2 gm In Sodium 50 Chloride 0.9% 50 ml @ 100 mls/hr IVPB Q8H [facility]EENA Rx#: [id number] Oral 400 Output: Estimated Blood Loss 100 Other: Voiding Method Toilet # Voids 3 # Bowel Movements 0 - Labs CBC & Chem 7: 11/11/21 06:23 Labs: Abnormal Lab Results - Last 24 Hours (Table) 11/11/21 Range/Units 07:10 POC Glucose (mg/dL) 120 H (70-110) mg/dL
--- NOTE | 2021-11-11 13:39 | P.PN ---
Subjective Progress Note Date: 11/11/21 Principal diagnosis: Left TKA Patient is seen at bedside this morning. She is postop day #1 from left total knee arthroplasty. SHe has pain at the surgical site as expected but denies any new complaints. SHe denies numbness, tingling or calf pain. Review of systems is negative for fever, chills, chest pain, shortness of breath or other Objective - Vital Signs Vital signs: Vital Signs Temp 98.4 F 11/11/21 08:37 Pulse 64 11/11/21 08:37 Resp 20 11/11/21 08:37 BP 126/71 11/11/21 08:37 Pulse Ox 95 11/11/21 08:37 FiO2 Intake & Output 11/10/21 11/11/21 11/11/21 18:59 06:59 18:59 Intake Total 1550 1600 Output Total 100 Balance 1450 1600 Weight 62.2 kg Intake: IV 700 Intake, IV Titration 850 1200 Amount Lactated Ringers 1,000 ml 800 1200 @ 100 mls/hr IV .Q10H [facility]EENA Rx#:[id number] ceFAZolin 2 gm In Sodium 50 Chloride 0.9% 50 ml @ 100 mls/hr IVPB Q8H [facility]EENA Rx#: [id number] Oral 400 Output: Estimated Blood Loss 100 Other: Voiding Method Toilet # Voids 3 # Bowel Movements 0 - Exam Inspection reveals a benign surgical wound. There is no active bleeding or drainage. Neurovascular status is intact throughout the lower extremity with motor and sensation fully intact. Calf is soft and nontender. 2+ dorsalis pedis pulse and less than 2 second cap refill is present. - Constitutional General appearance: Present: no acute distress - Labs CBC & Chem 7: 11/11/21 06:23 Labs: Abnormal Lab Results - Last 24 Hours (Table) 11/11/21 11/11/21 Range/Units 06:23 07:10 WBC 11.15 H (4.50-10.00) X 10*3/uL RBC 3.33 L (4.10-5.20) X 10*6/uL Hgb 9.5 L (12.0-15.0) g/dL Hct 31.0 L (37.2-46.3) % MCHC 30.6 L (32.0-37.0) g/dL RDW 16.0 H (11.5-14.5) % Neutrophils # 7.75 H (1.80-7.70) X 10*3/uL POC Glucose (mg/dL) 120 H (70-110) mg/dL Assessment and Plan (1) Status post total left knee replacement Narrative/Plan: She will continue with routine postop orthopedic protocol including pain management, wound care, PT, DVT prophylaxis and medical management. SHe would benefit from ECF placement and have requested consult. Expect that she will transfer to home vs ECF in next 1-2 days Current Visit: Yes Status: Acute Priority: Medium Code(s): Z96.652 - PRESENCE OF LEFT ARTIFICIAL KNEE JOINT SNOMED Code(s): 1389837367367 Time with Patient: Less than 30
[2021-11-11] MEDS: HYDROmorphone 0.5 MG/0.5 ML SYRINGE IVP PRN (15:25)
[2021-11-11] MEDS: CALCIUM CARBONATE 500 MG CHEWABLE PO PRN (16:31)
[2021-11-11] MEDS: SENNOSIDES-DOCUSATE SODIUM 1 EACH TAB PO SCH (20:04)
[2021-11-11] MEDS: ATORVASTATIN 20 MG TAB PO SCH (20:04)
[2021-11-12] MEDS ORDERED: TEMAZEPAM 15 MG CAP PO PRN (00:14)
[2021-11-12] MEDS: TEMAZEPAM 15 MG CAP PO PRN (00:21)
[2021-11-12] MEDS: HYDROcodone/APAP 10-325MG 1 EACH TAB PO PRN ×3 (05:24→20:01)
[2021-11-12 06:21] LABS: Basophils # (A) 0.1 k/uL (0-0.2); Basophils % (A) 1 %; Eosinophils # (A) 0.3 k/uL (0-0.7); Eosinophils % (A) 5 %; HCT 31.6 % (34.0-46.0); HGB 10.6 gm/dL (11.4-16.0); Lymphocytes # (A) 1.4 k/uL (1.0-4.8); Lymphocytes % (A) 21 %; MCH 31.1 pg (25.0-35.0); MCHC 33.4 g/dL (31.0-37.0); MCV 93.2 fL (80.0-100.0); Mean Platelet Volume 7.4; Monocytes # (A) 0.5 k/uL (0-1.0); Monocytes % (A) 7 %; Neutrophils # (A) 4.5 k/uL (1.3-7.7); Neutrophils % (A) 66 %; Platelet Count 305 k/uL (150-450); RBC 3.39 m/uL (3.80-5.40); RDW 14.9 % (11.5-15.5); WBC 6.8 k/uL (3.8-10.6)
[2021-11-12 06:39] LABS: African American GFR (CKD) 73 (>60 ml/min/1.73 sqM); Anion Gap 1 mmol/L; Blood Urea Nitrogen 14 mg/dL (7-17); Calcium 8.5 mg/dL (8.4-10.2); Carbon Dioxide 30 mmol/L (22-30); Chloride 106 mmol/L (98-107); Glucose 100 mg/dL (74-99); Non-African American GFR(CKD) 63 (>60 ml/min/1.73 sqM); Potassium 4.3 mmol/L (3.5-5.1); Sodium 137 mmol/L (137-145)
[2021-11-12] MEDS: ASPIRIN 81 MG PO SCH ×2 (08:19→20:01)
[2021-11-12] MEDS: GABAPENTIN 100 MG CAP PO SCH (08:19)
[2021-11-12] MEDS: lisinopriL 10 MG TAB PO SCH (08:19)
[2021-11-12] MEDS: CALCIUM CARBONATE 500 MG CHEWABLE PO PRN ×2 (08:27→11:34)
[2021-11-12] MEDS: LACTATED RINGERS 1,000 ML IV SCH ×2 (10:26→11:59)
[2021-11-12 11:36] LABS: Glucose,Whole Blood 108 mg/dL (70-110)
[2021-11-12] MEDS: MULTIVITAMINS, THERA 1 EACH TAB PO SCH (11:58)
--- NOTE | 2021-11-12 12:07 | P.PN ---
Subjective Progress Note Date: 11/12/21 Principal diagnosis: Left TKA Patient is seen at bedside this morning. She is postop day #2 from left total knee arthroplasty. SHe has pain at the surgical site as expected but denies any new complaints. SHe denies numbness, tingling or calf pain. Review of systems is negative for fever, chills, chest pain, shortness of breath or other Objective - Vital Signs Vital signs: Vital Signs Temp 98.6 F 11/12/21 08:00 Pulse 83 11/12/21 08:00 Resp 18 11/12/21 08:00 BP 102/58 11/12/21 08:00 Pulse Ox 95 11/12/21 08:00 FiO2 Intake & Output 11/11/21 11/12/21 11/12/21 18:59 06:59 18:59 Other: Voiding Method Toilet # Voids 3 2 - Exam Inspection reveals a benign surgical wound. There is no active bleeding or drainage. Neurovascular status is intact throughout the lower extremity with motor and sensation fully intact. Calf is soft and nontender. 2+ dorsalis pedis pulse and less than 2 second cap refill is present. - Constitutional General appearance: Present: no acute distress - Labs CBC & Chem 7: 11/12/21 06:03 11/12/21 06:03 Labs: Abnormal Lab Results - Last 24 Hours (Table) 11/12/21 11/12/21 Range/Units 06:03 06:03 RBC 3.39 L (3.80-5.40) m/uL Hgb 10.6 L (11.4-16.0) gm/dL Hct 31.6 L (34.0-46.0) % Glucose 100 H (74-99) mg/dL Assessment and Plan (1) Status post total left knee replacement Narrative/Plan: She will continue with routine postop orthopedic protocol including pain management, wound care, PT, DVT prophylaxis and medical management. We will adjust pain medications for better pain control. She is awaiting authorization and placement for an ECF. Expect that she will transfer to home vs ECF in next 1-2 days Current Visit: Yes Status: Acute Priority: Medium Code(s): Z96.652 - PRESENCE OF LEFT ARTIFICIAL KNEE JOINT SNOMED Code(s): 9961591499912 Time with Patient: Less than 30
[2021-11-12] MEDS ORDERED: CALCIUM CARBONATE 500 MG CHEWABLE PO PRN (14:12)
--- NOTE | 2021-11-12 14:16 | P.PN ---
Subjective Progress Note Date: 11/12/21 Patient was [id number]-[id number] female admitted for left knee arthroplasty success and underwent surgery patient is clinically doing well her pain is well- controlled patient does have history of aortic regurgitation but is symptomatic from that at this time patient is otherwise clinically doing well denied any other symptoms at this time. 11/11/2021 Patient was seen and evaluated in follow-up this morning with no acute overnight issues noted. Patient continues to have some discomfort of the left knee al though reports she plans on being discharged today. Patient has been resumed on blood pressure medications and current blood pressure is 126/71 and denies any dizziness or lightheadedness. Patient reports to tolerating diet with no reports of nausea or vomiting noted. Patient reports that she will be going to live with her son while they are waiting for her senior apartment to be available. Patient is afebrile and denies any chest pain or shortness of breath. Oxygen saturation is 95% on room air. Encouraged incentive spirometer and continue to use at least 10 times every hour while awake. Appropriate home medications have been resumed. 11/12/2021 Patient ER today resting with no acute events overnight. Still in physical therapy yesterday. Patient has discomfort to the left knee and states that her [place] was increased tablet as needed. She is tolerating diet, no nausea or vomi ting noted. She is passing gas and bowel movement yet. Currently afebrile. No incentive spirometer noted at the bedside will order another one. Is complaining of some heartburn today states from the pancakes for breakfast increased Tums to 4 times a day. Labs today show white count 6.8, hemoglobin 10.6, sodium 137, potassium 4.3, BUN 14, creatinine 0.92. Plan is for discharge to [facility] which will most likely happen on Sunday. Review of systems: Constitutional: No reports of fatigue, fever, or chills Cardiovascular: No reports of chest pain or palpitations Respiratory: No reports of shortness of breath or cough GI: No reports of nausea, vomiting, or diarrhea, passing gas, no BM. : No reports of dysuria or retention Neurovascular: No reports of weakness or numbness All medications have been reviewed PHYSICAL EXAMINATION: GENERAL: The patient is alert and oriented x3, not in any acute distress. Well developed, well nourished. HEENT: Pupils are round and equally reacting to light. EOMI. No scleral icterus. No conjunctival pallor. Normocephalic, atraumatic. No pharyngeal erythema. No thyromegaly. CARDIOVASCULAR: S1 and S2 present. Murmur present, no rubs, or gallops. PULMONARY: Diminished breath sounds bilaterally otherwise chest is clear to auscultation, no wheezing or crackles. ABDOMEN: Soft, nontender, nondistended, normoactive bowel sounds. No palpable organomegaly. MUSCULOSKELETAL: Left knee discomfort on palpation with some minimal postsurgical swelling noted and dressing is dry and intact EXTREMITIES: No cyanosis, clubbing, or pedal edema. NEUROLOGICAL: Gross neurological examination did not reveal any focal deficits. SKIN: No rashes. Assessment: -Hypertension: Patient blood pressure currently controlled and maintained on her home dose of lisinopril and recommend continue -Aortic regurgitation: asymptomatic follow-up as an outpatient -Hyperlipidemia -Gastroesophageal reflux disease -Osteoarthritis status post left knee arthroplasty pain management and DVT prophylaxis as per primary service Plan: Recommend continue with current medications Continue with PT/OT while inpatient Encouraged incentive spirometer use at least 10 times every hour while awake Continue with local wound care to the left knee and elevate extremities while at rest Recommend outpatient follow-up with primary care provider Possible discharge today from orthopedics, will DC to ECF We will continue to follow with orthopedics during hospitalization and would like to thank you for this consultation. The impression and plan of care has been dictated by Colleen Dubois Nurse Practitioner as directed. Dr. Maria Del Rosario MD I have performed a history and physical examination and medical decision making of this patient, discussed the same with the dictator, and agree with the dictators assessment and plan as written, documented as a scribe. Based on total visit time, I have performed more than 50% of this visit. Objective - Vital Signs Vital signs: Vital Signs Temp 98.6 F 11/12/21 08:00 Pulse 83 11/12/21 08:00 Resp 18 11/12/21 08:00 BP 102/58 11/12/21 08:00 Pulse Ox 95 11/12/21 08:00 FiO2 Intake & Output 11/11/21 11/12/21 11/12/21 18:59 06:59 18:59 Other: Voiding Method Toilet # Voids 3 2 - Labs CBC & Chem 7: 11/12/21 06:03 11/12/21 06:03 Labs: Abnormal Lab Results - Last 24 Hours (Table) 11/11/21 11/12/21 11/12/21 Range/Units 06:23 06:03 06:03 WBC 11.15 H (4.50-10.00) X 10*3/uL RBC 3.33 L 3.39 L (4.10-5.20) X 10*6/uL Hgb 9.5 L 10.6 L (12.0-15.0) g/dL Hct 31.0 L 31.6 L (37.2-46.3) % MCHC 30.6 L (32.0-37.0) g/dL RDW 16.0 H (11.5-14.5) % Neutrophils # 7.75 H (1.80-7.70) X 10*3/uL Glucose 100 H (74-99) mg/dL Assessment and Plan Time with Patient: Less than 30
[2021-11-12] MEDS: ATORVASTATIN 20 MG TAB PO SCH (20:01)
[2021-11-12] MEDS: SENNOSIDES-DOCUSATE SODIUM 1 EACH TAB PO SCH (20:01)
[2021-11-13] MEDS: LACTATED RINGERS 1,000 ML IV SCH ×3 (07:45→17:22)
[2021-11-13] MEDS: ASPIRIN 81 MG PO SCH ×2 (08:30→20:01)
[2021-11-13] MEDS: GABAPENTIN 100 MG CAP PO SCH (08:30)
[2021-11-13] MEDS: lisinopriL 10 MG TAB PO SCH (08:30)
[2021-11-13] MEDS: HYDROcodone/APAP 10-325MG 1 EACH TAB PO PRN ×3 (08:33→20:04)
--- NOTE | 2021-11-13 10:33 | P.PN ---
Subjective Progress Note Date: 11/13/21 Principal diagnosis: Left TKA Patient is seen at bedside this morning. She is postop day #3 from left total knee arthroplasty. SHe has pain at the surgical site as expected but denies any new complaints. SHe denies numbness, tingling or calf pain. Review of systems is negative for fever, chills, chest pain, shortness of breath or other Objective - Vital Signs Vital signs: Vital Signs Temp 98.9 F 11/13/21 08:00 Pulse 87 11/13/21 08:00 Resp 16 11/13/21 08:30 BP 150/62 11/13/21 08:00 Pulse Ox 97 11/13/21 08:00 FiO2 Intake & Output 11/12/21 11/13/21 11/13/21 18:59 06:59 18:59 Intake Total 296 Balance 296 Intake: Oral 296 Other: Voiding Method Toilet Toilet # Voids 2 1 - Exam Inspection reveals a benign surgical wound. There is no active bleeding or drainage. Neurovascular status is intact throughout the lower extremity with motor and sensation fully intact. Calf is soft and nontender. 2+ dorsalis pedis pulse and less than 2 second cap refill is present. - Constitutional General appearance: Present: no acute distress - Labs CBC & Chem 7: 11/12/21 06:03 11/12/21 06:03 Assessment and Plan (1) Status post total left knee replacement Narrative/Plan: She will continue with routine postop orthopedic protocol including pain management, wound care, PT, DVT prophylaxis and medical management. We will adjust pain medications for better pain control. She is awaiting authorization and placement for an ECF. Expect that she will transfer to home vs ECF in next 1-2 days Status: Acute Priority: Medium Code(s): Z96.652 - PRESENCE OF LEFT ARTIFICIAL KNEE JOINT SNOMED Code(s): 0630165764170 Time with Patient: Less than 30
[2021-11-13 10:53] LABS: Basophils # (A) 0.06 X 10*3/uL (0.00-0.10); Basophils % (A) 0.6 %; Eosinophils # (A) 0.58 X 10*3/uL (0.04-0.35); Eosinophils % (A) 5.8 %; HCT 32.6 % (37.2-46.3); HGB 10.1 g/dL (12.0-15.0); Immature Grans, Automated 0.4 %; Lymphocytes # (A) 2.05 X 10*3/uL (0.90-5.00); Lymphocytes % (A) 20.5 %; MCH 28.8 pg (27.0-32.0); MCV 92.9 fL (80.0-97.0); Mean Platelet Volume 10.9 fL (9.5-12.2); Monocytes # (A) 0.77 X 10*3/uL (0.20-1.00); Monocytes % (A) 7.7 %; NRBC Per 100 WBC 0 /100 WBCS (0.0-0.0); Neutrophils # (A) 6.48 X 10*3/uL (1.80-7.70); Platelet Count 339 X 10*3/uL (140-440); RBC 3.51 X 10*6/uL (4.10-5.20); RDW 16.1 % (11.5-14.5); WBC 9.98 X 10*3/uL (4.50-10.00)
--- NOTE | 2021-11-13 12:36 | P.PN ---
Subjective Progress Note Date: 11/13/21 Patient was [id number] female admitted for left knee arthroplasty success and underwent surgery patient is clinically doing well her pain is well- controlled patient does have history of aortic regurgitation but is symptomatic from that at this time patient is otherwise clinically doing well denied any other symptoms at this time. 11/11/2021 Patient was seen and evaluated in follow-up this morning with no acute overnight issues noted. Patient continues to have some discomfort of the left knee al though reports she plans on being discharged today. Patient has been resumed on blood pressure medications and current blood pressure is 126/71 and denies any dizziness or lightheadedness. Patient reports to tolerating diet with no reports of nausea or vomiting noted. Patient reports that she will be going to live with her son while they are waiting for her senior apartment to be available. Patient is afebrile and denies any chest pain or shortness of breath. Oxygen saturation is 95% on room air. Encouraged incentive spirometer and continue to use at least 10 times every hour while awake. Appropriate home medications have been resumed. 11/12/2021 Patient ER today resting with no acute events overnight. Still in physical therapy yesterday. Patient has discomfort to the left knee and states that her [place] was increased tablet as needed. She is tolerating diet, no nausea or vomi ting noted. She is passing gas and bowel movement yet. Currently afebrile. No incentive spirometer noted at the bedside will order another one. Is complaining of some heartburn today states from the pancakes for breakfast increased Tums to 4 times a day. Labs today show white count 6.8, hemoglobin 10.6, sodium 137, potassium 4.3, BUN 14, creatinine 0.92. Plan is for discharge to ECF which will most likely happen on Sunday. 11/13/2021 Patient is postoperative day #3 left knee total arthroplasty. Medications were adjusted yesterday she reports improved pain management to the left knee. She has been up ambulating today. She remains afebrile, heart rate 87, blood pressure 152/62 this morning, 97% room air. Continue to encourage incentive spirometry. She is tolerating diet. Plan is for discharge to ECF most likely on Sunday. Labs reviewed today hemoglobin stable at 10.1. Encouraged patient to use IS. Review of systems: Constitutional: No reports of fatigue, fever, or chills Cardiovascular: No reports of chest pain or palpitations Respiratory: No reports of shortness of breath or cough GI: No reports of nausea, vomiting, or diarrhea, passing gas, no BM. : No reports of dysuria or retention Neurovascular: No reports of weakness or numbness All medications have been reviewed PHYSICAL EXAMINATION: GENERAL: The patient is alert and oriented x3, not in any acute distress. Well developed, well nourished. HEENT: Pupils are round and equally reacting to light. EOMI. No scleral icterus. No conjunctival pallor. Normocephalic, atraumatic. No pharyngeal erythema. No thyromegaly. CARDIOVASCULAR: S1 and S2 present. Murmur present, no rubs, or gallops. PULMONARY: Diminished breath sounds bilaterally otherwise chest is clear to auscultation, no wheezing or crackles. ABDOMEN: Soft, nontender, nondistended, normoactive bowel sounds. No palpable organomegaly. MUSCULOSKELETAL: Left knee discomfort on palpation with some minimal postsurgical swelling noted and dressing is dry and intact EXTREMITIES: No cyanosis, clubbing, or pedal edema. NEUROLOGICAL: Gross neurological examination did not reveal any focal deficits. SKIN: No rashes. Assessment: -Hypertension: Patient blood pressure currently controlled and maintained on her home dose of lisinopril and recommend continue -Aortic regurgitation: asymptomatic follow-up as an outpatient -Hyperlipidemia -Gastroesophageal reflux disease -Osteoarthritis status post left knee arthroplasty pain management and DVT p rophylaxis as per primary service -GI Prophylaxis Full Code Plan: Recommend continue with current medications Continue with PT/OT while inpatient Encouraged incentive spirometer use at least 10 times every hour while awake Continue with local wound care to the left knee and elevate extremities while at rest Recommend outpatient follow-up with primary care provider Discharge to [facility] most likely sunday We will continue to follow with orthopedics during hospitalization and would like to thank you for this consultation. The impression and plan of care has been dictated by Colleen Dubois Nurse Practitioner as directed. Dr. Maria Del Rosario MD I have performed a history and physical examination and medical decision making of this patient, discussed the same with the dictator, and agree with the dictators assessment and plan as written, documented as a scribe. Based on total visit time, I have performed more than 50% of this visit. Objective - Vital Signs Vital signs: Vital Signs Temp 98.9 F 11/13/21 08:00 Pulse 87 11/13/21 08:00 Resp 16 11/13/21 08:00 BP 150/62 11/13/21 08:00 Pulse Ox 97 11/13/21 08:00 FiO2 Intake & Output 11/12/21 11/13/21 11/13/21 18:59 06:59 18:59 Intake Total 296 Balance 296 Intake: Oral 296 Other: Voiding Method Toilet # Voids 2 1 - Labs CBC & Chem 7: 11/13/21 06:42 11/12/21 06:03 Assessment and Plan Time with Patient: Less than 30
[2021-11-13] MEDS: MULTIVITAMINS, THERA 1 EACH TAB PO SCH (13:00)
[2021-11-13] MEDS: SENNOSIDES-DOCUSATE SODIUM 1 EACH TAB PO SCH (20:01)
[2021-11-13] MEDS: ATORVASTATIN 20 MG TAB PO SCH (20:01)
[2021-11-13] MEDS: TEMAZEPAM 15 MG CAP PO PRN (23:24)
[2021-11-14] MEDS: HYDROcodone/APAP 10-325MG 1 EACH TAB PO PRN ×3 (04:30→20:25)
[2021-11-14] MEDS: FAMOTIDINE 20 MG TAB PO SCH (08:24)
[2021-11-14] MEDS: lisinopriL 10 MG TAB PO SCH (08:24)
[2021-11-14] MEDS: ASPIRIN 81 MG PO SCH ×2 (08:24→20:24)
[2021-11-14] MEDS: MULTIVITAMINS, THERA 1 EACH TAB PO SCH (08:24)
[2021-11-14] MEDS: GABAPENTIN 100 MG CAP PO SCH (08:24)
[2021-11-14] MEDS: LACTATED RINGERS 1,000 ML IV SCH ×3 (08:25→20:27)
--- NOTE | 2021-11-14 11:01 | P.DS ---
Providers Expected date of discharge: 11/14/21 Attending physician: Abdulaziz Fletcher Consults: 11/10/21 09:06 Consult Physician Routine Consulting Provider: Stephanie Galarza Consult Reason/Comments: post op medical management Do you want consulting provider notified?: Yes Primary care physician: Jose G Wills - Discharge Diagnosis(es) (1) Status post total left knee replacement Patient was admitted to the OR on 11/10/21 to undergo a left total knee arthroplasty. She had failed conservative measures as an outpatient and desired to proceed with elective surgery after given informed consent. She underwent the above procedure which she tolerated well without complication. Postoperative hospital course has remained without complication. On day of discharge she is afebrile, vital signs stable, labs within acceptable ranges, tolerating by mouth meds and diet, voiding without difficulty, positive flatus, denies abdominal pain or calf pain, pain is controlled on oral pain medication and has no new complaints. Wound is benign, neurovascular status is intact, calf is soft and nontender, abdomen soft and nontender. Review of systems is negative for numbness, tingling, fever, chills, chest pain, shortness of breath, nausea, vomiting, dizziness, headaches, slurred speech or other. Status: Acute Priority: Medium Procedures: Left TKA Patient Condition at Discharge: Stable Plan - Discharge Summary Discharge Rx Participant: No New Discharge Prescriptions: New Aspirin [Adult Low Dose Aspirin EC] 81 mg PO BID #60 tab HYDROcodone/APAP 7.5-325MG [[place] 7.5-325] 1 - 2 each PO Q6HR PRN #42 tab PRN Reason: Pain Docusate [Colace] 100 mg PO BID #60 capsule Acetaminophen Tab [Tylenol] 650 mg PO Q4HR PRN tab PRN Reason: Pain Scale 1 To 5 Continue lisinopriL [Zestril] 10 mg PO DAILY Atorvastatin [Lipitor] 40 mg PO HS Multivitamins, Thera [Multivitamin (formulary)] 1 each PO DAILY@1200 tab Gabapentin [Neurontin] 100 mg PO DAILY Alendronate Sodium [Fosamax] 70 mg PO FR Meloxicam [Mobic] 15 mg PO DAILY Temazepam [Restoril] 30 mg PO HS Budesonide-Formot 160-4.5 Mcg [Symbicort 160-4.5 Mcg Inhaler] 2 puff INHALATION RT-BID PRN PRN Reason: sob Discontinued Aspirin [Adult Low Dose Aspirin EC] 81 mg PO DAILY Discharge Medication List Atorvastatin [Lipitor] 40 mg PO HS 03/26/20 [History] lisinopriL [Zestril] 10 mg PO DAILY 03/26/20 [History] Alendronate Sodium [Fosamax] 70 mg PO FR 12/24/20 [History] Multivitamins, Thera [Multivitamin (formulary)] 1 each PO DAILY@1200 tab 01/24/21 [Rx] Budesonide-Formot 160-4.5 Mcg [Symbicort 160-4.5 Mcg Inhaler] 2 puff INHALATION RT-BID PRN 11/09/21 [History] Gabapentin [Neurontin] 100 mg PO DAILY 11/09/21 [History] Meloxicam [Mobic] 15 mg PO DAILY 11/09/21 [History] Temazepam [Restoril] 30 mg PO HS 11/09/21 [History] Acetaminophen Tab [Tylenol] 650 mg PO Q4HR PRN tab 11/11/21 [Rx] Aspirin [Adult Low Dose Aspirin EC] 81 mg PO BID #60 tab 11/11/21 [Rx] Docusate [Colace] 100 mg PO BID #60 capsule 11/11/21 [Rx] HYDROcodone/APAP 7.5-325MG [[place] 7.5-325] 1 - 2 each PO Q6HR PRN #42 tab 11/11/21 [Rx] Follow up Appointment(s)/Referral(s): [facility], [NON-STAFF] - ([facility] will call you to arrange a visit) Jose G Wills DO [Primary Care Provider] - 1 Week Abdulaziz Fletcher MD [STAFF PHYSICIAN] - 10 Days Activity/Diet/Wound Care/Special Instructions: WBAT Keep wound clean and dry take meds as directed F/U in office Discharge Disposition: TRANSFER TO SNF/ECF
--- NOTE | 2021-11-14 14:59 | P.PN ---
Subjective Progress Note Date: 11/14/21 - Reason for Consult Perioperative complication management - History of Present Illness Patient was [id number] female admitted for left knee arthroplasty success and underwent surgery patient is clinically doing well her pain is well- controlled patient does have history of aortic regurgitation but is symptomatic from that at this time patient is otherwise clinically doing well denied any other symptoms at this time. 11/11/2021 Patient was seen and evaluated in follow-up this morning with no acute overnight issues noted. Patient continues to have some discomfort of the left knee although reports she plans on being discharged today. Patient has been resumed on blood pressure medications and current blood pressure is 126/71 and denies an y dizziness or lightheadedness. Patient reports to tolerating diet with no reports of nausea or vomiting noted. Patient reports that she will be going to live with her son while they are waiting for her senior apartment to be available. Patient is afebrile and denies any chest pain or shortness of breath. Oxygen saturation is 95% on room air. Encouraged incentive spirometer and continue to use at least 10 times every hour while awake. Appropriate home medications have been resumed. 11/12/2021 Patient ER today resting with no acute events overnight. Still in physical therapy yesterday. Patient has discomfort to the left knee and states that her [place] was increased tablet as needed. She is tolerating diet, no nausea or vomiting noted. She is passing gas and bowel movement yet. Currently afebrile. No incentive spirometer noted at the bedside will order another one. Is complaining of some heartburn today states from the pancakes for breakfast increased Tums to 4 times a day. Labs today show white count 6.8, hemoglobin 10.6, sodium 137, potassium 4.3, BUN 14, creatinine 0.92. Plan is for discharge to ECF which will most likely happen on Sunday. 11/13/2021 Patient is postoperative day #3 left knee total arthroplasty. Medications were adjusted yesterday she reports improved pain management to the left knee. She has been up ambulating today. She remains afebrile, heart rate 87, blood pressure 152/62 this morning, 97% room air. Continue to encourage incentive spirometry. She is tolerating diet. Plan is for discharge to ECF most likely on Sunday. Labs reviewed today hemoglobin stable at 10.1. Encouraged patient to use IS. 11/14/2021 Patient is seen and evaluated and follow-up today status post left total knee arthroplasty and orthopedics planning on discharging today. Patient continues with some weakness and would like [facility] for physical therapy. Awaiting updated PT/OT notes and social work is following working on accepting facilities. She does have incentive spirometer at the bedside and encourage the patient continue using at least 10 times every hour while awake. Patient is afebrile denies any chest pain or shortness of breath. Patient continues with left knee pain although feels elevating and using ice packs have been helping. Patient denies any acute overnight events. Review of systems: Constitutional: No reports of fatigue, fever, or chills Cardiovascular: No reports of chest pain or palpitations Respiratory: No reports of shortness of breath or cough GI: No reports of nausea, vomiting, or diarrhea : No reports of dysuria or retention Neurovascular: No reports of weakness or numbness All medications have been reviewed PHYSICAL EXAMINATION: GENERAL: The patient is alert and oriented x3, not in any acute distress. Well developed, well nourished. HEENT: Pupils are round and equally reacting to light. EOMI. No scleral icterus. No conjunctival pallor. Normocephalic, atraumatic. No pharyngeal erythema. No thyromegaly. CARDIOVASCULAR: S1 and S2 present. No murmurs, rubs, or gallops. PULMONARY: Diminished breath sounds bilaterally otherwise chest is clear to auscultation, no wheezing or crackles. ABDOMEN: Soft, nontender, nondistended, normoactive bowel sounds. No palpable organomegaly. MUSCULOSKELETAL: Left knee discomfort on palpation with some minimal post surgical swelling noted, swelling is improved EXTREMITIES: No cyanosis, clubbing, or pedal edema. NEUROLOGICAL: Gross neurological examination did not reveal any focal deficits. diffusely weak SKIN: No rashes. Assessment: -Hypertension: continue home dose of lisinopril -Aortic regurgitation: asymptomatic follow-up as an outpatient -Hyperlipidemia -Gastroesophageal reflux disease -Osteoarthritis status post left knee arthroplasty pain management and DVT prophylaxis as per primary service Plan: Recommend continue with current medications and appropriate home medications have been resumed. Recommend physical therapy evaluation as patient continues with left knee pain and some gait dysfunction and would like to go to [facility] for continued physical therapy. Social work following and working on accepting facilities and insurance authorization Encouraged incentive spirometer use at least 10 times every hour while awake Continue with local wound care to the left knee and elevate extremities while at rest, continue with ice packs for left knee as well Recommend outpatient follow-up with primary care provider and follow-up labs once discharged orthopedics working on discharge details as patient would like to go to subacute rehab for continued PT/OT therapy and awaiting an updated physical therapy notes and accepting facility with social work following and patient will require insurance authorization. We will continue to follow with orthopedics during hospitalization and would like to thank you for this consultation. The impression and plan of care has been dictated by Shruthi Manning, Nurse Practitioner as directed. Dr. Maria Del Rosario MD I have performed a history and examination and MDM of this patient, discussed th e same with the dictator, and agree with the dictator's assessment and plan as written ,documented as a scribe. Based on total visit time, I have performed more than 50% of the visit. Objective - Vital Signs Vital signs: Vital Signs Temp 98.4 F 11/14/21 07:39 Pulse 78 11/14/21 07:39 Resp 17 11/14/21 07:39 BP 149/72 11/14/21 07:39 Pulse Ox 94 L 11/14/21 07:39 FiO2 Intake & Output 11/13/21 11/14/21 11/14/21 18:59 06:59 18:59 Intake Total 1080 Balance 1080 Intake: Oral 1080 Other: Voiding Method Toilet Toilet # Voids 2 - Labs CBC & Chem 7: 11/13/21 06:42 11/12/21 06:03 Labs: Abnormal Lab Results - Last 24 Hours (Table) 11/13/21 Range/Units 06:42 RBC 3.51 L (4.10-5.20) X 10*6/uL Hgb 10.1 L (12.0-15.0) g/dL Hct 32.6 L (37.2-46.3) % MCHC 31.0 L (32.0-37.0) g/dL RDW 16.1 H (11.5-14.5) % Eosinophils # 0.58 H (0.04-0.35) X 10*3/uL
[2021-11-14] MEDS: SENNOSIDES-DOCUSATE SODIUM 1 EACH TAB PO SCH (20:24)
[2021-11-14] MEDS: ATORVASTATIN 20 MG TAB PO SCH (20:25)
[2021-11-15] MEDS: HYDROcodone/APAP 10-325MG 1 EACH TAB PO PRN ×2 (01:13→14:17)
[2021-11-15] MEDS: LACTATED RINGERS 1,000 ML IV SCH (10:17)
[2021-11-15] MEDS: ASPIRIN 81 MG PO SCH (10:32)
[2021-11-15] MEDS: GABAPENTIN 100 MG CAP PO SCH (10:33)
[2021-11-15] MEDS: lisinopriL 10 MG TAB PO SCH (10:35)
[2021-11-15] MEDS: FAMOTIDINE 20 MG TAB PO SCH (10:37)
[2021-11-15] MEDS: MULTIVITAMINS, THERA 1 EACH TAB PO SCH (12:30)
[2021-11-15 14:09] VITALS: BP 131/64; PULSE 82; RESP 17; TEMP 97.8
--- NOTE | 2021-11-15 15:12 | P.PN ---
Subjective Progress Note Date: 11/15/21 - Reason for Consult Perioperative complication management - History of Present Illness Patient was [id number] female admitted for left knee arthroplasty success and underwent surgery patient is clinically doing well her pain is well- controlled patient does have history of aortic regurgitation but is symptomatic from that at this time patient is otherwise clinically doing well denied any other symptoms at this time. 11/11/2021 Patient was seen and evaluated in follow-up this morning with no acute overnight issues noted. Patient continues to have some discomfort of the left knee although reports she plans on being discharged today. Patient has been resumed on blood pressure medications and current blood pressure is 126/71 and denies an y dizziness or lightheadedness. Patient reports to tolerating diet with no reports of nausea or vomiting noted. Patient reports that she will be going to live with her son while they are waiting for her senior apartment to be available. Patient is afebrile and denies any chest pain or shortness of breath. Oxygen saturation is 95% on room air. Encouraged incentive spirometer and continue to use at least 10 times every hour while awake. Appropriate home medications have been resumed. 11/12/2021 Patient ER today resting with no acute events overnight. Still in physical therapy yesterday. Patient has discomfort to the left knee and states that her [place] was increased tablet as needed. She is tolerating diet, no nausea or vomiting noted. She is passing gas and bowel movement yet. Currently afebrile. No incentive spirometer noted at the bedside will order another one. Is complaining of some heartburn today states from the pancakes for breakfast increased Tums to 4 times a day. Labs today show white count 6.8, hemoglobin 10.6, sodium 137, potassium 4.3, BUN 14, creatinine 0.92. Plan is for discharge to ECF which will most likely happen on Sunday. 11/13/2021 Patient is postoperative day #3 left knee total arthroplasty. Medications were adjusted yesterday she reports improved pain management to the left knee. She has been up ambulating today. She remains afebrile, heart rate 87, blood pressure 152/62 this morning, 97% room air. Continue to encourage incentive spirometry. She is tolerating diet. Plan is for discharge to ECF most likely on Sunday. Labs reviewed today hemoglobin stable at 10.1. Encouraged patient to use IS. 11/14/2021 Patient is seen and evaluated and follow-up today status post left total knee arthroplasty and orthopedics planning on discharging today. Patient continues with some weakness and would like [facility] for physical therapy. Awaiting updated PT/OT notes and social work is following working on accepting facilities. She does have incentive spirometer at the bedside and encourage the patient continue using at least 10 times every hour while awake. Patient is afebrile denies any chest pain or shortness of breath. Patient continues with left knee pain although feels elevating and using ice packs have been helping. Patient denies any acute overnight events. 11/15/2021 Patient was evaluated today continues with left knee pain and is using ice as she reports there is continued swelling. Patient able to work with physical therapy and was attempting to go to [facility] for continued physical therapy although patient was denied by insurance and Homecare is being arranged for the patient go home and have outpatient follow-up with physical therapy, home care, and orthopedics. Encourage the patient to continue using incentive spirometer at least 10 times every hour and following up with primary care provider on discharge. Encourage the patient continue using ice and restrictions per orthopedic services and elevate the left lower extremity while at rest. She is afebrile denies any chest pain or shortness of breath. Patient reports she is passing gas and having bowel movements with no reports of nausea or vomiting noted and tolerating diet. Review of systems: Constitutional: No reports of fatigue, fever, or chills Cardiovascular: No reports of chest pain or palpitations Respiratory: No reports of shortness of breath or cough GI: No reports of nausea, vomiting, or diarrhea : No reports of dysuria or retention Neurovascular: No reports of weakness or numbness All medications have been reviewed PHYSICAL EXAMINATION: GENERAL: The patient is alert and oriented x3, not in any acute distress. Well developed, well nourished. HEENT: Pupils are round and equally reacting to light. EOMI. No scleral icterus. No conjunctival pallor. Normocephalic, atraumatic. No pharyngeal erythema. No thyromegaly. CARDIOVASCULAR: S1 and S2 present. No murmurs, rubs, or gallops. PULMONARY: Diminished breath sounds bilaterally otherwise chest is clear to auscultation, no wheezing or crackles. ABDOMEN: Soft, nontender, nondistended, normoactive bowel sounds. No palpable organomegaly. MUSCULOSKELETAL: Left knee discomfort on palpation with some minimal post surgical swelling noted, swelling is improved EXTREMITIES: No cyanosis, clubbing, or pedal edema. NEUROLOGICAL: Gross neurological examination did not reveal any focal deficits. SKIN: No rashes. Assessment: -Hypertension: continue home dose of lisinopril -Aortic regurgitation: asymptomatic follow-up as an outpatient -Hyperlipidemia -Gastroesophageal reflux disease -Osteoarthritis status post left knee arthroplasty pain management and DVT prophylaxis as per primary service Plan: Recommend continue with current medications and appropriate home medications have been resumed. Recommend homecare arrangements for physical therapy in the outpatient setting as patient will now be going home Encouraged incentive spirometer use at least 10 times every hour while awake Continue with local wound care to the left knee and elevate extremities while at rest, continue with ice packs for left knee as well Recommend outpatient follow-up with primary care provider and follow-up labs once discharged orthopedics working on discharge with home care as patient was denied authorization to go to rehab at [facility]. We will continue to follow with orthopedics during hospitalization and would like to thank you for this consultation. The impression and plan of care has been dictated by Shruthi Manning, Nurse Practitioner as directed. Dr. Maria Del Rosario MD I have performed a history and examination and MDM of this patient, discussed the same with the dictator, and agree with the dictator's assessment and plan as written ,documented as a scribe. Based on total visit time, I have performed more than 50% of the visit. Objective - Vital Signs Vital signs: Vital Signs Temp 97.9 F 11/15/21 08:00 Pulse 76 11/15/21 08:00 Resp 16 11/15/21 08:00 BP 121/58 11/15/21 08:00 Pulse Ox 98 11/15/21 08:00 FiO2 Intake & Output 11/14/21 11/15/21 11/15/21 18:59 06:59 18:59 Other: Voiding Method Toilet Toilet # Voids 3 2 # Bowel Movements 1 - Labs CBC & Chem 7: 11/13/21 06:42 11/12/21 06:03
== END 2021-11-15 16:58 | disposition home health service (06) ==
LOC: OR 05:32 → 4SSUR 09:48 → OR 11-15 16:58
PROVIDERS: ATTEND Orthopaedic Surgery Sports Medicine
DX: M17.12 Unilateral primary osteoarthritis, left knee (principal); M21.062 Valgus deformity, not elsewhere classified, left knee; M81.0 Age-related osteoporosis without current pathological fracture; I10 Essential (primary) hypertension; E78.5 Hyperlipidemia, unspecified; K21.9 Gastro-esophageal reflux disease without esophagitis; R26.81 Unsteadiness on feet; Z88.5 Allergy status to narcotic agent; Z88.0 Allergy status to penicillin; Z91.040 Latex allergy status; Z79.899 Other long term (current) drug therapy; Z79.51 Long term (current) use of inhaled steroids; Z87.891 Personal history of nicotine dependence; Z96.651 Presence of right artificial knee joint; Z82.49 Family history of ischemic heart disease and other diseases of the circulatory system; Z79.1 Long term (current) use of non-steroidal anti-inflammatories (NSAID)
CPT/HCPCS: 97116; 97161; 85025; 88300; 73560; 27447; C1776; C1713; J2250; J1100; J0690; J2405; J3010; J2704; J1170 ×2

== ENCOUNTER 2022-08-23 17:21 | Emergency (ER) | payer MEDICARE ==
[2022-08-23 17:34] VITALS: TEMP 98
[2022-08-23] MEDS ORDERED: MORPHINE SULFATE 4 MG/ML SYRINGE IV STA (17:59)
[2022-08-23] MEDS ORDERED: DIPH,PERTUS(ACELL)TETVAC-LF 0.5 ML VIAL IM ONE (18:01)
--- NOTE | 2022-08-23 18:41 | CT ---
EXAMINATION TYPE: CT brain cspine wo con CT DLP: 1253.5 mGycm, Automated exposure control for dose reduction was used. DATE OF EXAM: 08/23/2022 6:17 PM COMPARISON: None. CLINICAL INDICATION:Female, 71 years old with history of fall injury; fall, laceration/contusion abov e right eye TECHNIQUE: Brain: Multiple axial CT images of the brain were obtained without IV contrast. Cspine: Axial CT images from the skull base to the inferior aspect of T2 we obtained without intraven ous contrast. Coronal and sagittal reformatted images were also reviewed. FINDINGS: Brain: Extra-axial spaces: No abnormal extra-axial fluid collections. Ventricular system: Dilatation in proportion to cerebral atrophy. Cerebral parenchyma: Cerebral atrophy. No acute intraparenchymal hemorrhage or mass effect. The joshi -white junction is well differentiated. Scattered hypoattenuating areas are seen within the white mat ter. Cerebellum: Unremarkable. Mass effect: No evidence of midline shift. Intracranial vasculature: Atherosclerotic calcifications of the intracranial vessels. Soft tissues: Right periorbital skin contusion with subcutaneous hematoma measuring 5.4 x 7 mm. Calvarium/osseous structures: No depressed skull fracture. Paranasal sinuses and mastoid air cells: Clear. Visualized orbits: Orbital contents are intact. Cervical spine: Fracture: None. Osseous structures: Unremarkable Vertebral alignment: Within normal limits. Spinal canal/Neural Foramina: No evidence of significant spinal canal narrowing. No evidence for sign ificant neural foraminal stenosis. Neck soft tissues: Prevertebral soft tissues are within normal limits. Other: The airway is patent. The lung apices are clear. Atherosclerosis of the arterial vasculature. Partially visualized right distal clavicle fracture. IMPRESSION: 1. No acute intracranial process. 2. Right periorbital hematoma without evidence of fracture. 3. Right distal clavicle fracture partially visualized. 4. No evidence of cervical spine fracture. 5. Mild multilevel degenerative disc disease.
--- NOTE | 2022-08-23 19:19 | XR ---
EXAMINATION TYPE: XR shoulder complete RT DATE OF EXAM: 08/23/2022 7:13 PM INDICATION: Patient age:Female; 71 years old; Reason for study: fall injury; COMPARISON: Right humerus 01/18/2021, CT Day. TECHNIQUE: The right shoulder was examined in AP, internally rotated and scapular Y projections. FINDINGS: There is acute fracture through the distal right clavicle as seen on prior CT there is displacement o f this fracture.. Degeneration changes are seen at the glenohumeral and acromioclavicular joint. Ther e is ossifications within the joint or within the supraspinatus tendon. IMPRESSION: 1. Distal right clavicle fracture with with displacement. 2. Suspected calcific tendinosis of the rotator cuff.
--- NOTE | 2022-08-23 19:20 | XR ---
EXAMINATION TYPE: XR femur LT DATE OF EXAM: 08/23/2022 7:13 PM INDICATION: Patient age:Female; 71 years old; Reason for study: fall injury; COMPARISON: 11/10/2021 TECHNIQUE: The left femur was examined in Frontal and lateral projections. FINDINGS: No evidence of acute osseous pathology, joint dislocation, or soft tissue swelling. Total left knee arthroplasty changes. Hardware appears intact. No evidence for periprosthetic fracture. IMPRESSION: 1. No acute osseous pathology. 2. Total knee arthroplasty changes with hardware in appropriate position.
[2022-08-23 20:11] VITALS: RESP 18
--- NOTE | 2022-08-23 20:34 | ED ---
Fall HPI - General Chief Complaint: Fall Stated Complaint: fall Time Seen by Provider: 08/23/22 17:33 Source: patient, EMS Mode of arrival: EMS - History of Present Illness Initial Comments: This patient is 71-year-old woman brought by ambulance of evaluation after fall. The patient reportedly at [facility] and she states she tripped over uneven ground. Bystander reports she may have tripped over the end of a bench. The patient notes she fell forward landing on her right shoulder and forehead. No loss of consciousness reported. No neck pain. She does complain of right shoulder pain. 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 Witnessed: yes, by bystander Place Fall Occurred: street Loss of Consciousness: none Prolonged Down Time?: no Location: face Location - Extremities: Right: Shoulder Severity: moderate Quality: sharp Context: tripped/slipped - Related Data Home Medications Medication Instructions Recorded Confirmed Atorvastatin [Lipitor] 40 mg PO HS 03/26/20 11/09/21 lisinopriL [Zestril] 10 mg PO DAILY 03/26/20 11/09/21 Alendronate Sodium [Fosamax] 70 mg PO FR 12/24/20 11/09/21 Budesonide-Formot 160-4.5 Mcg 2 puff INHALATION RT-BID PRN 11/09/21 11/09/21 [Symbicort 160-4.5 Mcg Inhaler] Gabapentin [Neurontin] 100 mg PO DAILY 11/09/21 11/09/21 Meloxicam [Mobic] 15 mg PO DAILY 11/09/21 11/09/21 Temazepam [Restoril] 30 mg PO HS 11/09/21 11/09/21 Previous Rx's Medication Instructions Recorded Multivitamins, Thera [Multivitamin 1 each PO DAILY@1200 tab 01/24/21 (formulary)] Acetaminophen Tab [Tylenol] 650 mg PO Q4HR PRN tab 11/11/21 Aspirin [Adult Low Dose Aspirin EC] 81 mg PO BID #60 tab 11/11/21 Docusate [Colace] 100 mg PO BID #60 capsule 11/11/21 HYDROcodone/APAP 7.5-325MG [[place] 1 - 2 each PO Q6HR PRN #42 tab 11/11/21 7.5-325] Calcium Carbonate [Tums] 500 mg PO QID PRN tab 11/14/21 Famotidine [Pepcid] 20 mg PO DAILY tab 11/14/21 Magnesium Hydroxide [Milk of 2,400 mg PO DAILY PRN ml 11/14/21 Magnesia Concentrate] traMADol HCl [Ultram] 50 mg PO Q6H PRN #15 tab 08/23/22 Allergies Allergy/AdvReac Type Severity Reaction Status Date / Time codeine Allergy passed out Verified 08/23/22 17:34 latex Allergy Itching Verified 08/23/22 17:34 Penicillins Allergy tongue Verified 08/23/22 17:34 swelling, throat closing meperidine [From Demerol] AdvReac "out of it" Verified 08/23/22 17:34 Review of Systems ROS Statement: Those systems with pertinent positive or pertinent negative responses have been documented in the HPI. ROS Other: All systems not noted in ROS Statement are negative. Constitutional: Denies: fever, weakness Eyes: Denies: eye pain, vision change Respiratory: Denies: cough, dyspnea Cardiovascular: Denies: chest pain, syncope Gastrointestinal: Denies: abdominal pain, vomiting Genitourinary: Denies: dysuria Musculoskeletal: Reports: as per HPI, arthralgia Skin: Denies: rash Neurological: Denies: headache, weakness Past Medical History Past Medical History: GERD/Reflux, Hyperlipidemia, Hypertension, Osteoarthritis (OA) Additional Past Medical History / Comment(s): bladder problems,can't empty bladder fully, self catheterizes frequently, nerve pain in "crotch" area & low back, two leaky heart valves, past hx ulcers, 'bad rt hip and both knees" History of Any Multi-Drug Resistant Organisms: None Reported Past Surgical History: Cholecystectomy, Hysterectomy, Orthopedic Surgery, Tonsillectomy Additional Past Surgical History / Comment(s): ORIF right ankle & then hardware removed, cataracts removed-stuart, pain clinic procedures, total rt knee jan 2021 and fell at home and dehised and had sx to cleaned out and repaired. rt breast lumpectomy, left TKR 11/25 Past Anesthesia/Blood Transfusion Reactions: Previous Problems w/ Anesthesia Additional Past Anesthesia/Blood Transfusion Reaction / Comment(s): years ago problem w/waking fron anesthesia, but not recently Past Psychological History: No Psychological Hx Reported Smoking Status: Former smoker Past Alcohol Use History: None Reported Past Drug Use History: None Reported - Past Family History Mother Family Medical History: No Reported History General Exam Limitations: no limitations General appearance: alert, in no apparent distress Head exam: Present: normocephalic, other (Frontal abrasion. Very mild tenderness no deformity). Absent: atraumatic Eye exam: Present: normal appearance, PERRL, EOMI. Absent: scleral icterus, conjunctival injection ENT exam: Present: normal oropharynx Neck exam: Present: other (Cervical collar). Absent: tenderness Respiratory exam: Present: normal lung sounds bilaterally. Absent: respiratory distress, wheezes, rales, rhonchi, stridor, chest wall tenderness Cardiovascular Exam: Present: regular rate, normal rhythm, normal heart sounds. Absent: systolic murmur, diastolic murmur, rubs, gallop GI/Abdominal exam: Present: soft. Absent: distended, tenderness, guarding, rebound, rigid, mass Extremities exam: Present: normal inspection, tenderness (Right shoulder), normal capillary refill. Absent: full ROM, pedal edema, calf tenderness Back exam: Absent: CVA tenderness (R), CVA tenderness (L), paraspinal tenderness, vertebral tenderness Neurological exam: Present: alert, oriented X3, CN II-XII intact. Absent: motor sensory deficit Skin exam: Present: warm, dry, normal color, abrasion (As above). Absent: rash Course Vital Signs 08/23/22 08/23/22 08/23/22 17:24 20:00 20:39 Temperature 98.0 F Pulse Rate 82 79 85 Respiratory 16 18 18 Rate Blood Pressure 130/64 142/75 137/61 O2 Sat by Pulse 98 98 99 Oximetry Medical Decision Making - Medical Decision Making This patient is 71-year-old woman evaluated after she had a ground-level fall. The patient has what appears to be right clavicle deformity. As there is distracting injury, the patient has CT of the brain and C-spine, which I interpreted as showing no acute bony injury and no intracranial hemorrhage. No cervical spine fracture. The patient also had right shoulder x-ray which does confirm there is distal right clavicle fracture as interpreted by myself. Left femur x-ray, interpreted by myself as no fracture. Patient is placed in sling for the clavicle fracture and will follow with orthopedics. Was pt. sent in by a medical professional or institution ([facility] Norton, CONSUMER EDUCATION SPECIALIST, urgent care, hospital, or [place] health care facility...) When possible be specific @ -[No] Did you speak to anyone other than the patient for history (EMS, parent, family, police, friend...)? What history was obtained from this source @ -[No] Did you review nursing and triage notes (agree or disagree)? Why? @ -[I reviewed and agree with nursing and triage notes] Were old charts reviewed (outside hosp., previous admission, EMS record, old EKG, old radiological studies, urgent care reports/EKG's, [place] health care facility records)? Report findings @ -[No old charts were reviewed] Differential Diagnosis (chest pain, altered mental status, abdominal pain women, abdominal pain men, vaginal bleeding, weakness, fever, dyspnea, syncope, headache, dizziness, GI bleed, back pain, seizure, CVA, palpatations, mental health, musculoskeletal)? @ -[Differential Musculoskeletal Muscular strain, contusion, ligament sprain, fracture, arthritis, septic arthritis, bursitis, cellulitis, muscle spasm, nerve compression, DVT, arterial occlusion, herpes zoster, electrolyte abnormality, tumor.... This is not meant to be in all inclusive list EKG interpreted by me (3pts min.). @ -[ X-rays interpreted by me (1pt min.). @ -[As above CT interpreted by me (1pt min.). @ -[As above U/S interpreted by me (1pt. min.). @ -[None done] What testing was considered but not performed or refused? (CT, X-rays, U/S, labs)? Why? @ -[None] What meds were considered but not given or refused? Why? @ -[None] Did you discuss the management of the patient with other professionals (jessica maravilla i.e. [facility] Norton, CONSUMER EDUCATION SPECIALIST, lab, RT, psych nurse, social service assistant, administrator social welfare, teacher, project control officer, case management coordinator)? Give summary @ -[No] Was smoking cessation discussed for >3mins.? @ -[No] Was critical care preformed (if so, how long)? @ -[No] Were there social determinants of health that impacted care today? How? (Homelessness, low income, unemployed, alcoholism, drug addiction, transportation, low edu. Level, literacy, decrease access to med. care, snf, rehab)? @ -[No] Was there de-escalation of care discussed even if they declined (Discuss DNR or withdrawal of care, Hospice)? DNR status @ -[No] What co-morbidities impacted this encounter? (DM, HTN, Smoking, COPD, CAD, Cancer, CVA, ARF, Chemo, Hep., AIDS, mental health diagnosis, sleep apnea, morbid obesity)? @ -[None] Was patient admitted / discharged? Hospital course, mention meds given and route, prescriptions, significant lab abnormalities, going to OR and other pertinent info. @ -[Discharged Undiagnosed new problem with uncertain prognosis? @ -[No] Drug Therapy requiring intensive monitoring for toxicity (Heparin, Nitro, Insul in, Cardizem)? @ -[No] Were any procedures done? @ -[No] Diagnosis/symptom? @ -[1. Acute right clavicle fracture, uncomplicated 2. Forehead abrasion, acute, uncomplicated Acute, or Chronic, or Acute on Chronic? @ -[default] Uncomplicated (without systemic symptoms) or Complicated (systemic symptoms)? @ -[default] Side effects of treatment? @ -[No] Exacerbation, Progression, or Severe Exacerbation? @ -[No] Poses a threat to life or bodily function? How? (Chest pain, [place], [place], pneumonia, PE, COPD, DKA, ARF, appy, cholecystitis, CVA, Diverticulitis, Homicidal, Suicidal, threat to staff... and all critical care pts) @ -[No] Disposition Clinical Impression: Fall, Clavicle fracture Disposition: HOME SELF-CARE Condition: Good Instructions (If sedation given, give patient instructions): Clavicle Fracture (DC), Fall Prevention for Older Adults (ED) Prescriptions: traMADol HCl [Ultram] 50 mg PO Q6H PRN #15 tab PRN Reason: Pain Is patient prescribed a controlled substance at d/c from ED?: No When asked, does pt state using other controlled substances?: No If prescribed controlled substance>3 days was MAPS reviewed?: Prescribed <3 Days If opioid is for acute pain is fill amount 7 days or less?: Yes If Rx opioid, was Start Talking consent form obtained?: Yes Referrals: Jose G Wills DO [Primary Care Provider] - 1-2 days Faizan Painter MD [STAFF PHYSICIAN] - 1-2 days
[2022-08-23 20:40] VITALS: BP 137/61; PULSE 85
== END 2022-08-23 20:51 | disposition home or self-care (01) ==
LOC: EC 17:21
DX: S42.031A Displaced fracture of lateral end of right clavicle, initial encounter for closed fracture (principal); I10 Essential (primary) hypertension; E78.5 Hyperlipidemia, unspecified; K21.9 Gastro-esophageal reflux disease without esophagitis; M19.90 Unspecified osteoarthritis, unspecified site; Z79.1 Long term (current) use of non-steroidal anti-inflammatories (NSAID); Z79.51 Long term (current) use of inhaled steroids; Z79.82 Long term (current) use of aspirin; Z79.899 Other long term (current) drug therapy; Z87.891 Personal history of nicotine dependence; Z88.0 Allergy status to penicillin; Z88.5 Allergy status to narcotic agent; Z91.040 Latex allergy status; Z90.49 Acquired absence of other specified parts of digestive tract; Z23 Encounter for immunization; W18.30XA Fall on same level, unspecified, initial encounter
CPT/HCPCS: 73552; 73030; 72125; 70450; 90715; 99284; 90471; 96374; J2270

== ENCOUNTER 2022-09-21 13:39 | Emergency (ER) | payer MEDICARE ==
[2022-09-21 14:10] LABS: Glucose,Whole Blood 102 mg/dL (70-110)
[2022-09-21 14:28] LABS: ALT 25 U/L (4-34); AST 36 U/L (14-36); African American GFR (CKD) >90 (>60 ml/min/1.73 sqM); Albumin 4.1 g/dL (3.5-5.0); Alkaline Phosphatase 109 U/L (38-126); Anion Gap 10 mmol/L; Blood Urea Nitrogen 12 mg/dL (7-17); Calcium 8.8 mg/dL (8.4-10.2); Carbon Dioxide 24 mmol/L (22-30); Chloride 101 mmol/L (98-107); Glucose 110 mg/dL (74-99); Magnesium 2.2 mg/dL (1.6-2.3); Non-African American GFR(CKD) >90 (>60 ml/min/1.73 sqM); Sodium 135 mmol/L (137-145); Total Bilirubin 0.9 mg/dL (0.2-1.3)
[2022-09-21 14:40] LABS: Potassium 4.5 mmol/L (3.5-5.1)
[2022-09-21 14:46] LABS: Creatine Kinase MB 2.2 ng/mL (0.0-2.4); Troponin I <0.012 ng/mL (0.000-0.034)
--- NOTE | 2022-09-21 15:02 | CT ---
EXAMINATION TYPE: CT brain marloine wo con DATE OF EXAM: 09/21/2022 COMPARISON: 08/23/2022 HISTORY: Fall. CT DLP: 1331.6 mGycm, Automated exposure control for dose reduction was used. CONTRAST: Patient injected with 0 mL of Isovue 300. CT of the brain is performed utilizing 3 mm thick sections through the posterior fossa and 3 mm thick sections through the remaining calvarium. Study is performed within 24 hours of arrival to the hospital. No abnormal hyperdensity is present to suggest an acute intracranial hemorrhage. No mass lesion is evident. No acute infarcts are evident. Ventricles and sulci are appropriate for the patient age. Paranasal sinuses and mastoid air cells within the [id number] are clear. IMPRESSIONS: 1. No acute intracranial process. Follow-up MRI can be performed as clinically indicated. CT cervical spine. COMPARISON: None CT of the cervical spine is performed in the axial plane at 2 mm thick sections. Reconstructed image s in the coronal, and sagittal plane are reviewed on the computer. No acute fractures are evident. There is mild retrolisthesis of C3 on C4. Vertebral body alignment is otherwise normal. Disc heights are preserved. Vertebral body heights are preserved. No spinal canal stenosis is evident. Mild left foraminal narrowing C4-5 is present. There is moderate left foraminal narrowing from uncove rtebral joint hypertrophy C3-4. IMPRESSIONS: 1. Mild foraminal narrowing upper left cervical spine from uncovertebral joint hypertrophy. 2. Mild grade 1 retrolisthesis of C3 posterior and C4.
--- NOTE | 2022-09-21 15:23 | ED ---
General Adult HPI - General Chief complaint: Syncope Stated complaint: SYNCOPE-FALL Time Seen by Provider: 09/21/22 13:44 Source: patient, EMS, RN notes reviewed Mode of arrival: EMS Limitations: no limitations - History of Present Illness Initial comments: Patient is a 71-year-old female presenting to the emergency room via EMS after being found unresponsive at home. EMS was contacted for a wellness visit to her apartment at her adult independent living apartment. According to the patient she slid off of her couch earlier this morning. She denies any loss of consciousness however according to EMS report she was unresponsive upon in itial assessment. Upon arrival to the emergency room she is a poor historian but alert and oriented 3. She complains of pain to the right clavicle area where she fractured her clavicle with a fall on 08/23/2022. She denies any pain in any other location. She denies any lacerations. She denies any headache, dizziness, blurred or double vision, abdominal pain, nausea, or vomiting. She has had multi ple falls recently in addition to her fall she has a past medical history significant for GERD, hypertension, hyperlipidemia, osteoarthritis, and urinary retention with previous self-catheterization. - Related Data Home Medications Medication Instructions Recorded Confirmed Atorvastatin [Lipitor] 40 mg PO HS 03/26/20 09/21/22 Alendronate Sodium [Fosamax] 70 mg PO MO 12/24/20 09/21/22 Temazepam [Restoril] 30 mg PO HS 11/09/21 09/21/22 Amitriptyline HCl [Elavil] 25 mg PO HS 09/21/22 09/21/22 Aspirin [Adult Low Dose Aspirin EC] 162 mg PO HS 09/21/22 09/21/22 Fluticasone Propion/Salmeterol 1 puff INHALATION RT-BID 09/21/22 09/21/22 [Advair 250-50 Diskus] Mirabegron [Myrbetriq] 25 mg PO DAILY 09/21/22 09/21/22 Multivit-Min/Iron/Folic/Lutein 1 tab PO DAILY 09/21/22 09/21/22 [Centrum Silver Women Tablet] lisinopriL [Zestril] 5 mg PO DAILY 09/21/22 09/21/22 Allergies Allergy/AdvReac Type Severity Reaction Status Date / Time codeine Allergy passed out Verified 09/21/22 16:24 latex Allergy Itching Verified 09/21/22 16:24 Penicillins Allergy tongue Verified 09/21/22 16:24 swelling, throat closing meperidine [From Demerol] AdvReac "out of it" Verified 09/21/22 16:24 Review of Systems ROS Statement: Those systems with pertinent positive or pertinent negative responses have been documented in the HPI. ROS Other: All systems not noted in ROS Statement are negative. Past Medical History Past Medical History: GERD/Reflux, Hyperlipidemia, Hypertension, Osteoarthritis (OA) Additional Past Medical History / Comment(s): bladder problems,can't empty bladder fully, self catheterizes frequently, nerve pain in "crotch" area & low back, two leaky heart valves, past hx ulcers, 'bad rt hip and both knees" History of Any Multi-Drug Resistant Organisms: None Reported Past Surgical History: Cholecystectomy, Hysterectomy, Orthopedic Surgery, Tonsillectomy Additional Past Surgical History / Comment(s): ORIF right ankle & then hardware removed, cataracts removed-stuart, pain clinic procedures, total rt knee jan 2021 and fell at home and dehised and had sx to cleaned out and repaired. rt breast lumpectomy, left TKR 11/25 Past Anesthesia/Blood Transfusion Reactions: Previous Problems w/ Anesthesia Additional Past Anesthesia/Blood Transfusion Reaction / Comment(s): years ago problem w/waking fron anesthesia, but not recently Past Psychological History: No Psychological Hx Reported Smoking Status: Former smoker Past Alcohol Use History: None Reported Past Drug Use History: None Reported - Past Family History Mother Family Medical History: No Reported History General Exam - General Exam Comments Initial Comments: GENERAL: No acute distress, well developed, well nourished. HEENT: Normocephalic, atraumatic. Pupils equal, round, reactive to light. Moist mucous membranes. C-collar intact upon initial evaluation. After clearing of c- collar and removal cervical spine no point tenderness and full neck range of motion. LUNGS: No respiratory distress. Clear to auscultation, no adventitious sounds, no use of accessory muscles. HEART: Regular rate and rhythm with systolic murmur III/ without rub, or gallop. ABDOMEN: Normal bowel sounds. Soft, non-tender, non-distended. BACK: Normal inspection. No vertebral tenderness. EXTREMITIES: No edema. No tenderness. Moves all extremities. NEUROLOGIC: Alert & oriented x 3. No focal weakness. Poor historian. CN II-XII grossly intact. PSYCHIATRIC: Flat affect and behavior. DERMATOLOGIC: Healing ecchymosis right restorationist region and right mid clavicle. No new evidence of ecchymosis or lacerations. Limitations: no limitations Course Vital Signs 09/21/22 09/21/22 09/21/22 13:41 14:14 14:50 Temperature 98.2 F Pulse Rate 73 69 71 Respiratory 17 16 18 Rate Blood Pressure 140/71 135/59 124/59 O2 Sat by Pulse 99 99 98 Oximetry 09/21/22 09/21/22 09/21/22 15:22 16:12 17:04 Temperature 98.0 F 97.9 F Pulse Rate 67 72 66 Respiratory 18 17 17 Rate Blood Pressure 124/57 119/80 148/62 O2 Sat by Pulse 99 99 99 Oximetry 09/21/22 18:23 Temperature 98.0 F Pulse Rate 73 Respiratory 18 Rate Blood Pressure 139/56 O2 Sat by Pulse 99 Oximetry Medical Decision Making - Medical Decision Making Was pt. sent in by a medical professional or institution (, PA, [facility], urgent care, hospital, or senior care...) When possible be specific @ -No Did you speak to anyone other than the patient for history (EMS, parent, family, police, friend...)? What history was obtained from this source @ -Yes, spoke with nurse regarding report from EMS. Did you review nursing and triage notes (agree or disagree)? Why? @ -I reviewed and agree with nursing and triage notes Were old charts reviewed (outside hosp., previous admission, EMS record, old EKG, old radiological studies, urgent care reports/EKG's, senior care records)? Report findings @ -No old charts were reviewed Differential Diagnosis (chest pain, altered mental status, abdominal pain women, abdominal pain men, vaginal bleeding, weakness, fever, dyspnea, syncope, headache, dizziness, GI bleed, back pain, seizure, CVA, palpatations, mental health, musculoskeletal)? @ -Differential Musculoskeletal Muscular strain, contusion, ligament sprain, fracture, arthritis, septic arthritis, bursitis, cellulitis, muscle spasm, nerve compression, DVT, arterial occlusion, herpes zoster, electrolyte abnormality, tumor.... This is not meant to be in all inclusive list EKG interpreted by me (3pts min.). @ -None done X-rays interpreted by me (1pt min.). @ -Chest x-ray two-view: No acute cardiopulmonary process. No consolidation, effusion or pneumothorax. X-ray AP pelvis: Osteoarthritis. Hip joint space narrowing consistent with arthritis, no fracture or subluxation. CT interpreted by me (1pt min.). @ -CT brain and cervical spine: No acute intracranial process. No intracranial hemorrhage or mass. Cervical spine without fracture or subluxation. Chronic cervical spine changes noted U/S interpreted by me (1pt. min.). @ -None done What testing was considered but not performed or refused? (CT, X-rays, U/S, labs)? Why? @ -None What meds were considered but not given or refused? Why? @ -Analgesics offered but declined Did you discuss the management of the patient with other professionals (professionals i.e. , PA, [facility], lab, RT, psych nurse, social work professor, blockman, teacher, sailing officer, embedded case manager)? Give summary @ -No Was smoking cessation discussed for >3mins.? @ -No Was critical care preformed (if so, how long)? @ -No Were there social determinants of health that impacted care today? How? (Homelessness, low income, unemployed, alcoholism, drug addiction, transportation, low edu. Level, literacy, decrease access to med. care, snf, rehab)? @ -No Was there de-escalation of care discussed even if they declined (Discuss DNR or withdrawal of care, Hospice)? DNR status @ -No What co-morbidities impacted this encounter? (DM, HTN, Smoking, COPD, CAD, Cancer, CVA, ARF, Chemo, Hep., AIDS, mental health diagnosis, sleep apnea, morbid obesity)? @ -None Was patient admitted / discharged? Hospital course, mention meds given and route, prescriptions, significant lab abnormalities, going to OR and other pertinent info. @ -Patient is 71-year-old female presenting to the emergency room via EMS after a wellness check found her to be unresponsive on the floor. She reports that she slid off of her couch earlier in the morning. On arrival she is alert and oriented 3 with no focal neurological deficits. C-collar is intact. Will workup regarding unwitnessed fall with CT of the brain cervical spine, chest x-ray, pelvis x-ray, CBC, CMP, coags, troponin and CK. Cervical spine process. CMP shows a low sodium 135, elevated glucose 110, remaining electrolytes normal. Renal function and liver function normal. Troponin negative. CK normal. CBC and coags normal. Chest x-ray negative for acute cardiopulmonary process. X-ray of pelvis negative for fracture or subluxation. CT of brain and cervical spine negative for acute intracranial or cervical spine processes. No indication for further diagnostic imaging or laboratory studies. Findings discussed with patient. Encouraged fall precautions, possible fall alert bracelet/necklace along with slow position changes at home. Advised follow-up with primary care provider. Questions and concerns answered. Return parameters to the emergency room discussed. Will discharge home in stable condition with use of [id number] Tylenol as needed for pain advising fall precautions to prevent falls along with follow-up with primary care provider. Undiagnosed new problem with uncertain prognosis? @ -No Drug Therapy requiring intensive monitoring for toxicity (Heparin, Nitro, Insulin, Cardizem)? @ -No Were any procedures done? @ -No Diagnosis/symptom? @ -Fall Acute, or Chronic, or Acute on Chronic? @ -Acute Uncomplicated (without systemic symptoms) or Complicated (systemic symptoms)? @ -Uncomplicated Side effects of treatment? @ -No Exacerbation, Progression, or Severe Exacerbation? @ -No Poses a threat to life or bodily function? How? (Chest pain, USA, [place], pneumonia, PE, COPD, DKA, ARF, appy, cholecystitis, CVA, Diverticulitis, Homicidal, Suicidal, threat to staff... and all critical care pts) @ -No. Case discussed with Dr. Milton. - Lab Data Result diagrams: 09/21/22 16:08 09/21/22 13:59 Lab Results 09/21/22 09/21/22 09/21/22 Range/Units 13:59 13:59 14:04 WBC (3.8-10.6) k/uL RBC (3.80-5.40) m/uL Hgb (11.4-16.0) gm/dL Hct (34.0-46.0) % MCV (80.0-100.0) fL MCH (25.0-35.0) pg MCHC (31.0-37.0) g/dL RDW (11.5-15.5) % Plt Count (150-450) k/uL MPV Neutrophils % % Lymphocytes % % Monocytes % % Eosinophils % % Basophils % % Neutrophils # (1.3-7.7) k/uL Lymphocytes # (1.0-4.8) k/uL Monocytes # (0-1.0) k/uL Eosinophils # (0-0.7) k/uL Basophils # (0-0.2) k/uL PT (9.0-12.0) sec INR (<1.2) APTT (22.0-30.0) sec Sodium 135 L (137-145) mmol/L Potassium 4.5 (3.5-5.1) mmol/L Chloride 101 (98-107) mmol/L Carbon Dioxide 24 (22-30) mmol/L Anion Gap 10 mmol/L BUN 12 (7-17) mg/dL Creatinine 0.64 (0.52-1.04) mg/dL Est GFR (CKD-EPI)AfAm >90 (>60 ml/min/1.73 sqM) Est GFR (CKD-EPI)NonAf >90 (>60 ml/min/1.73 sqM) Glucose 110 H (74-99) mg/dL POC Glucose (mg/dL) 102 (70-110) mg/dL POC Glu Information Systems Technician Iram Blanchard Calcium 8.8 (8.4-10.2) mg/dL Magnesium 2.2 (1.6-2.3) mg/dL Total Bilirubin 0.9 (0.2-1.3) mg/dL AST 36 (14-36) U/L ALT 25 (4-34) U/L Alkaline Phosphatase 109 (38-126) U/L CK-MB (CK-2) 2.2 (0.0-2.4) ng/mL Troponin I <0.012 (0.000-0.034) ng/mL Total Protein 7.0 (6.3-8.2) g/dL Albumin 4.1 (3.5-5.0) g/dL 09/21/22 09/21/22 Range/Units 16:08 17:34 WBC 8.6 (3.8-10.6) k/uL RBC 4.20 (3.80-5.40) m/uL Hgb 13.4 (11.4-16.0) gm/dL Hct 39.7 (34.0-46.0) % MCV 94.4 (80.0-100.0) fL MCH 31.8 (25.0-35.0) pg MCHC 33.7 (31.0-37.0) g/dL RDW 14.4 (11.5-15.5) % Plt Count 259 (150-450) k/uL MPV 9.3 Neutrophils % 78 % Lymphocytes % 14 % Monocytes % 6 % Eosinophils % 1 % Basophils % 1 % Neutrophils # 6.7 (1.3-7.7) k/uL Lymphocytes # 1.2 (1.0-4.8) k/uL Monocytes # 0.5 (0-1.0) k/uL Eosinophils # 0.1 (0-0.7) k/uL Basophils # 0.0 (0-0.2) k/uL PT 10.5 (9.0-12.0) sec INR 1.0 (<1.2) APTT 22.4 (22.0-30.0) sec Sodium (137-145) mmol/L Potassium (3.5-5.1) mmol/L Chloride (98-107) mmol/L Carbon Dioxide (22-30) mmol/L Anion Gap mmol/L BUN (7-17) mg/dL Creatinine (0.52-1.04) mg/dL Est GFR (CKD-EPI)AfAm (>60 ml/min/1.73 sqM) Est GFR (CKD-EPI)NonAf (>60 ml/min/1.73 sqM) Glucose (74-99) mg/dL POC Glucose (mg/dL) (70-110) mg/dL POC Glu Information Systems Technician ID Calcium (8.4-10.2) mg/dL Magnesium (1.6-2.3) mg/dL Total Bilirubin (0.2-1.3) mg/dL AST (14-36) U/L ALT (4-34) U/L Alkaline Phosphatase (38-126) U/L CK-MB (CK-2) (0.0-2.4) ng/mL Troponin I (0.000-0.034) ng/mL Total Protein (6.3-8.2) g/dL Albumin (3.5-5.0) g/dL - Radiology Data Radiology results: report reviewed, image reviewed Disposition Clinical Impression: Fall Disposition: HOME SELF-CARE Condition: Stable Instructions (If sedation given, give patient instructions): Fall Prevention for Older Adults (ED) Additional Instructions: Fall precautions including the use of a fall alert bracelet or necklace recommended. Please change positions slowly and stay well hydrated. For pain please utilize Tylenol [id number] as needed. Please follow-up with your primary care provider. Please return to the Emergency Department if symptoms worsen or any other concerns. Is patient prescribed a controlled substance at d/c from ED?: No Referrals: Jose G Wills DO [Primary Care Provider] - 1-2 days
--- NOTE | 2022-09-21 15:58 | XR ---
EXAMINATION TYPE: XR chest 2V DATE OF EXAM: 09/21/2022 COMPARISON: Chest x-ray February 12, 2021 HISTORY: Fall injury with pain TECHNIQUE: Frontal and lateral views of the chest are obtained. FINDINGS: There is no suspicious focal air space opacity, pleural effusion, or pneumothorax seen. T he cardiac silhouette size is stable and within normal limits. Underlying scoliosis is present. IMPRESSION: No acute cardiopulmonary process.
--- NOTE | 2022-09-21 16:06 | XR ---
EXAMINATION TYPE: XR pelvis AP view DATE OF EXAM: 09/21/2022 Comparison: None Clinical History: 71-year-old female pain after fall Findings: Mild superolateral joint space narrowing of both hips. No acute fracture, subluxation, dislocation is seen. Sacrum partially obscured by stool and bowel content. Impression: Mild degenerative joint space narrowing in both hips. No acute osseous abnormality seen.
[2022-09-21 16:48] LABS: Basophils % (A) 1 %; Eosinophils # (A) 0.1 k/uL (0-0.7); Eosinophils % (A) 1 %; HCT 39.7 % (34.0-46.0); HGB 13.4 gm/dL (11.4-16.0); Lymphocytes # (A) 1.2 k/uL (1.0-4.8); Lymphocytes % (A) 14 %; MCH 31.8 pg (25.0-35.0); MCHC 33.7 g/dL (31.0-37.0); MCV 94.4 fL (80.0-100.0); Mean Platelet Volume 9.3; Monocytes # (A) 0.5 k/uL (0-1.0); Monocytes % (A) 6 %; Neutrophils # (A) 6.7 k/uL (1.3-7.7); Neutrophils % (A) 78 %; Platelet Count 259 k/uL (150-450); RDW 14.4 % (11.5-15.5); WBC 8.6 k/uL (3.8-10.6)
[2022-09-21 18:13] LABS: Partial Thromboplastin Time 22.4 sec (22.0-30.0); Prothrombin Time 10.5 sec (9.0-12.0)
[2022-09-21 18:23] VITALS: BP 139/56; PULSE 73; RESP 18; TEMP 98
== END 2022-09-21 18:36 | disposition home or self-care (01) ==
LOC: EC 13:39
DX: M25.511 Pain in right shoulder (principal); M43.12 Spondylolisthesis, cervical region; M47.812 Spondylosis without myelopathy or radiculopathy, cervical region; E78.5 Hyperlipidemia, unspecified; I10 Essential (primary) hypertension; M19.90 Unspecified osteoarthritis, unspecified site; Z87.891 Personal history of nicotine dependence; Z79.1 Long term (current) use of non-steroidal anti-inflammatories (NSAID); Z79.82 Long term (current) use of aspirin; Z79.899 Other long term (current) drug therapy; Z88.5 Allergy status to narcotic agent; Z88.0 Allergy status to penicillin; Z91.040 Latex allergy status; W19.XXXA Unspecified fall, initial encounter
CPT/HCPCS: 36415; 70450; 71046; 72125; 72170; 80053; 82553; 83735; 84484; 85025; 85610; 85730; 93005; 99285

== ENCOUNTER 2023-05-06 11:39 | Emergency (ER) | payer MEDICARE ==
--- NOTE | 2023-05-06 12:22 | ED ---
General Adult HPI - General Chief complaint: Fall Stated complaint: Fall Time Seen by Provider: 05/06/23 11:55 Source: patient, family, RN notes reviewed, old records reviewed Mode of arrival: wheelchair Limitations: no limitations - History of Present Illness Initial comments: This a 72-year-old female presents emergency department after she had fallen and hit her head on a jewelry dresser. Patient states she hit the upper lateral part of the left orbit. Patient denies losing consciousness. Patient denies blood thinners. Patient is being days. Patient denies neck pain. Patient denies numbness or weakness. Patient has tenderness over the orbits on the lateral aspect of the eye. Patient denies any visual disturbance. - Related Data Home Medications Medication Instructions Recorded Confirmed Atorvastatin [Lipitor] 40 mg PO HS 03/26/20 01/09/23 Fluticasone Propion/Salmeterol 1 puff INHALATION RT-BID 09/21/22 01/09/23 [Advair 250-50 Diskus] Mirabegron [Myrbetriq] 25 mg PO DAILY 09/21/22 01/09/23 Multivit-Min/Iron/Folic/Lutein 1 tab PO DAILY 09/21/22 01/09/23 [Centrum Silver Women Tablet] lisinopriL [Zestril] 5 mg PO DAILY 09/21/22 01/09/23 Temazepam [Restoril] 15 mg PO HS 01/09/23 01/09/23 Previous Rx's Medication Instructions Recorded Cyanocobalamin [Vitamin B-12] 1,000 mcg PO DAILY 30 Days #60 tab 01/12/23 Donepezil [Aricept] 5 mg PO HS 30 Days #30 tab 01/12/23 Allergies Allergy/AdvReac Type Severity Reaction Status Date / Time codeine Allergy passed out Verified 05/06/23 11:53 latex Allergy Itching Verified 05/06/23 11:53 Penicillins Allergy tongue Verified 05/06/23 11:53 swelling, throat closing meperidine [From Demerol] AdvReac "out of it" Verified 05/06/23 11:53 Review of Systems ROS Statement: Those systems with pertinent positive or pertinent negative responses have been documented in the HPI. ROS Other: All systems not noted in ROS Statement are negative. Past Medical History Past Medical History: GERD/Reflux, Hyperlipidemia, Hypertension, Osteoarthritis (OA) Additional Past Medical History / Comment(s): bladder problems,can't empty bladder fully, self catheterizes frequently, nerve pain in "crotch" area & low back, two leaky heart valves, past hx ulcers, 'bad rt hip and both knees" History of Any Multi-Drug Resistant Organisms: None Reported Past Surgical History: Cholecystectomy, Hysterectomy, Orthopedic Surgery, Tonsillectomy Additional Past Surgical History / Comment(s): ORIF right ankle & then hardware removed, cataracts removed-stuart, pain clinic procedures, total rt knee jan 2021 and fell at home and dehised and had sx to cleaned out and repaired. rt breast lumpectomy, left TKR 11/25 Past Anesthesia/Blood Transfusion Reactions: Previous Problems w/ Anesthesia Additional Past Anesthesia/Blood Transfusion Reaction / Comment(s): years ago problem w/waking fron anesthesia, but not recently Past Psychological History: No Psychological Hx Reported Smoking Status: Former smoker Past Alcohol Use History: None Reported Past Drug Use History: None Reported - Past Family History Mother Family Medical History: No Reported History General Exam - General Exam Comments Initial Comments: GENERAL: Patient is well-developed and well-nourished. Patient is nontoxic and well- hydrated and is in mild distress. ENT: Neck is soft and supple. No significant lymphadenopathy is noted. Oropharynx is clear. Moist mucous membranes. Neck has full range of motion without eliciting any pain. EYES: The sclera were anicteric and conjunctiva were pink and moist. Extraocular movements were intact and pupils were equal round and reactive to light. Patient has a contusion to the superior lateral aspect of the left orbit and it is tender to palpation PULMONARY: Unlabored respirations. Good breath sounds bilaterally. No audible rales rhonchi or wheezing was noted. CARDIOVASCULAR: There is a regular rate and rhythm without any murmurs gallops or rubs. ABDOMEN: Soft and nontender with normal bowel sounds. SKIN: Contusion to the superior lateral aspect of the left orbit NEUROLOGIC: Patient is alert and oriented x3. Cranial nerves II through XII are grossly intact. Motor and sensory are also intact. Normal speech, volume and content. Symmetrical smile. MUSCULOSKELETAL: Normal extremities with adequate strength and full range of motion. LYMPHATICS: No significant lymphadenopathy is noted PSYCHIATRIC: Normal psychiatric evaluation. Limitations: no limitations Course Vital Signs 05/06/23 05/06/23 11:50 13:50 Temperature 97.5 F L 98.7 F Pulse Rate 63 65 Respiratory 18 16 Rate Blood Pressure 131/70 125/47 O2 Sat by Pulse 98 99 Oximetry Medical Decision Making - Medical Decision Making Was pt. sent in by a medical professional or institution ([facility], FIELD TECH, urgent ca re, hospital, or shelter...) When possible be specific @ -No Did you speak to anyone other than the patient for history (EMS, parent, family, police, friend...)? What history was obtained from this source @ -No Did you review nursing and triage notes (agree or disagree)? Why? @ -I reviewed and agree with nursing and triage notes Were old charts reviewed (outside hosp., previous admission, EMS record, old EKG, old radiological studies, urgent care reports/EKG's, shelter records)? Report findings @ -No old charts were reviewed Differential Diagnosis (chest pain, altered mental status, abdominal pain women, abdominal pain men, vaginal bleeding, weakness, fever, dyspnea, syncope, headache, dizziness, GI bleed, back pain, seizure, CVA, palpatations, mental health, musculoskeletal)? @ -Cervical fracture, skull fracture, orbital fracture, intercranial hemorrhage, this is not an all inclusive list EKG interpreted by me (3pts min.). @ -As above X-rays interpreted by me (1pt min.). @ -None done CT interpreted by me (1pt min.). @ -T abnormality orbits CT of the brain and CT of the C-spine show no acute abnormality U/S interpreted by me (1pt. min.). @ -None done What testing was considered but not performed or refused? (CT, X-rays, U/S, labs)? Why? @ -None What meds were considered but not given or refused? Why? @ -None Did you discuss the management of the patient with other professionals (professionals i.e. [facility], FIELD TECH, lab, RT, psych nurse, social media sr strategy manager, parking meter servicer, teacher, dog license officer supervisor, top case assembler)? Give summary @ -No Was smoking cessation discussed for >3mins.? @ -No Was critical care preformed (if so, how long)? @ -No Were there social determinants of health that impacted care today? How? (Homelessness, low income, unemployed, alcoholism, drug addiction, transportation, low edu. Level, literacy, decrease access to med. care, long-term, rehab)? @ -No Was there de-escalation of care discussed even if they declined (Discuss DNR or withdrawal of care, Hospice)? DNR status @ -No What co-morbidities impacted this encounter? (DM, HTN, Smoking, COPD, CAD, Cancer, CVA, ARF, Chemo, Hep., AIDS, mental health diagnosis, sleep apnea, morbid obesity)? @ -None Was patient admitted / discharged? Hospital course, mention meds given and route, prescriptions, significant lab abnormalities, going to OR and other pertinent info. @ -Patient's CAT scans of the orbits brain and C-spine were all negative. Patient was comfortable going home. Undiagnosed new problem with uncertain prognosis? @ -No Drug Therapy requiring intensive monitoring for toxicity (Heparin, Nitro, Insulin, Cardizem)? @ -No Were any procedures done? @ -No Diagnosis/symptom? @ -Contusion forehead Acute, or Chronic, or Acute on Chronic? @ -Acute Uncomplicated (without systemic symptoms) or Complicated (systemic symptoms)? @ -Complicated Side effects of treatment? @ -No Exacerbation, Progression, or Severe Exacerbation? @ -No Poses a threat to life or bodily function? How? (Chest pain, USA, [place], pneumonia, PE, COPD, DKA, ARF, appy, cholecystitis, CVA, Diverticulitis, Homicidal, Suicidal, threat to staff... and all critical care pts) @ -No Disposition Clinical Impression: Contusion of forehead, Fall Disposition: HOME SELF-CARE Instructions (If sedation given, give patient instructions): Fall Prevention for Older Adults (ED), Contusion in Adults (ED) Is patient prescribed a controlled substance at d/c from ED?: No Referrals: Jose G Wills DO [Primary Care Provider] - 1-2 days Time of Disposition: 13:44
--- NOTE | 2023-05-06 13:09 | CT ---
EXAMINATION TYPE: CT brain cspine wo con, CT orbits wo con CT DLP: 829.4 mGycm, Automated exposure control for dose reduction was used. DATE OF EXAM: 05/06/2023 12:35 PM COMPARISON: None. CLINICAL INDICATION:Female, 72 years old with history of Trauma; Fall TECHNIQUE: Brain: Multiple axial CT images of the brain were obtained without IV contrast. Cspine: Axial CT images from the skull base to the inferior aspect of T2 we obtained without intraven ous contrast. Coronal and sagittal reformatted images were also reviewed. Orbits: Axial imaging of the orbits with sagittal coronal reformats. FINDINGS: Brain: Extra-axial spaces: No abnormal extra-axial fluid collections. Ventricular system: Dilatation in proportion to cerebral atrophy. Cerebral parenchyma: Cerebral atrophy. No acute intraparenchymal hemorrhage or mass effect. The joshi -white junction is well differentiated. Scattered hypoattenuating areas are seen within the white mat ter. Cerebellum: Unremarkable. Mass effect: No evidence of midline shift. Intracranial vasculature: Atherosclerotic calcifications of the intracranial vessels. Soft tissues: Normal. Calvarium/osseous structures: No depressed skull fracture. Paranasal sinuses and mastoid air cells: Mild scattered mucosal thickening and or secretions. Visualized orbits: Bilaterally aphakia. The intraconal extraconal fat is preserved. There is no evide nce of orbital fracture. The intraocular muscles and optic nerves appear within normal limits. Cervical spine: Fracture: None. Osseous structures: Multilevel degenerative disc disease changes with endplate spurring and disc oste ophyte complex's. Vertebral alignment: Scoliosis changes throughout the spine. Spinal canal/Neural Foramina: No evidence of significant spinal canal narrowing. No evidence for sign ificant neural foraminal stenosis. Neck soft tissues: Prevertebral soft tissues are within normal limits. Other: The airway is patent. The lung apices are clear. Atherosclerosis of the carotid bifurcations. IMPRESSION: 1. No acute intracranial process. 2. No evidence of cervical spine fracture. 3. Mild multilevel degenerative disc disease with scoliosis. 4. The orbits and globes are intact. No evidence of fracture.
[2023-05-06 15:28] VITALS: BP 125/47; PULSE 65; RESP 16; TEMP 98.7
== END 2023-05-06 13:50 | disposition home or self-care (01) ==
LOC: EC 11:39
DX: S00.83XA Contusion of other part of head, initial encounter (principal); E78.5 Hyperlipidemia, unspecified; I10 Essential (primary) hypertension; Z87.891 Personal history of nicotine dependence; Z79.899 Other long term (current) drug therapy; Z88.0 Allergy status to penicillin; Z88.5 Allergy status to narcotic agent; Z91.040 Latex allergy status; Z88.8 Allergy status to other drugs, medicaments and biological substances; W22.8XXA Striking against or struck by other objects, initial encounter
CPT/HCPCS: 70450; 70480; 72125; 99284

== ENCOUNTER → 2023-12-17 | Outpatient (CLI) | payer MEDICARE | END | disposition home or self-care (01) | LOC: LABPRL 20:00 | DX: R41.82 Altered mental status, unspecified (principal) | CPT/HCPCS: 87086 ==